=== PATIENT | female | born 1980 | race Caucasian/White ===

== ENCOUNTER → 2017-05-09 13:55 | Outpatient (POV) | payer MEDICARE, SELFPAY ==
[2017-05-09 14:26] VITALS: BP 148/91; PULSE 84; RESP 20; O2SAT 99; BMI 34.4
--- NOTE | 2017-05-09 14:49 | HMH.PAINSOAP ---
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 She also has significant chest pain every day. Her grafts have already occluded so she continues with daily chest pain and shortness of breath with significant anginal symptoms. She has significant peripheral vascular disease and coronary disease with a poor prognosis. She also has low back pain with lumbar radicular symptoms and significant diabetic peripheral neuropathy. We are medically managing with oxycodone 30 mg 5 times a day, Lyrica 150 mg 4 times a day and Valium 5 mg twice a day for palliative care. She says her Valium makes her very sleepy and is requesting Xanax. She did well previously with Xanax. We will discontinue her Valium and switch her to Xanax 0.5 mg twice a day. Her Carrillo and urine drug screen are appropriate. Kaspar #[id number]. We will refill her medications and we can see her back in 4 months. Objective:: Alert and oriented ?3 in no acute distress. Patient does have an antalgic gait. Motor strength of upper and lower remedies is 5/5. There is no gross sensory deficit. Does have tenderness over nonunion sternotomy. 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 Severe peripheral diabetic neuropathy. Severe peripheral vascular disease with coronary disease and poor prognosis. 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 Will give HER-2 months worth of prescriptions. 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
--- NOTE | 2017-05-09 14:52 | P.CONS_ITS ---
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 She also has significant chest pain every day. Her grafts have already occluded so she continues with daily chest pain and shortness of breath with significant anginal symptoms. She has significant peripheral vascular disease and coronary disease with a poor prognosis. She also has low back pain with lumbar radicular symptoms and significant diabetic peripheral neuropathy. We are medically managing with oxycodone 30 mg 5 times a day, Lyrica 150 mg 4 times a day and Valium 5 mg twice a day for palliative care. She says her Valium makes her very sleepy and is requesting Xanax. She did well previously with Xanax. We will discontinue her Valium and switch her to Xanax 0.5 mg twice a day. Her Carrillo and urine drug screen are appropriate. Kaspar # [id number]. We will refill her medications and we can see her back in 4 months. Objective:: Alert and oriented ?3 in no acute distress. Patient does have an antalgic gait. Motor strength of upper and lower remedies is 5/5. There is no gross sensory deficit. Does have tenderness over nonunion sternotomy. 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 Severe peripheral diabetic neuropathy. Severe peripheral vascular disease with coronary disease and poor prognosis. 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 Will give HER-2 months worth of prescriptions. 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
[2017-05-09 15:24] LABS: Amphetamine/Metha Screen,Urine Negative ng/mL (<1000); Barbiturates Screen,Urine Negative ng/mL (<200); Benzodiazepines Screen,Urine Positive ng/mL (200); Cannabinoid Screen,Urine Negative ng/mL (<50); Cocaine Screen,Urine Negative ng/g (<300); Methadone Screen,Urine Negative ng/mL (<300); Opiate Screen,Urine Positive ng/mL (<300); Phencyclidine Screen,Urine Negative ng/mL (<25)
[2017-05-21 14:11] LABS: Oxycodone (GC/MS) 9900 ng/mL (Cutoff=100)
[2017-05-21 19:07] LABS: Opiates Negative (Cutoff=100); Oxymorphone (GC/MS) 3160 ng/mL (Cutoff=100)
== END ==
PROVIDERS: Visit Provider Anesthesiology
DX: M54.16 Radiculopathy, lumbar region (principal); E11.42 Type 2 diabetes mellitus with diabetic polyneuropathy; Z79.899 Other long term (current) drug therapy
CPT/HCPCS: 80305; 80361; 99212; G0480

== ENCOUNTER → 2017-08-01 13:49 | Outpatient (POV) | payer MEDICARE, SELFPAY ==
[2017-08-01 14:05] VITALS: BP 184/100; PULSE 88; RESP 18; BMI 33.8
--- NOTE | 2017-08-01 14:25 | HMH.PAINSOAP ---
[facility] Pain Management SOAP Note Subjective:: Patient is a pleasant 37-year-old white female who presents today for medication refills. 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 She has significant chest pain every day. Her grafts have already occluded so she continues with daily chest pain. She has a poor prognosis for her coronary disease. She also has low back pain with lumbar radiculopathy. We are medically managing her with oxycodone 30 mg 1 tablet p.o. 5 times a day, Lyrica 150 mg 1 p.o. 4 times daily and Xanax 0.5 mg twice a day. She states she is not having any side effects to the medication. She rates her pain an 8 out of 10 today. Patient and I had a long discussion on neuromodulation including doing neurostimulator and intrathecal therapy. Patient is currently on Plavix and is going to be seeing her farm mechanic in several days. She is interested in pursuing something more long-term. And she is going to talk to her farm mechanic about coming off her blood thinners. ROS General: no recent weight change, no fever, no sleep disturbances Respiratory: no cough, no shortness of air, no recurring pulmonary infections Cardiovascular/Peripheral Vascular: No chest pain, No palpitations, no edema, no shortness of breath. Gastrointestinal: no incontinence, normal bowel movements reported Genitourinary: no incontinence Musculoskeletal: Sternal pain, chest pain, back pain, bilateral leg pain Psychiatric: normal mood/ affect Neurological: [denies weakness in extremities], [denies balance issues] Objective:: Physical Exam General: Alert and oriented x3, no acute distress, pleasant and cooperative, [on room air] Lungs: Resps E/U, Symmetrical chest expansion, Eyes: PERRL Musculoskeletal: Flexion and extension of lumbar spine somewhat guarded secondary to pain, deep tendon reflexes normal, strength in upper and lower extremities [5/5], [abnormal gait noted] Neurological: speech clear, shipper equal, no gross sensory deficits Assessment:: Chronic pain syndrome, 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 Severe peripheral diabetic neuropathy. Coronary disease. Degenerative disc disease of lumbar spine with lumbar radiculopathy Plan:: Patient and I discussed the utilization of a neurostimulator for both her sternal and low back and leg pain. Patient is interested in this therapy. Patient has tried and failed everything including surgery, physical therapy, medications, anti-inflammatories. Patient is on Plavix. She is to be seeing her farm mechanic to determine if she can come off of this medication. Patient and I talked about a psychological evaluation and moving forward with the trial process if possible. We will refill her prescriptions oxycodone 30 mg 1 tab p.o. 5 times a day, Lyrica 150 mg 4 times a day and Xanax 0.5 mg twice a day. We will give HER-2 months worth of prescriptions and see her back in 3 months. Patient has been to call us if she is interested in pursuing a trial prior to this. Dr. Shepherd has reviewed her chart and agrees with this plan of care patient's DIPESH #[id number] reviewed and appropriate. Patient will go for urine drug screen today. We will continue to monitor her for compliance. Patient has been prescribed a controlled substance after being counseled on the medication, medication safety, and possible side effects. DIPESH report has been obtained and reviewed prior to prescription and found to be appropriate. Opioid contract was reviewed and signed by the patient, and that they have agreed to all of the terms set forth by our compliance program. This note was dictated using voice recognition software and may contain errors or omissions
--- NOTE | 2017-08-01 14:28 | P.CONS_ITS ---
[facility] Pain Management SOAP Note Subjective:: Patient is a pleasant 37-year-old white female who presents today for medication refills. 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 She has significant chest pain every day. Her grafts have already occluded so she continues with daily chest pain. She has a poor prognosis for her coronary disease. She also has low back pain with lumbar radiculopathy. We are medically managing her with oxycodone 30 mg 1 tablet p.o. 5 times a day, Lyrica 150 mg 1 p.o. 4 times daily and Xanax 0.5 mg twice a day. She states she is not having any side effects to the medication. She rates her pain an 8 out of 10 today. Patient and I had a long discussion on neuromodulation including doing neurostimulator and intrathecal therapy. Patient is currently on Plavix and is going to be seeing her building estimator in several days. She is interested in pursuing something more long-term. And she is going to talk to her building estimator about coming off her blood thinners. ROS General: no recent weight change, no fever, no sleep disturbances Respiratory: no cough, no shortness of air, no recurring pulmonary infections Cardiovascular/Peripheral Vascular: No chest pain, No palpitations, no edema, no shortness of breath. Gastrointestinal: no incontinence, normal bowel movements reported Genitourinary: no incontinence Musculoskeletal: Sternal pain, chest pain, back pain, bilateral leg pain Psychiatric: normal mood/ affect Neurological: [denies weakness in extremities], [denies balance issues] Objective:: Physical Exam General: Alert and oriented x3, no acute distress, pleasant and cooperative, [ on room air] Lungs: Resps E/U, Symmetrical chest expansion, Eyes: PERRL Musculoskeletal: Flexion and extension of lumbar spine somewhat guarded secondary to pain, deep tendon reflexes normal, strength in upper and lower extremities [5/5], [abnormal gait noted] Neurological: 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 Severe peripheral diabetic neuropathy. Coronary disease. Degenerative disc disease of lumbar spine with lumbar radiculopathy Plan:: Patient and I discussed the utilization of a neurostimulator for both her sternal and low back and leg pain. Patient is interested in this therapy. Patient has tried and failed everything including surgery, physical therapy, medications, anti-inflammatories. Patient is on Plavix. She is to be seeing her building estimator to determine if she can come off of this medication. Patient and I talked about a psychological evaluation and moving forward with the trial process if possible. We will refill her prescriptions oxycodone 30 mg 1 tab p.o. 5 times a day, Lyrica 150 mg 4 times a day and Xanax 0.5 mg twice a day. We will give HER-2 months worth of prescriptions and see her back in 3 months. Patient has been to call us if she is interested in pursuing a trial prior to this. Dr. Shepherd has reviewed her chart and agrees with this plan of care patient' s DIPESH #[id number] reviewed and appropriate. Patient will go for urine drug screen today. We will continue to monitor her for compliance. Patient has been prescribed a controlled substance after being counseled on the medication, medication safety, and possible side effects. DIPESH report has been obtained and reviewed prior to prescription and found to be appropriate. Opioid contract was reviewed and signed by the patient, and that the
== END ==
PROVIDERS: Visit Provider Clinical Nurse Specialist Family Health
DX: E11.42 Type 2 diabetes mellitus with diabetic polyneuropathy (principal); G89.4 Chronic pain syndrome; M54.16 Radiculopathy, lumbar region
CPT/HCPCS: 99212

== ENCOUNTER → 2017-10-04 14:46 | Outpatient (CLI) | payer MEDICARE, SELFPAY ==
[2017-10-04 16:38] LABS: Amphetamine/Metha Screen,Urine Negative ng/mL (<1000); Barbiturates Screen,Urine Negative ng/mL (<200); Benzodiazepines Screen,Urine Negative ng/mL (200); Cannabinoid Screen,Urine Negative ng/mL (<50); Cocaine Screen,Urine Negative ng/g (<300); Methadone Screen,Urine Negative ng/mL (<300); Opiate Screen,Urine Positive ng/mL (<300); Phencyclidine Screen,Urine Negative ng/mL (<25)
[2017-10-12 01:09] LABS: Oxycodone (GC/MS) >3000 ng/mL (Cutoff=100)
[2017-10-12 12:25] LABS: Opiates Negative (Cutoff=100); Oxymorphone (GC/MS) >3000 ng/mL (Cutoff=100)
== END ==
PROVIDERS: Visit Provider Clinical Nurse Specialist Family Health
DX: Z79.899 Other long term (current) drug therapy (principal)
CPT/HCPCS: 80305; 80361; 80365; G0480

== ENCOUNTER → 2017-10-31 14:15 | Outpatient (POV) | payer MEDICARE, SELFPAY ==
[2017-10-31 14:24] VITALS: BP 193/94; PULSE 74; RESP 18; O2SAT 98; BMI 33.8
--- NOTE | 2017-10-31 14:37 | HMH.PAINSOAP ---
[facility] Pain Management SOAP Note Subjective:: Patient is a very pleasant 37-year-old white female who presents today for medication refills. Patient is not doing well on her current regimen of oxycodone 30 mg 1 tab p.o. 5 times a day. Patient states that her pain is excruciating she rates it a 9 out of 10. 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 She has significant chest pain every day. Her graft is already occluded so she continues with daily chest pain. She has a poor prognosis for coronary disease. Patient and I had talked about neuromodulation however her tester equipment that she could not come off of her Plavix. We will make some medication changes today. ROS General: no recent weight change, no fever, no sleep disturbances Respiratory: no cough, no shortness of air, no recurring pulmonary infections Cardiovascular/Peripheral Vascular: No chest pain, No palpitations, no edema, no shortness of breath. Gastrointestinal: no incontinence, normal bowel movements reported Genitourinary: no incontinence Musculoskeletal: Sternal pain, chest pain, leg pain Psychiatric: normal mood/ affect Neurological: [denies weakness in extremities], [denies balance issues] Objective:: Physical Exam General: Alert and oriented x3, no acute distress, pleasant and cooperative, [on room air] Lungs: Resps E/U, Symmetrical chest expansion, Eyes: PERRL Musculoskeletal: Flexion and extension of lumbar spine somewhat guarded secondary to pain, deep tendon reflexes normal, strength in upper and lower extremities [5/5], [abnormal gait noted] Neurological: speech clear, manager respiratory care equal, no gross sensory deficits Assessment:: Chronic pain syndrome, 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 4 times daily for breakthrough. We will also continue her on her Lyrica 150 mg 1 p.o. 4 times daily as well as her alprazolam 0.5 mg 1 p.o. twice daily. We will give her 1 month of these medications. We will follow-up with her in 2 weeks. Patient has been instructed to call the office if she experiences any side effects. Dr. Shepherd has reviewed this chart and agrees with this plan of care. Patient's DIPESH #[id number] reviewed and appropriate. Patient's urine drug screen has been appropriate in the past. Patient has been prescribed a controlled substance after being counseled on the medication, medication safety, and possible side effects. DIPESH report has been obtained and reviewed prior to prescription and found to be appropriate. Opioid contract was reviewed and signed by the patient, and that they have agreed to all of the terms set forth by our compliance program.. This note was dictated using voice recognition software and may contain errors or omissions
--- NOTE | 2017-10-31 14:41 | P.CONS_ITS ---
[facility] Pain Management SOAP Note Subjective:: Patient is a very pleasant 37-year-old white female who presents today for medication refills. Patient is not doing well on her current regimen of oxycodone 30 mg 1 tab p.o. 5 times a day. Patient states that her pain is excruciating she rates it a 9 out of 10. 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 She has significant chest pain every day. Her graft is already occluded so she continues with daily chest pain. She has a poor prognosis for coronary disease. 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 We will make some medication changes today. ROS General: no recent weight change, no fever, no sleep disturbances Respiratory: no cough, no shortness of air, no recurring pulmonary infections Cardiovascular/Peripheral Vascular: No chest pain, No palpitations, no edema, no shortness of breath. Gastrointestinal: no incontinence, normal bowel movements reported Genitourinary: no incontinence Musculoskeletal: Sternal pain, chest pain, leg pain Psychiatric: normal mood/ affect Neurological: [denies weakness in extremities], [denies balance issues] Objective:: Physical Exam General: Alert and oriented x3, no acute distress, pleasant and cooperative, [ on room air] Lungs: Resps E/U, Symmetrical chest expansion, Eyes: PERRL Musculoskeletal: Flexion and extension of lumbar spine somewhat guarded secondary to pain, deep tendon reflexes normal, strength in upper and lower extremities [5/5], [abnormal gait noted] Neurological: speech clear, 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 4 times daily for breakthrough. We will also continue her on her Lyrica 150 mg 1 p.o. 4 times daily as well as her alprazolam 0.5 mg 1 p.o. twice daily. We will give her 1 month of these medications. We will follow-up with her in 2 weeks. Patient has been instructed to call the office if she experiences any side effects. Dr. Shepherd has reviewed this chart and agrees with this plan of care. Patient's DIPESH #[id number] reviewed and appropriate. Patient's urine drug screen has been appropriate in the past. Patient has been prescribed a controlled substance after being counseled on the medication, medication safety, and possible side effects. DIPESH report has been obtained and reviewed prior to prescription and found to be appropriate. Opioid contract was reviewed and signed by the patient, and that they have agreed to all of the terms set forth by our compliance program.. This note was dictated using voice recognition software and may contain errors or omissions
== END ==
PROVIDERS: Visit Provider Clinical Nurse Specialist Family Health
DX: E11.42 Type 2 diabetes mellitus with diabetic polyneuropathy (principal); G89.4 Chronic pain syndrome
CPT/HCPCS: 99212

== ENCOUNTER → 2017-11-07 13:02 | Outpatient (POV) | payer MEDICARE, SELFPAY ==
[2017-11-07 13:37] VITALS: BP 213/99; PULSE 88; RESP 18; O2SAT 98; BMI 33.6
--- NOTE | 2017-11-07 15:21 | HMH.PAINSOAP ---
[facility] Pain Management SOAP Note Subjective:: Patient is a very pleasant 37-year-old white female who presents today for follow-up after recent medication changes. Patient is not doing well on her current regimen we change her to fentanyl along with her oxycodone. Patient states that her pain is a 7 out of 10 however she is still having chronic leg pain. Her neuropathy is worsening. 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 She has significant chest pain at times. Her graft has already occluded so continues with daily chest pain. She is a poor prognosis for coronary disease. Patient is currently on Plavix and unable to come off for any kind of interventional methods of management. ROS General: no recent weight change, no fever, no sleep disturbances Respiratory: no cough, no shortness of air, no recurring pulmonary infections Cardiovascular/Peripheral Vascular: Chest pain Gastrointestinal: no incontinence, normal bowel movements reported Genitourinary: no incontinence Musculoskeletal: Chest pain, leg pain Psychiatric: normal mood/ affect Neurological: [denies weakness in extremities], [denies balance issues] Objective:: Physical Exam General: Alert and oriented x3, no acute distress, pleasant and cooperative, [on room air] Lungs: Resps E/U, Symmetrical chest expansion, Eyes: PERRL Musculoskeletal: Flexion and extension of thoracic spine somewhat guarded secondary to pain, deep tendon reflexes normal, strength in upper and lower extremities [5/5], slightly antalgic gait noted Neurological: speech clear, 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 5 times a day. She is to destroy her other prescriptions. We will also take her off her Lyrica and started on gabapentin 300 mg 1 p.o. 3 times daily. I will follow-up with the patient in 1 month. Patient has been instructed to call the office if she has any issues prior to next appointment. Dr. Shepherd is reviewed this chart and agrees with this plan of care. Patient has been prescribed a controlled substance after being counseled on the medication, medication safety, and possible side effects. DIPESH report has been obtained and reviewed prior to prescription and found to be appropriate. Opioid contract was reviewed and signed by the patient, and that they have agreed to all of the terms set forth by our compliance program. This note was dictated using voice recognition software and may contain errors or omissions
--- NOTE | 2017-11-07 15:25 | P.CONS_ITS ---
[facility] Pain Management SOAP Note Subjective:: Patient is a very pleasant 37-year-old white female who presents today for follow-up after recent medication changes. Patient is not doing well on her current regimen we change her to fentanyl along with her oxycodone. Patient states that her pain is a 7 out of 10 however she is still having chronic leg pain. Her neuropathy is worsening. 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 She has significant chest pain at times. Her graft has already occluded so continues with daily chest pain. She is a poor prognosis for coronary disease. Patient is currently on Plavix and unable to come off for any kind of interventional methods of management. ROS General: no recent weight change, no fever, no sleep disturbances Respiratory: no cough, no shortness of air, no recurring pulmonary infections Cardiovascular/Peripheral Vascular: Chest pain Gastrointestinal: no incontinence, normal bowel movements reported Genitourinary: no incontinence Musculoskeletal: Chest pain, leg pain Psychiatric: normal mood/ affect Neurological: [denies weakness in extremities], [denies balance issues] Objective:: Physical Exam General: Alert and oriented x3, no acute distress, pleasant and cooperative, [ on room air] Lungs: Resps E/U, Symmetrical chest expansion, Eyes: PERRL Musculoskeletal: Flexion and extension of thoracic spine somewhat guarded secondary to pain, deep tendon reflexes normal, strength in upper and lower extremities [5/5], slightly antalgic gait noted Neurological: 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 5 times a day. She is to destroy her other prescriptions. We will also take her off her Lyrica and started on gabapentin 300 mg 1 p.o. 3 times daily. I will follow-up with the patient in 1 month. Patient has been instructed to call the office if she has any issues prior to next appointment. Dr. Shepherd is reviewed this chart and agrees with this plan of care. Patient has been prescribed a controlled substance after being counseled on the medication, medication safety, and possible side effects. DIPESH report has been obtained and reviewed prior to prescription and found to be appropriate. Opioid contract was reviewed and signed by the patient, and that they have agreed to all of the terms set forth by our compliance program. This note was dictated using voice recognition software and may contain errors or omissions
== END ==
PROVIDERS: Visit Provider Clinical Nurse Specialist Family Health
DX: S22.20XK Unspecified fracture of sternum, subsequent encounter for fracture with nonunion (principal); Z95.1 Presence of aortocoronary bypass graft; G89.4 Chronic pain syndrome; E11.42 Type 2 diabetes mellitus with diabetic polyneuropathy; I25.10 Atherosclerotic heart disease of native coronary artery without angina pectoris; M51.16 Intervertebral disc disorders with radiculopathy, lumbar region
CPT/HCPCS: 99212; 99213

== ENCOUNTER → 2017-12-05 14:55 | Outpatient (POV) | payer MEDICARE, SELFPAY ==
[2017-12-05 15:14] VITALS: BP 173/100; PULSE 91; RESP 18; O2SAT 98; BMI 33.6
--- NOTE | 2017-12-05 15:36 | HMH.PAINSOAP ---
[facility] Pain Management SOAP Note Subjective:: Patient is a pleasant 37-year-old white female who presents today for follow-up. Patient's doing well on her current regimen of oxycodone 30 mg 1 p.o. 5 times a day and gabapentin 300 mg 1 p.o. 3 times daily. Patient states that switching from Lyrica to gabapentin she is done much better she rates her pain today 6 out of 10 however she is having a pancreatic flare. Patient is nauseous and she is asking for some Zofran we will call her in some Zofran today. Patient also in need of medication refills. Patient's DIPESH #[id number] reviewed and appropriate. 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 Her graft is already occluded and she has daily chest pain. Patient has a poor prognosis for coronary disease. She is currently on Plavix and unable to come off of this for any interventional means. ROS General: no recent weight change, no fever, no sleep disturbances Respiratory: no cough, no shortness of air, no recurring pulmonary infections Cardiovascular/Peripheral Vascular: No chest pain, No palpitations, no edema, no shortness of breath. Gastrointestinal: no incontinence, normal bowel movements reported Genitourinary: no incontinence Musculoskeletal: Abdominal pain, sternal pain Psychiatric: normal mood/ affect, [denies depression], [denies anxiety] Neurological: [denies weakness in extremities], [denies balance issues] Objective:: Physical Exam General: Alert and oriented x3, no acute distress, pleasant and cooperative, [on room air] Lungs: Resps E/U, Symmetrical chest expansion, Eyes: PERRL Musculoskeletal: Flexion and extension of thoracic spine somewhat guarded secondary to pain, deep tendon reflexes normal, strength in upper and lower extremities [5/5], slightly antalgic gait noted Neurological: speech clear, project manager process development equal, no gross sensory deficits Assessment:: Chronic pain syndrome, 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 5 times a day and gabapentin 300 mg 1 p.o. 3 times daily we will also change her to clonazepam 1 mg 1 p.o. twice daily. Follow-up with this patient in 3 months. We will give her 2 months worth of medications and she can pick the third one up in the interim. Patient's been instructed to call the office if she has any issues prior to next appointment. Dr. Shepherd has reviewed this chart and agrees with this plan of care Patient has been prescribed a controlled substance after being counseled on the medication, medication safety, and possible side effects. DIPESH report has been obtained and reviewed prior to prescription and found to be appropriate. Opioid contract was reviewed and signed by the patient, and that they have agreed to all of the terms set forth by our compliance program. This note was dictated using voice recognition software and may contain errors or omissions
--- NOTE | 2017-12-05 15:46 | P.CONS_ITS ---
[facility] Pain Management SOAP Note Subjective:: Patient is a pleasant 37-year-old white female who presents today for follow-up. Patient's doing well on her current regimen of oxycodone 30 mg 1 p.o. 5 times a day and gabapentin 300 mg 1 p.o. 3 times daily. Patient states that switching from Lyrica to gabapentin she is done much better she rates her pain today 6 out of 10 however she is having a pancreatic flare. Patient is nauseous and she is asking for some Zofran we will call her in some Zofran today. Patient also in need of medication refills. Patient's DIPESH #[id number] reviewed and appropriate. 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 Her graft is already oc cluded and she has daily chest pain. Patient has a poor prognosis for coronary disease. She is currently on Plavix and unable to come off of this for any interventional means. ROS General: no recent weight change, no fever, no sleep disturbances Respiratory: no cough, no shortness of air, no recurring pulmonary infections Cardiovascular/Peripheral Vascular: No chest pain, No palpitations, no edema, no shortness of breath. Gastrointestinal: no incontinence, normal bowel movements reported Genitourinary: no incontinence Musculoskeletal: Abdominal pain, sternal pain Psychiatric: normal mood/ affect, [denies depression], [denies anxiety] Neurological: [denies weakness in extremities], [denies balance issues] Objective:: Physical Exam General: Alert and oriented x3, no acute distress, pleasant and cooperative, [on room air] Lungs: Resps E/U, Symmetrical chest expansion, Eyes: PERRL Musculoskeletal: Flexion and extension of thoracic spine somewhat guarded secondary to pain, deep tendon reflexes normal, strength in upper and lower extremities [5/5], slightly antalgic gait noted Neurological: speech clear, electrical plumbing supervisor equal, no gross sensory deficits Assessment:: Chronic pain syndrome, 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 5 times a day and gabapentin 300 mg 1 p.o. 3 times daily we will also change her to clonazepam 1 mg 1 p.o. twice daily. Follow-up with this patient in 3 months. We will give her 2 months worth of medications and she can pick the third one up in the interim. Patient's been instructed to call the office if she has any issues prior to next appointment. Dr. Shepherd has reviewed this chart and agrees with this plan of care Patient has been prescribed a controlled substance after being counseled on the medication, medication safety, and possible side effects. DIPESH report has been obtained and reviewed prior to prescription and found to be appropriate. Opioid contract was reviewed and signed by the patient, and that they have agreed to all of the terms set forth by our compliance program. This note was dictated using voice recognition software and may contain errors or omissions
== END ==
PROVIDERS: Visit Provider Clinical Nurse Specialist Family Health
DX: S22.20XK Unspecified fracture of sternum, subsequent encounter for fracture with nonunion (principal); Z95.1 Presence of aortocoronary bypass graft; E11.42 Type 2 diabetes mellitus with diabetic polyneuropathy; M51.16 Intervertebral disc disorders with radiculopathy, lumbar region; I25.10 Atherosclerotic heart disease of native coronary artery without angina pectoris; Z79.891 Long term (current) use of opiate analgesic; G89.29 Other chronic pain
CPT/HCPCS: 99213

== ENCOUNTER → 2018-03-06 14:01 | Outpatient (POV) | payer MEDICARE, SELFPAY ==
[2018-03-06 14:42] VITALS: BP 180/98; PULSE 87; RESP 18; O2SAT 98; BMI 33.5
--- NOTE | 2018-03-06 14:54 | HMH.PAINSOAP ---
[facility] Pain Management SOAP Note Subjective:: Patient is a pleasant 28-year-old white female who presents today for follow-up. Patient is having a difficult time. Patient is currently on a oxycodone 30 mg 1 p.o. 5 times a day and gabapentin 300 mg 1 p.o. 3 times a day. Patient rates her pain an 8 out of 10 today. Patient has had 2 months worth of abdominal pain. Patient was taken to the ER however was not treated or referred to outside machinist helper. Patient states the pain has been excruciating and she is only been able to eat granola bars and liquids for the last several months. Patient has lost weight since last time I saw her. Patient is being treated for chronic pain secondary to a nonunion sternotomy from previous coronary artery bypass graft. Her graft is already occluded and she has daily chest pain. Patient has a poor prognosis for coronary disease. Patient's last medical records field technician told her there was nothing more he could do for her. Patient is asking for a recommendation to new medical records field technician. Patient is currently on Plavix and has any unable to come off of it for interventional means. ROS General: no recent weight change, no fever, no sleep disturbances Respiratory: no cough, no shortness of air, no recurring pulmonary infections Cardiovascular/Peripheral Vascular: No chest pain, No palpitations, no edema, no shortness of breath. Gastrointestinal: no incontinence, normal bowel movements reported Genitourinary: no incontinence Musculoskeletal: Abdominal pain, sternal pain, back pain Psychiatric: normal mood/ affect Neurological: [denies weakness in extremities], [denies balance issues] Objective:: Physical Exam General: Alert and oriented x3, no acute distress, pleasant and cooperative, [on room air] Lungs: Resps E/U, Symmetrical chest expansion, Eyes: PERRL Musculoskeletal: Flexion and extension of thoracic spine somewhat guarded secondary to pain, deep tendon reflexes normal, strength in upper and lower extremities [5/5], [abnormal gait noted] Neurological: speech clear, student financial aid manager equal, no gross sensory deficits Assessment:: Chronic pain syndrome, 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 5 times a day and gabapentin 300 mg 1 p.o. 3 times daily. We will also refill her clonazepam 1 mg 1 p.o. twice daily. We will follow-up with the patient in 2 months. We will give her 2 months worth of medication. We will refer her to gastroenterology here at [facility]. We will also send her to cardiology with Dr. Tadeo. I believe that that would be beneficial. We will also send her for counseling provided here at [facility]. I believe given her young age and her serious comorbidities that the patient would benefit from this. I will follow-up with her in [address] Shepherd has reviewed the chart and agrees with this plan of care. Patient has been prescribed a controlled substance after being counseled on the medication, medication safety, and possible side effects. DIPESH report has been obtained and reviewed prior to prescription and found to be appropriate. Opioid contract was reviewed and signed by the patient, and that they have agreed to all of the terms set forth by our compliance program. This note was dictated using voice recognition software and may contain errors or omissions
--- NOTE | 2018-03-06 14:58 | P.CONS_ITS ---
[facility] Pain Management SOAP Note Subjective:: Patient is a pleasant 28-year-old white female who presents today for follow-up. Patient is having a difficult time. Patient is currently on a oxycodone 30 mg 1 p.o. 5 times a day and gabapentin 300 mg 1 p.o. 3 times a day. Patient rates her pain an 8 out of 10 today. Patient has had 2 months worth of abdominal pain. Patient was taken to the ER however was not treated or referred to phlebotomy specialist. Patient states the pain has been excruciating and she is only been able to eat granola bars and liquids for the last several months. Patient has lost weight since last time I saw her. Patient is being treated for chronic pain secondary to a nonunion sternotomy from previous coronary artery bypass graft. Her graft is already occluded and she has daily chest pain. Patient has a poor prognosis for coronary disease. Patient's last hims coder told her there was nothing more he could do for her. Patient is asking for a recommendation to new hims coder. Patient is currently on Plavix and has any unable to come off of it for interventional means. ROS General: no recent weight change, no fever, no sleep disturbances Respiratory: no cough, no shortness of air, no recurring pulmonary infections Cardiovascular/Peripheral Vascular: No chest pain, No palpitations, no edema, no shortness of breath. Gastrointestinal: no incontinence, normal bowel movements reported Genitourinary: no incontinence Musculoskeletal: Abdominal pain, sternal pain, back pain Psychiatric: normal mood/ affect Neurological: [denies weakness in extremities], [denies balance issues] Objective:: Physical Exam General: Alert and oriented x3, no acute distress, pleasant and cooperative, [on room air] Lungs: Resps E/U, Symmetrical chest expansion, Eyes: PERRL Musculoskeletal: Flexion and extension of thoracic spine somewhat guarded secondary to pain, deep tendon reflexes normal, strength in upper and lower extremities [5/5], [abnormal gait noted] Neurological: speech clear, drill press set up operator equal, no gross sensory deficits Assessment:: Chronic pain syndrome, 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 5 times a day and gabapentin 300 mg 1 p.o. 3 times daily. We will also refill her clonazepam 1 mg 1 p.o. twice daily. We will follow-up with the patient in 2 months. We will give her 2 months worth of medication. We will refer her to gastroenterology here at [facility]. We will also send her to cardiology with Dr. Tadeo. I believe that that would be beneficial. We will also send her for counseling provided here at [facility]. I believe given her young age and her serious comorbidities that the patient would benefit from this. I will follow-up with her in [address] Shepherd has reviewed the chart and agrees with this plan of care. Patient has been prescribed a controlled substance after being counseled on the medication, medication safety, and possible side effects. DIPESH report has been obtained and reviewed prior to prescription and found to be appropriate. Opioid contract was reviewed and signed by the patient, and that they have agreed to all of the terms set forth by our compliance program. This note was dictated using voice recognition software and may contain errors or omissions
[2018-03-06 16:17] LABS: Amphetamine/Metha Screen,Urine Negative ng/mL (<1000); Barbiturates Screen,Urine Negative ng/mL (<200); Benzodiazepines Screen,Urine Negative ng/mL (<200); Cannabinoid Screen,Urine Negative ng/mL (<50); Cocaine Screen,Urine Negative ng/mL (<300); Methadone Screen,Urine Negative ng/mL (<300); Opiate Screen,Urine Positive ng/mL (<300); Phencyclidine Screen,Urine Negative ng/mL (<25)
[2018-03-12 23:09] LABS: Oxycodone (GC/MS) >3000 ng/mL (Cutoff=100)
[2018-03-13 10:33] LABS: Opiates Negative (Cutoff=100); Oxymorphone (GC/MS) 2988 ng/mL (Cutoff=100)
== END ==
PROVIDERS: PCP Clinical Nurse Specialist Family Health; Visit Provider Clinical Nurse Specialist Family Health
DX: S22.20XK Unspecified fracture of sternum, subsequent encounter for fracture with nonunion (principal); G89.4 Chronic pain syndrome; E11.42 Type 2 diabetes mellitus with diabetic polyneuropathy; I25.10 Atherosclerotic heart disease of native coronary artery without angina pectoris; M51.16 Intervertebral disc disorders with radiculopathy, lumbar region; Z95.1 Presence of aortocoronary bypass graft; Z79.899 Other long term (current) drug therapy
CPT/HCPCS: 80305; 80361; 80365; 99213; G0480

== ENCOUNTER → 2018-03-27 14:36 | Outpatient (POV) | payer MEDICARE, SELFPAY | PROVIDERS: Visit Provider Nurse Practitioner Acute Care | DX: Z00.00 Encounter for general adult medical examination without abnormal findings (principal) ==

== ENCOUNTER → 2018-04-03 08:55 | Outpatient (CLI) | payer MEDICARE, SELFPAY ==
--- NOTE | 2018-04-03 09:01 | US_ITS ---
US abdomen limited History:Right upper quadrant pain, prior cholecystectomy Ordering Physician:Yeimi Weinberg Patient Age: 37 years Comparison:None Findings: Pancreas:Unremarkable. No obvious mass or abnormal fluid collection. No ductal dilatation Liver:No focal liver lesions demonstrated. Homogeneous echogenicity. No intrahepatic biliary ductal dilatation evident Right Kidney:Unremarkable. Normal size and echogenicity. No hydronephrosis Gallbladder:Prior cholecystectomy. Common bile duct is normal at 6 mm. Impression: Prior cholecystectomy otherwise negative right upper quadrant ultrasound
[2018-04-03 10:04] LABS: Hematocrit 41.5 % (37.0-47.0); Hemoglobin 13.6 g/dL (12.2-16.2); Lymphocytes % 30.1 % (10-50); Mean Corpuscular HGB Conc 32.6 g/dL (31.8-35.4); Mean Corpuscular Hemoglobin 28.7 pg (27.0-31.2); Monocytes % 4.4 % (1.7-9.3); Neutrophils % 62.9 % (37.0-80.0); Platelet Count 227 K/mm3 (142-424); Red Blood Count 4.72 M/mm3 (4.20-5.40); White Blood Count 5.8 K/mm3 (4.8-10.8)
[2018-04-03 10:05] LABS: Basophils % 0.5 % (0.1-2.0); Eosinophils # 0.1 K/mm3 (0.0-0.4); Eosinophils % 2.1 % (0.1-12.0); Lymphocytes # 1.7 K/mm3 (0.7-4.5); Monocytes # 0.3 K/mm3 (0.1-1.0); Neutrophils # 3.7 K/mm3 (1.8-7.8)
[2018-04-03 12:25] LABS: Alanine Aminotransferase 17 U/L (12-78); Albumin Level 3.3 gm/dL (3.4-5.0); Albumin/Globulin Ratio 0.7 (1.1-1.8); Alkaline Phosphatase 101 U/L (46-116); Amylase 52 U/L (25-115); Anion Gap 13.5 mEq/L (5-15); Bilirubin,Total 0.2 mg/dL (0.2-1.0); Blood Urea Nitrogen 16 mg/dL (7-18); Calcium 8.8 mg/dL (8.5-10.1); Carbon Dioxide 27 mmol/L (21.0-32.0); Chloride 96 mmol/L (98-107); Creatinine,Serum 0.96 mg/dL (0.55-1.02); Estimated Glomerular Filt Rate 65 ml/min (>60); GFR (African American) 78 ML/MIN (>60); Globulin 4.6 gm/dl (1.3-3.2); Lipase 331 u/L (73-393); Sodium 132 mmol/L (136-145); Total Protein,Serum 7.9 gm/dL (6.4-8.2)
[2018-04-03 13:26] LABS: Glucose 455 mg/dL (74-106)
[2018-04-03 13:49] LABS: Aspartate Amino Transferase 14 U/L (15-37); Potassium 4.5 mmoL/L (3.5-5.1)
--- NOTE | 2018-04-03 17:06 | PC.NURSE ---
critical result called to vijay waller rn. this RN took over shift at [address] lisa in regards to critical lab value on pt. message left for md to return call.
== END ==
PROVIDERS: PCP Nurse Practitioner Family; Visit Provider Nurse Practitioner Acute Care
DX: R10.11 Right upper quadrant pain (principal)
CPT/HCPCS: 36415; 76705; 80053; 82150; 83690; 85025

== ENCOUNTER → 2018-05-01 14:08 | Outpatient (POV) | payer MEDICARE, SELFPAY ==
[2018-05-01 14:22] VITALS: BP 210/114; PULSE 104; RESP 18; O2SAT 98; BMI 16.2
--- NOTE | 2018-05-02 08:56 | HMH.PAINSOAP ---
[facility] Pain Management SOAP Note Subjective:: Patient is a pleasant 37-year-old white female who presents today for follow-up. She is having a difficult time. Patient has a poor prognosis and states that she is ready to consider hospice. Patient is currently on oxycodone 30 mg 1 p.o. 5 times a day and gabapentin 300 mg 1 p.o. 3 times daily. Patient rates her pain a 8 out of 10. She is just status post a cardiac cath. 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 Her graft is already occluded she has daily chest pain along with a poor prognosis for coronary disease. Patient is currently on Plavix and unable to do any interventional treatment at this time. Patient denies side effects to her current regimen however she has tried and failed morphine/Dilaudid/hydrocodon and fentanyl. ROS General: no recent weight change, no fever, no sleep disturbances Respiratory: no cough, no shortness of air, no recurring pulmonary infections Cardiovascular/Peripheral Vascular: No chest pain, No palpitations, no edema, no shortness of breath. Gastrointestinal: no incontinence, normal bowel movements reported Genitourinary: no incontinence Musculoskeletal: Abdominal pain, sternal pain, back pain Psychiatric: Depressed Neurological: [denies weakness in extremities], [denies balance issues] . 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 twice daily with oxycodone 30 mg 1 p.o. up to 4 times a day for breakthrough. I will follow-up with her in 2 weeks and reassess her symptoms at that time to see if this is effective for her. We will also get her set up with telehealth for counseling. Patient is to call us if she has any issues prior to her next appointment. Patient has been prescribed a controlled substance after being counseled on the medication, medication safety, and possible side effects. DIPESH report has been obtained and reviewed prior to prescription and found to be appropriate. Opioid contract was reviewed and signed by the patient, and that they have agreed to all of the terms set forth by our compliance program. Dr. Shepherd has reviewed this note and agrees with this plan of care. This note was dictated using voice recognition software and may contain errors or omissions
--- NOTE | 2018-05-02 08:59 | P.CONS_ITS ---
[facility] Pain Management SOAP Note Subjective:: Patient is a pleasant 37-year-old white female who presents today for follow-up. She is having a difficult time. Patient has a poor prognosis and states that she is ready to consider hospice. Patient is currently on oxycodone 30 mg 1 p.o. 5 times a day and gabapentin 300 mg 1 p.o. 3 times daily. Patient rates her pain a 8 out of 10. She is just status post a cardiac cath. 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 Her graft is already occluded she has daily chest pain along with a poor prognosis for coronary disease. Patient is currently on Plavix and unable to do any interventional treatment at this time. Patient d enies side effects to her current regimen however she has tried and failed morphine/Dilaudid/hydrocodon and fentanyl. ROS General: no recent weight change, no fever, no sleep disturbances Respiratory: no cough, no shortness of air, no recurring pulmonary infections Cardiovascular/Peripheral Vascular: No chest pain, No palpitations, no edema, no shortness of breath. Gastrointestinal: no incontinence, normal bowel movements reported Genitourinary: no incontinence Musculoskeletal: Abdominal pain, sternal pain, back pain Psychiatric: Depressed Neurological: [denies weakness in extremities], [denies balance issues] . 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 twice daily with oxycodone 30 mg 1 p.o. up to 4 times a day for breakthrough. I will follow-up with her in 2 weeks and reassess her symptoms at that time to see if this is effective for her. We will also get her set up with telehealth for counseling. Patient is to call us if she has any issues prior to her next appointment. Patient has been prescribed a controlled substance after being counseled on the medication, medication safety, and possible side effects. DIPESH report has been obtained and reviewed prior to prescription and found to be appropriate. Opioid contract was reviewed and signed by the patient, and that they have agreed to all of the terms set forth by our compliance program. Dr. Shepherd has reviewed this note and agrees with this plan of care. This note was dictated using voice recognition software and may contain errors or omissions
--- NOTE | 2018-05-08 14:49 | PC.NURSE ---
CLONAZEPAM 1MG BID WITH 2 REFILLS FAXED TO [facility] IN [facility]
== END ==
PROVIDERS: Visit Provider Clinical Nurse Specialist Family Health
DX: S22.20XK Unspecified fracture of sternum, subsequent encounter for fracture with nonunion (principal); G89.4 Chronic pain syndrome; E11.42 Type 2 diabetes mellitus with diabetic polyneuropathy; I25.10 Atherosclerotic heart disease of native coronary artery without angina pectoris; M51.16 Intervertebral disc disorders with radiculopathy, lumbar region; Z95.1 Presence of aortocoronary bypass graft; Z95.5 Presence of coronary angioplasty implant and graft
CPT/HCPCS: 99213

== ENCOUNTER → 2018-05-15 13:24 | Outpatient (POV) | payer MEDICARE, SELFPAY ==
[2018-05-15 13:44] VITALS: BP 184/98; PULSE 89; RESP 18; O2SAT 98; BMI 32.2
--- NOTE | 2018-05-16 08:20 | HMH.PAINSOAP ---
[facility] Pain Management SOAP Note Subjective:: Patient is a pleasant 37-year-old white female who presents today for follow-up. She is having a difficult time. Patient has poor prognosis and says that she is almost ready to start considering hospice. She is currently on OxyContin 15 mg 1 p.o. twice daily and oxycodone 30 mg 1 p.o. up to 4 times a day. She rates her pain an 8 out of 10. She is status post a cardiac cath where they discussed implanting a loop recorder however they did not give her many answers in regards to future hope and prognosis. 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 Her graft is already occluded. She has daily chest pain along with a poor prognosis for coronary disease. She is currently on Plavix and unable to do interventional treatment at this time. She denies side effects her current regimen. Patient is also having a lot of joint pain and random swelling in different areas. Patient is looking for a new primary care physician since she is recently moved back into the area. Patient states that she has not been tested for any autoimmune disease. It may be valuable. ROS General: no recent weight change, no fever, no sleep disturbances Respiratory: no cough, no shortness of air, no recurring pulmonary infections Cardiovascular/Peripheral Vascular: Intermittent chest pain, No palpitations, no edema, no shortness of breath. Gastrointestinal: no incontinence, normal bowel movements reported Genitourinary: no incontinence Musculoskeletal: Back pain, abdominal pain, sternal pain Psychiatric: Depressed Neurological: [denies weakness in extremities], [denies balance issues] Objective:: Physical Exam General: Alert and oriented x3, no acute distress, pleasant and cooperative, [on room air] Lungs: Resps E/U, Symmetrical chest expansion, Eyes: PERRL Musculoskeletal: Flexion and extension of lumbar spine somewhat guarded secondary to pain, deep tendon reflexes normal, strength in upper and lower extremities [5/5], [abnormal gait noted] Neurological: speech clear, band attacher equal, no gross sensory deficits Assessment:: Chronic pain syndrome, 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 She is going to continue her current regimen. Patient is going to be seen by a new primary care physician. I will follow-up with her after this. She is been instructed to call the office if she has any issues prior to her next appointment. Dr. Shepherd has reviewed this note and agrees with this plan of care. This note was dictated using voice recognition software and may contain errors or omissions
--- NOTE | 2018-05-16 08:24 | P.CONS_ITS ---
[facility] Pain Management SOAP Note Subjective:: Patient is a pleasant 37-year-old white female who presents today for follow-up. She is having a difficult time. Patient has poor prognosis and says that she is almost ready to start considering hospice. She is currently on OxyContin 15 mg 1 p.o. twice daily and oxycodone 30 mg 1 p.o. up to 4 times a day. She rates her pain an 8 out of 10. She is status post a cardiac cath where they discussed implanting a loop recorder however they did not give her many answers in regards to future hope and prognosis. 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 Her graft is already occluded. She has daily chest pain along with a poor prognosis for coronary disease. She is currently on Plavix and unable to do interventional treatment at this time. She denies side effects her current regimen. Patient is also having a lot of joint pain and random swelling in different areas. Patient is looking for a new primary care physician since she is recently moved back into the area. Patient states that she has not been tested for any autoimmune disease. It may be valuable. ROS General: no recent weight change, no fever, no sleep disturbances Respiratory: no cough, no shortness of air, no recurring pulmonary infections Cardiovascular/Peripheral Vascular: Intermittent chest pain, No palpitations, no edema, no shortness of breath. Gastrointestinal: no incontinence, normal bowel movements reported Genitourinary: no incontinence Musculoskeletal: Back pain, abdominal pain, sternal pain Psychiatric: Depressed Neurological: [denies weakness in extremities], [denies balance issues] Objective:: Physical Exam General: Alert and oriented x3, no acute distress, pleasant and cooperative, [on room air] Lungs: Resps E/U, Symmetrical chest expansion, Eyes: PERRL Musculoskeletal: Flexion and extension of lumbar spine somewhat guarded secondary to pain, deep tendon reflexes normal, strength in upper and lower extremities [5/5], [abnormal gait noted] Neurological: speech clear, city distribution clerk equal, no gross sensory deficits Assessment:: Chronic pain syndrome, 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 She is going to continue her current regimen. Patient is going to be seen by a new primary care physician. I will follow-up with her after this. She is been instructed to call the office if she has any issues prior to her next appointment. Dr. Shepherd has reviewed this note and agrees with this plan of care. This note was dictated using voice recognition software and may contain errors or omissions
== END ==
PROVIDERS: PCP Nurse Practitioner Family; Visit Provider Clinical Nurse Specialist Family Health
DX: E11.42 Type 2 diabetes mellitus with diabetic polyneuropathy (principal); T82.9XXA Unspecified complication of cardiac and vascular prosthetic device, implant and graft, initial encounter; S22.20XK Unspecified fracture of sternum, subsequent encounter for fracture with nonunion; G89.4 Chronic pain syndrome; Z95.5 Presence of coronary angioplasty implant and graft; M51.16 Intervertebral disc disorders with radiculopathy, lumbar region; Z95.1 Presence of aortocoronary bypass graft; I25.10 Atherosclerotic heart disease of native coronary artery without angina pectoris
CPT/HCPCS: 99213

== ENCOUNTER → 2018-05-29 13:38 | Outpatient (POV) | payer MEDICARE, SELFPAY | PROVIDERS: Visit Provider Nurse Practitioner Acute Care | DX: Z00.00 Encounter for general adult medical examination without abnormal findings (principal) ==

== ENCOUNTER → 2018-06-02 09:55 | Outpatient (CLI) | payer MEDICARE, SELFPAY ==
[2018-06-02 10:57] LABS: Basophils % 0.4 % (0.1-2.0); Eosinophils # 0.2 K/mm3 (0.0-0.4); Eosinophils % 3.1 % (0.1-12.0); Hematocrit 41.3 % (37.0-47.0); Hemoglobin 13.8 g/dL (12.2-16.2); Lymphocytes # 1.9 K/mm3 (0.7-4.5); Lymphocytes % 25.1 % (10-50); Mean Corpuscular HGB Conc 33.3 g/dL (31.8-35.4); Mean Corpuscular Hemoglobin 28.9 pg (27.0-31.2); Mean Corpuscular Volume 86.9 fl (81-99); Mean Platelet Volume 8.2 fl (7.4-10.4); Monocytes # 0.3 K/mm3 (0.1-1.0); Monocytes % 4.4 % (1.7-9.3); Platelet Count 249 K/mm3 (142-424); Red Blood Count 4.76 M/mm3 (4.20-5.40); Red Cell Distribution Width 13.2 % (11.5-17.5); White Blood Count 7.5 K/mm3 (4.8-10.8)
[2018-06-02 11:38] LABS: Alanine Aminotransferase 18 U/L (12-78); Albumin Level 3.2 gm/dL (3.4-5.0); Albumin/Globulin Ratio 0.7 (1.1-1.8); Alkaline Phosphatase 85 U/L (46-116); Anion Gap 12.6 mEq/L (5-15); Aspartate Amino Transferase 10 U/L (15-37); Bilirubin,Total 0.2 mg/dL (0.2-1.0); Blood Urea Nitrogen 15 mg/dL (7-18); C-Reactive Protein 1.4 mg/L (0.0-0.9); Calcium 9.2 mg/dL (8.5-10.1); Carbon Dioxide 28 mmol/L (21.0-32.0); Chloride 100 mmol/L (98-107); Chol/HDL Ratio 8.5 (1-3.5); Cholesterol 221 mg/dL (140-200); Creatinine,Serum 1.55 mg/dL (0.55-1.02); Estimated Glomerular Filt Rate 37 ml/min (>60); Free T4 (Free Thyroxine) 1.15 ng/dl (0.76-1.46); GFR (African American) 45 ML/MIN (>60); Globulin 4.4 gm/dl (1.3-3.2); Glucose 245 mg/dL (74-106); HDL Cholesterol 26 mg/dL (29-89); Potassium 4.6 mmoL/L (3.5-5.1); Sodium 136 mmol/L (136-145); Thyroid Stimulating Hormone 3.73 uIU/ml (0.358-3.740); Total Protein,Serum 7.6 gm/dL (6.4-8.2)
[2018-06-02 11:50] LABS: Triglycerides 604 mg/dL (30-200)
[2018-06-02 12:31] LABS: Erythrocyte Sedimentation Rate 85 mm/hr (0-20)
[2018-06-02 13:52] LABS: Hemoglobin A1C 9.4 % (0.0-7.0)
[2018-06-03 11:02] LABS: Hepatitis C Antibody <0.1 s/co ratio (0.0-0.9); RA Latex Turbid. 11.8 IU/mL (0.0-13.9); Vitamin B12 325 pg/mL (232-1245); Vitamin D 25 Hydroxy 9.1 ng/mL (30.0-100.0)
[2018-06-05 14:19] LABS: Anti-Cyclic Citrullinated Pept 7 units (0-19)
[2018-06-06 07:30] LABS: Antinuclear Antibodies, IFA Positive (.)
[2018-06-07 12:51] LABS: HLA-B27 Negative (.)
== END ==
PROVIDERS: Visit Provider Nurse Practitioner Family
DX: E11.40 Type 2 diabetes mellitus with diabetic neuropathy, unspecified (principal); E03.9 Hypothyroidism, unspecified; E55.9 Vitamin D deficiency, unspecified; I25.10 Atherosclerotic heart disease of native coronary artery without angina pectoris; J44.9 Chronic obstructive pulmonary disease, unspecified; R50.81 Fever presenting with conditions classified elsewhere; M45.0 Ankylosing spondylitis of multiple sites in spine
CPT/HCPCS: 36415; 80053; 80061; 82607; 82652; 83036; 84439; 84443; 85025; 85651; 86038; 86140; 86200; 86431; 86812; 87380

== ENCOUNTER → 2018-06-12 12:55 | Outpatient (CLI) | payer MEDICARE, SELFPAY ==
[2018-06-13 09:25] LABS: Complement C3 165 mg/dL (82-167)
[2018-06-13 09:26] LABS: FSH 38.5 mIU/mL (.); LH 22.6 mIU/mL (.)
[2018-06-13 12:39] LABS: Prolactin 15.5 ng/mL (4.8-23.3)
[2018-06-13 14:31] LABS: Sjogren's Anti-SS-A <0.2 AI (0.0-0.9)
[2018-06-13 15:30] LABS: Sjogren's Anti-SS-B <0.2 AI (0.0-0.9)
== END ==
PROVIDERS: Visit Provider Nurse Practitioner Family
DX: R76.8 Other specified abnormal immunological findings in serum (principal); R70.0 Elevated erythrocyte sedimentation rate; R79.82 Elevated C-reactive protein (CRP); R80.9 Proteinuria, unspecified; E22.0 Acromegaly and pituitary gigantism; N18.3 Chronic kidney disease, stage 3 (moderate)
CPT/HCPCS: 36415; 83001; 83002; 84146; 86161; 86235

== ENCOUNTER → 2018-06-15 08:23 | Outpatient (CLI) | payer MEDICARE, MEDICAID, SELFPAY ==
--- NOTE | 2018-06-15 08:39 | MR_ITS ---
MR head/brain wo/w con Ordering Physician: Kenia Joseph Patient Age: 37 years: Female HISTORY: ..REASON: ACROMEGALY Abdomen disease, 15, bone loss. Nausea, vomiting, hair loss illness since 2013. Since previous heart attack. Symptoms are not in worse now with migraine headaches dizziness blurred vision. TECHNIQUE: Pre and postcontrast imaging the brain including pre and postcontrast images through the pituitary/sella Precontrast Multiplanar FLAIR, T1, T2 weighted images along with axial diffusion/ADC imaging performed on 1.5 T. Siemens, MRI. Postcontrast imaging Following 19 mL ProHance T1-weighted images axial & coronal plane performed. COMPARISON :CT head without contrast 07/13/2013. FINDINGS. sella is normal in size, not enlarged. The pituitary is generous in size but remains WNL with flat superior margin.. No superior bulging from the diaphragmatic sella.. There is a area of high signal at the posterior pituitary. Most likely this reflects so-called 'bright spot as seen on today's T1-weighted images-this bright T1 weighted signal thought to reflect storage of vasopressin at posterior neurohypophysis.. This Ovoid homogeneous focus of high T1 weighted signal at posterior pituitary/neurohypophysis measures up to 5.5 mm height x 3.5 mm AP x 5.2 mm wide.. This is slightly larger than typically seen for this entity but still falls within the spectrum. However because of this, would follow-up studies J Neurosurg. 2013;120(2):357-62. doi: 10.3171/2013.11.[id number]. Epub 2012Mar 23. https://thejns.org/view/journals/j-[email or web address]/article-[email or web address] (This articles sites Average size of posterior pituitary bright spot 4.8 x 2.4 mm; but we see today is only slightly larger) This focus becomes obscured on postcontrast studies-this area does not additionally enhance, where as the remainder the pituitary gland enhances which obscures this focus. T2 images at this focus are isointense signal. Again I favor this is merely a generous' posterior pituitary bright spot ' .. The other main differential consideration is a small proteinaceous cyst- such as/debris-filled Ranke pouch cyst remnant...-This relatively benign feature. Since is bright signal at the posterior pituitary slightly more pronounced in generous than typically seen and view of the given history, would suggest Follow-up CTA head with attention to the pituitary & [place] of [place] within 2 -3 months. This would would help support above diagnosis and exclude some other unlikely conditions, such as small lipomatous lesion which conceivably could yield a similar appearance. . Anterior pituitary appears satisfactory an otherwise unremarkable. No separate no discrete pituitary adenoma seen on the postcontrast study. Overall pituitary plump but not enlarged, with flat normal contour diaphragmatic sella. .. Pituitary stalk is midline. And normal. Infundibulum and Hypothalamus normal Optic chiasm unremarkable. Cavernous sinus regions unremarkable. --------- Remainder the brain appears a satisfactory. Cerebral hemispheres reveal no lesions. Question suggestion minor early cerebral atrophy considering young age 37.. Ventricles & basal cisterns appear normal. No significant diffusion images findings.-No recent infarct or ischemia. No Deep white matter lesion on the sensitive FLAIR images. The visualized paranasal sinuses are well-developed with no significant findings.The orbits appear satisfactory. . Mild deviation nasal septum convexity to the right incidentally noted.. The posterior fossa appears normal. Cranial nerve VII and VIII appear normal. IACs unremarkable. . Craniocervical junction satisfactory Only barely evident scant signal reflecting some minor mucosal thickening at mastoid tip air cells bilaterally. Not of significa
[2018-06-15 08:46] LABS: Blood Urea Nitrogen 9 mg/dL (7-18); Creatinine,Serum 0.88 mg/dL (0.55-1.02); Estimated Glomerular Filt Rate 72 ml/min (>60); GFR (African American) 87 ML/MIN (>60)
[2018-06-15 09:45] LABS: Total Protein,Urine Random 45.3 mg/dL (0.0-11.9)
--- NOTE | 2018-06-15 09:59 | HMH.ITSHM ---
Current Home Medications as stated by this patient Sarita Gonzales or u.s. representative. [] MYRBETRIQ SYMBICORT ALBUTEROL DULOXETINE GABAPENTIN ROPINIROLE OXYCODONE LEVOTHYROXINE NOVOLOG CLONAZEPAM NEXIUM NITROGLYCERIN TRESIBA CLOPIDOGREL NEXIUM CRESTOR FUROSEMIDE ISOSORBIDE MONONITRATE RANEXA LISINOPRIL NACOR SEN[place]OT CETIRIZINE HYDROCHLORIDE ZOFRAN HYDRALAZINE HYDROCHLORIDE
[2018-06-15 10:03] LABS: Total Protein 24 Hour,Urine 453 mg/24 hr (40-90); Total Volume,Urine 1000 mL (600-1600)
[2018-06-17 10:14] LABS: Adrenocorticotropic Hormone 62.8 pg/mL (7.2-63.3)
== END ==
PROVIDERS: Visit Provider Nurse Practitioner Family
DX: E22.0 Acromegaly and pituitary gigantism (principal); E11.40 Type 2 diabetes mellitus with diabetic neuropathy, unspecified; M25.50 Pain in unspecified joint; R76.8 Other specified abnormal immunological findings in serum; R70.0 Elevated erythrocyte sedimentation rate; R79.82 Elevated C-reactive protein (CRP); R80.9 Proteinuria, unspecified; N18.3 Chronic kidney disease, stage 3 (moderate); Z79.4 Long term (current) use of insulin
CPT/HCPCS: 36415; 70553; 82024; 82565; 84155; 84520; A9576

== ENCOUNTER → 2018-06-19 11:19 | Outpatient (POV) | payer MEDICARE, MEDICAID, SELFPAY ==
--- NOTE | 2018-06-19 11:57 | HMH.PAINSOAP ---
[facility] Pain Management SOAP Note Subjective:: Patient is a pleasant 37-year-old white female who presents today for follow-up. She is having a lot of tests run by her new primary care physician and she is quite encouraged in this. She rates her pain at 8 out of 10. Patient's currently on OxyContin 15 mg 1 p.o. twice daily and oxycodone 30 mg 1 p.o. 4 times daily. She denies side effects. Patient is still having difficulty sleeping due to pain. Patient has been considering hospice. 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 Patient's current graft is occluded. She has daily chest pain along with poor prognosis for coronary disease she is currently on Plavix ruling out any interventional treatment. ROS General: no recent weight change, no fever, no sleep disturbances Respiratory: no cough, no shortness of air, no recurring pulmonary infections Cardiovascular/Peripheral Vascular: No chest pain, No palpitations, no edema, no shortness of breath. Gastrointestinal: no incontinence, normal bowel movements reported Genitourinary: no incontinence Musculoskeletal: Back pain, pain, sternal pain Psychiatric: normal mood/ affect, [denies depression], [denies anxiety] Neurological: [denies weakness in extremities], [denies balance issues] Objective:: Physical Exam General: Alert and oriented x3, no acute distress, pleasant and cooperative, [on room air] Lungs: Resps E/U, Symmetrical chest expansion, Eyes: PERRL Musculoskeletal: Flexion and extension of lumbar spine somewhat guarded secondary to pain, deep tendon reflexes normal, strength in upper and lower extremities [5/5], [abnormal gait noted] Neurological: speech clear, machine designer equal, no gross sensory deficits Assessment:: Chronic pain syndrome, 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 She will continue her oxycodone 30 mg 1 p.o. 4 times daily. We will see her back in 2 months and reassess her symptoms at that time. She is been instructed to call our office if she has any issues. Patient has been prescribed a controlled substance after being counseled on the medication, medication safety, and possible side effects. DIPESH report has been obtained and reviewed prior to prescription and found to be appropriate. Opioid contract was reviewed and signed by the patient, and that they have agreed to all of the terms set forth by our compliance program. Dr. Shepherd has reviewed this note and agrees with this plan of care. This note was dictated using voice recognition software and may contain errors or omissions
[2018-06-29 09:24] LABS: 6-Acetylmorphine, Unconjugated Negative (Not Estab.); Codeine, Unconjugated Negative ng/mL (10 - 100); Hydrocodone, Unconjugated Negative ng/mL (10 - 100); Hydromorphone, Unconjugated Negative ng/mL (1 - 30); Morphine, Unconjugated Negative ng/mL (21 - 65)
[2018-06-30 08:49] LABS: Dihydrocodeine, Unconjugated Negative (Not Estab.)
--- NOTE | 2018-07-21 09:56 | PC.NURSE ---
clonazepam 1 mg bid with 2 refills faxed to [facility] in [place] per provider order
== END ==
PROVIDERS: PCP Nurse Practitioner Family; Visit Provider Clinical Nurse Specialist Family Health
DX: S22.20XK Unspecified fracture of sternum, subsequent encounter for fracture with nonunion (principal); Y83.2 Surgical operation with anastomosis, bypass or graft as the cause of abnormal reaction of the patient, or of later complication, without mention of misadventure at the time of the procedure; Y71.1 Therapeutic (nonsurgical) and rehabilitative cardiovascular devices associated with adverse incidents; G89.4 Chronic pain syndrome; Z95.1 Presence of aortocoronary bypass graft; M51.16 Intervertebral disc disorders with radiculopathy, lumbar region; E11.42 Type 2 diabetes mellitus with diabetic polyneuropathy; I25.10 Atherosclerotic heart disease of native coronary artery without angina pectoris; Z79.899 Other long term (current) drug therapy
CPT/HCPCS: 36415; 80356; 80361; 80365; 99213; G0480

== ENCOUNTER → 2018-07-04 12:27 | Outpatient (CLI) | payer MEDICARE, MEDICAID, SELFPAY ==
[2018-07-04 12:46] LABS: Blood Urea Nitrogen 11 mg/dL (7-18); Estimated Glomerular Filt Rate 70 ml/min (>60); GFR (African American) 84 ML/MIN (>60)
--- NOTE | 2018-07-04 13:52 | CT_ITS ---
CT angio head INDICATION: ITS.REASON: ACROMEGALY,PATUITARY ABNORMALITY, follow-up abnormal MRI ORDERING PHYSICIAN: Kenia Joseph PATIENT AGE: 37 years COMPARISON: None TECHNIQUE: Axial images are obtained following the bolus administration of 100 mL of Optiray 350 contrast. Sagittal and coronal reformatted images are reviewed as well. All CT scans at the facility use one or more dose reduction, viz: automated exposure control, ma/kV adjustment per patient size (including targeted exams where dose is matched to indication, i.e. head), or iterative reconstruction technique. FINDINGS: There are mild atheromatous changes involving the cavernous portion of the carotid arteries bilaterally. There is minimal area of protrusion involving the cavernous portion of left carotid artery as best seen on series 8 #95 suggesting a small aneurysm or ulceration. Outpouching noted along the posterior aspect of the suprasellar portion of the left carotid artery at 2 mm and may be due to an infundibulum as opposed to a small aneurysm. Would recommend a 3-6 month follow-up CT angiogram to confirm stability of these 2 abnormalities. These abnormalities correspond to the MRI area of question. No enhancing lesions are evident. No obvious pituitary lesions. No enhancing lesions are evident. No evidence of lipomatous lesion within the facility. IMPRESSION: 1. No discrete lesion of the pituitary. 2. 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 Minimal outpouching along the cavernous portion of the left carotid artery laterally which could be due to a small aneurysm of 1 to 2 mm or an ulceration. There are atheromatous changes of the carotids. Recommend 3-[address] angiogram follow-up
== END ==
PROVIDERS: Visit Provider Nurse Practitioner Family
DX: E22.0 Acromegaly and pituitary gigantism (principal); E23.7 Disorder of pituitary gland, unspecified
CPT/HCPCS: 36415; 70496; 82565; 84520; Q9967

== ENCOUNTER → 2018-07-21 12:52 | Outpatient (CLI) | payer MEDICARE, MEDICAID, SELFPAY ==
[2018-07-21 12:54] LABS: Microscopic, Urine URINE MICROSCOPIC (MICROSCOPIC)
[2018-07-21 13:51] LABS: Appearance,Urine CLEAR (Clear); Blood, Urine 2+ (Negative); Color,Urine YELLOW (Yellow); Glucose,Urine (UA) 2+ (Negative); Ketones,Urine Negative (Negative); Leukocyte Esterase,Urine Negative (Negative); Nitrate,Urine Negative (Negative); Protein,Urine 2+ (Negative); Specific Gravity, Urine >= 1.030 (1.005-1.030); Urobilinogen,Urine 0.2 EU/dl (0.2)
[2018-07-21 14:03] LABS: Bilirubin,Urine Negative (Negative)
[2018-07-21 14:11] LABS: Bacteria,Urine 1+ /lpf
== END ==
PROVIDERS: Visit Provider Nurse Practitioner Family
DX: R30.0 Dysuria (principal)
CPT/HCPCS: 81001; 87086

== ENCOUNTER → 2018-09-11 14:37 | Outpatient (CLI) | payer MEDICARE, SELFPAY ==
[2018-09-11 14:42] LABS: Microscopic, Urine URINE MICROSCOPIC (MICROSCOPIC)
[2018-09-11 15:41] LABS: Basophils # 0.1 K/mm3 (0-0.2); Basophils % 0.8 % (0.1-2.0); Eosinophils # 0.2 K/mm3 (0.0-0.4); Eosinophils % 2.8 % (0.1-12.0); Hematocrit 40.5 % (37.0-47.0); Hemoglobin 13.9 g/dL (12.2-16.2); Lymphocytes # 1.8 K/mm3 (0.7-4.5); Lymphocytes % 29.2 % (10-50); Mean Corpuscular HGB Conc 34.3 g/dL (31.8-35.4); Mean Corpuscular Hemoglobin 28.7 pg (27.0-31.2); Mean Corpuscular Volume 83.7 fl (81-99); Monocytes # 0.3 K/mm3 (0.1-1.0); Monocytes % 4.1 % (1.7-9.3); Neutrophils # 3.9 K/mm3 (1.8-7.8); Platelet Count 259 K/mm3 (142-424); Red Blood Count 4.84 M/mm3 (4.20-5.40); White Blood Count 6.2 K/mm3 (4.8-10.8)
[2018-09-11 16:03] LABS: Appearance,Urine SL CLOUDY (Clear); Blood, Urine 2+ (Negative); Color,Urine YELLOW (Yellow); Glucose,Urine (UA) 1+ (Negative); Ketones,Urine TRACE (Negative); Leukocyte Esterase,Urine Negative (Negative); Nitrate,Urine Negative (Negative); PH,Urine 5.5 (5.0-8.5); Protein,Urine 2+ (Negative); Specific Gravity, Urine >= 1.030 (1.005-1.030); Urobilinogen,Urine 0.2 EU/dl (0.2)
[2018-09-11 16:05] LABS: Creatinine,Urine Random 386 mg/dL (20-320); Total Protein,Urine Random 240.8 mg/dL (0.0-11.9)
[2018-09-11 16:11] LABS: Bilirubin,Urine Negative (Negative)
[2018-09-11 16:21] LABS: Bacteria,Urine 4+ /lpf; Mucus,Urine 4+ /lpf
[2018-09-11 18:19] LABS: Albumin Level 3.4 gm/dL (3.4-5.0); Anion Gap 17.6 mEq/L (5-15); Blood Urea Nitrogen 9 mg/dL (7-18); Calcium 9.2 mg/dL (8.5-10.1); Carbon Dioxide 26 mmol/L (21.0-32.0); Chloride 96 mmol/L (98-107); Creatinine,Serum 0.91 mg/dL (0.55-1.02); Estimated Glomerular Filt Rate 68 ml/min (>60); GFR (African American) 83 ML/MIN (>60); Glucose 276 mg/dL (74-106); Phosphorous 4.6 mg/dL (2.4-4.9); Potassium 4.6 mmoL/L (3.5-5.1); Sodium 135 mmol/L (136-145)
[2018-09-15 06:23] LABS: Parathyroid Hormone Intact 37 pg/mL (15-65); Vitamin D 25 Hydroxy 12.1 ng/mL (30.0-100.0)
== END ==
PROVIDERS: Visit Provider Internal Medicine Nephrology
DX: N28.9 Disorder of kidney and ureter, unspecified (principal)
CPT/HCPCS: 36415; 80069; 81001; 82570; 82652; 83970; 84155; 85025; 87086

== ENCOUNTER → 2018-09-18 15:18 | Outpatient (POV) | payer MEDICARE, SELFPAY | PROVIDERS: Visit Provider Internal Medicine Nephrology | DX: Z00.00 Encounter for general adult medical examination without abnormal findings (principal) ==

== ENCOUNTER → 2018-09-21 14:26 | Outpatient (CLI) | payer MEDICARE, SELFPAY ==
--- NOTE | 2018-09-21 14:27 | US_ITS ---
US Arterial Ankle Brachial Ind History: Claudication, current smoker, rest pain ORDERING PHYSICIAN: Jamia Javier APRN PATIENT AGE: 38 years TECHNIQUE: Segmental pressures obtained of both right and left leg. These are compared to brachial blood pressure to yield index at each level sampled including summary BRYAN. The data sheets from the procedure are available in PACS FINDINGS Rest study only performed today No prior studies available for comparison. Blood pressures reported are in millimeters mercury. RIGHT LEG BRYAN = 0.9. RIGHT LEG TBI=0.66 Brachial BP: 140 Thigh BP: 160 Calf BP: 143 Ankle PT: 131 Ankle DP : 147 Digit =94 LEFT LEG BRYAN = 0.8 LEFT LEG TBI= 0.34 Brachial BPD: 142 Thigh BP: 155 Calf BP: 114 Ankle PT:109 Ankle DP: 104 Digit = 48 Pulses and waveforms: Diminished pulses at the dorsalis pedis bilaterally with diminished waveforms distally IMPRESSION: 1. Right BRYAN lower limits of normal. 2. Diminished left BRYAN suggesting mild arterial disease 3. Low left TBI suggesting small vessel disease
== END ==
PROVIDERS: PCP Nurse Practitioner Family; Visit Provider Nurse Practitioner Family
DX: I73.9 Peripheral vascular disease, unspecified (principal)
CPT/HCPCS: 93922

== ENCOUNTER → 2018-09-25 14:02 | Outpatient (POV) | payer MEDICARE, SELFPAY ==
[2018-09-25 14:18] VITALS: BP 200/98; PULSE 98; RESP 18; O2SAT 98; BMI 31.3
--- NOTE | 2018-09-26 08:28 | HMH.PAINSOAP ---
[facility] Pain Management SOAP Note Subjective:: Patient is a pleasant 38-year-old white female who presents today for follow-up and medication refills. Patient has been going through a myriad of tests and specialist. Patient is overall doing all right. She rates her pain a 7 out of 10. She is currently on OxyContin 15 mg 1 p.o. in the morning and 30 mg at nighttime. She is also on oxycodone 30 mg 1 p.o. 4 times a day. She denies side effects from medication. Dipesh #[id number] reviewed and appropriate. Patient and I discussed not making any changes at this time due to her new medication regimen for her gastroparesis. ROS General: no recent weight change, no fever, no sleep disturbances Respiratory: no cough, no shortness of air, no recurring pulmonary infections Cardiovascular/Peripheral Vascular: No chest pain, No palpitations, no edema, no shortness of breath. Gastrointestinal: no incontinence, normal bowel movements reported Genitourinary: no incontinence Musculoskeletal: Sternal pain, abdominal pain Psychiatric: normal mood/ affect Neurological: [denies weakness in extremities], [denies balance issues] Objective:: Physical Exam General: Alert and oriented x3, no acute distress, pleasant and cooperative, [on room air] Lungs: Resps E/U, Symmetrical chest expansion, Eyes: PERRL Musculoskeletal: Flexion and extension of thoracic and lumbar spine somewhat guarded secondary to pain, deep tendon reflexes normal, strength in upper and lower extremities [5/5], [abnormal gait noted] Neurological: speech clear, interlocking and signal 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 in the morning and OxyContin 30 mg 1 p.o. in the evening. She will also continue on her oxycodone 30 mg 1 p.o. 4 times daily. We will see her back in 2 months reassess her symptoms at that time she is been instructed to call the office if she has any issues prior to her next appointment. Patient has been prescribed a controlled substance after being counseled on the medication, medication safety, and possible side effects. DIPESH report has been obtained and reviewed prior to prescription and found to be appropriate. Opioid contract was reviewed and signed by the patient, and that they have agreed to all of the terms set forth by our compliance program. Dr. Shepherd has reviewed this note and agrees with this plan of care. This note was dictated using voice recognition software and may contain errors or omissions
--- NOTE | 2018-09-26 08:31 | P.CONS_ITS ---
[facility] Pain Management SOAP Note Subjective:: Patient is a pleasant 38-year-old white female who presents today for follow-up and medication refills. Patient has been going through a myriad of tests and specialist. Patient is overall doing all right. She rates her pain a 7 out of 10. She is currently on OxyContin 15 mg 1 p.o. in the morning and 30 mg at nighttime. She is also on oxycodone 30 mg 1 p.o. 4 times a day. She denies side effects from medication. Dipesh #[id number] reviewed and appropriate. Patient and I discussed not making any changes at this time due to her new medication regimen for her gastroparesis. ROS General: no recent weight change, no fever, no sleep disturbances Respiratory: no cough, no shortness of air, no recurring pulmonary infections Cardiovascular/Peripheral Vascular: No chest pain, No palpitations, no edema, no shortness of breath. Gastrointestinal: no incontinence, normal bowel movements reported Genitourinary: no incontinence Musculoskeletal: Sternal pain, abdominal pain Psychiatric: normal mood/ affect Neurological: [denies weakness in extremities], [denies balance issues] Objective:: Physical Exam General: Alert and oriented x3, no acute distress, pleasant and cooperative, [on room air] Lungs: Resps E/U, Symmetrical chest expansion, Eyes: PERRL Musculoskeletal: Flexion and extension of thoracic and lumbar spine somewhat guarded secondary to pain, deep tendon reflexes normal, strength in upper and lower extremities [5/5], [abnormal gait noted] Neurological: speech clear, production control specialist equal, no gross sensory deficits Assessment:: Chronic pain syndrome, 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 in the morning and OxyContin 30 mg 1 p.o. in the evening. She will also continue on her oxycodone 30 mg 1 p.o. 4 times daily. We will see her back in 2 months reassess her symptoms at that time she is been instructed to call the office if she has any issues prior to her next appointment. Patient has been prescribed a controlled substance after being counseled on the medication, medication safety, and possible side effects. DIPESH report has been obtained and reviewed prior to prescription and found to be appropriate. Opioid contract was reviewed and signed by the patient, and that they have agreed to all of the terms set forth by our compliance program. Dr. Shepherd has reviewed this note and agrees with this plan of care. This note was dictated using voice recognition software and may contain errors or omissions
== END ==
PROVIDERS: PCP Nurse Practitioner Family; Visit Provider Clinical Nurse Specialist Family Health
DX: S22.20XK Unspecified fracture of sternum, subsequent encounter for fracture with nonunion (principal); G89.29 Other chronic pain; Z95.1 Presence of aortocoronary bypass graft; E11.42 Type 2 diabetes mellitus with diabetic polyneuropathy; I25.10 Atherosclerotic heart disease of native coronary artery without angina pectoris; M51.16 Intervertebral disc disorders with radiculopathy, lumbar region
CPT/HCPCS: 99212

== ENCOUNTER → 2018-09-27 15:09 | Outpatient (POV) | payer MEDICARE, SELFPAY | DX: Z00.00 Encounter for general adult medical examination without abnormal findings (principal) ==

== ENCOUNTER 2018-10-03 00:13 | Emergency (ER) | payer MEDICARE, MEDICAID, SELFPAY ==
[2018-10-03 00:15] VITALS: BP 165/105; PULSE 86; RESP 20; TEMP 36.9; O2SAT 100; BMI 32.5
--- NOTE | 2018-10-03 00:26 | XR_ITS ---
XR tibia fibula LT 2V ORDERING PHYSICIAN : aWgner Cortes MD PATIENT AGE: 38 years GENDER: Female HISTORY:ITS.REASON: fall COMPARISON: TECHNIQUE: 2 views. FINDINGS: Bone density is normal without acute fracture. There are some soft tissue linear calcifications which are likely vascular. Soft tissues are otherwise unremarkable. IMPRESSION: No acute process.
--- NOTE | 2018-10-03 00:26 | XR_ITS ---
XR foot LT min 3V HISTORY: ITS.REASON: fall ORDERING PHYSICIAN: Wagner Cortes MD PATIENT AGE: 38 years COMPARISON: None FINDINGS: No fracture or dislocation. No lytic or blastic change. There is normal mineralization.. The joint spaces are well-preserved. No significant degenerative/arthritic changes. No erosive changes evident. IMPRESSION: Negative, no acute finding
--- NOTE | 2018-10-03 00:50 | CT_ITS ---
CT foot LT wo con INDICATION: ITS.REASON: injury ORDERING PHYSICIAN: Wagner Cortes MD PATIENT AGE: 38 years COMPARISON: None . TECHNIQUE: Axial images are obtained without contrast. Sagittal and coronal reformatted images are reviewed as well. All CT scans at the facility use one or more dose reduction, viz: automated exposure control, ma/kV adjustment per patient size (including targeted exams where dose is matched to indication, i.e. head), or iterative reconstruction technique. FINDINGS: Bone density, joint space and alignment are normal. There is a corticated ossific density adjacent to the proximal lateral cortex of the cuboid bone. This is likely a apophyseal center. There is a another small 2 mm linear ossific or calcific density just posterior to the cuboid bone. This could be from an old injury or related to tendon or ligament. The cortex of the cuboid bone appears intact. There is some hazy prominence of the peroneal longus tendon at the level of the distal fibula. The remainder of the soft tissues appear unremarkable. The anterior talofibular ligament is visualized and appears intact. IMPRESSION: Short linear calcific density posterior to the cuboid is likely related to ligament or tendon attachment and probably not a recent cortical fracture fragment. Possible nonspecific prominence of the peroneal longus tendon which could be from a strain or tenosynovitis. No definite acute fracture. If necessary MRI may be beneficial.
--- NOTE | 2018-10-03 01:17 | HMH.EDLOEX ---
ED Disposition Clinical Impression: Foot sprain Qualifiers: Encounter type: initial encounter Laterality: left Qualified Code(s): S93.602A - Unspecified sprain of left foot, initial encounter Injury, lower leg Qualifiers: Encounter type: initial encounter Laterality: left Qualified Code(s): S89.92XA - Unspecified injury of left lower leg, initial encounter Disposition: Home, Self-Care Condition on Discharge: Good Instructions: DI for Foot Sprain Additional Instructions: ice and see dr salvador and use medsd as directed Referrals: Kenia Joseph APRN [Primary Care Provider] - - Critical Care Critical Care Time: No Attestation: On 10/03/18, the high probability of a clinically significant, sudden or life threatening deterioration of the following system(s) required my full and direct attention, intervention and personal management. The time I documented below is in addition to time spent performing reported procedures but includes the following listed in this critical care notation. Medical Decision Making - Medical Records Medical records reviewed: Yes: I reviewed the patient's medical records. - [place] Inquiry Pt receiving controlled substance: No Vital Signs: 10/03/18 00:15 Temperature 98.4 F Temperature Source Oral Pulse Rate [Right Radial] 86 Respiratory Rate 20 Blood Pressure [Right Arm] 165/105 H Blood Pressure Mean [Right Arm] 125 02 Sat by Pulse Oximetry 100 Orders (Tests/Meds): ED MEDICATIONS Discontinued Medications Generic Name Dose Route Start Last Admin Trade Name Freq PRN Reason Stop Dose Admin Ibuprofen 800 mg 10/03/18 01:43 Motrin 400mg Tablet PO 10/03/18 01:44 ONCE ONE ORDERS Category Date Time Status CT foot LT wo con Stat Cat Scan 10/03/18 00:50 Ordered Fibula/tibia XR left 2 views [XR tibia fibula LT 2V] Exams 10/03/18 00:26 Taken Stat XR foot LT min 3V Stat Exams 10/03/18 00:26 Taken - Radiology Data #1 Image(s): Tib/Fib, Foot/Toes Image Reviewed: Yes I reviewed the patient's radiology image Preliminary Findings: Abnormal (possible fx seen ) - CT Data CT Scan: Other (lt foot) Time Received: 02:[address] Reviewed: Yes: I have viewed the radiologist's interpretation Preliminary Findings: No Fracture Seen Lower Extremity Injury HPI - General Chief Complaint: Extremity Injury, Lower Stated Complaint: Pain in lft leg knee down and ft from fall Time Seen by Provider: 10/03/18 00:30 Mode of Arrival: Wheelchair Source of Information: Patient, Medical Record Limitations: Physical Limitations Description of Symptoms (Recalled from ER Triage Doc. by RN): fall on tuesday after her leg gave out. pt states she is having left foot and lower leg pain. - History of Present Illness HPI Narrative: pt fell with lt lower leg and lt foot injury a few days ago with pain and swelling MD complaint: leg injury, foot injury Onset (ago): day(s) Injury: Left: ankle, foot Type of Injury: unknown Place: home Severity: moderate Context: fall Associated symptoms: able to partially bear weight Other symptoms: none - Related Data Home Medications Medication Instructions Recorded Confirmed budesonide-formoterol HFA 80 2 puff INHALATION DAILY g 03/22/18 09/27/18 mcg-4.5 mcg/actuation aerosol inhaler clonazepam 1 mg tablet 1 mg PO BID 03/22/18 09/27/18 diclofenac 1 % topical gel 2 g TOPICAL QID 03/22/18 09/27/18 ergocalciferol (vitamin D2) 50,000 50,000 unit PO QWEEK 03/22/18 09/27/18 unit capsule esomeprazole magnesium 40 mg 40 mg PO BID cap 03/22/18 09/27/18 capsule,delayed release furosemide 40 mg tablet 40 mg PO DAILY 03/22/18 09/27/18 gabapentin 300 mg capsule 300 mg PO TID 03/22/18 09/27/18 insulin aspart (U-100) 100 unit/mL 30 unit SQ QPM ml 03/22/18 09/27/18 (3 mL) subcutaneous pen insulin degludec (U-100) 100 60 unit SQ DAILY ml 03/22/18 09/27/18 unit/mL (3 mL) subcutaneous pen levothyroxine 200 mcg tablet
[2018-10-03 03:01] VITALS: BP 184/89; PULSE 85; RESP 15; TEMP 37; O2SAT 98
== END 2018-10-03 03:02 | disposition home or self-care (01) ==
PROVIDERS: Emergency Provider Emergency Medicine; PCP Nurse Practitioner Family
DX: S93.602A Unspecified sprain of left foot, initial encounter (principal); S89.92XA Unspecified injury of left lower leg, initial encounter; W01.0XXA Fall on same level from slipping, tripping and stumbling without subsequent striking against object, initial encounter; Y92.019 Unspecified place in single-family (private) house as the place of occurrence of the external cause; E11.9 Type 2 diabetes mellitus without complications; Z79.4 Long term (current) use of insulin; J44.9 Chronic obstructive pulmonary disease, unspecified; K21.9 Gastro-esophageal reflux disease without esophagitis; E03.9 Hypothyroidism, unspecified; M79.7 Fibromyalgia; I25.10 Atherosclerotic heart disease of native coronary artery without angina pectoris; F41.8 Other specified anxiety disorders; Z99.81 Dependence on supplemental oxygen; E78.5 Hyperlipidemia, unspecified; F17.210 Nicotine dependence, cigarettes, uncomplicated
CPT/HCPCS: 73590; 73630; 73700; 99283

== ENCOUNTER → 2018-10-04 08:34 | Outpatient (CLI) | payer MEDICARE, MEDICAID, SELFPAY ==
[2018-10-04 08:38] VITALS: BMI 34.2
[2018-10-04 08:59] VITALS: BP 116/61; PULSE 93; PULSE 96; RESP 16; TEMP 36.6; O2SAT 99
[2018-10-04 09:24] LABS: Basophils % 0.6 % (0.1-2.0); Eosinophils # 0.2 K/mm3 (0.0-0.4); Eosinophils % 3.3 % (0.1-12.0); Hematocrit 40.6 % (37.0-47.0); Lymphocytes # 2.1 K/mm3 (0.7-4.5); Lymphocytes % 29.1 % (10-50); Mean Corpuscular HGB Conc 32.1 g/dL (31.8-35.4); Mean Corpuscular Hemoglobin 28.7 pg (27.0-31.2); Mean Corpuscular Volume 89.4 fl (81-99); Mean Platelet Volume 8.7 fl (7.4-10.4); Monocytes # 0.4 K/mm3 (0.1-1.0); Neutrophils # 4.5 K/mm3 (1.8-7.8); Platelet Count 287 K/mm3 (142-424); Red Blood Count 4.54 M/mm3 (4.20-5.40); White Blood Count 7.3 K/mm3 (4.8-10.8)
[2018-10-04 09:41] LABS: Anion Gap 15.2 mEq/L (5-15); Blood Urea Nitrogen 22 mg/dL (7-18); Calcium 8.6 mg/dL (8.5-10.1); Carbon Dioxide 26 mmol/L (21.0-32.0); Chloride 93 mmol/L (98-107); Creatinine Clearance Estimated 48 mL/min (50-200); Creatinine,Serum 2.44 mg/dL (0.55-1.02); Estimated Glomerular Filt Rate 22 ml/min (>60); GFR (African American) 27 ML/MIN (>60); Sodium 130 mmol/L (136-145)
[2018-10-04 09:44] LABS: Glucose 290 mg/dL (74-106); Potassium 4.2 mmoL/L (3.5-5.1)
--- NOTE | 2018-10-04 10:19 | SUR.PREOP ---
Dr Tadeo notified of creatnine of 2.4. Last creat 0.9 on 09/10/18. Given order to reschedule procedure to Tuesday, give bag of NS and discontinue patients home doses of lasix.
== END ==
LOC: CATHLAB 10-09 09:13 → LAB 10-09 09:24
PROVIDERS: PCP Nurse Practitioner Family; Visit Provider Internal Medicine
DX: Z01.818 Encounter for other preprocedural examination (principal)
CPT/HCPCS: 80048; 85025

== ENCOUNTER → 2018-10-24 11:33 | Outpatient (POV) | payer MEDICARE, SELFPAY ==
[2018-10-24 12:08] VITALS: BP 198/87; PULSE 98; RESP 18; O2SAT 98; BMI 33.5
[2018-10-24 13:40] LABS: Amphetamine/Metha Screen,Urine Negative ng/mL (<1000); Barbiturates Screen,Urine Negative ng/mL (<200); Benzodiazepines Screen,Urine Negative ng/mL (<200); Cannabinoid Screen,Urine Negative ng/mL (<50); Cocaine Screen,Urine Negative ng/mL (<300); Methadone Screen,Urine Negative ng/mL (<300); Opiate Screen,Urine Positive ng/mL (<300); Phencyclidine Screen,Urine Negative ng/mL (<25)
--- NOTE | 2018-10-24 14:51 | HMH.PAINSOAP ---
[facility] Pain Management SOAP Note Subjective:: Patient is a pleasant 38-year-old white female who presents today to discuss her recent pain regimen she is currently on OxyContin 15 mg in the morning and OxyContin 30 mg at nighttime with oxycodone 30 mg 1 p.o. 4 times daily. Patient is having still quite a bit of pain she rates the pain a 7 out of 10. She is recently been told by cardiology that she has complete blockages in bilateral legs and there has been a discussion about amputation. 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 Patient states that she has been approached about hospice however she is not ready to make that commitment at this time. She is working with her primary care physician as well as cardiology and podiatry. Patient states that the medical record administrator was ordering her compounding cream. I do believe that would be beneficial. Dipesh reviewed and appropriate. Patient does have a duplicate order on her Dipesh the pharmacy was contacted and this was a mistake entry. Patient's urine drug screens have been appropriate. Patient and I discussed potentially switching to fentanyl again. She would like to try this again. Patient is going to be seeing a counselor for therapy and discuss her depression. ROS General: no recent weight change, no fever, no sleep disturbances Respiratory: no cough, no shortness of air, no recurring pulmonary infections Cardiovascular/Peripheral Vascular: Intermittent chest pain, No palpitations, no edema, no shortness of breath. Gastrointestinal: no incontinence, normal bowel movements reported Genitourinary: no incontinence Musculoskeletal: Chest pain, back pain, leg pain, generalized pain Psychiatric: Depressed at times Neurological: Weakness in bilateral lower extremities, [denies balance issues] Objective:: Physical Exam General: Alert and oriented x3, no acute distress, pleasant and cooperative, [on room air] Lungs: Resps E/U, Symmetrical chest expansion, Eyes: PERRL Musculoskeletal: Flexion and extension of lumbar spine somewhat guarded secondary to pain, deep tendon reflexes normal, strength in upper 5/5 and lower extremities [4/5], [abnormal gait noted] Neurological: speech clear, proof operator equal, no gross sensory deficits Assessment:: chronic pain syndrome, nonunion of sternotomy, vascular disease, degenerative disc disease lumbar spine with lumbar radiculopathy Plan:: After speaking with Dr. Shepherd We will switch her off of the OxyContin and start her on a fentanyl 25 mcg/h patch 1 every 72 hours and continue her oxycodone 30 mg 1 p.o. 4 times daily. We will see her back in 2 weeks reassess her symptoms at that time she is been instructed to call the office if she has any issues with this. Patient has been prescribed a controlled substance after being counseled on the medication, medication safety, and possible side effects. DIPESH report has been obtained and reviewed prior to prescription and found to be appropriate. Opioid contract was reviewed and signed by the patient, and that they have agreed to all of the terms set forth by our compliance program. Dr. Shepherd has reviewed this note and agrees with this plan of care. This note was dictated using voice recognition software and may contain errors or omissions
--- NOTE | 2018-10-24 14:54 | P.CONS_ITS ---
[facility] Pain Management SOAP Note Subjective:: Patient is a pleasant 38-year-old white female who presents today to discuss her recent pain regimen she is currently on OxyContin 15 mg in the morning and OxyContin 30 mg at nighttime with oxycodone 30 mg 1 p.o. 4 times daily. Patient is having still quite a bit of pain she rates the pain a 7 out of 10. She is recently been told by cardiology that she has complete blockages in bilateral legs and there has been a discussion about amputation. 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 Patient states that she has been approached about hospice however she is not ready to make that commitment at this time. She is working with her primary care physician as well as cardiology and podiatry. Patient states that the pound keeper was ordering her compounding cream. I do believe that would be beneficial. Dipesh reviewed and appropriate. Patient does have a duplicate order on her Dipesh the pharmacy was contacted and this was a mistake entry. Patient's urine drug screens have been appropriate. Patient and I discussed potentially switching to fentanyl again. She would like to try this again. Patient is going to be seeing a counselor for therapy and discuss her depression. ROS General: no recent weight change, no fever, no sleep disturbances Respiratory: no cough, no shortness of air, no recurring pulmonary infections Cardiovascular/Peripheral Vascular: Intermittent chest pain, No palpitations, no edema, no shortness of breath. Gastrointestinal: no incontinence, normal bowel movements reported Genitourinary: no incontinence Musculoskeletal: Chest pain, back pain, leg pain, generalized pain Psychiatric: Depressed at times Neurological: Weakness in bilateral lower extremities, [denies balance issues] Objective:: Physical Exam General: Alert and oriented x3, no acute distress, pleasant and cooperative, [on room air] Lungs: Resps E/U, Symmetrical chest expansion, Eyes: PERRL Musculoskeletal: Flexion and extension of lumbar spine somewhat guarded secondary to pain, deep tendon reflexes normal, strength in upper 5/5 and lower extremities [4/5], [abnormal gait noted] Neurological: speech clear, defect repairer glassware equal, no gross sensory deficits Assessment:: chronic pain syndrome, nonunion of sternotomy, vascular disease, degenerative disc disease lumbar spine with lumbar radiculopathy Plan:: After speaking with Dr. Shepherd We will switch her off of the OxyContin and start her on a fentanyl 25 mcg/h patch 1 every 72 hours and continue her oxycodone 30 mg 1 p.o. 4 times daily. We will see her back in 2 weeks reassess her symptoms at that time she is been instructed to call the office if she has any issues with this. Patient has been prescribed a controlled substance after being counseled on the medication, medication safety, and possible side effects. DIPESH report has been obtained and reviewed prior to prescription and found to be appropriate. Opioid contract was reviewed and signed by the patient, and that they have agreed to all of the terms set forth by our compliance program. Dr. Shepherd has reviewed this note and agrees with this plan of care. This note was dictated using voice recognition software and may contain errors or omissions
[2018-10-27 01:08] LABS: Oxycodone (GC/MS) >3000 ng/mL (Cutoff=100)
[2018-10-27 10:31] LABS: Opiates Negative (Cutoff=100); Oxymorphone (GC/MS) >3000 ng/mL (Cutoff=100)
== END ==
PROVIDERS: PCP Nurse Practitioner Family; Visit Provider Clinical Nurse Specialist Family Health
DX: I99.9 Unspecified disorder of circulatory system (principal); M51.36 Other intervertebral disc degeneration, lumbar region; S22.20XK Unspecified fracture of sternum, subsequent encounter for fracture with nonunion; Z79.899 Other long term (current) drug therapy
CPT/HCPCS: 80305; 80361; 80365; 99212; G0480

== ENCOUNTER → 2018-11-06 13:19 | Outpatient (POV) | payer MEDICARE, SELFPAY ==
[2018-11-06 13:28] VITALS: BP 169/99; PULSE 82; RESP 18; O2SAT 98; BMI 33.7
--- NOTE | 2018-11-14 10:06 | P.CONS_ITS ---
[facility] Pain Management SOAP Note Subjective:: She is a pleasant 38-year-old white female who presents today for follow-up after switching her medications. She is currently on fentanyl 25 mcg every 72 hours and oxycodone for breakthrough. Patient is doing well with the fentanyl she states that helping with her pain more than her long-acting medications did previously. We discussed increasing the fentanyl dose. She rates her pain today 6 out of 10. She denies side effects to this medication. ROS General: no recent weight change, no fever, no sleep disturbances Respiratory: no cough, no shortness of air, no recurring pulmonary infections Cardiovascular/Peripheral Vascular: No chest pain, No palpitations, no edema, no shortness of breath. Gastrointestinal: no incontinence, normal bowel movements reported Genitourinary: no incontinence Musculoskeletal: Sternal pain and abdominal pain and leg pain Psychiatric: normal mood/ affect Neurological: [denies weakness in extremities], [denies balance issues] Objective:: Physical Exam General: Alert and oriented x3, no acute distress, pleasant and cooperative, [on room air] Lungs: Resps E/U, Symmetrical chest expansion, Eyes: PERRL Musculoskeletal: Flexion and extension of thoracic and lumbar spine somewhat guarded secondary to pain, deep tendon reflexes normal, strength in upper and lower extremities [5/5], [abnormal gait noted] Neurological: speech clear, clinical account liaison equal, no gross sensory deficits Assessment:: Degenerative disc disease cervical and lumbar spine with lumbar radiculopathy pain secondary to peripheral vascular disease along with chronic pain syndrome and 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 Is been instructed to call the office if she has any issues prior to her next appointment. Dr. Shepherd has reviewed this note and agrees with this plan of care. This note was dictated using voice recognition software and may contain errors or omissions Pain Management Hx Components *Have you ever received a pneumonia vaccine?: No *Have you received a flu vaccine this season?: No - *Social History *Occupational Status:: disabled *Travel in the last 8 weeks: None
== END ==
PROVIDERS: PCP Nurse Practitioner Family; Visit Provider Clinical Nurse Specialist Family Health
DX: M50.30 Other cervical disc degeneration, unspecified cervical region (principal); M51.16 Intervertebral disc disorders with radiculopathy, lumbar region; I73.9 Peripheral vascular disease, unspecified; S22.20XK Unspecified fracture of sternum, subsequent encounter for fracture with nonunion; G89.4 Chronic pain syndrome
CPT/HCPCS: 99212

== ENCOUNTER → 2018-11-20 08:51 | Outpatient (POV) | payer MEDICARE, SELFPAY | PROVIDERS: PCP Nurse Practitioner Family; Visit Provider Nurse Practitioner Family | DX: Z00.00 Encounter for general adult medical examination without abnormal findings (principal) ==

== ENCOUNTER → 2018-12-04 13:45 | Outpatient (POV) | payer MEDICARE, SELFPAY ==
[2018-12-04 14:14] VITALS: BP 187/97; PULSE 88; RESP 18; O2SAT 98; BMI 34.2
--- NOTE | 2018-12-04 15:24 | HMH.PAINSOAP ---
[facility] Pain Management SOAP Note Subjective:: Patient is a 38-year-old white female who presents today for follow-up. Patient is currently being treated for pain issues. She has cervical and lumbar degeneration with radiculopathy along with severe peripheral arterial disease bilateral lower extremities. She has been told just recently that there was no ability to fix her left leg and she is facing amputation. Patient is currently on fentanyl along with oxycodone at this point we discussed her high morphine equivalent. Working to try to decrease it today. Patient still rates her pain a 6 out of 10. [facility] #[id number] reviewed. Patient is also seeing a mental health professional. I did briefly discuss potentially palliative or hospice care with the patient. She would like to try to decrease her morphine equivalents to see if she can continue with us at this time. ROS General: no recent weight change, no fever, no sleep disturbances Respiratory: no cough, no shortness of air, no recurring pulmonary infections Cardiovascular/Peripheral Vascular: No chest pain, No palpitations, no edema, no shortness of breath. Gastrointestinal: no incontinence, normal bowel movements reported Genitourinary: no incontinence Musculoskeletal: Sternal pain, bilateral leg pain, back pain Psychiatric: Depressed Neurological: [denies weakness in extremities], [denies balance issues] Objective:: Physical Exam General: Alert and oriented x3, no acute distress, pleasant and cooperative, [on room air] Lungs: Resps E/U, Symmetrical chest expansion, Eyes: PERRL Musculoskeletal: Flexion and extension of lumbar spine somewhat guarded secondary to pain, deep tendon reflexes normal, strength in upper and lower extremities [5/5], [abnormal gait noted] Neurological: speech clear, cylinder machine operator equal, no gross sensory deficits Assessment:: Degenerative disc disease cervical and lumbar spine with lumbar radiculopathy pain secondary to peripheral vascular disease along with chronic pain syndrome and 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 Shepherd has reviewed this note and agrees with this plan of care. This note was dictated using voice recognition software and may contain errors or omissions Plan:: After speaking with Dr. Shepherd we will discontinue the fentanyl and oxycodone change her to Dilaudid 8 mg 1 p.o. 6 times a day. We will see her back in 1 week to see if this was beneficial for her. Patient's been instructed to call the office if she has any issues prior to her next appointment. Patient has been prescribed a controlled substance after being counseled on the medication, medication safety, and possible side effects. DIPESH report has been obtained and reviewed prior to prescription and found to be appropriate. Opioid contract was reviewed and signed by the patient, and that they have agreed to all of the terms set forth by our compliance program. Dr. Shepherd has reviewed this note and agrees with this plan of care. This note was dictated using voice recognition software and may contain errors or omissions Pain Management Hx Components *Have you ever received a pneumonia vaccine?: No *Have you received a flu vaccine this season?: No - *Social History *Occupational Status:: other *Travel in the last 8 weeks: None
--- NOTE | 2018-12-04 15:27 | P.CONS_ITS ---
[facility] Pain Management SOAP Note Subjective:: Patient is a 38-year-old white female who presents today for follow-up. Patient is currently being treated for pain issues. She has cervical and lumbar degeneration with radiculopathy along with severe peripheral arterial disease bilateral lower extremities. She has been told just recently that there was no ability to fix her left leg and she is facing amputation. Patient is currently on fentanyl along with oxycodone at this point we discussed her high morphine equivalent. Working to try to decrease it today. Patient still rates her pain a 6 out of 10. [facility] #[id number] reviewed. Patient is also seeing a mental health professional. I did briefly discuss potentially palliative or hospice care with the patient. She would like to try to decrease her morphine equivalents to see if she can continue with us at this time. ROS General: no recent weight change, no fever, no sleep disturbances Respiratory: no cough, no shortness of air, no recurring pulmonary infections Cardiovascular/Peripheral Vascular: No chest pain, No palpitations, no edema, no shortness of breath. Gastrointestinal: no incontinence, normal bowel movements reported Genitourinary: no incontinence Musculoskeletal: Sternal pain, bilateral leg pain, back pain Psychiatric: Depressed Neurological: [denies weakness in extremities], [denies balance issues] Objective:: Physical Exam General: Alert and oriented x3, no acute distress, pleasant and cooperative, [on room air] Lungs: Resps E/U, Symmetrical chest expansion, Eyes: PERRL Musculoskeletal: Flexion and extension of lumbar spine somewhat guarded secondary to pain, deep tendon reflexes normal, strength in upper and lower extremities [5/5], [abnormal gait noted] Neurological: speech clear, fabrication inspector equal, no gross sensory deficits Assessment:: Degenerative disc disease cervical and lumbar spine with lumbar radiculopathy pain secondary to peripheral vascular disease along with chronic pain syndrome and 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 Shepherd has reviewed this note and agrees with this plan of care. This note was dictated using voice recognition software and may contain errors or omissions Plan:: After speaking with Dr. Shepherd we will discontinue the fentanyl and oxycodone change her to Dilaudid 8 mg 1 p.o. 6 times a day. We will see her back in 1 week to see if this was beneficial for her. Patient's been instructed to call the office if she has any issues prior to her next appointment. Patient has been prescribed a controlled substance after being counseled on the medication, medication safety, and possible side effects. DIPESH report has been obtained and reviewed prior to prescription and found to be appropriate. Opioid contract was reviewed and signed by the patient, and that they have agreed to all of the terms set forth by our compliance program. Dr. Shepherd has reviewed this note and agrees with this plan of care. This note was dictated using voice recognition software and may contain errors or omissions Pain Management Hx Components *Have you ever received a pneumonia vaccine?: No *Have you received a flu vaccine this season?: No - *Social History *Occupational Status:: other *Travel in the last 8 weeks: None
== END ==
PROVIDERS: PCP Nurse Practitioner Family; Visit Provider Clinical Nurse Specialist Family Health
DX: I73.9 Peripheral vascular disease, unspecified; M50.30 Other cervical disc degeneration, unspecified cervical region; M51.16 Intervertebral disc disorders with radiculopathy, lumbar region; S22.20XK Unspecified fracture of sternum, subsequent encounter for fracture with nonunion
CPT/HCPCS: 99212

== ENCOUNTER → 2018-12-12 08:32 | Outpatient (POV) | payer MEDICARE, SELFPAY ==
--- NOTE | 2018-12-12 08:54 | HMH.PAINSOAP ---
[facility] Pain Management SOAP Note Subjective:: Patient is a pleasant 38-year-old white female who presents today to discuss her recent changes in medication. Patient did not tolerate them well. She states that she felt oversedated. She discontinued the use of the Dilaudid. We we will change her back to fentanyl oxycodone regimen however we discussed that we need to keep her morphine equivalent around 200 she understands this. Patient brought the Dilaudid to be destroyed. Patient and I have discussed hospice and palliative care in the past. Patient has quite a few chronic issues that potentially would support this. Patient is uninterested at this time. Patient is being treated for pain secondary to cervical and lumbar degeneration with radiculopathy along with severe peripheral arterial disease bilateral lower extremities. 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 Patient is facing amputation of her left leg. Patient is currently rating her pain a 6 out of 10. [facility] #[id number] reviewed and appropriate. Her urine drug screens have been appropriate. Patient has been seeing psych ROS General: no recent weight change, no fever, no sleep disturbances Respiratory: no cough, no shortness of air, no recurring pulmonary infections Cardiovascular/Peripheral Vascular: No chest pain, No palpitations, no edema, no shortness of breath. Gastrointestinal: no incontinence, normal bowel movements reported Genitourinary: no incontinence Musculoskeletal: Leg pain Psychiatric: Depressed Neurological: [denies weakness in extremities], [denies balance issues] Objective:: Physical Exam General: Alert and oriented x3, no acute distress, pleasant and cooperative, [on room air] Lungs: Resps E/U, Symmetrical chest expansion, Eyes: PERRL Musculoskeletal: Flexion and extension of lumbar spine somewhat guarded secondary to pain, deep tendon reflexes normal, strength in upper and lower extremities [5/5], [abnormal gait noted] Neurological: speech clear, machine cloth examiner equal, no gross sensory deficits Assessment:: 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 We will decrease her fentanyl to 25 mcg/h every 72 hours and decrease her oxycodone to 15 mg up to 6 times a day. This will decrease her morphine equivalent. I will see her back in 1 month reassess her symptoms at that time she is been instructed to call the office if she has any issues prior to her next appointment. Dr. Shepherd is reviewed this chart and agrees with this plan of care. Patient has been prescribed a controlled substance after being counseled on the medication, medication safety, and possible side effects. DIPESH report has been obtained and reviewed prior to prescription and found to be appropriate. Opioid contract was reviewed and signed by the patient, and that they have agreed to all of the terms set forth by our compliance program. Pain Management Hx Components *Have you ever received a pneumonia vaccine?: No *Have you received a flu vaccine this season?: No - *Social History *Occupational Status:: other *Travel in the last 8 weeks: None
--- NOTE | 2018-12-12 08:58 | P.CONS_ITS ---
[facility] Pain Management SOAP Note Subjective:: Patient is a pleasant 38-year-old white female who presents today to discuss her recent changes in medication. Patient did not tolerate them well. She states that she felt oversedated. She discontinued the use of the Dilaudid. We we will change her back to fentanyl oxycodone regimen however we discussed that we need to keep her morphine equivalent around 200 she understands this. Patient brought the Dilaudid to be destroyed. Patient and I have discussed hospice and palliative care in the past. Patient has quite a few chronic issues that potentially would support this. Patient is uninterested at this time. Patient is being treated for pain secondary to cervical and lumbar degeneration with radiculopathy along with severe peripheral arterial disease bilateral lower extremities. 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 Patient is facing amputation of her left leg. Patient is currently rating her pain a 6 out of 10. [facility] [place] #[id number] reviewed and appropriate. Her urine drug screens have been appropriate. Patient has been seeing psych ROS General: no recent weight change, no fever, no sleep disturbances Respiratory: no cough, no shortness of air, no recurring pulmonary infections Cardiovascular/Peripheral Vascular: No chest pain, No palpitations, no edema, no shortness of breath. Gastrointestinal: no incontinence, normal bowel movements reported Genitourinary: no incontinence Musculoskeletal: Leg pain Psychiatric: Depressed Neurological: [denies weakness in extremities], [denies balance issues] Objective:: Physical Exam General: Alert and oriented x3, no acute distress, pleasant and cooperative, [on room air] Lungs: Resps E/U, Symmetrical chest expansion, Eyes: PERRL Musculoskeletal: Flexion and extension of lumbar spine somewhat guarded secondary to pain, deep tendon reflexes normal, strength in upper and lower ext remities [5/5], [abnormal gait noted] Neurological: speech clear, forensic psychiatrist equal, no gross sensory deficits Assessment:: 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 We will decrease her fentanyl to 25 mcg/h every 72 hours and decrease her oxycodone to 15 mg up to 6 times a day. This will decrease her morphine equivalent. I will see her back in 1 month reassess her symptoms at that time she is been instructed to call the office if she has any issues prior to her next appointment. Dr. Shepherd is reviewed this chart and agrees with this plan of care. Patient has been prescribed a controlled substance after being counseled on the medication, medication safety, and possible side effects. DIPESH report has been obtained and reviewed prior to prescription and found to be appropriate. Opioid contract was reviewed and signed by the patient, and that they have agreed to all of the terms set forth by our compliance program. Pain Management [employer] *Have you ever received a pneumonia vaccine?: No *Have you received a flu vaccine this season?: No - *Social History *Occupational Status:: other *Travel in the last 8 weeks: None
[2018-12-12 09:05] VITALS: BP 185/100; PULSE 77; RESP 18; O2SAT 98; BMI 32.8
--- NOTE | 2018-12-19 11:12 | PC.NURSE ---
2 REFILLS FOR GABAPENTIN 300MG TID FAXED TO [facility] IN [place] PER PROVIDER ORDER
== END ==
PROVIDERS: PCP Nurse Practitioner Family; Visit Provider Clinical Nurse Specialist Family Health
DX: M50.10 Cervical disc disorder with radiculopathy, unspecified cervical region (principal); I73.9 Peripheral vascular disease, unspecified; G89.4 Chronic pain syndrome; S22.20XK Unspecified fracture of sternum, subsequent encounter for fracture with nonunion
CPT/HCPCS: 99212

== ENCOUNTER → 2019-01-09 08:47 | Outpatient (POV) | payer MEDICARE, SELFPAY ==
[2019-01-09 08:59] VITALS: BP 146/98; PULSE 103; RESP 18; O2SAT 98; BMI 33.5
--- NOTE | 2019-01-09 09:41 | HMH.PAINSOAP ---
[facility] Pain Management SOAP Note Subjective:: Patient is a pleasant 38-year-old white female who presents today for medication refills. She is being treated for pain secondary to peripheral arterial disease along with a nonhealing sternotomy and chronic pain syndrome. She is currently on fentanyl 25 mcg every 72 hours and oxycodone 15 mg up to 6 times a day. Her current morphine equivalent is 195. She is also on gabapentin 300 mg 1 p.o. 3 times daily. Patient denies side effects or medication. [facility] [place] #[id number] reviewed and appropriate. She would like to be switched back to Xanax today. Patient and I discussed that since this is for her anxiety I would feel more comfortable if she sees a psychologist for recommendations. We will send her to Dr. Santana. She rates her pain today a 7 out of 10. ROS General: no recent weight change, no fever, no sleep disturbances Respiratory: no cough, no shortness of air, no recurring pulmonary infections Cardiovascular/Peripheral Vascular: No chest pain, No palpitations, no edema, no shortness of breath. Gastrointestinal: no incontinence, normal bowel movements reported Genitourinary: no incontinence Musculoskeletal: Sternal pain, chest pain, leg pain Psychiatric: normal mood/ affect Neurological: [denies weakness in extremities], [denies balance issues] Objective:: Physical Exam General: Alert and oriented x3, no acute distress, pleasant and cooperative, [on room air] Lungs: Resps E/U, Symmetrical chest expansion, Eyes: PERRL Musculoskeletal: Flexion and extension of thoracic and lumbar spine somewhat guarded secondary to pain, deep tendon reflexes normal, strength in upper and lower extremities [5/5], [abnormal gait noted] Neurological: speech clear, hydraulic bull riveter operator equal, no gross sensory deficits Assessment:: Degenerative disc disease cervical lumbar spine with lumbar radiculopathy pain secondary to peripheral vascular disease/peripheral arterial disease along with chronic pain syndrome 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 6 times a day and fentanyl 25 mcg every 72 hours we will give her 2 months with medication she can cloth picker her third month in the interim. Also set her up with Dr. Hernandez for a psychological evaluation and determination about her Xanax. Dr. Shepherd has reviewed this note and agrees with this plan of care. This note was dictated using voice recognition software and may contain errors or omissions [facility] History I have reviewed the patient's past medical history: Yes Medical History: Reports:: Anxiety, Asthma, Congestive Heart Failure, Chronic Obstructive Pulmonary Disease (COPD), Coronary Artery Disease, Depression, Diabetes Mellitus Type 2, Gastroesophageal Reflux Disease(GERD), Heart Murmur, Home Oxygen, Hyperlipidemia, Hypertension, Lung Disease, Myocardial Infarction, Renal Disease, Renal Insufficiency Denies:: Cancer, Diabetes Mellitus Type 1, Internal Pacemaker, MRSA, Seizures *Have you ever received a pneumonia vaccine?: Yes *Have you received a flu vaccine this season?: Yes Other Medical History: Reports: Arthritis, Fibromyalgia, Hypothyroidism. Denies: Blood Transfusion Reaction Other Surgeries: Yes: CABG, Cardiac Catheterization, Cholecystectomy, Colonoscopy, Coronary Stent, Hysterectomy-Total, Other (PINEALECTOMY). No: Pacemaker Amputation: No Fractures: No - *Social History Smoking Status: Current every day smoker Tobacco Type: cigarettes # Packs/Day (cigarettes): 1 #Yrs smoked (if former smoker): 20 Alcohol Intake: never Substance Use Type: denies use *Occupational Status:: other Housing: house Household Members: none *Travel in the last 8 weeks: None - Psychiatric History Pschychiatric History:: Reports:: Anxiety, Depression Family Hx:: Coronary Artery Disease, Heart Attack, Diabetes, Hypertension, Cancer, Thyroid Disorder, Asthma
[2019-01-09 21:10] LABS: Amphetamine/Metha Screen,Urine Negative ng/mL (<1000); Barbiturates Screen,Urine Negative ng/mL (<200); Benzodiazepines Screen,Urine Negative ng/mL (<200); Cannabinoid Screen,Urine Negative ng/mL (<50); Cocaine Screen,Urine Negative ng/mL (<300); Methadone Screen,Urine Negative ng/mL (<300); Opiate Screen,Urine Positive ng/mL (<300); Phencyclidine Screen,Urine Negative ng/mL (<25)
[2019-01-15 16:20] LABS: Oxycodone (GC/MS) >3000 ng/mL (Cutoff=100)
[2019-01-16 07:12] LABS: Opiates Negative (Cutoff=100); Oxymorphone (GC/MS) >3000 ng/mL (Cutoff=100)
== END ==
PROVIDERS: PCP Nurse Practitioner Family; Visit Provider Clinical Nurse Specialist Family Health
DX: M50.30 Other cervical disc degeneration, unspecified cervical region (principal); M54.16 Radiculopathy, lumbar region; I73.9 Peripheral vascular disease, unspecified; G89.4 Chronic pain syndrome; S22.20XK Unspecified fracture of sternum, subsequent encounter for fracture with nonunion
CPT/HCPCS: 80305; 80361; 80365; 99212; G0480

== ENCOUNTER → 2019-02-19 09:27 | Outpatient (POV) | payer MEDICARE, SELFPAY ==
[2019-02-19 11:06] LABS: Basophils % 0.4 % (0.1-2.0); Eosinophils # 0.2 K/mm3 (0.0-0.4); Eosinophils % 2.9 % (0.1-12.0); Hematocrit 38.9 % (37.0-47.0); Hemoglobin 12.4 g/dL (12.2-16.2); Lymphocytes # 2.1 K/mm3 (0.7-4.5); Lymphocytes % 25.1 % (10-50); Mean Corpuscular HGB Conc 31.8 g/dL (31.8-35.4); Mean Corpuscular Hemoglobin 29.9 pg (27.0-31.2); Mean Corpuscular Volume 93.9 fl (81-99); Mean Platelet Volume 9.1 fl (7.4-10.4); Monocytes # 0.3 K/mm3 (0.1-1.0); Monocytes % 4.1 % (1.7-9.3); Neutrophils # 5.5 K/mm3 (1.8-7.8); Neutrophils % 67.5 % (37.0-80.0); Platelet Count 281 K/mm3 (142-424); Red Blood Count 4.14 M/mm3 (4.20-5.40); Red Cell Distribution Width 14.2 % (11.5-17.5); White Blood Count 8.2 K/mm3 (4.8-10.8)
[2019-02-19 13:07] LABS: Alanine Aminotransferase 18 U/L (12-78); Albumin Level 3.7 gm/dL (3.4-5.0); Albumin/Globulin Ratio 0.8 (1.1-1.8); Alkaline Phosphatase 84 U/L (46-116); Anion Gap 13.7 mEq/L (5-15); Aspartate Amino Transferase 17 U/L (15-37); Bilirubin,Total 0.3 mg/dL (0.2-1.0); Blood Urea Nitrogen 19 mg/dL (7-18); Calcium 9.2 mg/dL (8.5-10.1); Carbon Dioxide 26 mmol/L (21.0-32.0); Chloride 99 mmol/L (98-107); Chol/HDL Ratio 5.3 (1-3.5); Cholesterol 175 mg/dL (140-200); Creatinine,Serum 1.18 mg/dL (0.55-1.02); Estimated Glomerular Filt Rate 51 ml/min (>60); GFR (African American) 61 ML/MIN (>60); Globulin 4.6 gm/dl (1.3-3.2); Glucose 111 mg/dL (74-106); HDL Cholesterol 33 mg/dL (29-89); LDL Cholesterol 93 mg/dL (0-130); Potassium 4.7 mmoL/L (3.5-5.1); Sodium 134 mmol/L (136-145); Thyroid Stimulating Hormone 9.78 uIU/ml (0.358-3.740); Total Protein,Serum 8.3 gm/dL (6.4-8.2); Triglycerides 245 mg/dL (30-200); VLDL Cholesterol 49 mg/dL (0-40)
[2019-02-19 17:54] LABS: Hemoglobin A1C 9.4 % (0.0-7.0)
[2019-02-20 09:19] LABS: Vitamin D 25 Hydroxy 16.7 ng/mL (30.0-100.0)
== END ==
PROVIDERS: Nurse Practitioner Family; PCP Nurse Practitioner Family; Visit Provider Nurse Practitioner Family
DX: E11.40 Type 2 diabetes mellitus with diabetic neuropathy, unspecified (principal); E78.2 Mixed hyperlipidemia; E03.9 Hypothyroidism, unspecified; E55.9 Vitamin D deficiency, unspecified; N18.3 Chronic kidney disease, stage 3 (moderate); Z79.4 Long term (current) use of insulin; Z72.0 Tobacco use; I12.9 Hypertensive chronic kidney disease with stage 1 through stage 4 chronic kidney disease, or unspecified chronic kidney disease
CPT/HCPCS: 36415; 80053; 80061; 82652; 83036; 84443; 85025

== ENCOUNTER → 2019-02-22 09:43 | Outpatient (CLI) | payer MEDICARE, SELFPAY ==
--- NOTE | 2019-02-22 09:50 | NM_ITS ---
PROCEDURE: NM GASTRIC EMPTYING STUDY CLINICAL INDICATION: DYSPEPSIA,ALTERED BOWEL FUNCTION COMPARISON: No exams were available for comparison FINDINGS: Dose: 0.59 mCi technetium sulfur colloid in radio labeled meal. The 1/2 emptying time is delayed at 240 minutes. Only 12 percent of the contents had emptied during 60 minutes observation. Images submitted show no obvious GE reflux. IMPRESSION: Delayed gastric emptying time Dictated by: Giovany Delatorre MD 02/22/2019 17:45 Electronically signed by Giovany Delatorre MD in [place] 02/22/2019 17:45
[2019-02-22 11:26] LABS: Creatinine,Urine Random 161 mg/dL (20-320)
[2019-03-20 15:52] LABS: Microalbumin, Urine 342.1
== END ==
PROVIDERS: PCP Nurse Practitioner Family; Visit Provider Nurse Practitioner Family
DX: K30 Functional dyspepsia (principal); K31.89 Other diseases of stomach and duodenum; K59.00 Constipation, unspecified; E11.40 Type 2 diabetes mellitus with diabetic neuropathy, unspecified; E78.2 Mixed hyperlipidemia; E55.9 Vitamin D deficiency, unspecified; E03.9 Hypothyroidism, unspecified; N18.3 Chronic kidney disease, stage 3 (moderate); Z72.0 Tobacco use
CPT/HCPCS: 78264; 82043; 82570; A9541

== ENCOUNTER → 2019-02-22 10:56 | Outpatient (CLI) | payer MEDICARE, SELFPAY | PROVIDERS: Visit Provider Nurse Practitioner Family | DX: E11.40 Type 2 diabetes mellitus with diabetic neuropathy, unspecified (principal) | CPT/HCPCS: 82043; 82570 ==

== ENCOUNTER → 2019-03-12 08:41 | Outpatient (POV) | payer MEDICARE, SELFPAY ==
[2019-03-12 08:55] VITALS: BP 140/97; PULSE 89; RESP 18; O2SAT 98; BMI 32.7
--- NOTE | 2019-03-12 09:06 | HMH.PAINSOAP ---
[facility] Pain Management SOAP Note Subjective:: Patient is a 38-year-old white female who presents today for medication refills. She is being treated for pain secondary to peripheral arterial disease along with a nonhealing sternotomy and chronic pain syndrome. She rates her pain today 6 out of 10 and overall is doing well she is currently on fentanyl 25 mcg every 72 hours and oxycodone 15 mg up to 6 times a day. Her current morphine equivalent is 195. She is also on gabapentin 300 mg 1 p.o. 3 times daily. She denies any side effects. [facility] #[id number] reviewed and appropriate. At last visit she had discussed wanting to switch to Xanax. We sent her for consultation for change in medication which was then deferred back to us. I then asked for her to be seen by specialist in [place] however that is too far for her to drive. Patient states the nurse practitioner told me she is not here to prescribe medication in regards to her anxiety. I discussed with the nurse practitioner that because we are requesting a change in medication that we cannot do this due to the fact that we are not certified in this area. I also discussed this with the patient. Patient states however that she is doing better and the clonazepam seems to be beneficial. We will continue her on clonazepam 1 mg 1 p.o. twice daily. ROS General: no recent weight change, no fever, no sleep disturbances Respiratory: no cough, no shortness of air, no recurring pulmonary infections Cardiovascular/Peripheral Vascular: No chest pain, No palpitations, no edema, no shortness of breath. Gastrointestinal: no new onset incontinence, normal bowel movements reported Genitourinary: no new onset incontinence Musculoskeletal: Sternal pain, chest pain, leg pain Psychiatric: normal mood/ affect Neurological: [denies new onset weakness in extremities], [denies new onset balance issues] Objective:: Physical Exam General: Alert and oriented x3, no acute distress, pleasant and cooperative, [on room air] Lungs: Resps E/U, Symmetrical chest expansion, Eyes: PERRL Musculoskeletal: Flexion and extension of thoracic and lumbar spine somewhat guarded secondary to pain, deep tendon reflexes normal, strength in upper and lower extremities [5/5], [abnormal gait noted] Neurological: speech clear, head housekeeper equal, no gross sensory deficits Assessment:: 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 6 times a day and fentanyl 25 mcg every 72 hours we will give her 2 months worth of medication she can olive picker her third month in the interim. We will continue her clonazepam at 1 mg 1 p.o. twice daily. We will also refill her gabapentin 300 mg 1 p.o. 3 times daily. She is instructed to call the office if she has any issues prior to her next appointment. Patient has been prescribed a controlled substance after being counseled on the medication, medication safety, and possible side effects. DIPESH report has been obtained and reviewed prior to prescription and found to be appropriate. Opioid contract was reviewed and signed by the patient, and that they have agreed to all of the terms set forth by our compliance program. Dr. Shepherd has reviewed this note and agrees with this plan of care. This note was dictated using voice recognition software and may contain errors or omissions [facility] History I have reviewed the patient's past medical history: Yes Medical History: Reports:: Anxiety, Asthma, Congestive Heart Failure, Chronic Obstructive Pulmonary Disease (COPD), Coronary Artery Disease, Depression, Diabetes Mellitus Type 2, Gastroesophageal Reflux Disease(GERD), Heart Murmur, Home Oxygen, Hyperlipidemia, Hypertension, Lung Disease, Myocardial Infarction, Peripheral Artery Disea
--- NOTE | 2019-03-12 09:09 | P.CONS_ITS ---
[facility] Pain Management SOAP Note Subjective:: Patient is a 38-year-old white female who presents today for medication refills. She is being treated for pain secondary to peripheral arterial disease along with a nonhealing sternotomy and chronic pain syndrome. She rates her pain today 6 out of 10 and overall is doing well she is currently on fentanyl 25 mcg every 72 hours and oxycodone 15 mg up to 6 times a day. Her current morphine equivalent is 195. She is also on gabapentin 300 mg 1 p.o. 3 times daily. She denies any side effects. [facility] #[id number] reviewed and appropriate. At last visit she had discussed wanting to switch to Xanax. We sent her for consultation for change in medication which was then deferred back to us. I then asked for her to be seen by specialist in [place] however that is too far for her to drive. Patient states the nurse practitioner told me she is not here to prescribe medication in regards to her anxiety. I discussed with the nurse practitioner that because we are requesting a change in medication that we cannot do this due to the fact that we are not certified in this area. I also discussed this with the patient. Patient states however that she is doing better and the clonazepam seems to be beneficial. We will continue her on clonazepam 1 mg 1 p.o. twice daily. ROS General: no recent weight change, no fever, no sleep disturbances Respiratory: no cough, no shortness of air, no recurring pulmonary infections Cardiovascular/Peripheral Vascular: No chest pain, No palpitations, no edema, no shortness of breath. Gastrointestinal: no new onset incontinence, normal bowel movements reported Genitourinary: no new onset incontinence Musculoskeletal: Sternal pain, chest pain, leg pain Psychiatric: normal mood/ affect Neurological: [denies new onset weakness in extremities], [denies new onset balance issues] Objective:: Physical Exam General: Alert and oriented x3, no acute distress, pleasant and cooperative, [on room air] Lungs: Resps E/U, Symmetrical chest expansion, Eyes: PERRL Musculoskeletal: Flexion and extension of thoracic and lumbar spine somewhat guarded secondary to pain, deep tendon reflexes normal, strength in upper and lower extremities [5/5], [abnormal gait noted] Neurological: speech clear, product support consultant equal, no gross sensory deficits Assessment:: 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 6 times a day and fentanyl 25 mcg every 72 hours we will give her 2 months worth of medication she can scrap picker her third month in the interim. We will continue her clonazepam at 1 mg 1 p.o. twice daily. We will also refill her gabapentin 300 mg 1 p.o. 3 times daily. She is instructed to call the office if she has any issues prior to her next appointment. Patient has been prescribed a controlled substance after being counseled on the medication, medication safety, and possible side effects. DIPESH report has been obtained and reviewed prior to prescription and found to be appropriate. Opioid contract was reviewed and signed by the patient, and that they have agreed to all of the terms set forth by our compliance program. Dr. Shepherd has reviewed this note and agrees with this plan of care. This note was dictated using voice recognition software and may contain errors or omissions [facility] History I have reviewed the patient's past medical history: Yes Medical History: Reports::
== END ==
PROVIDERS: PCP Nurse Practitioner Family; Visit Provider Clinical Nurse Specialist Family Health
DX: M50.30 Other cervical disc degeneration, unspecified cervical region (principal); M51.16 Intervertebral disc disorders with radiculopathy, lumbar region; I73.9 Peripheral vascular disease, unspecified; G89.4 Chronic pain syndrome
CPT/HCPCS: 99212

== ENCOUNTER → 2019-04-12 10:07 | Outpatient (CLI) | payer MEDICARE, MEDICAID, SELFPAY ==
--- NOTE | 2019-04-12 10:12 | XR_ITS ---
PROCEDURE: XR ANKLE LT MIN 3V CLINICAL INDICATION: LT FOOT PAIN COMPARISON: No exams were available for comparison FINDINGS: No fracture, dislocation, lytic change, or blastic change evident. No significant degenerative change IMPRESSION: No acute findings. Dictated by: Giovany Delatorre MD 04/12/2019 13:12 Electronically signed by Giovany Delatorre MD in [place] 04/12/2019 13:12
--- NOTE | 2019-04-12 10:12 | XR_ITS ---
PROCEDURE: XR FOOT LT MIN 3V CLINICAL INDICATION: LT FOOT PAIN COMPARISON: FOOTLTWO CT foot LT wo con from 10/03/2018 Foot L from 10/03/2018 FINDINGS: No acute fracture or dislocation. On the AP view there is some increased density at the base of the 4th metatarsal which could represent a healing fracture. Please correlate as the patient's area pain and tenderness. May also be a fracture at the proximal aspect of the proximal phalanx of the 4th digit. The joint spaces are well-preserved. No significant degenerative/arthritic changes. No erosive changes evident. Other findings:None. IMPRESSION: 1. Possible nondisplaced fracture at the proximal aspect of the proximal phalanx of the 4th digit and questionable healing fracture at the proximal aspect of the 4th metatarsal Dictated by: Giovany Delatorre MD 04/12/2019 13:11 Electronically signed by Giovany Delatorre MD in [place] 04/12/2019 13:11
== END ==
PROVIDERS: PCP Nurse Practitioner Family; Visit Provider Nurse Practitioner Family
DX: M79.672 Pain in left foot (principal)
CPT/HCPCS: 73610; 73630

== ENCOUNTER 2019-04-16 14:07 | Outpatient (RCR) | payer MEDICARE, SELFPAY | END 2019-04-16 14:30 | disposition home or self-care (01) | LOC: PT 14:07 | PROVIDERS: Visit Provider Nurse Practitioner Family | DX: S92.345D Nondisplaced fracture of fourth metatarsal bone, left foot, subsequent encounter for fracture with routine healing (principal) | CPT/HCPCS: 97760 ==

== ENCOUNTER → 2019-04-26 13:55 | Outpatient (CLI) | payer MEDICARE, MEDICAID, SELFPAY ==
--- NOTE | 2019-04-26 14:00 | XR_ITS ---
PROCEDURE: XR TIBIA FIBULA LT 2V CLINICAL INDICATION: Pain COMPARISON: No exams were available for comparison FINDINGS: No obvious fracture or dislocation. No lytic changes apparent. There is a small area of exostosis of the posterior distal tibia probably at the medial malleolar region nonspecific. IMPRESSION: No acute finding Dictated by: Giovany Delatorre MD 04/26/2019 14:48 Electronically signed by Giovany Delatorre MD in [place] 04/26/2019 14:48
--- NOTE | 2019-04-26 14:00 | XR_ITS ---
PROCEDURE: XR FOOT WT BEARING LT 3V CLINICAL INDICATION: 4th met fx COMPARISON: Foot L from 10/03/[address] foot LT wo con from 10/03/2018 XR FOOT LT MIN 3V from 04/12/2019 FINDINGS: No definite fracture or dislocation evident. There is some increased density at the base of the 4th metatarsal. This however is nonspecific. There was a question of a proximal phalanx fracture of the 4th digit not readily identified on today's exam. IMPRESSION: No acute findings. Dictated by: Giovany Delatorre MD 04/26/2019 14:51 Electronically signed by Giovany Delatorre MD in [place] 04/26/2019 14:51
--- NOTE | 2019-04-26 14:00 | XR_ITS ---
PROCEDURE: XR ANKLE WT BEARING LT MIN 3V CLINICAL INDICATION: 4th met fx Left ankle pain COMPARISON: XR FOOT LT MIN 3V from 04/12/2019 XR ANKLE LT MIN 3V from 04/12/2019 FINDINGS: There is an area of cortical irregularity involving the posterior aspect of tibia distally. This may only be due to an area of exostosis. Otherwise negative. IMPRESSION: Small area of exostosis of the posterior distal tibia otherwise negative Dictated by: Giovany Delatorre MD 04/26/2019 14:47 Electronically signed by Giovany Delatorre MD in [place] 04/26/2019 14:47
== END ==
PROVIDERS: PCP Nurse Practitioner Family; Visit Provider Nurse Practitioner
DX: M79.672 Pain in left foot (principal); M79.662 Pain in left lower leg; M25.572 Pain in left ankle and joints of left foot
CPT/HCPCS: 73590; 73610; 73630

== ENCOUNTER → 2019-05-10 09:48 | Outpatient (POV) | payer MEDICARE, MEDICAID, SELFPAY ==
[2019-05-10 09:58] VITALS: BP 162/98; PULSE 100; RESP 18; O2SAT 99; BMI 33.4
--- NOTE | 2019-05-10 10:00 | HMH.PAINSOAP ---
[facility] Pain Management SOAP Note Subjective:: Patient is a pleasant 38-year-old white female who presents today for medication refills. She is being treated for pain secondary to PAD along with nonhealing sternotomy and chronic pain syndrome. Patient rates her pain an 8 out of 10 today. She is currently on fentanyl 25 mcg every 72 hours, oxycodone 50 mg 1 p.o. 6 times daily, and gabapentin 300 mg 1 tablet p.o. 3 times daily. She denies any side effects to her medications. Patient says she is getting ready to undergo possible bariatric surgery in June. She says that she was asked to sign a pain contract with her bariatric surgeon's office. The patient has asked what she needs to do concerning getting medications here. She says that her medications are working well for her. She was also started on clonazepam 1 mg 1 tablet p.o. twice daily most recently. She denies any side effects to this medication. Her [facility] #[id number] has been reviewed and is appropriate. Her morphine equivalent is 195. Review of Systems General: No recent weight changes, no fever, no sleep disturbances Respiratory: No cough, no shortness of air, no recurring pulmonary infections Cardiovascular/peripheral vascular: No chest pain, no palpitations, no edema, no shortness of breath Gastrointestinal: No new onset incontinence, normal bowel movements reported Genitourinary: No new onset incontinence Musculoskeletal: Anterior chest pain, bilateral leg pain Psychiatric: Normal mood/affect Neurological: [Denies weakness in extremities], [denies balance issues] Objective:: Physical exam General: Alert and oriented x3, no acute distress, pleasant and cooperative, [on room air] Lungs: Respirations even and unlabored, symmetrical chest expansion Eyes: PERRL Musculoskeletal: Flexion and extension of lumbar spine somewhat guarded secondary to pain, deep tendon reflexes normal, strength in upper and lower extremities [5/5], [abnormal gait noted] Neurological: Speech clear, water attendant equal, no gross sensory deficit Assessment:: Degenerative disc disease cervical spine, lumbar spine with lumbar and cervical radiculopathy, pain secondary to peripheral artery disease, pain secondary to peripheral vascular disease, chronic pain syndrome, 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 6 times daily, fentanyl 25 mcg every 72 hours, clonazepam 1 mg 1 tablet p.o. twice daily, and gabapentin 300 mg 1 tablet p.o. 3 times daily. We will give her 3 months worth of medication and see her back in the clinic in 3 months to reassess her symptoms. I did explain to the patient that she would need to contact us before she begins taking any other prescribed or nonprescribed medications. Patient is in agreement that she will do this. She says that she will not's sign any type of medication contract with the bariatric clinic until she has discussed it with us. Patient's been instructed to contact clinic if she has any concerns before next appointment. Dr. Shepherd has reviewed this note and agrees with this plan of care. This note was dictated using voice recognition software and make contain errors or omissions. [facility] History I have reviewed the patient's past medical history: Yes Medical History: Reports:: Anxiety, Asthma, Congestive Heart Failure, Chronic Obstructive Pulmonary Disease (COPD), Coronary Artery Disease, Depression, Diabetes Mellitus Type 2, Gastroesophageal Reflux Disease(GERD), Heart Murmur, Home Oxygen, Hyperlipidemia, Hypertension, Lung Disease, Myocardial Infarction, Peripheral Artery Disease, Peripheral Vascular Disease, Renal Disease, Renal Insufficiency Denies:: Cancer, Diabetes Mellitus Type 1, Internal Pacemaker, MRSA, Seizures *Have you ever received a pneumonia vaccine?: Yes *Have you received a flu vaccine this season?: Yes Other Medical History: Reports: Arthritis, Fibromyalgia, Hypothyroidism. Denies: Blood Trans
[2019-05-10 17:45] LABS: Amphetamine/Metha Screen,Urine Negative ng/mL (<1000); Barbiturates Screen,Urine Negative ng/mL (<200); Benzodiazepines Screen,Urine Negative ng/mL (<200); Cannabinoid Screen,Urine Negative ng/mL (<50); Cocaine Screen,Urine Negative ng/mL (<300); Methadone Screen,Urine Negative ng/mL (<300); Opiate Screen,Urine Positive ng/mL (<300); Phencyclidine Screen,Urine Negative ng/mL (<25)
[2019-05-15 12:11] LABS: Oxycodone (GC/MS) >3000 ng/mL (Cutoff=100)
[2019-05-15 14:00] LABS: Opiates Negative (Cutoff=100); Oxymorphone (GC/MS) 2789 ng/mL (Cutoff=100)
== END ==
PROVIDERS: Clinical Nurse Specialist Family Health; PCP Nurse Practitioner Family; Visit Provider Clinical Nurse Specialist Family Health
DX: G89.4 Chronic pain syndrome (principal); I73.9 Peripheral vascular disease, unspecified; M50.10 Cervical disc disorder with radiculopathy, unspecified cervical region; M84.48XK Pathological fracture, other site, subsequent encounter for fracture with nonunion; Z79.899 Other long term (current) drug therapy; Z72.0 Tobacco use
CPT/HCPCS: 80305; 80361; 80365; 99212; G0480

== ENCOUNTER → 2019-07-16 13:33 | Outpatient (POV) | payer MEDICARE, MEDICAID, SELFPAY ==
--- NOTE | 2019-07-16 14:16 | HMH.VVPMSO ---
[facility] PM Virtual Visit SOAP Consent for virtual visit:: With the recent concerns about the COVID-19, we are trying to minimize exposure to you by shifting to telehealth appointments whenever possible. It restricts me from seeing you in person, but the trade off is protecting you during this pandemic. Can you see and hear me okay, and do you consent to this option? If not, I would be happy to see if we can reschedule your appointment in the future, when feasible. Has patient consented to this virtual visit?: Yes Subjective:: Patient is a pleasant 38-year-old white female who presents today for medication refills. She is being treated for pain secondary to PAD along with a nonhealing sternotomy and chronic pain syndrome. She recently had her left toes and part of her foot amputated. She is healing from this at this time. Patient rates her pain today a 9 out of 10. She is currently on a regimen of fentanyl 25 mcg every 72 hours, oxycodone 15 mg 1 p.o. 6 times a day and gabapentin 3 mg 1 tab p.o. 3 times daily. We discussed increasing the gabapentin due to the increased pain in her foot after the amputation. Patient's Carrillo #[id number] reviewed and appropriate. Urine drug screens have been appropriate. ROS General: no recent weight change, no fever, no sleep disturbances Respiratory: no cough, no shortness of air, no recurring pulmonary infections Cardiovascular/Peripheral Vascular: No chest pain, No palpitations, no edema, no shortness of breath. Gastrointestinal: no new onset incontinence, normal bowel movements reported Genitourinary: no new onset incontinence Musculoskeletal: Chest pain secondary to sternotomy, foot pain, leg pain, back pain, generalized pain Psychiatric: normal mood/ affect Neurological: [denies new onset weakness in extremities], [denies new onset balance issues] Objective:: Physical exam: Constitutional: Healthy appearing, well-developed, alert, in no acute distress Psychiatric: Judgment and insight intact, Alert and oriented x4 Mood and affect: Mood normal, affect appropriate Head and face: Inspection: Normocephalic atraumatic, extraocular movement intact Respiratory: Breathing nonlabored, nondyspneic Cardiovascular: No cyanosis, clubbing, or edema observed Skin: Head and neck: Skin with no lesions or rash observed Gait: Able to walk without assistive device: Able to heel and toe walk Neurologic: Sensation grossly intact per patient Musculoskeletal: Patient has limited range of motion due to leg pain and amputation Assessment:: Degenerative disc disease cervical spine, lumbar spine with lumbar and cervical radiculopathy, pain secondary to peripheral artery disease, pain secondary to peripheral vascular disease, pain secondary to amputation of left toes and parts of her foot. 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 6 times a day, fentanyl 25 mcg every 72 hours clonazepam 1 mg 1 tab p.o. twice daily and gabapentin we will increase to 600 mg 1 p.o. 3 times daily. I will follow-up with the patient in 3 months reassess her symptoms at that time she has been instructed to call the office if she has any issues prior to her next appointment. This encounter was performed as a telemedicine visit via secure 2 way video and audio to minimize risk and transmission of Covid-19. The patient and we understand the limitations of a telemedicine visit including inability to check reflexes, possibly missing subtle findings on physical exam. Alternative options were presented to the patient and the patient elected to proceed with the visit. We specifically discussed risk factors for Covid-19 including age, heart or lung disease, diabetes, immunosuppression and travel. We also discussed that NSAIDs may worsen Covid-19 infection symptoms and that they should not be used to treat Covid-19 symptoms. Patient was also informed that corticosteroids in an
--- NOTE | 2019-07-19 12:42 | PC.NURSE ---
Pt called and will be having a scheduled vascular procedure tomorrow. Dr Rosas prescribed her norco 7.5/325 (2 tabs), and valium 10mg (2).
== END ==
PROVIDERS: Visit Provider Clinical Nurse Specialist Family Health
DX: M50.10 Cervical disc disorder with radiculopathy, unspecified cervical region (principal); M51.16 Intervertebral disc disorders with radiculopathy, lumbar region; I73.9 Peripheral vascular disease, unspecified; G89.29 Other chronic pain; Z89.432 Acquired absence of left foot; M84.48XK Pathological fracture, other site, subsequent encounter for fracture with nonunion
CPT/HCPCS: 99212

== ENCOUNTER → 2019-10-15 13:28 | Outpatient (POV) | payer MEDICARE, MEDICAID, SELFPAY ==
[2019-10-15 13:38] VITALS: BP 142/85; PULSE 85; RESP 18; O2SAT 99; BMI 28.3
--- NOTE | 2019-10-15 13:47 | HMH.PAINSOAP ---
[facility] Pain Management SOAP Note Subjective:: Patient is a pleasant 39-year-old white female who presents today for medication refill she is being treated for pain secondary to peripheral artery disease along with a nonhealing sternotomy and chronic pain syndrome. She is recently had a below the knee amputation of her left lower extremity. Patient's rates her pain today a 5 out of 10 stating her chronic pain has significantly improved. She is currently on fentanyl 25 mcg every 72 hours and oxycodone 15 mg 1 p.o. 6 times a day. She is also on gabapentin 600 mg 1 tab p.o. 3 times daily. Patient overall doing well. Patient is still being followed by her surgeon for her amputation. Dipesh reviewed and appropriate. Patient has a drug screen today. Her previous drug screens have been appropriate. ROS General: no recent weight change, no fever, no sleep disturbances Respiratory: no cough, no shortness of air, no recurring pulmonary infections Cardiovascular/Peripheral Vascular: No chest pain, No palpitations, no edema, no shortness of breath. Gastrointestinal: no new onset incontinence, normal bowel movements reported Genitourinary: no new onset incontinence Musculoskeletal: Generalized pain, sternal pain, left lower extremity pain, neuropathy Psychiatric: normal mood/ affect, [denies depression], [denies anxiety] Neurological: [denies new onset weakness in extremities], [denies new onset balance issues] Objective:: Physical Exam General: Alert and oriented x3, no acute distress, pleasant and cooperative, [on room air] Lungs: Resps E/U, Symmetrical chest expansion, Eyes: PERRL Musculoskeletal: Flexion and extension of lumbar spine somewhat guarded secondary to pain, deep tendon reflexes normal, strength in upper and lower extremities [4/5], currently wheelchair dependent low the knee amputation noted left lower extremity Neurological: speech clear, 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 6 times a day and fentanyl 25 mcg every 72 hours. Clonazepam 1 mg 1 tab p.o. twice daily and gabapentin 600 mg 1 p.o. 3 times daily. We will follow-up with her in 3 months reassess her symptoms at that time she has been instructed to call the office if she has any issues prior to her next appointment. Dr. Shepherd has reviewed this note and agrees with this plan of care. This note was dictated using voice recognition software and may contain errors or omissions Patient has been prescribed a controlled substance after being counseled on the medication, medication safety, and possible side effects. DIPESH report has been obtained and reviewed prior to prescription and found to be appropriate. Opioid contract was reviewed and signed by the patient, and that they have agreed to all of the terms set forth by our compliance program. [facility] History I have reviewed the patient's past medical history: Yes Medical History: Reports:: Anxiety, Asthma, Congestive Heart Failure, Chronic Obstructive Pulmonary Disease (COPD), Coronary Artery Disease, Depression, Diabetes Mellitus Type 2, Gastroesophageal Reflux Disease(GERD), Heart Murmur, Home Oxygen, Hyperlipidemia, Hypertension, Lung Disease, Myocardial Infarction, Peripheral Artery Disease, Peripheral Vascular Disease, Renal Disease, Renal Insufficiency Denies:: Cancer, Diabetes Mellitus Type 1, Internal Pacemaker, MRSA, Seizures *Have you ever received a pneumonia vaccine?: Yes *Have you received a flu vaccine this season?: Yes Other Medical History: Reports: Arthritis, Fibromyalgia, Hypot
== END ==
PROVIDERS: PCP Nurse Practitioner Family; Visit Provider Clinical Nurse Specialist Family Health
DX: M50.10 Cervical disc disorder with radiculopathy, unspecified cervical region (principal); M51.16 Intervertebral disc disorders with radiculopathy, lumbar region; I73.9 Peripheral vascular disease, unspecified; G89.29 Other chronic pain; Z89.512 Acquired absence of left leg below knee
CPT/HCPCS: 99212

== ENCOUNTER → 2019-10-24 14:48 | Outpatient (CLI) | payer MEDICARE, MEDICAID, SELFPAY ==
[2019-10-24 14:51] LABS: Microscopic, Urine URINE MICROSCOPIC (MICROSCOPIC)
[2019-10-24 16:42] LABS: Appearance,Urine CLEAR (Clear); Bilirubin,Urine Negative (Negative); Blood, Urine TRACE-I (Negative); Color,Urine YELLOW (Yellow); Glucose,Urine (UA) TRACE (Negative); Ketones,Urine Negative (Negative); Leukocyte Esterase,Urine Negative (Negative); Nitrate,Urine Negative (Negative); Protein,Urine 2+ (Negative); Specific Gravity, Urine >= 1.030 (1.005-1.030); Urobilinogen,Urine 0.2 EU/dl (0.2)
[2019-10-24 17:13] LABS: Bacteria,Urine 3+ /lpf
== END ==
PROVIDERS: Visit Provider Nurse Practitioner Family
DX: N32.81 Overactive bladder (principal); R82.90 Unspecified abnormal findings in urine
CPT/HCPCS: 81001; 87086; 87088; 87186

== ENCOUNTER → 2020-01-14 11:49 | Outpatient (POV) | payer MEDICARE, MEDICAID, SELFPAY ==
[2020-01-14 11:58] VITALS: BP 148/74; PULSE 82; RESP 18; TEMP 36.8; O2SAT 98; BMI 27.3
--- NOTE | 2020-01-14 12:31 | HMH.PAINSOAP ---
[facility] Pain Management SOAP Note Subjective:: Patient is a 39-year-old white female who presents today for medication refills. She has been treated for chronic pain secondary to peripheral artery disease along with a nonhealing sternotomy and chronic pain syndrome. Patient recently underwent a left lower extremity amputation. She had a below-knee amputation in the past, however, it is now above-knee. She is continuing to have incisional pain. Patient is currently managed with fentanyl 25 mcg an hour topical Duragesic patch along with gabapentin 600 mg 1 tablet p.o. 3 times daily, oxycodone 15 mg 1 tablet p.o. 6 times daily, and clonazepam 1 mg 1 tablet p.o. twice daily. Patient was increased with her gabapentin to 800 mg 1 tablet p.o. 3 times daily. She has been advised by Dr. Lemos that she should remain on 800 mg. She would like to continue this dose. Patient says she does need a refill on all medications. She rates her pain a 7 out of 10 today. Review of Systems General: No recent weight changes, no fever, no sleep disturbances Respiratory: No cough, no shortness of air, no recurring pulmonary infections Cardiovascular/peripheral vascular: No chest pain, no palpitations, no edema, no shortness of breath Gastrointestinal: No new onset incontinence, normal bowel movements reported Genitourinary: No new onset incontinence Musculoskeletal: Left lower extremity incisional pain Psychiatric: Normal mood/affect Neurological: [Denies weakness in extremities], [denies balance issues] Objective:: Physical exam General: Alert and oriented x3, no acute distress, pleasant and cooperative, [on room air] Lungs: Respirations even and unlabored, symmetrical chest expansion Eyes: PERRL Musculoskeletal: Flexion and extension of lumbar spine somewhat guarded secondary to pain, deep tendon reflexes normal, strength in upper and lower extremities [5/5], [abnormal gait noted] Neurological: Speech clear, 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 She was increased on this per Dr. Anthony as well, however, we will continue her on 25 mcg an hour. We will continue her oxycodone 15 mg 1 tablet p.o. 6 times daily, clonazepam 1 mg 1 tablet p.o. twice daily and we will increase her gabapentin to 800 mg 1 tablet p.o. 3 times daily. We will plan to see her back in the clinic in 3 months. Patient will call the clinic prior to the time for her medication refills so that we can order the medication. Her Carrillo #[id number] has been reviewed and is appropriate. Her morphine equivalent is 315. Her drug screens have been appropriate. Patient did get medications refilled per Dr. mills as of her fentanyl Duragesic patches and her gabapentin on December 31. She got 90 count on her gabapentin and she got #5 count on her Duragesic patches. The patient and I specifically discussed risk factors for COVID19. These risks include, but are not limited to age greater than 60, heart or lung disease, diabetes, immunosuppression, and travel. We also discussed NSAIDs may worsen COVID19 infection or symptoms. Patient should not use NSAIDs to treat COVID19 signs or symptoms. Patient was also informed that any type of corticosteroid of any form (oral or injection) will decrease the patient's immune system response and may increase the likelihood of COVID19 infection [address] symptoms[address]. Shepherd has reviewed this note and agrees with this plan of care. This note was dictated using voice recognition software and make contain errors or omissions. [facility] History I have reviewed the patient's past medical histo
== END ==
PROVIDERS: Visit Provider Clinical Nurse Specialist Family Health
DX: I73.9 Peripheral vascular disease, unspecified (principal); M50.10 Cervical disc disorder with radiculopathy, unspecified cervical region; M54.16 Radiculopathy, lumbar region; G89.4 Chronic pain syndrome; Z89.612 Acquired absence of left leg above knee; M79.605 Pain in left leg; S22.20XK Unspecified fracture of sternum, subsequent encounter for fracture with nonunion
CPT/HCPCS: 99212

== ENCOUNTER → 2020-04-17 13:09 | Outpatient (POV) | payer MEDICARE, MEDICAID, SELFPAY ==
[2020-04-17 13:22] VITALS: BP 132/77; PULSE 74; RESP 18; O2SAT 97; BMI 28.6
--- NOTE | 2020-04-17 13:28 | HMH.PAINSOAP ---
[facility] Pain Management SOAP Note Subjective:: Patient is a pleasant 39-year-old white female who presents today for medication refills. She is being treated for chronic pain secondary to peripheral artery disease along with nonhealing sternotomy and chronic pain syndrome. She has recently gone through a [id number] amputation on the left side. Patient rates her pain a 6 out of 10. She is currently managed with fentanyl 25 mcg every 72 hours, gabapentin 600 mg 1 p.o. 3 times daily, oxycodone 15 mg 1 p.o. 6 times a day and clonazepam 1 mg 1 tab p.o. twice daily. Patient is at her baseline pain. She is having some nausea. We will continue her Zofran 4 mg 1 p.o. 3 times daily as needed. [facility] #[id number] reviewed and appropriate drug screens have been appropriate. Patient and I have discussed in the past that we are unable to do any increases in her medication if it does come to that we may need to discuss palliative or hospice care. At this time though the patient is stable with her current medication dose. ROS General: no recent weight change, no fever, no sleep disturbances Respiratory: no cough, no shortness of air, no recurring pulmonary infections Cardiovascular/Peripheral Vascular: No chest pain, No palpitations, no edema, no shortness of breath. Gastrointestinal: no new onset incontinence, normal bowel movements reported Genitourinary: no new onset incontinence Musculoskeletal: Generalized pain Psychiatric: Depressed Neurological: [denies new onset weakness in extremities], [denies new onset balance issues] Objective:: Physical Exam General: Alert and oriented x3, no acute distress, pleasant and cooperative, [on room air] Lungs: Resps E/U, Symmetrical chest expansion, Eyes: PERRL Musculoskeletal: Flexion and extension of lumbar spine somewhat guarded secondary to pain, deep tendon reflexes normal, strength in upper and lower extremities [5/5], patient in wheelchair secondary to left [id number] amputation Neurological: 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 6 times a day, clonazepam 1 mg 1 tab p.o. twice daily. Gabapentin 800 mg 1 tab p.o. 3 times daily. We will give her Zofran 4 mg 3 times daily as needed. Patient is instructed to call the office if she has any issues prior to her next appointment. Her back in 3 months reassess her symptoms at that time. Patient has been prescribed a controlled substance after being counseled on the medication, medication safety, and possible side effects. DIPESH report has been obtained and reviewed prior to prescription and found to be appropriate. Opioid contract was reviewed and signed by the patient, and that they have agreed to all of the terms set forth by our compliance program. Dr. Shepherd has reviewed this note and agrees with this plan of care. This note was dictated using voice recognition software and may contain errors or omissions [facility] History I have reviewed the patient's past medical history: Yes Medical History: Reports:: Anxiety, Asthma, Congestive Heart Failure, Chronic Obstructive Pulmonary Disease (COPD), Coronary Artery Disease, Depression, Diabetes Mellitus Type 2, Gastroesophageal Reflux Disease(GERD), Heart Murmur, Home Oxygen, Hyperlipidemia, Hypertension, Lung Disease, Myocardial Infarction, Peripheral Artery Disease, Peripheral Vascular Disease, Renal Disease, Renal Insufficiency Denies:: Cancer, Diabetes Mellitus Type 1, Internal Pacemaker, MRSA, Seizures *Have you ever received a pneumonia vaccine?: No *Have you received a f
== END ==
PROVIDERS: PCP Nurse Practitioner Family; Visit Provider Clinical Nurse Specialist Family Health
DX: M50.10 Cervical disc disorder with radiculopathy, unspecified cervical region (principal); M51.16 Intervertebral disc disorders with radiculopathy, lumbar region; I73.9 Peripheral vascular disease, unspecified; G89.4 Chronic pain syndrome; Z89.612 Acquired absence of left leg above knee; S22.20XK Unspecified fracture of sternum, subsequent encounter for fracture with nonunion
CPT/HCPCS: 99212; G0463

== ENCOUNTER → 2020-08-07 13:54 | Outpatient (POV) | payer MEDICARE, MEDICAID, SELFPAY ==
[2020-08-07 15:04] VITALS: BP 130/74; PULSE 74; RESP 18; O2SAT 98; BMI 27.3
--- NOTE | 2020-08-11 08:35 | HMH.PAINSOAP ---
[facility] Pain Management SOAP Note Subjective:: Patient is a pleasant 40-year-old white female who presents today for medication refills. She is being treated for chronic pain secondary to peripheral artery disease along with nonhealing sternotomy and chronic pain syndrome. She is gone through [id number] amputation on the left side. Patient rates her pain today a 6 out of 10 she is currently managed with fentanyl 25 mcg every 72 hours, gabapentin 600 mg 1 p.o. 3 times daily and oxycodone 15 mg 1 p.o. 6 times a day and clonazepam 1 mg 1 tab p.o. twice daily. Patient is at her baseline pain. Patient [facility] #[id number] reviewed and appropriate. We did discuss her morphine equivalent. Patient and I have discussed in the past that we are unable to do any increases in her medication if it does come to that we may need to discuss palliative or hospice care. ROS General: no recent weight change, no fever, no sleep disturbances Respiratory: no cough, no shortness of air, no recurring pulmonary infections Cardiovascular/Peripheral Vascular: No chest pain, No palpitations, no edema, no shortness of breath. Gastrointestinal: no new onset incontinence, normal bowel movements reported Genitourinary: no new onset incontinence Musculoskeletal: Generalized pain Psychiatric: normal mood/ affect Neurological: [denies new onset weakness in extremities], [denies new onset balance issues] Objective:: Physical Exam General: Alert and oriented x3, no acute distress, pleasant and cooperative, [on room air] Lungs: Resps E/U, Symmetrical chest expansion, Eyes: PERRL Musculoskeletal: Flexion and extension of lumbar spine somewhat guarded secondary to pain, deep tendon reflexes normal, utilizes wheelchair Neurological: 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 6 times a day clonazepam 1 mg 1 tab p.o. twice daily. Gabapentin 800 mg 1 tab p.o. 3 times daily. Patient is also seeing a therapist. We will see her back in 3 months reassess her symptoms at that time she has been instructed to call the office if she has any issues prior to her next appointment. Dr. Shepherd has reviewed this note and agrees with this plan of care. This note was dictated using voice recognition software and may contain errors or omissions Patient has been prescribed a controlled substance after being counseled on the medication, medication safety, and possible side effects. DIPESH report has been obtained and reviewed prior to prescription and found to be appropriate. Opioid contract was reviewed and signed by the patient, and that they have agreed to all of the terms set forth by our compliance program. [facility] History I have reviewed the patient's past medical history: Yes Medical History: Reports:: Anxiety, Asthma, Congestive Heart Failure, Chronic Obstructive Pulmonary Disease (COPD), Coronary Artery Disease, Depression, Diabetes Mellitus Type 2, Gastroesophageal Reflux Disease(GERD), Heart Murmur, Home Oxygen, Hyperlipidemia, Hypertension, Lung Disease, Myocardial Infarction, Peripheral Artery Disease, Peripheral Vascular Disease, Renal Disease, Renal Insufficiency Denies:: Cancer, Diabetes Mellitus Type 1, Internal Pacemaker, MRSA, Seizures *Have you ever received a pneumonia vaccine?: Yes *Have you received a flu vaccine this season?: Yes Other Medical History: Reports: Arthritis, Fibromyalgia, Hypothyroidism. Denies: Blood Transfusion Reaction Other Surgeries: Yes: No Previous Surgery, CABG, Cardiac Catheterization, Cholecystectomy, Colonos
== END ==
PROVIDERS: PCP Nurse Practitioner Family; Visit Provider Clinical Nurse Specialist Family Health
DX: M50.10 Cervical disc disorder with radiculopathy, unspecified cervical region (principal); M51.16 Intervertebral disc disorders with radiculopathy, lumbar region; I73.9 Peripheral vascular disease, unspecified; G89.4 Chronic pain syndrome; Z89.612 Acquired absence of left leg above knee; S22.20XK Unspecified fracture of sternum, subsequent encounter for fracture with nonunion
CPT/HCPCS: 99212; G0463

== ENCOUNTER → 2020-11-06 13:12 | Outpatient (POV) | payer MEDICARE, MEDICAID, SELFPAY ==
[2020-11-06 13:21] VITALS: BP 165/80; PULSE 71; RESP 20; O2SAT 98; BMI 27.4
--- NOTE | 2020-11-06 13:30 | HMH.PAINSOAP ---
[facility] Pain Management SOAP Note Subjective:: Patient is a 40-year-old white female who presents today for medication refills. She is being treated for peripheral artery disease, nonhealing sternotomy, and chronic pain syndrome. She does have an qkriy-dir-afvz amputation on the left side. She rates her pain an 8 out of 10 today. Patient says that Dr. Franklin recently changed her gabapentin to Lyrica 150 mg 1 tablet p.o. twice daily. She is also managed with fentanyl 25 mcg every 72 hours, gabapentin 600 mg 1 tablet p.o. 3 times daily, oxycodone 15 mg 1 tablet p.o. 6 times daily, and clonazepam 1 mg p.o. twice daily. This pain level is slightly above her baseline level. She generally rates her pain a 6 out of 10. Patient's Dipesh #[id number] has been reviewed and is appropriate. Patient I did discuss today that Dr. Lei may contact her in regards to her medication regimen. She is on high doses of medications and may need to discuss her medicines with Dr. Lei in the future, as Dr. Lei has not had a consultation with this patient before. Review of Systems General: No recent weight changes, no fever, no sleep disturbances Respiratory: No cough, no shortness of air, no recurring pulmonary infections Cardiovascular/peripheral vascular: No chest pain, no palpitations, [no edema], no shortness of breath Gastrointestinal: No new onset incontinence, normal bowel movements reported Genitourinary: No new onset incontinence Musculoskeletal: [] Chronic low back pain, chronic anterior chest pain Psychiatric: [Normal mood/affect] Neurological: [Denies weakness in extremities], [denies balance issues] Objective:: Physical exam General: Alert and oriented x3, no acute distress, pleasant and cooperative, [on room air] Lungs: Respirations even and unlabored, symmetrical chest expansion Eyes: PERRL Musculoskeletal: Flexion and extension of [] lumbar [spine] somewhat guarded secondary to pain, strength in upper and lower extremities [5/5], [antalgic gait noted] Neurological: Speech clear, [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 twice daily, fentanyl 25 mcg an hour every 72 hours, oxycodone 15 mg 1 tablet p.o. 6 times daily. Have advised the patient that Dr. Lei may contact the patient with regards to her medication, due to dosing. She says that she will be happy to speak with Dr. Lei if she would like to discuss her medications or any changes. Her Dipesh #[id number] has been reviewed. Her morphine equivalent is 135. Patient has been prescribed a controlled substance after being counseled on the medication, medication safety, and possible side effects. DIPESH report has been obtained and reviewed prior to prescription and found to be appropriate. Opioid contract was reviewed and signed by the patient, and that they have agreed to all of the terms set forth by our compliance program. Risks and benefits of the medication have been explained in detail to the patient. The patient has been advised to consult with his/her primary care provider and pharmacist regarding drug-drug interaction of medications currently prescribed. Patient has been instructed to contact the clinic with any concerns before the next appointment. Dr. Shepherd has reviewed this note and agrees with this plan of care. This note was dictated using voice recognition software and make contain errors or omissions. [facility] History I have reviewed the patient's past medical history: Yes Medical History: Reports:: Anxiety, Asthma, Congestive Heart Failure, Chronic Obstructive Pulmonary Disease (COPD), Coronary Artery Disease, Depression, Diabetes Me
== END ==
PROVIDERS: PCP Nurse Practitioner Family; Visit Provider Clinical Nurse Specialist Family Health
DX: M50.10 Cervical disc disorder with radiculopathy, unspecified cervical region (principal); M51.16 Intervertebral disc disorders with radiculopathy, lumbar region; I73.9 Peripheral vascular disease, unspecified; G89.29 Other chronic pain; Z89.612 Acquired absence of left leg above knee; S22.20XK Unspecified fracture of sternum, subsequent encounter for fracture with nonunion
CPT/HCPCS: 99212; G0463

== ENCOUNTER → 2020-12-04 13:24 | Outpatient (POV) | payer MEDICARE, MEDICAID, SELFPAY ==
[2020-12-04 13:40] VITALS: BP 136/82; PULSE 94; RESP 18; O2SAT 100; BMI 31.3
--- NOTE | 2020-12-04 16:37 | HMH.PAINSOAP ---
[facility] Pain Management SOAP Note Subjective:: Patient is a 40-year-old white female who presents today for medication refills. She has been treated for peripheral artery disease, nonhealing sternotomy and chronic pain syndrome. She does have an lzeek-krm-fnst amputation on the left side. Patient's pain is a 5 out of 10 today. She is here for refills. Unfortunately, the patient has had 2+ drug screens for hydrocodone. The patient did admit to hydrocodone use in July 2020 during her drug screen. The patient last drug screen in October 2020 also noted the patient to have hydrocodone positive. Patient is prescribed oxycodone. Today, I did discuss this with the patient. She is adamant that she has not taking any of her oxycodone. Patient has been a compliant patient in our clinic for approximately 6 years and has had appropriate drug screens. Patient does not feel that the buccal swabs are appropriate. She has admitted to previous use of hydrocodone and has discarded those medications in her home. The patient is treated in our clinic with fentanyl 25 mcg/hr, oxycodone 50 mg 1 tablet p.o. 6 times daily, and clonazepam 1 mg 1 tablet p.o. twice daily. Patient's Dipesh #[id number] has been reviewed and is appropriate. Review of Systems General: No recent weight changes, no fever, no sleep disturbances Respiratory: No cough, no shortness of air, no recurring pulmonary infections Cardiovascular/peripheral vascular: No chest pain, no palpitations, no edema, no shortness of breath Gastrointestinal: No new onset incontinence, normal bowel movements reported Genitourinary: No new onset incontinence Musculoskeletal: Chronic right lower extremity pain Psychiatric: [Normal mood/affect] Neurological: [Denies weakness in extremities], [denies balance issues] Objective:: Physical exam General: Alert and oriented x3, no acute distress, pleasant and cooperative, [on room air] Lungs: Respirations even and unlabored, symmetrical chest expansion Eyes: PERRL Musculoskeletal: Flexion and extension of right lower extremity somewhat guarded secondary to pain, strength in upper and right lower extremities 5, [antalgic gait noted] Neurological: Speech clear, [primary 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 Due to the patient's inconsistent levels, we will begin performing blood draws on the patient for her drug screen analysis. Patient does take oxycodone and fentanyl. I do have a concern with her level that this may be in impurity in the drug screen. Blood drug screens may be more appropriate for this patient. Patient has been compliant in our clinic consistently for approximately 6 years with admission of hydrocodone use and 08/07/2020 drug screen. She adamantly denies any use at this time. At the patient's next visit, we will perform a blood drug screen on the patient. Patient has been appropriate with previous drug screens. We will give her medication at this time. If she does have a positive drug screen in the future, she does understand we will have to discharge her. For now, however, we will continue her medication and do blood draws rather than using [facility] for drug screen due to concerns for inconsistency. Patient does understand this and is in agreement with this. Patient's Dipesh #[id number] has been reviewed and is appropriate. Risks and benefits of the medication have been explained in detail to the patient. The patient has been advised to consult with his/her primary care provider and pharmacist regarding drug-drug interaction of medications currently prescribed. Patient has been prescribed a controlled substance after being counseled on the medication, medication safety, and possible side effects. DIPESH report has been obtained and reviewed prior to prescripti
== END ==
PROVIDERS: Visit Provider Clinical Nurse Specialist Family Health
DX: I73.9 Peripheral vascular disease, unspecified (principal); G89.4 Chronic pain syndrome; T81.89XA Other complications of procedures, not elsewhere classified, initial encounter
CPT/HCPCS: 99212; G0463

== ENCOUNTER → 2021-01-01 13:01 | Outpatient (POV) | payer MEDICARE, MEDICAID, SELFPAY ==
[2021-01-01 13:11] VITALS: BP 134/80; PULSE 76; RESP 18; O2SAT 98; BMI 31.3
--- NOTE | 2021-01-01 14:43 | HMH.PAINSOAP ---
[facility] Pain Management SOAP Note Subjective:: Patient is a pleasant 40-year-old white female who presents today for medication refills. She has been treated for peripheral artery disease, nonhealing sternotomy and chronic pain syndrome. She does have an zufix-usb-lqkx amputation as well. Patient's pain is a 6 out of 10 today. She is here for medication refills. The patient is managed with clonazepam 1 mg 1 tablet p.o. twice daily, oxycodone 15 mg 2 tablets p.o. 3 times daily. Patient is also managed with fentanyl Duragesic patch 25 mcg an hour. She was previously taking gabapentin, however, has since been started on Lyrica. She denies any side effects to the medication. She previously got meloxicam from our clinic. Review of Systems General: No recent weight changes, no fever, no sleep disturbances Respiratory: No cough, no shortness of air, no recurring pulmonary infections Cardiovascular/peripheral vascular: No chest pain, no palpitations, no edema, no shortness of breath Gastrointestinal: No new onset incontinence, normal bowel movements reported Genitourinary: No new onset incontinence Musculoskeletal: Chronic low back pain Psychiatric: [Normal mood/affect] Neurological: [Denies weakness in extremities], [denies balance issues] Objective:: Physical exam General: Alert and oriented x3, no acute distress, pleasant and cooperative, [on room air] Lungs: Respirations even and unlabored, symmetrical chest expansion Eyes: PERRL Musculoskeletal: Flexion and extension of lumbar [spine] somewhat guarded secondary to pain, strength in upper and lower extremities [5/5], [antalgic gait noted] Neurological: Speech clear, [field supervisor 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 twice daily, oxycodone 15 mg 2 tablets p.o. 3 times daily, fentanyl Duragesic patch 25 mcg an hour. She was started on pregabalin 150 mg 1 tablet p.o. twice daily by Dr. Franklin. They also manage her meloxicam. We will give the patient a month medication. We will see her back in the clinic after her injections for reevaluation of symptoms. [facility] History I have reviewed the patient's past medical history: Yes Medical History: Reports:: Anxiety, Asthma, Congestive Heart Failure, Chronic Obstructive Pulmonary Disease (COPD), Coronary Artery Disease, Depression, Diabetes Mellitus Type 2, Gastroesophageal Reflux Disease(GERD), Heart Murmur, Home Oxygen, Hyperlipidemia, Hypertension, Lung Disease, Myocardial Infarction, Peripheral Artery Disease, Peripheral Vascular Disease, Renal Disease, Renal Insufficiency Denies:: Cancer, Diabetes Mellitus Type 1, Internal Pacemaker, MRSA, Seizures *Have you ever received a pneumonia vaccine?: No *Have you received a flu vaccine this season?: No Other Medical History: Reports: Arthritis, Fibromyalgia, Hypothyroidism. Denies: Blood Transfusion Reaction Other Surgeries: Yes: No Previous Surgery, CABG, Cardiac Catheterization, Cholecystectomy, Colonoscopy, Coronary Stent, Hysterectomy-Total, Other (PINEALECTOMY). No: Pacemaker Amputation: No Fractures: No - *Social History Smoking Status: Current every day smoker Tobacco Type: cigarettes # Packs/Day (cigarettes): 1 #Yrs smoked (if former smoker): 20 Alcohol Intake: never Substance Use Type: denies use *Occupational Status:: unemployed Housing: house Household Members: none *Travel in the last 8 weeks: None - Psychiatric History Pschychiatric History:: Reports:: Anxiety, Depression Family Hx:: Coronary Artery Disease, Heart Attack, Diabetes, Hypertension, Cancer, Thyroid Disorder, Asthma
== END ==
PROVIDERS: PCP Nurse Practitioner Family; Visit Provider Clinical Nurse Specialist Family Health
DX: I73.9 Peripheral vascular disease, unspecified (principal); G89.4 Chronic pain syndrome; S22.23XK Sternal manubrial dissociation, subsequent encounter for fracture with nonunion
CPT/HCPCS: 99212; G0463

== ENCOUNTER → 2021-01-29 13:24 | Outpatient (POV) | payer MEDICARE, MEDICAID, SELFPAY ==
--- NOTE | 2021-01-29 13:29 | HMH.PAINSOAP ---
[facility] Pain Management SOAP Note Subjective:: Patient is a 40-year-old white female who is following up via telehealth phone call today. The patient is treated in the clinic for chronic pain syndrome and peripheral artery disease. She continues to have significant pain to her lower extremities. She does have an above-knee amputation. She also has a sternotomy wound that causes her to have continued pain. She is managed in the clinic with clonazepam 1 mg 1 tablet p.o. twice daily, fentanyl Duragesic patch 25 mcg an hour, oxycodone 15 mg 2 tablets p.o. 3 times daily, and does take Lyrica prescribed by her primary care provider. She is doing well overall with the medicine. She denies any side effects to the medicines. Patient's Dipesh #[id number] has been reviewed and is appropriate. Drug screens are appropriate. Review of Systems General: No recent weight changes, no fever, no sleep disturbances Respiratory: No cough, no shortness of air, no recurring pulmonary infections Cardiovascular/peripheral vascular: No chest pain, no palpitations, no edema, no shortness of breath Gastrointestinal: No new onset incontinence, normal bowel movements reported Genitourinary: No new onset incontinence Musculoskeletal: Chronic low back and lower extremity pain, history of above-knee amputation Psychiatric: [Normal mood/affect] Neurological: [Denies weakness in extremities], [denies balance issues] Objective:: Physical exam General: Alert and oriented x3, no acute distress, pleasant and cooperative Assessment:: Chronic pain syndrome, nonhealing sternotomy wound, peripheral artery disease Plan:: We will continue the patient's clonazepam 1 mg 1 tablet p.o. twice daily, fentanyl Duragesic patch 25 mcg an hour, oxycodone 15 mg 2 tablets p.o. 3 times daily, and meloxicam 7.5 mg 1 tablet p.o. daily. She will get a month medication. We will follow up with her via telehealth at the next visit. Following her next visit she will need to come to the clinic for a drug screen. Risks and benefits of the medication have been explained in detail to the patient. The patient does understand the risk of dependence on the medication when given over a prolonged period. Patient has been advised of risks of oversedation with the prescribed medication. Narcan has been offered to the paitent in the event of oversedation. Patient has been advised that a family member should also be educated regarding administration of Narcan. The patient has been advised to consult with his/her primary care provider and pharmacist regarding drug-drug interaction of medications currently prescribed. Patient has been prescribed a controlled substance after being counseled on the medication, medication safety, and possible side effects. DIPESH report has been obtained and reviewed prior to prescription and found to be appropriate. Opioid contract was reviewed and signed by the patient, and that they have agreed to all of the terms set forth by our compliance program. Patient has been instructed to contact the clinic with any concerns before the next appointment. Dr. Shepherd has reviewed this note and agrees with this plan of care. This note was dictated using voice recognition software and make contain errors or omissions. [facility] History I have reviewed the patient's past medical history: Yes Medical History: Reports:: Anxiety, Asthma, Congestive Heart Failure, Chronic Obstructive Pulmonary Disease (COPD), Coronary Artery Disease, Depression, Diabetes Mellitus Type 2, Gastroesophageal Reflux Disease(GERD), Heart Murmur, Home Oxygen, Hyperlipidemia, Hypertension, Lung Disease, Myocardial Infarction, Peripheral Artery Disease, Peripheral Vascular Disease, Renal Disease, Renal Insufficiency Denies:: Cancer, Diabetes Mellitus Type 1, Internal Pacemaker, MRSA, Seizures *Have you ever received a pneumonia vaccine?: No *Have you received a flu vaccine this season?: No Other Medical Histor
== END ==
PROVIDERS: Visit Provider Clinical Nurse Specialist Family Health
DX: G89.4 Chronic pain syndrome (principal); T81.89XA Other complications of procedures, not elsewhere classified, initial encounter; I73.9 Peripheral vascular disease, unspecified
CPT/HCPCS: 99212; G0463

== ENCOUNTER 2021-02-17 09:08 | Day surgery (SDC) | payer MEDICARE, MEDICAID, SELFPAY ==
[2021-02-17] VITALS (12 sets, daily range): BP systolic 97–138; BP diastolic 51–73; PULSE 55–72; RESP 13–19; TEMP 36.7; O2SAT 96–99; BMI 32.5
--- NOTE | 2021-02-17 | IR_ITS ---
APPROVED REPORT Patient Location: Outpatient Tower Climber: SILVERIO Brock RT (R) PROCEDURES Left heart catheterization Left ventriculogram Selective coronary angiogram Selective engage left internal mammary artery Selective engagement of the saphenous vein graft to the right coronary artery Selective engagement of saphenous vein graft to circumflex artery Bilateral selective renal angiography INDICATION Coronary artery disease, History of coronary bypass surgery, Accelerated angina pectoris, Chronic renal failure creatinine 1.6 suspect renovascular hypertension with bilateral renal artery stenosis Informed consent was obtained prior to the procedure. COMPLICATIONS NONE Estimated Blood Loss: LESS THAN 10 ML TECHNIQUE One percent lidocaine used to anesthetize the right groin. The right femoral artery was accessed via the Seldinger technique and a 5 Belgian sheath was placed in the right femoral artery. A JL 4, JR4 catheter were used to perform left heart catheterization, left ventriculogram selective coronary angiography as well as selective engagement of the 2 vein grafts and the left internal mammary artery. The JR4 catheter was used to perform bilateral selective renal angiography at the end of the procedure the patient was transferred to the postop holding area in stable condition for sheath removal. ANGIOGRAPHIC RESULTS The left main artery Is patent The left anterior descending artery Proximally occluded The circumflex artery Ostially occluded The right coronary artery Known to be proximally occluded from cardiac catheterization in 2019 The RESENDEZ ventriculogram reveals Preserved at 55% The left ventricular end-diastolic pressure 20 mmHg Left internal mammary artery is patent to an LAD which has a 90% focal mid LAD stenosis 4 cm distal to the OCHOA anastomosis followed by additional severe diffuse disease as the LAD approaches the apex. OCHOA graft also supplies a small first diagonal artery Saphenous vein graft to the circumflex artery is widely patent. It makes anastomosis onto a terminal obtuse marginal artery and then skips to what appears to be a ramus intermedius. There is an 80 to 90% stenosis in the body of the ramus intermedius which fills retrograde from the skip graft anastomosis Saphenous vein graft to the right coronary is patent Right renal artery singular normal Left renal artery singular normal IMPRESSION Severe port gamble three-vessel coronary disease as described above Patent OCHOA graft to a severely diffusely diseased LAD as described above Patent saphenous vein graft to a severely diseased port gamble ramus intermedius Patent saphenous vein graft to a small circumflex artery system Preserved ejection fraction Elevated LVEDP Normal renal arteries bilaterally 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 Aggressive risk factor modification 2. Aggressive medical management with specific attention being paid on treatment of diabetes hypertension weight loss exercise program 3. Absolute avoidance of tobacco products 4. Treatment of diastolic dysfunction Electronically signed by : Joo Tadeo MD 02/17/2021 12:38:50
[2021-02-17 10:02] LABS: Coronavirus 19, PCR Not Detected (NotDetected); Influenza A, PCR Not Detected (NotDetected); Influenza B, PCR Not Detected (NotDetected)
[2021-02-17 10:04] LABS: Basophils # 0.1 K/mm3 (0-0.2); Eosinophils # 0.2 K/mm3 (0.0-0.4); Eosinophils % 2.8 % (0.1-12.0); Hematocrit 39.3 % (37.0-47.0); Hemoglobin 12.8 g/dL (12.2-16.2); Lymphocytes # 3.1 K/mm3 (0.7-4.5); Lymphocytes % 35.9 % (10-50); Mean Corpuscular HGB Conc 32.7 g/dL (31.8-35.4); Mean Corpuscular Hemoglobin 29.6 pg (27.0-31.2); Mean Corpuscular Volume 90.6 fl (81-99); Mean Platelet Volume 8.8 fl (7.4-10.4); Monocytes # 0.5 K/mm3 (0.1-1.0); Neutrophils # 4.6 K/mm3 (1.8-7.8); Neutrophils % 54.3 % (37.0-80.0); Platelet Count 280 K/mm3 (142-424); Red Blood Count 4.34 M/mm3 (4.20-5.40); Red Cell Distribution Width 14.9 % (11.5-17.5); White Blood Count 8.6 K/mm3 (4.8-10.8)
[2021-02-17 10:20] LABS: Anion Gap 17.6 mEq/L (5-15); Blood Urea Nitrogen 27 mg/dl (7-17); Calcium 9.4 mg/dl (8.4-10.2); Carbon Dioxide 21 mmol/L (22.0-30.0); Chloride 101 mmol/L (98-107); Creatinine Clearance Estimated 68 mL/min (50-200); Estimated Glomerular Filt Rate 35 ml/min (>60); GFR (African American) 43 ML/MIN (>60); Glucose 243 mg/dl (74-100); Potassium 4.6 mmoL/L (3.5-5.1); Sodium 135 mmol/L (136-145)
== END 2021-02-17 15:20 | disposition home or self-care (01) ==
LOC: CATHLAB 09:12
PROVIDERS: PCP Nurse Practitioner Family; Visit Provider Internal Medicine
DX: I25.10 Atherosclerotic heart disease of native coronary artery without angina pectoris (principal); I70.1 Atherosclerosis of renal artery; I15.0 Renovascular hypertension; Z20.822 Contact with and (suspected) exposure to COVID-19; Z95.1 Presence of aortocoronary bypass graft; Z79.899 Other long term (current) drug therapy; I25.82 Chronic total occlusion of coronary artery; N18.9 Chronic kidney disease, unspecified; E11.51 Type 2 diabetes mellitus with diabetic peripheral angiopathy without gangrene; Z79.4 Long term (current) use of insulin; F17.210 Nicotine dependence, cigarettes, uncomplicated; I70.213 Atherosclerosis of native arteries of extremities with intermittent claudication, bilateral legs; E03.9 Hypothyroidism, unspecified; I50.9 Heart failure, unspecified; E11.22 Type 2 diabetes mellitus with diabetic chronic kidney disease; I13.0 Hypertensive heart and chronic kidney disease with heart failure and stage 1 through stage 4 chronic kidney disease, or unspecified chronic kidney disease; Z79.01 Long term (current) use of anticoagulants
CPT/HCPCS: 36252; 80048; 85025; 93459; 99152; C1725; C1769; C1894; C9803; J1644; Q9967; U0003; U0005

== ENCOUNTER → 2021-03-09 13:50 | Outpatient (POV) | payer MEDICARE, MEDICAID, SELFPAY ==
--- NOTE | 2021-03-09 14:11 | HMH.VVPMSO ---
[facility] PM Virtual Visit SOAP Consent for virtual visit:: With the recent concerns about the COVID-19, we are trying to minimize exposure to you by shifting to telehealth appointments whenever possible. It restricts me from seeing you in person, but the trade off is protecting you during this pandemic. Can you see and hear me okay, and do you consent to this option? If not, I would be happy to see if we can reschedule your appointment in the future, when feasible. Has patient consented to this virtual visit?: Yes Subjective:: Patient is a 40-year-old white female who is following up via telehealth phone visit today. She does have chronic pain syndrome as well as peripheral artery disease and does have significant pain to bilateral lower extremities. She is an amputee, above knee. She also has a history of a sternotomy wound. This does continue to cause significant pain. The patient is managed with clonazepam 1 mg 1 tablet p.o. twice daily, fentanyl Duragesic patch, and oxycodone 50 mg 2 tablets p.o. 3 times daily. She also gets meloxicam from our clinic. The patient's Dipesh #[id number] has been reviewed and is appropriate. Drug screen is appropriate. She denies any side effects of medication. She rates her pain a 7 out of 10 today. Review of Systems General: No recent weight changes, no fever, no sleep disturbances Respiratory: No cough, no shortness of air, no recurring pulmonary infections Cardiovascular/peripheral vascular: No chest pain, no palpitations, no edema, no shortness of breath Gastrointestinal: No new onset incontinence, normal bowel movements reported Genitourinary: No new onset incontinence Musculoskeletal: Chronic low back pain, chronic sternal pain, chronic lower extremity pain (above-knee amputation) Psychiatric: [Normal mood/affect] Neurological: Wheelchair-bound Objective:: Physical exam General: Alert and oriented x3, no acute distress, pleasant and cooperative Assessment:: Chronic pain syndrome, peripheral artery disease, sternotomy wound nonhealing chest pain Plan:: We will continue the patient's clonazepam 1 mg 1 tablet p.o. twice daily, fentanyl 25 mcg an hour Duragesic patch every 3 days, oxycodone 50 mg 2 tablets p.o. 3 times daily and meloxicam 7.5 mg 1 tablet p.o. daily. She will get a month medication. We will see her back in the clinic in 1 month. We will also order the patient Narcan in the event of oversedation. Risks and benefits of the medication have been explained in detail to the patient. The patient does understand the risk of dependence on the medication when given over a prolonged period. Patient has been advised of risks of oversedation with the prescribed medication. Narcan has been offered to the paitent in the event of oversedation. Patient has been advised that a family member should also be educated regarding administration of Narcan. The patient has been advised to consult with his/her primary care provider and pharmacist regarding drug-drug interaction of medications currently prescribed. Patient has been prescribed a controlled substance after being counseled on the medication, medication safety, and possible side effects. DIPESH report has been obtained and reviewed prior to prescription and found to be appropriate. Opioid contract was reviewed and signed by the patient, and that they have agreed to all of the terms set forth by our compliance program. Patient has been instructed to contact the clinic with any concerns before the next appointment. Dr. Shepherd has reviewed this note and agrees with this plan of care. This note was dictated using voice recognition software and make contain errors or omissions. Time In:: 14:00 Time Out:: 14:15 [facility] History I have reviewed the patient's past medical history: Yes Medical History: Reports:: Anxiety, Asthma, Congestive Heart Failure, Chronic Obstructive Pulmonary Disease (COPD), Coronary Artery Disease, Depressio
== END ==
PROVIDERS: Visit Provider Clinical Nurse Specialist Family Health
DX: G89.4 Chronic pain syndrome; I73.9 Peripheral vascular disease, unspecified; S22.23XK Sternal manubrial dissociation, subsequent encounter for fracture with nonunion
CPT/HCPCS: 99212; G0463

== ENCOUNTER → 2021-04-09 13:59 | Outpatient (POV) | payer MEDICARE, MEDICAID, SELFPAY ==
[2021-04-09 14:26] VITALS: BP 210/90; PULSE 88; RESP 18; O2SAT 97; BMI 33.6
[2021-04-09 15:40] LABS: Barbiturates Screen,Urine Negative ng/ml (<200); Benzodiazepines Screen,Urine Negative ng/ml (<200)
[2021-04-09 15:42] LABS: Cannabinoid Screen,Urine Negative ng/ml (<50); Methadone Screen,Urine Negative ng/ml (<300)
[2021-04-09 15:43] LABS: Cocaine Screen,Urine Negative ng/ml (<300)
[2021-04-09 15:44] LABS: Opiate Screen,Urine Positive ng/ml (<300)
[2021-04-09 15:53] LABS: Phencyclidine Screen,Urine Negative ng/ml (<25)
[2021-04-09 16:32] LABS: Amphetamine/Metha Screen,Urine Negative ng/ml (<1000)
--- NOTE | 2021-04-10 08:40 | HMH.PAINSOAP ---
[facility] Pain Management SOAP Note Subjective:: Patient is a 40-year-old white female who presents today for medication refills. She did undergo a telehealth visit last visit due to high risk exposure to Covid. She does have chronic pain syndrome and does have a history of above-knee amputation left lower extremity. She has extensive peripheral artery disease. In the past the patient did have sternotomy wounds that did not heal well. The sternotomy wound has healed. She does say her medication regimen gives her significant relief of her pain, except for right lower extremity. She does say her provider has informed her her peripheral artery disease has worsened. There is concerned that she may require an amputation right lower extremity as well. In the past patient reports that she initially started with a left below-knee amputation which progressively worsened due to nonhealing wound. As result, she did have to undergo above-knee amputation. The patient is managed with medications of clonazepam 1 mg 1 tablet p.o. twice daily, fentanyl Duragesic patch 25 mcg an hour, Lyrica 150 mg 1 tablet p.o. twice daily, and oxycodone 15 mg 2 tablets p.o. 3 times daily. We also prescribed the patient's meloxicam. Today, she does rate her pain a 7 out of 10. Patient's Carrillo #[id number] has been reviewed and is appropriate. The patient's drug screen is appropriate. She denies any side effects to the medication. The patient's morphine equivalent is 195. Review of Systems General: No recent weight changes, no fever, no sleep disturbances Respiratory: No cough, no shortness of air, no recurring pulmonary infections Cardiovascular/peripheral vascular: No chest pain, no palpitations, no edema, no shortness of breath Gastrointestinal: No new onset incontinence, normal bowel movements reported Genitourinary: No new onset incontinence Musculoskeletal: Right lower extremity pain Psychiatric: [Normal mood/affect] Neurological: [Denies weakness in extremities], [denies balance issues] Objective:: Physical exam General: Alert and oriented x3, no acute distress, pleasant and cooperative Lungs: Respirations even and unlabored, symmetrical chest expansion Eyes: PERRL Musculoskeletal: Flexion and extension of lumbar [spine] and right lower extremity somewhat guarded secondary to pain, left above-knee amputation Neurological: Speech clear, no gross sensory deficit Assessment:: Chronic pain syndrome, peripheral artery disease, right lower extremity pain Plan:: Today, we will continue the patient's medications, but due to continued pain of right lower extremity and increased morphine equivalent, we will schedule the patient to meet with Dr. Shepherd at next visit. I do believe the patient's medication regimen needs to be discussed with Dr. Shepherd given the medication she is currently taking and continued pain. Patient does have a history of inability to heal following surgeries. This is why she has not been an appropriate candidate for intrathecal/SCS therapy in the past. The patient's morphine equivalent is 195. We will order Narcan for the patient to have available in her home due to very high risk of oversedation. She has been advised in the past that she is at high risk for oversedation given the medication she is currently taking and morphine equivalent level. Dr. Shepherd will continue the patient at this time on clonazepam 1 mg 1 tablet p.o. twice daily, fentanyl Duragesic patch 25 mcg an hour, oxycodone 15 mg 2 tablets p.o. 3 times daily, and meloxicam 7.5 mg 1 tablet p.o. daily. Risks and benefits of the medication have been explained in detail to the patient. The patient does understand the risk of dependence on the medication when given over a prolonged period. Patient has been advised of risks of oversedation with the prescribed medication. Narcan has been offered to the paitent in the event of oversedation. Patient has been advised that a family m
[2021-04-27 19:11] LABS: Opiates Negative (Cutoff=100); Oxycodone (GC/MS) >3000 ng/mL (Cutoff=100); Oxymorphone (GC/MS) 1231 ng/mL (Cutoff=100)
== END ==
PROVIDERS: PCP Nurse Practitioner Family; Visit Provider Clinical Nurse Specialist Family Health
DX: G89.4 Chronic pain syndrome (principal); I73.9 Peripheral vascular disease, unspecified; M79.604 Pain in right leg; R42 Dizziness and giddiness; Z79.899 Other long term (current) drug therapy
CPT/HCPCS: 80305; 80361; 80365; 99212; G0463; G0480

== ENCOUNTER → 2021-05-28 13:56 | Outpatient (POV) | payer MEDICARE, MEDICAID, SELFPAY ==
--- NOTE | 2021-05-28 14:20 | HMH.PAINSOAP ---
[facility] Pain Management SOAP Note Subjective:: Patient is a very pleasant 40-year-old white female who presents today for Chronic pain syndrome, history of left lower extremity above-knee amputation, and extensive peripheral artery disease. She has a history of previous sternotomy with very poor wound healing. She is currently managed with transdermal fentanyl patch 25 mcg/h, oxycodone 15 mg 2 tablets 3 times a day, and clonazepam 1 mg twice daily that is prescribed by our clinic. She is also prescribed Lyrica 150 mg twice daily by her primary care physician. She states that overall her chronic pain symptoms are adequately managed by her current pain regimen. She states that her current pain regimen allows her to maintain functionality. However, she states that she has continued to having worsening right foot pain and she states that it feels like as if her foot is broken. She denies any trauma or injury to precipitate this pain. He rates her pain today as a 6 out of 10. She is requesting refills to her medications today. ROS General: No recent weight changes, no fever, no sleep disturbances Respiratory: No cough, no shortness of air, no recurring pulmonary infections Cardiovascular/peripheral vascular: No chest pain, no palpitations, no edema, no shortness of breath Gastrointestinal: No new onset incontinence, normal bowel movements reported Genitourinary: No new onset incontinence Musculoskeletal: Left foot pain Psychiatric: No mood issues Neurological: Denies weakness in the right lower extremity Objective:: General: Alert and oriented x3, no acute distress, pleasant and cooperative Lungs: Resps E/U, symmetric chest expansion Eyes: PERRL Musculoskeletal: Left foot is embolus. 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 I will also refer her to psychiatry for further evaluation and treatment of her anxiety. I discussed with the patient that we will not be able to continue prescribing her diazepam's concomitantly with opioids due to the high risk and black box warning for respiratory depression. Patient verbalized understanding. We will also prescribe the patient Narcan today. We will follow-up with this patient in 1 month for reassessment and patient refills. [facility] #[id number] and prior drug screens were reviewed and appropriate. [facility] History Medical History: Reports:: Anxiety, Asthma, Congestive Heart Failure, Chronic Obstructive Pulmonary Disease (COPD), Coronary Artery Disease, Depression, Diabetes Mellitus Type 2, Gastroesophageal Reflux Disease(GERD), Heart Murmur, Home Oxygen, Hyperlipidemia, Hypertension, Lung Disease, Myocardial Infarction, Peripheral Artery Disease, Peripheral Vascular Disease, Renal Disease, Renal Insufficiency Denies:: Cancer, Diabetes Mellitus Type 1, Internal Pacemaker, MRSA, Seizures *Have you ever received a pneumonia vaccine?: No *Have you received a flu vaccine this season?: No Other Medical History: Reports: Arthritis, Fibromyalgia, Hypothyroidism. Denies: Blood Transfusion Reaction Other Surgeries: Yes: No Previous Surgery, CABG, Cardiac Catheterization, Cholecystectomy, Colonoscopy, Coronary Stent, Hysterectomy-Total, Other (PINEALECTOMY). No: Pacemaker Amputation: Yes (Lt leg above knee) Fractures: No - *Social History Smoking Status: Current every day smoker Tobacco Type: cigarettes # Packs/Day (cigarettes): 1 #Yrs smoked (if former smoker): 20 [place]
[2021-05-28 14:21] VITALS: BP 203/96; PULSE 79; RESP 18; O2SAT 98; BMI 34.4
== END ==
PROVIDERS: Visit Provider Anesthesiology Pain Medicine
DX: G89.4 Chronic pain syndrome (principal); I73.9 Peripheral vascular disease, unspecified; Z89.612 Acquired absence of left leg above knee
CPT/HCPCS: 99212; G0463

== ENCOUNTER → 2021-05-28 14:40 | Outpatient (CLI) | payer MEDICARE, MEDICAID, SELFPAY ==
[2021-05-28 15:12] LABS: Basophils % 0.4 % (0.1-2.0); Eosinophils # 0.2 K/mm3 (0.0-0.4); Eosinophils % 2.7 % (0.1-12.0); Hematocrit 39.9 % (37.0-47.0); Hemoglobin 13.4 g/dL (12.2-16.2); Lymphocytes # 2.2 K/mm3 (0.7-4.5); Lymphocytes % 25.1 % (10-50); Mean Corpuscular HGB Conc 33.6 g/dL (31.8-35.4); Mean Corpuscular Hemoglobin 29.4 pg (27.0-31.2); Mean Corpuscular Volume 87.5 fl (81-99); Mean Platelet Volume 8.4 fl (7.4-10.4); Monocytes # 0.4 K/mm3 (0.1-1.0); Monocytes % 4.6 % (1.7-9.3); Neutrophils # 5.8 K/mm3 (1.8-7.8); Neutrophils % 67.3 % (37.0-80.0); Platelet Count 235 K/mm3 (142-424); Red Blood Count 4.56 M/mm3 (4.20-5.40); Red Cell Distribution Width 13.5 % (11.5-17.5); White Blood Count 8.6 K/mm3 (4.8-10.8)
--- NOTE | 2021-05-28 15:18 | XR_ITS ---
FINAL REPORT CLINICAL HISTORY: RT FOOT PAIN FINDINGS: RIGHT FOOT: Three views of the right foot were obtained. The bones are osteopenic. There is no acute fracture or dislocation. There are mild degenerative changes. There is no soft tissue abnormality. IMPRESSION: Mild degenerative change. Reviewed, Interpreted and Dictated by Inder Jalloh III, MD Transcribed by Gerardo Del Toro Authenticated by Inder Jalloh III, MD on 05/28/2021 04:37:40 PM [facility]
[2021-05-28 16:18] LABS: Hemoglobin A1C 10.5 % (4.0-6.0)
[2021-05-28 16:59] LABS: Chloride 103 mmol/L (98-107); Potassium 4.3 mmoL/L (3.5-5.1); Sodium 131 mmol/L (136-145)
[2021-05-28 17:01] LABS: Alanine Aminotransferase 13 U/L (12-78); Albumin Level 3.9 g/dl (3.5-5.0); Albumin/Globulin Ratio 1.1 (1.1-1.8); Alkaline Phosphatase 126 U/L (38-126); Anion Gap 9.3 mEq/L (5-15); Aspartate Amino Transferase 19 U/L (14-36); Bilirubin,Total 0.3 mg/dl (0.2-1.3); Carbon Dioxide 23 mmol/L (22.0-30.0); Globulin 3.7 g/dL (1.3-3.2); Total Protein,Serum 7.6 g/dl (6.3-8.2)
[2021-05-28 17:02] LABS: Calcium 8.6 mg/dl (8.4-10.2); Chol/HDL Ratio 6.3 (1-3.5); Cholesterol 215 mg/dl (140-200); Glucose 209 mg/dl (74-100); HDL Cholesterol 34 mg/dl (40-60)
[2021-05-28 17:13] LABS: Direct LDL Cholesterol 62.34 mg/dL (100-129)
[2021-05-28 17:16] LABS: Triglycerides 639 mg/dl (30-150)
[2021-05-28 17:29] LABS: Blood Urea Nitrogen 32 mg/dl (7-17); Estimated Glomerular Filt Rate 45 ml/min (>60); GFR (African American) 54 ML/MIN (>60)
[2021-05-28 18:18] LABS: Vitamin B12 401 pg/mL (239-931)
[2021-05-28 19:26] LABS: Amphetamine/Metha Screen,Urine Negative ng/ml (<1000)
[2021-05-28 19:27] LABS: Barbiturates Screen,Urine Negative ng/ml (<200); Benzodiazepines Screen,Urine Negative ng/ml (<200)
[2021-05-28 19:28] LABS: Cannabinoid Screen,Urine Negative ng/ml (<50)
[2021-05-28 19:29] LABS: Cocaine Screen,Urine Negative ng/ml (<300); Methadone Screen,Urine Negative ng/ml (<300)
[2021-05-28 19:30] LABS: Opiate Screen,Urine Positive ng/ml (<300)
[2021-05-28 19:31] LABS: Phencyclidine Screen,Urine Negative ng/ml (<25)
[2021-06-08 05:28] LABS: Opiates Negative (Cutoff=100); Oxycodone (GC/MS) 2804 ng/mL (Cutoff=100); Oxymorphone (GC/MS) 1128 ng/mL (Cutoff=100)
== END ==
PROVIDERS: Anesthesiology Pain Medicine; PCP Nurse Practitioner Family; Visit Provider Anesthesiology
DX: M79.671 Pain in right foot (principal); E11.40 Type 2 diabetes mellitus with diabetic neuropathy, unspecified; E03.9 Hypothyroidism, unspecified; R20.2 Paresthesia of skin; E55.9 Vitamin D deficiency, unspecified; Z79.891 Long term (current) use of opiate analgesic; Z79.4 Long term (current) use of insulin
CPT/HCPCS: 36415; 73630; 80053; 80061; 80305; 80361; 80365; 82306; 82607; 83036; 84443; 85025; G0480

== ENCOUNTER → 2021-06-25 13:45 | Outpatient (POV) | payer MEDICARE, MEDICAID, SELFPAY ==
--- NOTE | 2021-06-25 15:26 | HMH.PAINSOAP ---
[facility] Pain Management SOAP Note Subjective:: Patient is a pleasant 40-year-old female who is here as telehealth for medication refill and follow-up. Patient is currently being treated for chronic pain syndrome, left lower extremity [id number] amputation, peripheral artery disease. Patient is being managed with fentanyl 25 mcg/h every 72 hours, oxycodone 15 mg 6 times a day, and clonazepam 1 mg daily. Patient denies any side effects from the medications. Patient denies any changes to the location and type of pain. Patient states that this is adequately helping manage his pain. Rates pain as 6 out of 10[address] [facility] number [id number]. Today, patient is complaining that she did her right knee when she was trying to get on the toilet when she was last here. Ever since then, patient says that she has been unable to extend her knee fully. She is also having trouble putting a whole lot of weight because she feels like she is not stable. Her quality of life has decreased because of this since she is already has an above the knee amputation on her left leg. General: No recent weight changes, no fever, no sleep disturbances Respiratory: No cough, no shortness of air, no recurring pulmonary infections Cardiovascular/peripheral vascular: No chest pain, no palpitations, no edema, no shortness of breath Gastrointestinal: No new onset incontinence, normal bowel movements reported Genitourinary: No new onset incontinence Musculoskeletal: Left leg pain, right knee pain Psychiatric: [Normal mood/affect] Neurological: [Denies weakness in extremities], [denies balance issues] Objective:: General: Alert and oriented x3, pleasant and cooperative Lungs: Patient is able to say complete sentences without dyspnea Neurological: Speech clear Assessment:: Chronic pain syndrome, left lower extremity jatri-[id number] amputation, peripheral artery disease, right knee pain Plan:: We will continue the patient's fentanyl patch 25 mcg/h every 72 hours, oxycodone 15 mg 6 times a day, and clonazepam 1 mg daily. We will provide the patient with 1 month of refills. We would like to see the patient back in 1 month for follow-up and reevaluation of chronic pain syndrome. I will also order an MRI of her right knee, since she has been unable to extend it. She also feels unstable when she puts weight on it. She is still able to transfer without issues. I will most likely refer her to ortho. Patient has been advised of risks of oversedation with the prescribed medication. Narcan has been offered to the paitent in the event of oversedation. Patient has been advised that a family member should also be educated regarding administration of Narcan. Patient has been instructed to contact the clinic with any concerns before the next appointment. Dr. Shepherd has reviewed this note and agrees with this plan of care. This note was dictated using voice recognition software and make contain errors or omissions. [facility] History Medical History: Reports:: Anxiety, Asthma, Congestive Heart Failure, Chronic Obstructive Pulmonary Disease (COPD), Coronary Artery Disease, Depression, Diabetes Mellitus Type 2, Gastroesophageal Reflux Disease(GERD), Heart Murmur, Home Oxygen, Hyperlipidemia, Hypertension, Lung Disease, Myocardial Infarction, Peripheral Artery Disease, Peripheral Vascular Disease, Renal Disease, Renal Insufficiency Denies:: Cancer, Diabetes Mellitus Type 1, Internal Pacemaker, MRSA, Seizures *Have you ever received a pneumonia vaccine?: No *Have you received a flu vaccine this season?: No Other Medical History: Reports: Arthritis, Fibromyalgia, Hypothyroidism. Denies: Blood Transfusion Reaction Other Surgeries: Yes: No Previous Surgery, CABG, Cardiac Catheterization, Cholecystectomy, Colonoscopy, Coronary Stent, Hysterectomy-Total, Other (PINEALECTOMY). No: Pacemaker Amputation: Yes (Lt leg above knee) Fractures: No - *Social History Smoking Status: Current every day smoker T
== END ==
PROVIDERS: Visit Provider Student in an Organized Health Care Education/Training Program
DX: G89.4 Chronic pain syndrome; I73.9 Peripheral vascular disease, unspecified; M25.561 Pain in right knee; Z89.612 Acquired absence of left leg above knee
CPT/HCPCS: 99212; G0463

== ENCOUNTER → 2021-07-10 11:09 | Outpatient (POV) | payer MEDICARE, MEDICAID, SELFPAY ==
[2021-07-10 11:59] VITALS: BP 172/86; PULSE 81; RESP 18; TEMP 36.8; O2SAT 97; BMI 34.4
--- NOTE | 2021-07-10 13:10 | HMH.PAINSOAP ---
[facility] Pain Management SOAP Note Subjective:: Patient is a pleasant 40-year-old white female who we have been treating for chronic pain with severe peripheral artery disease with left above-knee amputation. She also has some increasing right knee pain and lumbar radiculopathy symptoms. We are currently medically managing her. She is on oxycodone 15 mg 6 times a day along with a fentanyl patch 25 mcg every 3 days and she is decreased her Klonopin to 1 mg daily. Her Carrillo and drug screen have been appropriate. She has been on a stable dose. Carrillo [phone]. Pain score is a 6 out of 10. This medication regimen does allow her to be functional. We continue to monitor her every month. She does say that she is having some increasing pain today. She does not notice much of a difference with her fentanyl patch. We will discontinue her fentanyl patch and increase her oxycodone slightly to 20 mg 6 times a day. Also they did deny the MRI for her right knee. She may have injury to her meniscus. We will refer to Dr. Oliver for evaluation and imaging of her right knee to see if there needs to be any surgical intervention. Objective:: Alert and oriented x3 no acute distress. Patient in the wheelchair. Motor strength of the right lower extremity is 5/5. She does have increasing pain over her right knee. She does have a left above-knee amputation. There is no gross sensory deficit. Assessment:: Chronic pain syndrome with peripheral artery disease and right knee pain with left lower extremity above-knee amputation and lumbar radiculopathy symptoms Plan:: We will make adjustments to her medication regimen. We will increase her oxycodone to 20 mg 6 times a day. We will discontinue her fentanyl patch. We will refer her to Dr. Oliver for evaluation of her right knee with possible meniscal injury. [facility] History Medical History: Reports:: Anxiety, Asthma, Congestive Heart Failure, Chronic Obstructive Pulmonary Disease (COPD), Coronary Artery Disease, Depression, Diabetes Mellitus Type 2, Gastroesophageal Reflux Disease(GERD), Heart Murmur, Home Oxygen, Hyperlipidemia, Hypertension, Lung Disease, Myocardial Infarction, Peripheral Artery Disease, Peripheral Vascular Disease, Renal Disease, Renal Insufficiency Denies:: Cancer, Diabetes Mellitus Type 1, Internal Pacemaker, MRSA, Seizures *Have you ever received a pneumonia vaccine?: No *Have you received a flu vaccine this season?: No Other Medical History: Reports: Arthritis, Fibromyalgia, Hypothyroidism. Denies: Blood Transfusion Reaction Other Surgeries: Yes: No Previous Surgery, CABG, Cardiac Catheterization, Cholecystectomy, Colonoscopy, Coronary Stent, Hysterectomy-Total, Other (PINEALECTOMY). No: Pacemaker Amputation: Yes (Lt leg above knee) Fractures: No - *Social History Smoking Status: Current every day smoker Tobacco Type: cigarettes # Packs/Day (cigarettes): 1 #Yrs smoked (if former smoker): 20 Alcohol Intake: never Substance Use Type: denies use *Occupational Status:: other Housing: house Household Members: none *Travel in the last 8 weeks: None - Psychiatric History Pschychiatric History:: Reports:: Anxiety, Depression Family Hx:: Coronary Artery Disease, Heart Attack, Diabetes, Hypertension, Cancer, Thyroid Disorder, Asthma
== END ==
PROVIDERS: PCP Nurse Practitioner Family; Visit Provider Anesthesiology
DX: G89.4 Chronic pain syndrome (principal); I73.9 Peripheral vascular disease, unspecified; M25.561 Pain in right knee; M54.16 Radiculopathy, lumbar region; Z89.222 Acquired absence of left upper limb above elbow
CPT/HCPCS: 99212; G0463

== ENCOUNTER → 2021-08-14 09:37 | Outpatient (CLI) | payer MEDICARE, MEDICAID, SELFPAY ==
[2021-08-14 09:46] LABS: Coronavirus 19, PCR Not Detected (NotDetected); Influenza A, PCR Not Detected (NotDetected); Influenza B, PCR Not Detected (NotDetected)
[2021-08-14 10:04] LABS: Basophils # 0.1 K/mm3 (0-0.2); Basophils % 1.4 % (0.1-2.0); Eosinophils # 0.1 K/mm3 (0.0-0.4); Eosinophils % 1.6 % (0.1-12.0); Hematocrit 36.6 % (37.0-47.0); Hemoglobin 12.5 g/dL (12.2-16.2); Lymphocytes # 2.2 K/mm3 (0.7-4.5); Lymphocytes % 29.1 % (10-50); Mean Corpuscular Hemoglobin 30.2 pg (27.0-31.2); Mean Corpuscular Volume 88.8 fl (81-99); Monocytes # 0.6 K/mm3 (0.1-1.0); Monocytes % 7.5 % (1.7-9.3); Neutrophils # 4.6 K/mm3 (1.8-7.8); Neutrophils % 60.4 % (37.0-80.0); Platelet Count 268 K/mm3 (142-424); Red Blood Count 4.12 M/mm3 (4.20-5.40); Red Cell Distribution Width 14.9 % (11.5-17.5); White Blood Count 7.5 K/mm3 (4.8-10.8)
[2021-08-14 10:12] LABS: Chloride 99 mmol/L (98-107)
[2021-08-14 10:13] LABS: Potassium 3.7 mmoL/L (3.5-5.1); Sodium 132 mmol/L (136-145)
[2021-08-14 10:15] LABS: Blood Urea Nitrogen 18 mg/dl (7-17); Estimated Glomerular Filt Rate 33 ml/min (>60); GFR (African American) 40 ML/MIN (>60)
[2021-08-14 10:16] LABS: Anion Gap 10.7 mEq/L (5-15); Carbon Dioxide 26 mmol/L (22.0-30.0); Glucose 283 mg/dl (74-100)
== END ==
PROVIDERS: PCP Nurse Practitioner Family; Visit Provider Internal Medicine Cardiovascular Disease
DX: I73.9 Peripheral vascular disease, unspecified (principal); L97.519 Non-pressure chronic ulcer of other part of right foot with unspecified severity
CPT/HCPCS: 36415; 80048; 85025; C9803; U0003; U0005

== ENCOUNTER 2021-08-14 14:04 | Observation (INO) | payer MEDICARE, MEDICAID, SELFPAY ==
[2021-08-14] VITALS (30 sets, daily range): BP systolic 94–138; BP diastolic 38–79; PULSE 53–69; RESP 18; TEMP 36.7–37.1; O2SAT 91–100; BMI 31.6; BMI 33.8
--- NOTE | 2021-08-14 | IR_ITS ---
APPROVED REPORT Patient Location: Outpatient PROCEDURES Left femoral arterial access Catheter placement in the right superficial femoral artery Right superficial femoral artery antegrade angiogram with unilateral runoff to the right foot Angioplasty followed by bare-metal stent deployment to the distal superficial femoral artery extending into the right popliteal artery Drug-coated balloon angioplasty to the right PT trunk Drug-coated balloon angioplasty to the right peroneal artery INDICATION Emredith claudication class , Peripheral artery disease with near occlusion of the right SFA/popliteal artery, Subtotal occlusion of the entire PT trunk and peroneal artery, Critical limb ischemia, Limb salvage procedure Informed consent was obtained prior to the procedure. COMPLICATIONS None Estimated Blood Loss: Less than 10 ML TECHNIQUE 1% lidocaine used to anesthetize the left femoral groin. The left femoral artery was accessed via the Seldinger technique. A 5 Tristanian sheath was placed in left femoral artery. Using fluoroscopic guidance a rim catheter was placed in the distal abdominal aorta and an advantage wire was used to traverse the iliofemoral vessels under fluoroscopic guidance. The rim catheter was advanced to the right superficial femoral artery where antegrade angiography was performed with runoff to the right foot. Following this the 5 Tristanian sheath was exchanged for a 45 cm destination sheath which terminated in the proximal right superficial femoral artery. Therapeutic heparin was administered giving a therapeutic ACT. The advantage wire was used to traverse the subtotal occlusion of the right superficial femoral artery popliteal artery. A 5 mm x 20 mm balloon was used to predilate the stenosis followed by a 7 mm x 60 mm self-expanding stent in the distal right superficial femoral artery extending into the right popliteal artery. A 6 mm x 60 mm balloon was deployed at 12 lavell to post dilate. Following this repeat angiography demonstrated persistent subtotal occlusion of the PT trunk as well as the peroneal artery. The advantage wire was placed distally in the peroneal artery under fluoroscopic guidance and used to push through the chronic occlusion. A 3 mm x 150 mm balloon was used to predilate the peroneal artery and PT trunk. After the balloon angioplasty poor results were obtained therefore a 4 mm x 150 mm drug-coated balloon was then deployed in the mid peroneal artery extending back into the PT trunk and deployed at 3 minutes. Following this there was interval improvement with inline flow down the SFA popliteal artery PT trunk into the peroneal artery. After achieving satisfactory angiographic results the apparatus was removed the sheath was pulled back patient was transferred to the postop already in stable condition for sheath removal ANGIOGRAPHIC RESULTS Right femoral artery had a +2 pulses therefore iliofemoral angiography was not performed Right superficial femoral artery is proximally patent and then has a mid vessel 40 to 50% eccentric stenosis followed by a focal greater than 90% stenosis at Frandy's canal. The proximal popliteal artery has a concentric 70% stenosis followed by mid vessel eccentric 50% stenosis. The PT trunk is then subtotally occluded and has scant subtotal occluded flow into the peroneal artery. Both the anterior and posterior popliteal arteries are occluded. There is scant flow into the right foot via the peroneal artery. Distally the anterior tibialis artery reconstitutes at the level of the dorsalis pedis IMPRESSION Palmer claudication class /gangrenous right foot Successful limb salvage procedure with episcopalian of flow through the super
[2021-08-14 14:05] LABS: CATHL Activated Clotting Time 202 SEC (74-125)
--- NOTE | 2021-08-14 14:26 | P.CONPHA_ITS ---
[facility] Pharm[facility] VTE Monitoring - Patient Demographics Admission date: 08/14/21 Report Date: 08/14/21 Time: 14:26 Allergies/Adverse Reactions: Patient Allergies acetaminophen [ACETAMINOPHEN] Allergy (Unknown, Verified 08/14/21 09:03) RASH,SWELLING,HIVES morphine Allergy (Unknown, Verified 08/14/21 09:03) Penicillins [PENICILLINS] Allergy (Unknown, Verified 08/14/21 09:03) I-RASH Height: 1.7 m Weight: 91.626 kg - VTE Risk Was VTE Risk Assessment Performed: No Clinical Trial Participant: No - Prophylaxis VTE Prophylaxis Ordered?: Yes Types of VTE Prophylaxis: TEDS Knee High Location of Applied Device: Bilateral Lower Extremeties
[2021-08-14 18:32] LABS: Anion Gap 14.9 mEq/L (5-15); Blood Urea Nitrogen 20 mg/dl (7-17); Calcium 8.7 mg/dl (8.4-10.2); Carbon Dioxide 27 mmol/L (22.0-30.0); Chloride 97 mmol/L (98-107); Creatinine Clearance Estimated 48 mL/min (50-200); Estimated Glomerular Filt Rate 24 ml/min (>60); GFR (African American) 29 ML/MIN (>60); Glucose 197 mg/dl (74-100); Potassium 3.9 mmoL/L (3.5-5.1); Sodium 135 mmol/L (136-145)
[2021-08-14 18:38] LABS: C-Reactive Protein 31.9 mg/L (0-4)
--- NOTE | 2021-08-14 18:51 | HMH.HP ---
*Admission Date: 08/14/21 *Chief complaint: foot pain, kidney injury, ischemic right foot *History of present illness: 41-year-old female with significant cardiovascular history, vasculopathy, peripheral artery disease, status post CABG x5, uncontrolled diabetes, peripheral neuropathy, status post left BKA, and hypothyroidism. She presented to primary care office yesterday due to onset of wounds to her right foot that occurred approximately 2 weeks ago after going on a cruise and sustaining injury to her foot. 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 Has had worsening of injury with blackening of several of the small toes on her foot and development of a large eschar approximately 2 cm in diameter over right MTP joint of great toe. Denies fever, purulent drainage, redness or swelling of foot. Has been having tingling/burning pain. Seen in primary care office yesterday and sent to cardiology due to concern for ischemic limb. Cardiology saw her today and took her emergently to the [facility] for runoff study and stenting of right lower extremity arteries. Chest pain, shortness of breath, swelling of foot, dizziness. Cardiac history: CAD is present and likely stable. JAMIA in 2014. Hx of CABGx5 in 2014. HTN-controlled at goal less than 130/80 BECCA inhibitor and beta-rosario. PAD is present. On Xarelto and Plavix, denies bleeding. LDL goal is < 55. Pt is on Crestor. DM is present, Tobacco abuse present Tobacco cessation advised and counseled. Will set patient up for Right lower extremity runoff, due to right foot ulcerations/possible gangrene. Risks, benefits and alternatives have been discussed and patient is agreeable. BMP/CBC/rapid covid RTC 1week [facility] History I have reviewed the patient's past medical history: Yes Medical History: Reports:: Anxiety, Asthma, Congestive Heart Failure, Chronic Obstructive Pulmonary Disease (COPD), Coronary Artery Disease, Depression, Diabetes Mellitus Type 2, Gastroesophageal Reflux Disease(GERD), Heart Murmur, Home Oxygen, Hyperlipidemia, Hypertension, Lung Disease, Myocardial Infarction, Peripheral Artery Disease, Peripheral Vascular Disease, Renal Disease, Renal Insufficiency Denies:: Cancer, Diabetes Mellitus Type 1, Internal Pacemaker, MRSA, Seizures *Have you ever received a pneumonia vaccine?: No *Have you received a flu vaccine this season?: No Other Medical History: Reports: Arthritis, Fibromyalgia, Hypothyroidism. Denies: Blood Transfusion Reaction Other Surgeries: Yes: No Previous Surgery, CABG, Cardiac Catheterization, Cholecystectomy, Colonoscopy, Coronary Stent, Hysterectomy-Total, Other (PINEALECTOMY). No: Pacemaker Amputation: Yes (Lt leg above knee) Fractures: No - *Social History Last grade of school completed: High school graduate Smoking Status: Current every day smoker Tobacco Type: cigarettes # Packs/Day (cigarettes): 1 #Yrs smoked (if former smoker): 20 Alcohol Intake: never Substance Use Type: denies use *Occupational Status:: disabled Housing: house Household Members: family *Travel in the last 8 weeks: None - Psychiatric History Pschychiatric History:: Reports:: Anxiety, Depression Family Hx:: Coronary Artery Disease, Heart Attack, Diabetes, Hypertension, Cancer, Thyroid Disorder, Asthma Review of Systems - Review of Systems Review of systems:: pertinent systems reviewed and negative unless documented below (14 point review of systems performed, pertinent positives and negatives as per HPI) Meds Home Medications Medication Instructions Recorded Confirmed Type budesonide-formoterol HFA 80 2 puff INHALATION BID g 03/22/18 08/14/21 History mcg-4.5 mcg/actuation aerosol inhaler ergocalciferol (vitamin D2) 1,250 50,000 unit PO QWEEK 03/22/18 08/14/21 History mcg (50,000 unit) capsule insulin aspart U-100 100 unit/mL 30 unit SQ QPM ml 03/22/18 08/14/21 History (
[2021-08-14 19:03] LABS: Erythrocyte Sedimentation Rate > 140 mm/hr (0-20)
[2021-08-14 21:19] LABS: POC Glucose,Bedside 190 (70-110)
[2021-08-15] VITALS: BP 106/54; PULSE 62; RESP 16; TEMP 36.8; O2SAT 100
--- NOTE | 2021-08-15 03:17 | PC.NURSE ---
Patient has remained on 2LNC with oxygen saturation 95% and above. Patient's cath site remains clean, dry and intact. No acute events have occurred thus far.
[2021-08-15 04:00] VITALS: BP 112/53; PULSE 70; RESP 16; TEMP 37.4; O2SAT 98
[2021-08-15 05:00] VITALS: BMI 34.7
[2021-08-15 06:38] LABS: POC Glucose,Bedside 279 (70-110)
--- NOTE | 2021-08-15 07:18 | HMH.ACPN2 ---
Internal Medicine - PN: Subj *Date: 08/15/21 *Time: 10:07 Interval history: Patient did well overnight. Remains afebrile. Wears oxygen at night, weaned off this morning on rounds. Noted her foot to be more warm with improved perfusion. No streaking or redness from her dry gangrene. Pain stable on current regimen. Tolerating fair p.o. intake. Drinking well. Labs reviewed this morning, slight worsening of her creatinine. Family at bedside. CT of her foot obtained today. Exam Vital signs and Labs for Last 24 Hours: Temp Pulse Resp BP Pulse Ox 99.3 F 70 16 112/53 L 98 08/15/21 04:00 08/15/21 04:00 08/15/21 04:00 08/15/21 04:00 08/15/21 04:00 Laboratory Results - last 24 hr 08/14/21 13:13: Activated Clotting Time 202 H* 08/14/21 17:58: ESR > 140 H 08/14/21 17:58: Sodium 135 L, Potassium 3.9, Chloride 97 L, Carbon Dioxide 27, Anion Gap 14.9, BUN 20 H, Creatinine 2.20 H D, Estimated Creat Clear 48, Estimated GFR 24 L, Est GFR ( Amer) 29 L D, Glucose 197 H D, Calcium 8.7, C-Reactive Protein 31.9 H 08/14/21 21:05: POC Glucose 190 H 08/15/21 06:23: POC Glucose 279 H I & O for Last 24 hours: Intake & Output 08/12/21 08/13/21 08/14/21 08/15/21 23:59 23:59 23:59 23:59 Intake Total 0 / 0 Balance 0 / 0 Weight 92.193 kg 94.574 kg Narrative: - Constitutional no acute distress, obese - *Routine HEENT Exam Head: Present: normocephalic, Hirsutism Eye: Present: EOMI, PERRL ENT: Present: mucous membranes moist - *Routine Neck Exam Present: supple. Absent: lymphadenopathy - *Routine Respiratory Exam Present: CTA bilaterally - *Routine Cardiovascular Exam Present: RRR - *Routine Abdominal Exam Present: soft, normoactive bowel sounds. Absent: tenderness; insertion site from cath clean dry intact. - *Routine Extremities Exam No clubbing, edema; right foot with distal cyanosis of toes; right foot warm today compared to yesterday. 1+ edema in foot., Left leg AKA. Right leg with following saphenous scar previous graft harvest. Nonpalpable pulse right posterior tibial. Arterial ulcers of right foot and ischemic toes with dry gangrene. - *Routine Skin Exam Present: warm, No rash - *Routine Neurological Exam Present: alert, oriented X3 Assessment and Plan (1) Dry gangrene Status: Acute Category: Medical Code(s): I96 - Gangrene, not elsewhere classified (2) Ischemic foot ulcer due to atherosclerosis of [place] artery of limb Status: Acute Category: Medical Code(s): I70.25 - Atherosclerosis of [place] arteries of other extremities with ulceration; L97.509 - Non-pressure chronic ulcer of other part of unspecified foot with unspecified severity (3) Abnormal ankle brachial index (BRYAN) Status: Acute Category: Medical Code(s): R68.89 - Other general symptoms and signs (4) CAD (coronary artery disease) Status: Chronic Qualifiers: Coronary Disease-Associated Artery/Lesion type: [place] artery [place] vs. transplanted heart: [place] heart Associated angina: with other forms of angina Qualified Code(s): I25.118 - Atherosclerotic heart disease of [place] coronary artery with other forms of angina pectoris Category: Medical Code(s): I25.10 - Atherosclerotic heart disease of [place] coronary artery without angina pectoris (5) Claudication Status: Chronic Category: Medical Code(s): I73.9 - Peripheral vascular disease, unspecified (6) Diabetes mellitus Status: Chronic Qualifiers: Diabetes mellitus type: type 2 Diabetes mellitus shelter insulin use: with shelter use Diabetes mellitus complication status: without complication Qualified Code(s): E11.9 - Type 2 diabetes mellitus without complications; Z79.4 - long-term (current) use of insulin Category: Medical Code(s): E11.9 - Type 2 diabetes mellitus without complications (7) HLD (hyperlipidemia) Status: Chronic Qualifiers: Hyperlipidemia type: mixed hyperlipidemia
[2021-08-15 07:25] VITALS: BP 142/69; PULSE 66; RESP 17; TEMP 36.5; O2SAT 99
[2021-08-15 07:44] LABS: Basophils % 0.7 % (0.1-2.0); Eosinophils # 0.1 K/mm3 (0.0-0.4); Eosinophils % 1.2 % (0.1-12.0); Hematocrit 33.4 % (37.0-47.0); Lymphocytes # 1.3 K/mm3 (0.7-4.5); Lymphocytes % 24.3 % (10-50); Mean Corpuscular HGB Conc 33.4 g/dL (31.8-35.4); Mean Corpuscular Hemoglobin 30.1 pg (27.0-31.2); Mean Platelet Volume 9.7 fl (7.4-10.4); Monocytes # 0.4 K/mm3 (0.1-1.0); Monocytes % 7.5 % (1.7-9.3); Neutrophils # 3.6 K/mm3 (1.8-7.8); Neutrophils % 66.3 % (37.0-80.0); Platelet Count 190 K/mm3 (142-424); Red Blood Count 3.71 M/mm3 (4.20-5.40); White Blood Count 5.4 K/mm3 (4.8-10.8)
[2021-08-15 07:50] LABS: Alanine Aminotransferase 11 U/L (12-78); Albumin Level 3.5 g/dl (3.5-5.0); Alkaline Phosphatase 94 U/L (38-126); Anion Gap 12.9 mEq/L (5-15); Aspartate Amino Transferase 19 U/L (14-36); Bilirubin,Total 0.4 mg/dl (0.2-1.3); Blood Urea Nitrogen 24 mg/dl (7-17); Calcium 8.3 mg/dl (8.4-10.2); Carbon Dioxide 25 mmol/L (22.0-30.0); Chloride 100 mmol/L (98-107); Creatinine Clearance Estimated 42 mL/min (50-200); Estimated Glomerular Filt Rate 20 ml/min (>60); GFR (African American) 24 ML/MIN (>60); Globulin 3.6 g/dL (1.3-3.2); Glucose 247 mg/dl (74-100); Magnesium 1.7 mg/dl (1.6-2.3); Potassium 3.9 mmoL/L (3.5-5.1); Sodium 134 mmol/L (136-145); Total Protein,Serum 7.1 g/dl (6.3-8.2)
--- NOTE | 2021-08-15 08:00 | CT_ITS ---
PROCEDURE INFORMATION: Exam: CT Right Lower Extremity Without Contrast, Foot Exam date and time: 08/15/2021 8:22 AM Age: 41 years old Clinical indication: Swelling, leg or foot; Additional info: Concern for osteomyelitis TECHNIQUE: Imaging protocol: CT of the Right lower extremity without contrast was performed. Exam focused on the foot. Radiation optimization: All CT scans at this facility use at least one of these dose optimization techniques: automated exposure control; mA and/or kV adjustment per patient size (includes targeted exams where dose is matched to clinical indication); or iterative reconstruction. COMPARISON: CT FOOT RT WO CON 08/15/2021 8:08 AM FINDINGS: Bones/joints: No acute fracture or malalignment. Osteopenia. No specific evidence of acute osteomyelitis. Soft tissues: There is subcutaneous fat stranding and edema within the soft tissues the foot. No drainable fluid collection or abscess. IMPRESSION: 1. No specific evidence of osteomyelitis. 2. Subcutaneous fat stranding and edema within the soft tissues of the foot which may reflect cellulitis. No drainable fluid collection or abscess.
[2021-08-15 08:26] LABS: Hemoglobin 11.1 g/dL (12.2-16.2)
[2021-08-15 08:37] LABS: Hemoglobin A1C 10.7 % (4.0-6.0)
[2021-08-15 10:35] VITALS: BP 122/70; PULSE 62; RESP 17; TEMP 36.8; O2SAT 95
[2021-08-15 13:07] LABS: Strep Scrn Group A (Rapid) Negative (Negative)
[2021-08-15 13:43] LABS: POC Glucose,Bedside 283 (70-110)
[2021-08-15 14:42] VITALS: BP 142/71; PULSE 65; RESP 17; TEMP 36.6; O2SAT 98
[2021-08-15 17:43] LABS: POC Glucose,Bedside 351 (70-110)
[2021-08-15 20:00] VITALS: BP 146/81; PULSE 73; RESP 16; TEMP 37.1; O2SAT 99
[2021-08-15 20:27] LABS: Chloride 104 mmol/L (98-107); Potassium 4.4 mmoL/L (3.5-5.1); Sodium 133 mmol/L (136-145)
[2021-08-15 20:30] LABS: Blood Urea Nitrogen 27 mg/dl (7-17); Creatinine Clearance Estimated 47 mL/min (50-200); Estimated Glomerular Filt Rate 23 ml/min (>60); GFR (African American) 28 ML/MIN (>60)
[2021-08-15 20:31] LABS: Anion Gap 12.4 mEq/L (5-15); Calcium 8.4 mg/dl (8.4-10.2); Carbon Dioxide 21 mmol/L (22.0-30.0); Glucose 305 mg/dl (74-100)
[2021-08-15 21:44] LABS: POC Glucose,Bedside 310 (70-110)
[2021-08-16] VITALS: BP 133/77; PULSE 68; RESP 18; TEMP 37.1; O2SAT 97
--- NOTE | 2021-08-16 03:12 | PC.NURSE ---
Went to check on pt, pt states her fentanyl patch came off. Found patch in in pt bed with edges stuck together, was able to peel back to original state. Jessi Fernandez RN witnessed this RN place patch back on pts arm with tegaderm.
[2021-08-16 04:00] VITALS: BP 119/64; PULSE 63; RESP 18; TEMP 37.2; O2SAT 94
[2021-08-16 05:00] VITALS: BMI 34.7
--- NOTE | 2021-08-16 05:11 | PC.NURSE ---
No acute episodes thus far during my shift. Pt c/o of a sore throat - strep swab per day shift was negative. Pt has also c/o of back and R leg pain. Medicated per JUN. Leg is warm to touch, pink, and pulses present (+2). Cath site drsg is C/D/I. Dressing to R foot noted - C/D/I. Pt has been voiding clear, yellow urine per BSC with adequate urine output. IV infusing per order. Call light in reach.
[2021-08-16 06:26] LABS: POC Glucose,Bedside 179 (70-110)
[2021-08-16 07:28] VITALS: BP 146/78; PULSE 63; RESP 18; TEMP 37.3; O2SAT 97
[2021-08-16 07:43] LABS: Basophils # 0.1 K/mm3 (0-0.2); Basophils % 0.8 % (0.1-2.0); Eosinophils # 0.1 K/mm3 (0.0-0.4); Eosinophils % 2.3 % (0.1-12.0); Hemoglobin 10.7 g/dL (12.2-16.2); Lymphocytes % 32.7 % (10-50); Mean Corpuscular HGB Conc 32.6 g/dL (31.8-35.4); Mean Platelet Volume 9.8 fl (7.4-10.4); Monocytes # 0.5 K/mm3 (0.1-1.0); Monocytes % 7.8 % (1.7-9.3); Neutrophils # 3.5 K/mm3 (1.8-7.8); Neutrophils % 56.4 % (37.0-80.0); Platelet Count 188 K/mm3 (142-424); Red Blood Count 3.59 M/mm3 (4.20-5.40); Red Cell Distribution Width 15.1 % (11.5-17.5); White Blood Count 6.1 K/mm3 (4.8-10.8)
--- NOTE | 2021-08-16 07:48 | HMH.DCSUM ---
General - General Admission date:: 08/14/21 Discharge date: 08/16/21 HPI HPI: 41-year-old female with significant cardiovascular history, vasculopathy, peripheral artery disease, status post CABG x5, uncontrolled diabetes, peripheral neuropathy, status post left BKA, and hypothyroidism. She presented to primary care office yesterday due to onset of wounds to her right foot that occurred approximately 2 weeks ago after going on a cruise and sustaining injury to her foot. 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 Has had worsening of injury with blackening of several of the small toes on her foot and development of a large eschar approximately 2 cm in diameter over right MTP joint of great toe. Denies fever, purulent drainage, redness or swelling of foot. Has been having tingling/burning pain. Seen in primary care office yesterday and sent to cardiology due to concern for ischemic limb. Cardiology saw her today and took her emergently to the [facility] for runoff study and stenting of right lower extremity arteries. Chest pain, shortness of breath, swelling of foot, dizziness. Cardiac history: CAD is present and likely stable. JAMIA in 2014. Hx of CABGx5 in 2014. HTN-controlled at goal less than 130/80 BECAC inhibitor and beta-rosario. PAD is present. On Xarelto and Plavix, denies bleeding. LDL goal is < 55. Pt is on Crestor. DM is present, Tobacco abuse present Tobacco cessation advised and counseled. Will set patient up for Right lower extremity runoff, due to right foot ulcerations/possible gangrene. Risks, benefits and alternatives have been discussed and patient is agreeable. BMP/CBC/rapid covid RTC 1week Hospital Course Hospital Course: 41-year-old female with complex past medical history including vasculopathy and uncontrolled diabetes. Status post stenting of right lower extremity for ischemic limb salvage therapy. Patient admitted for monitoring of kidney function with the setting of AMAN on CKD. Ischemic wounds to right foot, concern for infection. Problems addressed as follows : Peripheral artery disease Vasculopathy Status post stenting of popliteal and superior femoral arteries. -Taken Tuesday to the [facility] for runoff study of right lower extremity. Had subtotal occlusion of multiple arteries in right leg. Stents placed in SFA and popliteal. Plan to continue Plavix, Xarelto, aspirin at this time. Has had improved perfusion of her leg with increased warmth of the foot. Developed some contrast nephropathy requiring continued monitoring. Creatinine peaked at 2.6 but has trended down over the past 24 hours consistently on serial labs. Tolerating good p.o. intake at this time. Follow-up with cardiology per their recommendations in 1 to 2 weeks. Right lower extremity gangrene ischemic ulcers of foot - Inflammatory markers obtained, significantly elevated. In the setting of normal white count, increasing neuropathic pain, elevated inflammatory markers started her on Levaquin. Initially received Levaquin every 48 hours due to kidney function. Will transition to Levaquin daily for cellulitis noted on CT of her foot. Will complete 10 days of antibiotics for empiric coverage at this time. -CT of foot showing fat stranding concerning for cellulitis but no obvious osteomyelitis. - Patient would benefit from referral to podiatry for further management and monitoring, podiatry is out of the office at this time, plan for follow-up later this week. Clinically stable to discharge home with Betadine dressings on foot. We will have close follow-up with primary care for continued monitoring. If foot worsens before able to see podiatry, will refer to tertiary care center. AMAN on CKD -Consistent with intrinsic injury given BUN/creatinine ratio. Concern for contrast nephropathy. -Continue IV fluids. Creatinine peaked at 2.6, serial
[2021-08-16 08:05] LABS: Alanine Aminotransferase 13 U/L (12-78); Albumin Level 3.5 g/dl (3.5-5.0); Albumin/Globulin Ratio 0.9 (1.1-1.8); Alkaline Phosphatase 91 U/L (38-126); Anion Gap 13.2 mEq/L (5-15); Aspartate Amino Transferase 22 U/L (14-36); Bilirubin,Total 0.4 mg/dl (0.2-1.3); Blood Urea Nitrogen 25 mg/dl (7-17); Calcium 8.6 mg/dl (8.4-10.2); Carbon Dioxide 24 mmol/L (22.0-30.0); Chloride 105 mmol/L (98-107); Creatinine Clearance Estimated 52 mL/min (50-200); Estimated Glomerular Filt Rate 26 ml/min (>60); GFR (African American) 31 ML/MIN (>60); Globulin 3.8 g/dL (1.3-3.2); Glucose 159 mg/dl (74-100); Magnesium 1.6 mg/dl (1.6-2.3); Potassium 4.2 mmoL/L (3.5-5.1); Sodium 138 mmol/L (136-145); Total Protein,Serum 7.3 g/dl (6.3-8.2)
--- NOTE | 2021-08-16 10:38 | HMH.PHACLD ---
Sarita Gonzales has received discharge medication counseling on the following medications: -ASPIRIN (CHANGED FROM EC TO CHEWABLE) -PLAVIX (WATCH FOR BLEED/BRUISE RISK, TAKE DAILY, IF YOU BUMP HEAD BE SEEN). -BISOPROLOL (PREVIOUSLY ON) -ROSUVASTATIN (PREVIOUSLY ON) -LISINOPRIL (HELD UNTIL FOLLOW-UP WITH MD OFFICE) -XARELTO (PREVIOSULY ON) -LEVAQUIN (SHORT-COURSE FOR GANGRENE)
--- NOTE | 2021-08-16 10:58 | PC.NURSE ---
DR WIHTESIDE WANTS PT TO HAVE DSG CHANGE AND IV INFUSION BEFORE THEY LEAVE
--- NOTE | 2021-08-17 16:20 | CARE MANAGER ---
Contacted patient related to follow up from hospital. She states she is doing well. Patient lost service and call was ended. JANAK Tao
== END 2021-08-16 13:33 | disposition home or self-care (01) ==
LOC: 2ND 15:20
PROVIDERS: Internal Medicine; Admitting Provider Internal Medicine Adolescent Medicine; PCP Nurse Practitioner Family; Visit Provider Internal Medicine Adolescent Medicine
DX: I70.261 Atherosclerosis of native arteries of extremities with gangrene, right leg (principal); Z99.81 Dependence on supplemental oxygen; Z95.1 Presence of aortocoronary bypass graft; Z79.01 Long term (current) use of anticoagulants; Z95.5 Presence of coronary angioplasty implant and graft; Z79.02 Long term (current) use of antithrombotics/antiplatelets; I70.25 Atherosclerosis of native arteries of other extremities with ulceration; E11.22 Type 2 diabetes mellitus with diabetic chronic kidney disease; F17.210 Nicotine dependence, cigarettes, uncomplicated; J44.9 Chronic obstructive pulmonary disease, unspecified; I11.0 Hypertensive heart disease with heart failure; I50.9 Heart failure, unspecified; I25.118 Atherosclerotic heart disease of native coronary artery with other forms of angina pectoris; Z79.4 Long term (current) use of insulin; Z79.899 Other long term (current) drug therapy; L97.511 Non-pressure chronic ulcer of other part of right foot limited to breakdown of skin; N18.9 Chronic kidney disease, unspecified; Z20.822 Contact with and (suspected) exposure to COVID-19; I77.1 Stricture of artery
CPT/HCPCS: G0378; 36415; 37226; 37228; 37232; 73700; 80048; 80053; 82962; 83036; 83735; 85025; 85347; 85651; 86140; 87430; 94760; 94761; 99152; 99153; C1725; C1766; C1769; C1876; C1894; C2623; C9803; J1644; J1956; Q9967; U0003; U0005

== ENCOUNTER → 2021-08-17 11:20 | Outpatient (POV) | payer MEDICARE, MEDICAID, SELFPAY ==
--- NOTE | 2021-08-17 12:40 | HMH.PAINSOAP ---
[facility] Pain Management SOAP Note Subjective:: Patient is a pleasant 41-year-old female who presents today as a telehealth visit for follow-up. Patient is currently being treated for chronic pain syndrome with peripheral artery disease, right knee pain with left lower extremity [id number] amputation and lumbar radiculopathy symptoms. We recently changed this patient's we will continue the patient's to oxycodone 20 mg 6 times a day and discontinued her fentanyl patch. Patient called us a week later saying that she was having nausea and vomiting with the change. She wanted to change back to her original prescription which was oxycodone 15 mg 6 times a day with fentanyl patch 25 mcg every 3 days. When we change her back to her original prescription, her symptoms have improved. She rates her pain today as 4 out of 10. [facility] #[id number] with an active morphine equivalent of 195. Review of Systems: General: No recent weight changes, no fever, no sleep disturbances Respiratory: No cough, no shortness of air, no recurring pulmonary infections Cardiovascular/peripheral vascular: No chest pain, no palpitations, no edema, no shortness of breath Gastrointestinal: No new onset incontinence, normal bowel movements reported Genitourinary: No new onset incontinence Musculoskeletal: Low back pain, bilateral leg pain Psychiatric: [Normal mood/affect] Neurological: [Denies weakness in extremities], [denies balance issues] Objective:: General: Alert and oriented x3, pleasant and cooperative Lungs: Patient is able to say complete sentences without dyspnea Neurological: Speech clear Assessment:: Chronic pain syndrome with peripheral artery disease and right knee pain with left lower extremity above the knee amputation and lumbar radiculopathy symptoms Plan:: Patient is doing better with her original prescription of oxycodone 15 mg 6 times a day and fentanyl patch 25 mcg every 72 hours. Patient is also taking Klonopin 1 mg daily. She is also on Lyrica 150 mg 3 times a day that is prescribed by Dr. Crook. We will follow-up with this patient in 1 month. Patient has been instructed to contact the clinic with any concerns before the next appointment. Dr. Shepherd has reviewed this note and agrees with this plan of care. This note was dictated using voice recognition software and make contain errors or omissions. [facility] History Medical History: Reports:: Anxiety, Asthma, Congestive Heart Failure, Chronic Obstructive Pulmonary Disease (COPD), Coronary Artery Disease, Depression, Diabetes Mellitus Type 2, Gastroesophageal Reflux Disease(GERD), Heart Murmur, Home Oxygen, Hyperlipidemia, Hypertension, Lung Disease, Myocardial Infarction, Peripheral Artery Disease, Peripheral Vascular Disease, Renal Disease, Renal Insufficiency Denies:: Cancer, Diabetes Mellitus Type 1, Internal Pacemaker, MRSA, Seizures *Have you ever received a pneumonia vaccine?: No *Have you received a flu vaccine this season?: No Other Medical History: Reports: Arthritis, Fibromyalgia, Hypothyroidism. Denies: Blood Transfusion Reaction Other Surgeries: Yes: No Previous Surgery, CABG, Cardiac Catheterization, Cholecystectomy, Colonoscopy, Coronary Stent, Hysterectomy-Total, Other (PINEALECTOMY). No: Pacemaker Amputation: Yes (Lt leg above knee) Fractures: No - *Social History Smoking Status: Current every day smoker Tobacco Type: cigarettes # Packs/Day (cigarettes): 1 #Yrs smoked (if former smoker): 20 Alcohol Intake: never Substance Use Type: denies use *Occupational Status:: disabled Housing: house Household Members: family *Travel in the last 8 weeks: Inside the [place] - Psychiatric History Pschychiatric History:: Reports:: Anxiety, Depression Family Hx:: Coronary Artery Disease, Heart Attack, Diabetes, Hypertension, Cancer, Thyroid Disorder, Asthma
== END ==
PROVIDERS: Visit Provider Student in an Organized Health Care Education/Training Program
DX: G89.4 Chronic pain syndrome (principal); I73.9 Peripheral vascular disease, unspecified; M25.561 Pain in right knee; M54.16 Radiculopathy, lumbar region; Z89.612 Acquired absence of left leg above knee
CPT/HCPCS: 99212; G0463

== ENCOUNTER 2021-09-22 17:47 | Emergency (ER) | payer MEDICARE, MEDICAID, SELFPAY ==
[2021-09-22] VITALS (13 sets, daily range): BP systolic 102–195; BP diastolic 59–101; PULSE 57–82; RESP 18; TEMP 37.3; O2SAT 96–99; BMI 32.5
--- NOTE | 2021-09-22 18:00 | PC.NURSE ---
1800 MD AT BEDSIDE
--- NOTE | 2021-09-22 18:06 | HMH.EDGENADL ---
ED Disposition Clinical Impression: Post-operative complication Qualifiers: Surgical complication system/body Area: musculoskeletal system Surgical complication type: unspecified Procedure type: musculoskeletal Qualified Code(s): M96.89 - Other intraoperative and postprocedural complications and disorders of the musculoskeletal system Disposition: Xfer Short-Term Hosp Condition on Discharge: Good Referrals: Kenia Joseph APRN [Primary Care Provider] - - Critical Care Critical Care Time: No Attestation: On , the high probability of a clinically significant, sudden or life threatening deterioration of the following system(s) required my full and direct attention, intervention and personal management. The time I documented below is in addition to time spent performing reported procedures but includes the following listed in this critical care notation. Medical Decision Making - Medical Records Medical records reviewed: Yes: I reviewed the patient's medical records. - [place] Inquiry Pt receiving controlled substance: No Vital Signs: 09/22/21 17:50 09/22/21 18:00 09/22/21 18:31 Temperature 99.2 F Temperature Source Oral Pulse Rate 74 75 Pulse Rate [Brachial] 82 Respiratory Rate 18 Blood Pressure 195/101 H 150/83 H Blood Pressure [Right Arm] 173/99 H Blood Pressure Mean 132 116 Blood Pressure Mean [Right Arm] 123 Blood Pressure Source [Right Arm] Automatic Cuff Blood Pressure Position [Right Arm] Sitting 02 Sat by Pulse Oximetry 99 98 98 Oxygen Delivery Method Room Air - Lab Data Lab Results 09/22/21 18:30: WBC 13.1 H, RBC 4.02 L, Hgb 11.8 L, Hct 35.3 L, MCV 87.7, MCH 29.2, MCHC 33.3, RDW 15.8, Plt Count 303, MPV 10.1, Neut % (Auto) 72.3, Lymph % (Auto) 20.8, [place] % (Auto) 5.5, Eos % (Auto) 0.7, Baso % (Auto) 0.7, Neut # (Auto) 9.5 H, Lymph # (Auto) 2.7, [place] # (Auto) 0.7, Eos # (Auto) 0.1, Baso # (Auto) 0.1 09/22/21 18:30: Sodium 139, Potassium 5.0, Chloride 106, Carbon Dioxide 27, Anion Gap 11.0, BUN 39 H, Creatinine 0.90, Estimated Creat Clear 120, Estimated GFR 68, Est GFR ( Amer) 83, Glucose 119 H, Calcium 9.4, Total Bilirubin 0.5, AST 96 H, ALT 92 H, Alkaline Phosphatase 102, Total Protein 7.5, Albumin 3.7, Globulin 3.8 H, Albumin/Globulin Ratio 1.0 L Result diagrams: 09/22/21 18:30 09/22/21 18:30 Orders (Tests/Meds): ED MEDICATIONS Generic Name Dose Route Start Last Admin Trade Name Freq PRN Reason Stop Dose Admin Sodium Chloride 10 ml 09/22/21 18:40 Sodium Chloride 0.9% 10ml Flush Syringe IV 10/22/21 18:39 NEEDED PRN Maintain IV Site - Physician Consults Time: 18:44 (discussed with Dr Daniel Ahumada accepts transfer) General Adult HPI - General Stated complaint: weakness Time Seen by Provider: 09/22/21 18:06 - History of Present Illness HPI narrative: c/o unable to care for self at home, urinary incontinence, no home meds today d/c from [facility] yesterday s/p rt mult toe amputation Onset (ago): hour(s) Consistency: constant Exacerbating factors: none Associated symptoms: denies other symptoms - Related Data Home Medications Medication Instructions Recorded Confirmed ergocalciferol (vitamin D2) 1,250 50,000 unit PO QWEEK 03/22/18 08/25/21 mcg (50,000 unit) capsule insulin degludec 100 unit/mL (3 60 unit SQ DAILY ml 03/22/18 08/25/21 mL) subcutaneous pen levothyroxine 200 mcg tablet 200 mcg PO DAILYDM 03/22/18 08/25/21 ropinirole 1 mg tablet 1 mg PO HS 03/22/18 08/25/21 cetirizine 10 mg capsule 10 mg PO DAILY 08/29/18 08/25/21 Metoclopramide HCl [Metoclopramide 10 mg PO ACHS 09/25/18 08/25/21 10mg Tablet] dexlansoprazole 60 mg 60 mg PO DAILY cap 02/09/21 08/25/21 capsule,biphase delayed release clonazePAM [Clonazepam] 1 mg PO DAILY 02/17/21 08/25/21 Isosorbide Mononitrate [Isosorbide 120 mg PO DAILY 07/10/21 08/25/21 Mononitrate ER] Nitroglycerin 0.4 mg PO [id number] PRN 07/10/21 08/25/21 Pregabalin 150 m
--- NOTE | 2021-09-22 18:13 | PC.NURSE ---
[facility] CALLED AT THIS TIME, DR. FARRELL WANTS TO SPEAK WITH DISCHARGING MD. ATTEMPTING TO REACH MD OR MD [facility].
--- NOTE | 2021-09-22 18:19 | PC.NURSE ---
[facility] SAYA JOHNSTON SHIPPING/RECEIVING CLERK
--- NOTE | 2021-09-22 18:22 | PC.NURSE ---
DR. MORE SIGN MAINTENANCE, AWAITING RETURN CALL
--- NOTE | 2021-09-22 18:38 | PC.NURSE ---
PT HAS BEEN ACCEPTED AT [facility] PER CARE OF DR. MORE. AWAITING BED ASSIGNMENT
[2021-09-22 18:47] LABS: Basophils # 0.1 K/mm3 (0-0.2); Basophils % 0.7 % (0.1-2.0); Eosinophils # 0.1 K/mm3 (0.0-0.4); Eosinophils % 0.7 % (0.1-12.0); Hematocrit 35.3 % (37.0-47.0); Hemoglobin 11.8 g/dL (12.2-16.2); Lymphocytes # 2.7 K/mm3 (0.7-4.5); Lymphocytes % 20.8 % (10-50); Mean Corpuscular HGB Conc 33.3 g/dL (31.8-35.4); Mean Corpuscular Hemoglobin 29.2 pg (27.0-31.2); Mean Corpuscular Volume 87.7 fl (81-99); Mean Platelet Volume 10.1 fl (7.4-10.4); Monocytes # 0.7 K/mm3 (0.1-1.0); Monocytes % 5.5 % (1.7-9.3); Neutrophils # 9.5 K/mm3 (1.8-7.8); Neutrophils % 72.3 % (37.0-80.0); Platelet Count 303 K/mm3 (142-424); Red Blood Count 4.02 M/mm3 (4.20-5.40); Red Cell Distribution Width 15.8 % (11.5-17.5); White Blood Count 13.1 K/mm3 (4.8-10.8)
[2021-09-22 18:58] LABS: Alanine Aminotransferase 92 U/L (12-78); Albumin Level 3.7 g/dl (3.5-5.0); Alkaline Phosphatase 102 U/L (38-126); Aspartate Amino Transferase 96 U/L (14-36); Bilirubin,Total 0.5 mg/dl (0.2-1.3); Blood Urea Nitrogen 39 mg/dl (7-17); Calcium 9.4 mg/dl (8.4-10.2); Carbon Dioxide 27 mmol/L (22.0-30.0); Chloride 106 mmol/L (98-107); Creatinine Clearance Estimated 120 mL/min (50-200); Estimated Glomerular Filt Rate 68 ml/min (>60); GFR (African American) 83 ML/MIN (>60); Globulin 3.8 g/dL (1.3-3.2); Glucose 119 mg/dl (74-100); Sodium 139 mmol/L (136-145); Total Protein,Serum 7.5 g/dl (6.3-8.2)
--- NOTE | 2021-09-22 19:18 | PC.NURSE ---
REPORT GIVEN TO Jessi ARMANDO RN
--- NOTE | 2021-09-22 19:59 | PC.NURSE ---
Antibiotic ointment applied to patients left foot along with non adhesive dressing and kerlex per md order. patient tolerated dressing well.
[2021-09-22 21:23] LABS: Microscopic, Urine URINE MICROSCOPIC (MICROSCOPIC)
[2021-09-22 21:29] LABS: Appearance,Urine CLEAR (Clear); Bilirubin,Urine Negative (Negative); Blood, Urine TRACE-I (Negative); Color,Urine YELLOW (Yellow); Glucose,Urine (UA) Negative (Negative); Ketones,Urine Negative (Negative); Leukocyte Esterase,Urine Negative (Negative); Nitrate,Urine Negative (Negative); Protein,Urine 2+ (Negative); Specific Gravity, Urine 1.015 (1.005-1.030); Urobilinogen,Urine 0.2 EU/dl (0.2)
[2021-09-22 21:57] LABS: Bacteria,Urine Trace /lpf; Squamous Epithelial Cell,Urine Occasional #/hpf (0-5)
--- NOTE | 2021-09-22 22:45 | PC.NURSE ---
Patient is currently resting comfortably in bed. [facility] Family at bedside.
[2021-09-23] VITALS: BP 105/51; PULSE 60; O2SAT 97
[2021-09-23 00:30] VITALS: BP 110/59; PULSE 57; O2SAT 98
--- NOTE | 2021-09-23 01:00 | PC.NURSE ---
pt moved to hospital bed @ this time. call light within reach, family member @ bedside
--- NOTE | 2021-09-23 03:37 | PC.NURSE ---
[facility] called for pt updated @ this time. stated no bed @ this time
[2021-09-23 06:28] LABS: Coronavirus 19, PCR Not Detected (NotDetected); Influenza A, PCR Not Detected (NotDetected); Influenza B, PCR Not Detected (NotDetected)
[2021-09-23 06:39] VITALS: BP 169/68; PULSE 54; RESP 18; TEMP 36.8; O2SAT 95
[2021-09-23 07:01] VITALS: BP 173/82; PULSE 56; O2SAT 98
--- NOTE | 2021-09-23 07:05 | PC.NURSE ---
[facility] here to transport patient to [place].
== END 2021-09-23 07:42 | disposition short-term general hospital (02) ==
PROVIDERS: Emergency Provider Emergency Medicine; PCP Nurse Practitioner Family
DX: R53.1 Weakness (principal); M79.605 Pain in left leg; M79.604 Pain in right leg; R94.30 Abnormal result of cardiovascular function study, unspecified; M96.89 Other intraoperative and postprocedural complications and disorders of the musculoskeletal system; Z20.822 Contact with and (suspected) exposure to COVID-19; N28.9 Disorder of kidney and ureter, unspecified; I50.9 Heart failure, unspecified; I25.10 Atherosclerotic heart disease of native coronary artery without angina pectoris; I25.2 Old myocardial infarction; I73.9 Peripheral vascular disease, unspecified; R01.1 Cardiac murmur, unspecified; K21.9 Gastro-esophageal reflux disease without esophagitis; E78.5 Hyperlipidemia, unspecified; E03.9 Hypothyroidism, unspecified; E11.9 Type 2 diabetes mellitus without complications; M79.7 Fibromyalgia; M19.90 Unspecified osteoarthritis, unspecified site; J98.4 Other disorders of lung; J44.9 Chronic obstructive pulmonary disease, unspecified; E66.9 Obesity, unspecified; F41.9 Anxiety disorder, unspecified; F17.210 Nicotine dependence, cigarettes, uncomplicated; Z79.02 Long term (current) use of antithrombotics/antiplatelets; Z79.1 Long term (current) use of non-steroidal anti-inflammatories (NSAID); Z79.4 Long term (current) use of insulin; Z79.51 Long term (current) use of inhaled steroids; Z79.899 Other long term (current) drug therapy; Z88.0 Allergy status to penicillin; Z88.5 Allergy status to narcotic agent; Z88.6 Allergy status to analgesic agent; Z95.5 Presence of coronary angioplasty implant and graft; Z68.32 Body mass index [BMI] 32.0-32.9, adult; Z82.49 Family history of ischemic heart disease and other diseases of the circulatory system; Z83.3 Family history of diabetes mellitus; Z83.49 Family history of other endocrine, nutritional and metabolic diseases; Z82.5 Family history of asthma and other chronic lower respiratory diseases; Z80.9 Family history of malignant neoplasm, unspecified
CPT/HCPCS: 51702; 80053; 81001; 85025; 99283; C9803; U0003; U0005

== ENCOUNTER → 2021-10-19 09:02 | Outpatient (POV) | payer MEDICARE, MEDICAID, SELFPAY ==
--- NOTE | 2021-10-19 09:26 | HMH.PAINSOAP ---
[facility] Pain Management SOAP Note Subjective:: Patient is a pleasant 41-year-old female who is here as a telehealth visit for medication refill and follow-up. Patient is currently being treated for chronic pain syndrome with peripheral artery 3 disease, right knee pain with left lower extremity [id number] amputation and lumbar radiculopathy symptoms. Patient is being managed with oxycodone 15 mg 6 times a day and fentanyl patch 25 mcg every 3 days. Patient denies any side effects from the medications. Patient denies any changes to the location and type of pain. Patient states that this is adequately helping manage their pain. Rates pain as 8 out of 10. [facility] number [id number] with an active morphine equivalent 0. Drug screens have been reviewed and appropriate. Patient has recently been hospitalized for a foot gangrene and eventually was amputated. She developed infection and was hospitalized for over a month. At one point during her stay, patient was in the ICU on ventilation. We also have tried this patient on oxycodone 20 mg 6 times a day and discontinued her fentanyl patch. However, patient developed extreme nausea and vomiting with this change. She was told by pharmacy that there might be a tube trailer filler 20 mg oxycodones that is causing her nausea and vomiting. Review of Systems: General: No recent weight changes, no fever, no sleep disturbances Respiratory: No cough, no shortness of air, no recurring pulmonary infections Cardiovascular/peripheral vascular: No chest pain, no palpitations, no edema, no shortness of breath Gastrointestinal: No new onset incontinence, normal bowel movements reported Genitourinary: No new onset incontinence Musculoskeletal: Low back pain, bilateral leg pain Psychiatric: [Normal mood/affect] Neurological: [Denies weakness in extremities], [denies balance issues] Objective:: General: Alert and oriented x3, pleasant and cooperative Lungs: Patient is able to say complete sentences without dyspnea Neurological: Speech clear Assessment:: Chronic pain syndrome, peripheral artery disease, right knee pain with left lower extremity fkstn-kbb-rfvf amputation and lumbar radiculopathy symptoms Plan:: We will continue the patient's oxycodone 15 mg 6 times a day and fentanyl patch 25 mcg every 3 days. We will provide the patient with 1 month of refills. We would like to see the patient back in 1 month for follow-up and reevaluation of chronic pain syndrome. Patient has been advised of risks of oversedation with the prescribed medication. Narcan has been offered to the patient in the event of oversedation. Patient has been advised that a family member should also be educated regarding administration of Narcan. Patient has been instructed to contact the clinic with any concerns before the next appointment. Dr. Shepherd has reviewed this note and agrees with this plan of care. This note was dictated using voice recognition software and make contain errors or omissions. [facility] History Medical History: Reports:: Anxiety, Asthma, Congestive Heart Failure, Chronic Obstructive Pulmonary Disease (COPD), Coronary Artery Disease, Depression, Diabetes Mellitus Type 2, Gastroesophageal Reflux Disease(GERD), Heart Murmur, Home Oxygen, Hyperlipidemia, Hypertension, Lung Disease, Myocardial Infarction, Peripheral Artery Disease, Peripheral Vascular Disease, Renal Disease, Renal Insufficiency Denies:: Cancer, Diabetes Mellitus Type 1, Internal Pacemaker, MRSA, Seizures *Have you ever received a pneumonia vaccine?: No *Have you received a flu vaccine this season?: No Other Medical History: Reports: Arthritis, Fibromyalgia, Hypothyroidism. Denies: Blood Transfusion Reaction Other Surgeries: Yes: No Previous Surgery, CABG, Cardiac Catheterization, Cholecystectomy, Colonoscopy, Coronary Stent, Hysterectomy-Total, Other (PINEALECTOMY). No: Pacemaker Amputation: Yes (Lt leg above knee) Fractures: No - *Social History Smoking Status: Seamus
== END ==
PROVIDERS: Visit Provider Student in an Organized Health Care Education/Training Program
DX: G89.4 Chronic pain syndrome (principal); I73.9 Peripheral vascular disease, unspecified; M25.561 Pain in right knee; M54.16 Radiculopathy, lumbar region; Z89.612 Acquired absence of left leg above knee
CPT/HCPCS: 99212; G0463

== ENCOUNTER → 2021-11-19 15:05 | Outpatient (POV) | payer MEDICARE, MEDICAID, SELFPAY ==
[2021-11-19 15:12] VITALS: BP 141/77; PULSE 82; RESP 20; BMI 32.1
--- NOTE | 2021-11-19 15:32 | HMH.PAINSOAP ---
[facility] Pain Management SOAP Note Subjective:: Patient is a pleasant 41-year-old female that presents today for medication refill and follow-up. Patient is currently being treated for chronic pain syndrome with peripheral artery disease, right knee pain with left lower extremity [id number]-xsd-ihjw amputation and lumbar radiculopathy symptoms. Today she rates her pain a 7 out of 10. She states this pain is just a generalized pain that is chronic and constant. She did state today her right foot and right collarbone were bothering her. Patient denies any new trauma or injury to the site. She denies any change to the location or type of pain she experiences. Patient is currently being managed with oxycodone 15 mg 6 times a day and a fentanyl patch 25 mcg every 3 days. She is also getting Lyrica 150 mg 3 times a day and clonazepam 1 mg daily. Patient denies any side effects with this medication. She states these medications do adequately help manage her pain however she feels like she has built up a tolerance. We previously tried to increase her oxycodone's to 20 mg however she was unable to tolerate due to nausea and vomiting. Today she is requesting an increase of her clonazepam to twice daily. She states she previously had this dose last year however she had requested a decrease because she was not using it that often. Her Carrillo is [phone]. It has been reviewed and appropriate. Review of Systems: General: No recent weight changes, no fever, no sleep disturbances Respiratory: No cough, no shortness of air, no recurring pulmonary infections Cardiovascular/peripheral vascular: No chest pain, no palpitations, no edema, no shortness of breath Gastrointestinal: No new onset incontinence, normal bowel movements reported Genitourinary: No new onset incontinence Musculoskeletal: Low back pain, bilateral leg pain, right foot pain, right collarbone pain Psychiatric: [Normal mood/affect] Neurological: [Denies weakness in extremities], [denies balance issues] Objective:: Physical Exam: General: Alert and oriented x3, no acute distress, pleasant and cooperative Lungs: Respirations even and unlabored, symmetrical chest expansion Eyes: PERRL Musculoskeletal: Flexion and extension of lumbar [spine] somewhat guarded secondary to pain, [antalgic gait noted] Neurological: Speech clear, no gross sensory deficit Assessment:: Chronic pain syndrome, peripheral artery disease, right knee pain with left lower extremity heetb-evy-bmyd amputation, lumbar radiculopathy symptoms, right foot pain, right collarbone pain Plan:: Patient continues to have thickened pain throughout her body. I will refill the patient's clonazepam 1 mg daily, fentanyl 25 mcg every 3 days, oxycodone 15 mg 6 times a day and Lyrica 3 times a day. I will give a 1 month supply of these medications. Patient will follow-up in office in [address] Shepherd. I will prescribe the patient a compounding cream at today's visit. I have discussed with the patient regarding in future doing alternating telehealth visits due to the patient's increased difficulty in coming into clinic. Patient will return to clinic in 1 month for follow-up and reevaluation of symptoms. Patient has been advised of risks of oversedation with the prescribed medication. Narcan has been offered to the patient in the event of oversedation. Patient has been advised that a family member should also be educated regarding administration of Narcan. Patient has been instructed to contact the clinic with any concerns before the next appointment. Dr. Shepherd has reviewed this note and agrees with this plan of care. This note was dictated using voice recognition software and make contain errors or omissions. [facility] History I have reviewed the patient's past medical history: Yes Medical History: Reports:: Anxiety, Asthma, Congestive Heart Failure, Chronic Obstructive Pulmonary Disease (COPD), Coronary Artery Disease, Depression, Diabetes Mellitu
[2021-11-25 16:12] LABS: Acetone <.010 g/dL (0.000-0.010); Butalbital <1 ug/mL (1-10); Chlordiazepoxide <0.1 ug/mL (0.1-0.9); Diazepam <0.1 ug/mL (0.1-0.9); Ethanol <.010 g/dL (0.000-0.010); Isopropanol <.010 g/dL (0.000-0.010); Pentobarbital <1 ug/mL (1-5)
[2021-12-16 13:06] LABS: Miscellaneous Test SEE COMMENTS
== END ==
PROVIDERS: PCP Nurse Practitioner Family; Visit Provider Nurse Practitioner Family
DX: Z79.891 Long term (current) use of opiate analgesic (principal); M54.16 Radiculopathy, lumbar region; Z89.612 Acquired absence of left leg above knee; G89.4 Chronic pain syndrome
CPT/HCPCS: 36415; 80306; 80307; 99212; G0463

== ENCOUNTER → 2021-12-21 15:24 | Outpatient (POV) | payer MEDICARE, MEDICAID, SELFPAY ==
[2021-12-21 15:54] VITALS: BP 181/109; PULSE 101; RESP 19; TEMP 36.8; O2SAT 99; BMI 27.9
--- NOTE | 2021-12-21 15:54 | EXP.PAIN.SOA ---
[facility] Pain Management SOAP Note Subjective:: Patient is a pleasant 41-year-old female that presents today for medication refill and follow-up. We are currently treating the patient for chronic pain syndrome with peripheral artery disease, right knee pain with left lower extremity above the knee amputation and lumbar radiculopathy symptoms. Today she rates her pain a 7 out of 10. She states her pain is primarily in her right foot. She stated that last week she did actually slip getting out of her chair and hit her foot causing her incision to open up. Patient has followed up with her physician regarding her right foot and incision care. Patient is currently managed with oxycodone 15 mg 6 times a day and fentanyl patch 25 mcg every 3 days. She is also getting Lyrica 150 mg 3 times a day and clonazepam 1 mg daily. Patient denies any side effects with these medications. She states these medications do adequately help manage her pain. Patient has been using her compounding cream and states this does provide additional improvement of her symptoms. Patient's Carrillo is [phone] with a morphine equivalent of 195. It has been reviewed and appropriate. Review of Systems: General: No recent weight changes, no fever, no sleep disturbances Respiratory: No cough, no shortness of air, no recurring pulmonary infections Cardiovascular/peripheral vascular: No chest pain, no palpitations, no edema, no shortness of breath Gastrointestinal: No new onset incontinence, normal bowel movements reported Genitourinary: No new onset incontinence Musculoskeletal: Right leg pain, right foot pain Psychiatric: [Normal mood/affect] Neurological: [Denies weakness in extremities], [denies balance issues] Objective:: Physical Exam: General: Alert and oriented x3, no acute distress, pleasant and cooperative Lungs: Respirations even and unlabored, symmetrical chest expansion Eyes: PERRL Musculoskeletal: Flexion and extension of lumbar [spine] somewhat guarded secondary to pain, [antalgic gait noted] Neurological: Speech clear, no gross sensory deficit Assessment:: Chronic pain syndrome with peripheral artery disease, right knee pain with left lower extremity above the knee amputation and lumbar radiculopathy symptoms Plan:: Patient continues to have significant pain in her lower extremities at today's visit. Patient had limited range of motion of her lumbar spine. I have discussed with the patient that she may benefit from decreasing her current medication regimen in order to reset her pain tolerance. I have also discussed with the patient regarding being a possible spinal cord stimulator trial candidate. Educational handouts were given to the patient at today's visit. I will send refills of the patient's pregabalin 150 mg 3 times a day, clonazepam 1 mg daily, fentanyl 25 mcg every 72 hours, and oxycodone 15 mg 6 times a day and provide a 1 month supply of these medications. Patient will follow-up in 1 month via telehealth visit. At that visit we will discuss whether or not the patient would like to proceed forward with a spinal cord stimulator trial. Patient has been instructed to contact the clinic with any concerns before the next appointment. Dr. Shepherd has reviewed this note and agrees with this plan of care. This note was dictated using voice recognition software and make contain errors or omissions. [facility] Medical History (Updated 09/22/21 @ 18:45 by Pillo Saleh MD) Abnormal ankle brachial index ([facility]) Leg pain, bilateral Pre-op evaluation Social History Smoking Status: Current every day smoker tobacco type: cigarettes packs per day: 1 second hand exposure: No alcohol intake: never substance use type: denies use current occupational status: other Travel in the last 8 weeks: None household members: family housing: house number of children: 0 current occupational exposures/hazards: No caffeine: Yes
== END | disposition home or self-care (01) ==
PROVIDERS: Visit Provider Nurse Practitioner Family
DX: M54.16 Radiculopathy, lumbar region (principal); G89.4 Chronic pain syndrome; I73.9 Peripheral vascular disease, unspecified
CPT/HCPCS: 99212; G0463

== ENCOUNTER → 2022-01-18 14:11 | Outpatient (POV) | payer MEDICARE, MEDICAID, SELFPAY ==
--- NOTE | 2022-01-18 16:14 | EXP.PAIN.SOA ---
[facility] Pain Management SOAP Note Subjective:: Patient is a pleasant 41-year-old female who is here as a telehealth visit for medication refill and follow-up. Patient is currently being treated for chronic pain syndrome with peripheral artery disease, right knee pain with left lower extremity jdygv-ivu-ojhm amputation and lumbar radiculopathy symptoms. Patient is being managed with oxycodone 15 mg 6 times a day, pregabalin 150 mg 3 times a day, clonazepam 1 mg daily, fentanyl 25 mcg q72h. Patient denies any side effects from the medications. Patient denies any changes to the location and type of pain. Patient states that this is adequately helping manage their pain. Rates pain as 4 out of 10. [facility] number [phone] with an active morphine equivalent 195. Drug screens have been reviewed and appropriate. Review of Systems: General: No recent weight changes, no fever, no sleep disturbances Respiratory: No cough, no shortness of air, no recurring pulmonary infections Cardiovascular/peripheral vascular: No chest pain, no palpitations, no edema, no shortness of breath Gastrointestinal: No new onset incontinence, normal bowel movements reported Genitourinary: No new onset incontinence Musculoskeletal: Low back pain, bilateral leg pain Psychiatric: [Normal mood/affect] Neurological: [Denies weakness in extremities], [denies balance issues] Objective:: Physical Exam: General: Alert and oriented x3, no acute distress, pleasant and cooperative Lungs: Respirations even and unlabored, symmetrical chest expansion Eyes: PERRL Musculoskeletal: Flexion and extension of lumbar [spine] somewhat guarded secondary to pain, [antalgic gait noted] Neurological: Speech clear, no gross sensory deficit Assessment:: Chronic pain syndrome with peripheral artery disease, right knee pain with left lower extremity [id number]-hgo-[id number] amputation and lumbar radiculopathy symptoms Plan:: We will continue the patient's oxycodone 15 mg 6 times a day, pregabalin 150 mg 3 times a day, clonazepam 1 mg daily, fentanyl 25 mcg every 72 hours. We will provide the patient with 1 month of refills. We would like to see the patient back in 1 month for follow-up and reevaluation of chronic pain syndrome. Patient is complaining of worsening leg pain today and is wanting to know if there is something else that we can do for her. I discussed with her that we can try spinal cord stimulation therapy. We have discussed this option in the past however, she is prescribed Plavix because she had a CABG procedure. This was a few years ago. We will ask her service aide again to see if she can come off of her plavix for SCS trial. Patient has been advised of risks of oversedation with the prescribed medication. Narcan has been offered to the patient in the event of oversedation. Patient has been advised that a family member should also be educated regarding administration of Narcan. Patient has been instructed to contact the clinic with any concerns before the next appointment. Dr. Shepherd has reviewed this note and agrees with this plan of care. This note was dictated using voice recognition software and make contain errors or omissions. --- Patient is an established patient with their informed consent to treat signed and on file. Patient was visually authenticated based on the photograph in the patient?s file. Patient was given a choice of telemedicine visit or office visit; patient chose telemedicine/telehealth visit due to COVID-19 state of emergency. This visit is being conducted via telemedicine telehealth ([place]) in accordance with all applicable laws and regulations. Patient is located in [place], [place] and the treating medical provider is located in [place], [place]. [facility] Medical History (Updated 09/22/21 @ 18:45 by Pillo Saleh MD) Abnormal ankle brachial index ([facility]) Leg pain, bilateral Pre-op evaluation Social History Smoking Status: Current every day smoker tobacco type: cigarettes packs per day
== END | disposition home or self-care (01) ==
PROVIDERS: Visit Provider Student in an Organized Health Care Education/Training Program
DX: G89.4 Chronic pain syndrome (principal); I73.9 Peripheral vascular disease, unspecified; M54.16 Radiculopathy, lumbar region; Z89.612 Acquired absence of left leg above knee; Z72.0 Tobacco use
CPT/HCPCS: 99212; G0463

== ENCOUNTER → 2022-02-15 12:51 | Outpatient (POV) | payer MEDICARE, MEDICAID, SELFPAY ==
[2022-02-15 13:34] VITALS: BP 136/82; PULSE 79; RESP 18; O2SAT 98; BMI 28.1
--- NOTE | 2022-02-15 13:51 | EXP.PAIN.SOA ---
[facility] Pain Management SOAP Note Subjective:: Patient is a pleasant 41-year-old female who presents today for medication refill and follow-up. We are currently treating the patient for chronic pain syndrome with peripheral artery disease, right knee pain with lower left kmiov-fea-zbap amputation and lumbar radiculopathy symptoms. Today the patient rates her pain a 4 out of 10. Patient states all of her pain today is in her right foot. Patient states previously when she was trying to get out of her vehicle for her doctor's appointment that she felt a tearing sensation in her right foot. Patient states the foot doctor did do x-ray imaging however no abnormalities were seen. Patient has continued to have increased pain at this location. She is currently managed with oxycodone 15 mg 6 times a day, pregabalin 150 mg 3 times a day, clonazepam 1 mg daily, fentanyl 25 mcg every 72 hours. Patient denies any side effects from these medications. She states these medications do help take the edge off of her pain symptoms. She is also prescribed compounding cream that she states provides additional improvement. She is requesting refills at today's visit. Patient also stated that she has had increased nausea and is requesting a couple days of phenergan. Patient states she is scheduled to go on vacation here in the next week. Her Carrillo is [phone]. It has been reviewed and appropriate. Review of Systems: General: No recent weight changes, no fever, no sleep disturbances Respiratory: No cough, no shortness of air, no recurring pulmonary infections Cardiovascular/peripheral vascular: No chest pain, no palpitations, no edema, no shortness of breath Gastrointestinal: No new onset incontinence, normal bowel movements reported Genitourinary: No new onset incontinence Musculoskeletal: Right foot pain Psychiatric: [Normal mood/affect] Neurological: [Denies weakness in extremities], [denies balance issues] Objective:: Physical Exam: General: Alert and oriented x3, no acute distress, pleasant and cooperative Lungs: Respirations even and unlabored, symmetrical chest expansion Eyes: PERRL Musculoskeletal: Flexion and extension of right foot, lumbar [spine] somewhat guarded secondary to pain, [antalgic gait noted] Neurological: Speech clear, no gross sensory deficit Assessment:: Chronic pain syndrome with peripheral artery disease, right knee pain with lower left kzprk-zum-zrsi amputation and lumbar radiculopathy symptoms, right foot pain Plan:: Patient is experiencing significant pain in her right foot. I have discussed with the patient regarding ordering a right foot MRI without contrast. I will also refill the patient's clonazepam 1 mg daily, fentanyl 25 mcg every 72 hours, oxycodone 15 mg 6 times a day and pregabalin 150 mg 3 times a day and provide a 1 month supply of these medications. I will send in a prescription as promethazine 12.5 mg 3 times daily as needed and provide 6 tablets of this medication. I did corporate counsel the patient that she still would be a beneficial candidate for either the spinal cord stimulator trial or the pain pump trial. Risk and benefits were discussed with the patient and educational handouts given. We will follow-up in future visits. Patient will follow-up in 1 month via telehealth visit and at that time we will reevaluate the patient symptoms, medication refill and follow-up. Patient has been advised of risks of oversedation with the prescribed medication. Narcan has been offered to the patient in the event of oversedation. Patient has been advised that a family member should also be educated regarding administration of Narcan. Patient has been instructed to contact the clinic with any concerns before the next appointment. Dr. Shepherd has reviewed this note and agrees with this plan of care. This note was dictated using voice recognition software and make contain errors or omissions. [facility] Medical History (Updated 09/22/21 @ 18:45 by Hugo
== END | disposition home or self-care (01) ==
PROVIDERS: PCP Nurse Practitioner Family; Visit Provider Nurse Practitioner Family
DX: M54.16 Radiculopathy, lumbar region (principal); M79.671 Pain in right foot; I73.9 Peripheral vascular disease, unspecified; G89.4 Chronic pain syndrome; M25.561 Pain in right knee; Z89.612 Acquired absence of left leg above knee; Z72.0 Tobacco use; Z79.899 Other long term (current) drug therapy
CPT/HCPCS: 99212; G0463

== ENCOUNTER → 2022-02-15 13:29 | Outpatient (CLI) | payer MEDICARE, MEDICAID, SELFPAY ==
[2022-02-19 18:09] LABS: Acetone <0.010 g/dL (0.000-0.010); Butalbital <1 ug/mL (1-10); Chlordiazepoxide <0.1 ug/mL (0.1-0.9); Diazepam <0.1 ug/mL (0.1-0.9); Ethanol <0.010 g/dL (0.000-0.010); Isopropanol <0.010 g/dL (0.000-0.010); Pentobarbital <1 ug/mL (1-5)
[2022-02-26 21:10] LABS: Oxymorphone GS/MS Negative (.)
== END ==
PROVIDERS: PCP Nurse Practitioner Family; Visit Provider Nurse Practitioner Family
DX: Z79.891 Long term (current) use of opiate analgesic (principal)
CPT/HCPCS: 80306; 80307; 99212; G0463

== ENCOUNTER → 2022-03-15 14:47 | Outpatient (POV) | payer MEDICARE, MEDICAID, SELFPAY ==
--- NOTE | 2022-03-15 15:03 | EXP.PAIN.SOA ---
[facility] Pain Management SOAP Note Subjective:: Patient is a pleasant 41-year-old female who presents today for follow-up and medication refill via audio telehealth. This visit is occurring at the patient's home and Patient has consented for the audio telehealth visit. We are currently treating the patient for chronic pain syndrome with peripheral artery disease, right knee pain with lower left yyhov-gpa-utsw amputation and lumbar radiculopathy symptoms. Today the patient rates her pain a 4 out of 10. Patient states that they did go on vacation and following the return they did come down with COVID and the flu. Patient denies any new trauma or injury. Patient states that she has had 2 cancel her Thanksgiving plans due to this issue and that her mother and roommate are both down with the same issue. Patient states that she has contacted her primary care doctor and they have called in medication for her symptoms. Patient is currently managed with oxycodone 15 mg 6 times a day pregabalin 150 mg 3 times a day, clonazepam 1 mg daily, fentanyl 25 mcg every 72 hours. Patient denies any side effects from these medications. She states these medications do help decrease her pain symptoms. She is requesting a refill at today's visit. Patient is also taking compounding cream that provides additional improvement of her symptoms. Her Carrillo is [phone]. It has been reviewed and appropriate. Review of Systems: General: No recent weight changes, no fever, no sleep disturbances Respiratory: No cough, no shortness of air, no recurring pulmonary infections Cardiovascular/peripheral vascular: No chest pain, no palpitations, no edema, no shortness of breath Gastrointestinal: No new onset incontinence, normal bowel movements reported Genitourinary: No new onset incontinence Musculoskeletal: Low back pain, knee pain Psychiatric: [Normal mood/affect] Neurological: [Denies weakness in extremities], [denies balance issues] Objective:: Physical Exam: General: Alert and oriented x3, no acute distress, pleasant and cooperative Lungs: Respirations even and unlabored, symmetrical chest expansion Eyes: PERRL Musculoskeletal: Flexion and extension of lumbar [spine] somewhat guarded secondary to pain, [antalgic gait noted] Neurological: Speech clear, no gross sensory deficit Assessment:: Degenerative disc disease of lumbar spine with lumbar radiculopathy symptoms, chronic pain syndrome, peripheral artery disease, right knee pain with lower left mhfvi-vof-gmig amputation Plan:: Patient continues to have chronic pain related to her low back, knee and foot however she is managed well with her current medication regimen. This telehealth visit lasted approximately [id number]. I will refill the patient's fentanyl 25 mcg every 72 hours, oxycodone 15 mg 6 times a day, pregabalin 150 mg 3 times a day and clonazepam 1 mg daily and provide a 1 month supply of these medications. Patient will return to clinic in 1 month for reevaluation of symptoms, medication refill and follow-up. Patient has been advised of risks of oversedation with the prescribed medication. Narcan has been offered to the patient in the event of oversedation. Patient has been advised that a family member should also be educated regarding administration of Narcan. Patient has been instructed to contact the clinic with any concerns before the next appointment. Dr. Shepherd has reviewed this note and agrees with this plan of care. This note was dictated using voice recognition software and make contain errors or omissions. [facility] Disclaimer: The information contained in this section may have been updated after the patient was seen, as this information can be updated by other users. Medical History (Updated 02/15/22 @ 14:59 by Jamia Javier APRN) Abnormal ankle brachial index (BRYAN) Angina pectoris Leg pain, bilateral Pre-op evaluation Social History Smoking Status: Current every day smoker tobacco type: cigare
== END | disposition home or self-care (01) ==
PROVIDERS: Visit Provider Nurse Practitioner Family
DX: M51.16 Intervertebral disc disorders with radiculopathy, lumbar region (principal); G89.4 Chronic pain syndrome; M25.561 Pain in right knee; I73.9 Peripheral vascular disease, unspecified; Z89.612 Acquired absence of left leg above knee; Z72.0 Tobacco use
CPT/HCPCS: 99212; G0463

== ENCOUNTER → 2022-04-15 13:38 | Outpatient (POV) | payer MEDICARE, SELFPAY ==
[2022-04-15 14:04] VITALS: BP 167/100; PULSE 106; RESP 18; O2SAT 97; BMI 29.0
--- NOTE | 2022-04-15 15:12 | EXP.PAIN.SOA ---
[facility] Pain Management SOAP Note Subjective:: Patient is a pleasant 41-year-old female who presents today for medication refill and follow-up. We are currently treating the patient for chronic pain syndrome with peripheral artery disease, right knee pain, lower left volzm-tdr-tthz amputation, low back pain with lumbar radiculopathy symptoms. Today the patient rates her pain a 4 out of 10. Patient denies any additional new trauma or injury. At our last visit the patient was having significant issues with COVID and the flu. Today patient states that she continues to have residual issues and is going for a chest x-ray today following her visit. Patient states that her mother and her have continued to have respiratory related problems. Patient is currently managed with oxycodone 15 mg 6 times a day, pregabalin 150 mg 3 times a day, clonazepam 1 mg daily, fentanyl 25 mcg every 72 hours. Patient denies any side effects from these medications. She states these medications do adequately manage her pain symptoms. She is requesting refills at today's visit. At our last visit we did discuss that she may be a beneficial candidate for a spinal cord stimulator trial or pain pump trial. Patient was scheduled for a psychiatric evaluation however this was not completed due to her illness. At this time the patient is still very interested in these options however she would like to get over her respiratory related sickness. Patient would also have to have cardiac clearance for either of these options. Her Carrillo is [phone]. Patient's morphine equivalent is 195. Its been reviewed and appropriate. Review of Systems: General: No recent weight changes, no fever, no sleep disturbances Respiratory: No cough, no shortness of air, no recurring pulmonary infections Cardiovascular/peripheral vascular: No chest pain, no palpitations, no edema, no shortness of breath Gastrointestinal: No new onset incontinence, normal bowel movements reported Genitourinary: No new onset incontinence Musculoskeletal: Low back pain, right foot pain Psychiatric: [Normal mood/affect] Neurological: [Denies weakness in extremities], [denies balance issues] Objective:: Physical Exam: General: Alert and oriented x3, no acute distress, pleasant and cooperative Lungs: Respirations even and unlabored, symmetrical chest expansion Eyes: PERRL Musculoskeletal: Flexion and extension of lumbar [spine] somewhat guarded secondary to pain, [antalgic gait noted] Neurological: Speech clear, no gross sensory deficit ORT score updated with low risk Age 41 Depression Assessment:: Chronic pain syndrome with peripheral artery disease, right knee pain, lower left idpyh-zew-yjph amputation, low back pain with lumbar radiculopathy symptoms Plan:: Patient continues to experience significant pain in her low back and right foot however she is doing well with her current medication regimen. I will refill the patient's clonazepam 1 mg daily, fentanyl 25 mcg every 72 hours, oxycodone 15 mg 6 times a day and pregabalin 150 mg 3 times a day and provide a 1 month supply of these medications. At this time we will wait on the psychiatric evaluation until the patient resolves from her current respiratory illness. Patient will return to clinic via telehealth visit in 1 month for reevaluation of symptoms and medication refill. Patient has been advised of risks of oversedation with the prescribed medication. Narcan has been offered to the patient in the event of oversedation. Patient has been advised that a family member should also be educated regarding administration of Narcan. Patient has been instructed to contact the clinic with any concerns before the next appointment. Dr. Shepherd has reviewed this note and agrees with this plan of care. This note was dictated using voice recognition software and make contain errors or omissions. [facility] Disclaimer: The information contained in this section may have been updated af
== END | disposition home or self-care (01) ==
PROVIDERS: PCP Nurse Practitioner Family; Visit Provider Nurse Practitioner Family
DX: M54.16 Radiculopathy, lumbar region (principal); M54.50 Low back pain, unspecified; M25.561 Pain in right knee; I73.9 Peripheral vascular disease, unspecified; G89.29 Other chronic pain; Z89.612 Acquired absence of left leg above knee
CPT/HCPCS: 99212; G0463

== ENCOUNTER → 2022-04-15 14:29 | Outpatient (CLI) | payer MEDICARE, SELFPAY ==
--- NOTE | 2022-04-15 15:03 | XR_ITS ---
FINAL REPORT CLINICAL HISTORY: Chronic cough COMPARISON: None FINDINGS: Two views of the chest show lungs to be clear. Pulmonary vascularity is normal. The heart is normal in size. The patient is status post CABG. No pleural effusion is present. IMPRESSION: No acute process. Reviewed, Interpreted and Dictated by Jeanne Sigala MD Transcribed by Batsheva Sanchez Authenticated and [facility]
[2022-04-20 16:12] LABS: Acetone <.010 g/dL (0.000-0.010); Butalbital <1 ug/mL (1-10); Chlordiazepoxide <0.1 ug/mL (0.1-0.9); Diazepam <0.1 ug/mL (0.1-0.9); Ethanol <.010 g/dL (0.000-0.010); Isopropanol <.010 g/dL (0.000-0.010); Pentobarbital <1 ug/mL (1-5)
== END ==
PROVIDERS: PCP Nurse Practitioner Family; Visit Provider Nurse Practitioner Family
DX: Z79.891 Long term (current) use of opiate analgesic (principal); R05.9 Cough, unspecified
CPT/HCPCS: 36415; 71046; 80306; 80307; 99212; G0463

== ENCOUNTER → 2022-05-04 14:15 | Outpatient (CLI) | payer MEDICARE, MEDICAID, SELFPAY ==
--- NOTE | 2022-05-04 14:16 | CA_ITS ---
APPROVED REPORT EXAM: Comprehensive 2D, Doppler, and color-flow Echocardiogram Recreation Therapist: Monie Torres CRT Ht: 5 ft 7 in Wt: 210lbs BSA: 2.07 BP: 137/81 mmHg Indications: Chest Pain, Diabetes, Hyperlipidemia, Hypertension/HDD, cabg, cad, stents, smoker, Rheumatic Fever, 2D Dimensions LVOT 2.01 cm (M/F) 1.5-2.5 LA Volume 36.30 mL LA Volume Index 17.20 mL/m2 (M/F) 16-34 M-Mode Dimensions RVDd 2.14 cm (0.9-2.6) LA Diam 3.62 cm (1.9-4.0) LVDd 5.23 cm (3.5-5.7) Ao Diam 4.34 cm (2.0-3.7) LVDs 3.74 cm (3.5-5.7) IVSd 1.57 cm (0.6-1.1) PWd 0.85 cm (0.6-1.1) EF (Teich) 54.60% FS 28.50% EDV (Teich) 131.20 mL ESV (Teich) 59.60 mL LV Diastology E Decel Time 150.00 (160-240 msec) E/A Ratio 0.86 MED E' 6.10 (< 7 cm/sec) MED A' 6.70 cm/s E'/MED E' Ratio 13.08 (>14) LAT E' 6.50 (<10 cm/sec) LAT A' 8.10 cm/s E/LAT E' Ratio 12.28 (>14) Aortic Valve AO Peak GR. 9.80 mmHg Mitral Valve MV A Velocity 92.00 (40-130 cm/s) E/A Ratio 0.86 MV Decel. Time 150.00 (160-240 ms) Pulmonary Valve PV Peak Velocity 141.00 (50-150 cm/s) Tricuspid Valve TR P. Velocity 216.00 cm/s RAP Estimate 10.00 mmHg RVSP 28.60 mmHg Left Ventricle Left atrium is mildly enlarged, left ventricle is normal size, mild concentric left ventricular hypertrophy, estimated ejection fraction 50%, there is moderate inferior basal wall hypokinesis. Grade 1 diastolic dysfunction seen without tissue Doppler evidence of raise left atrial pressure. Endocardial surfaces are poorly visualized. Right Ventricle Right atrium and right ventricle are normal size and contractility. Aortic Valve Aortic valve is minimally thickened and fibrosed there is no aortic stenosis or aortic insufficiency. Mitral Valve Mitral valve has mitral annular calcification, leaflets are minimally thickened, there is no mitral stenosis, there is mild mitral regurgitation. Tricuspid Valve Tricuspid valve is grossly normal, there is mild tricuspid regurgitation, tricuspid regurgitation jet velocity is inadequate for calculation of the right ventricular systolic pressure. Pulmonic Valve Pulmonic valve is poorly visualized. Great Vessels Aortic root is normal size. Inferior vena cava is normal size with normal inspiratory collapse. Pericardium No significant pericardial effusion noted. Conclusion 1. Technically difficult study because of the patient factors and poor acoustic windows. Normal left ventricular size, mild concentric left ventricular hypertrophy, estimated ejection fraction approximately 50% with segmental wall motion abnormality described above, grade 1 diastolic dysfunction seen without tissue Doppler evidence of raise left atrial pressure. 2. Mild mitral and tricuspid regurgitation. 3. No significant pericardial effusion noted. 4. Inferior vena cava is normal size with normal inspiratory collapse. Electronically signed by : Jordan Del Rio MD 05/05/2022 05:33:21
[2022-05-04 16:15] LABS: Basophils # 0.1 K/mm3 (0-0.2); Basophils % 0.7 % (0.1-2.0); Eosinophils # 0.3 K/mm3 (0.0-0.4); Eosinophils % 2.5 % (0.1-12.0); Hematocrit 35.3 % (37.0-47.0); Hemoglobin 11.8 g/dL (12.2-16.2); Mean Corpuscular HGB Conc 33.5 g/dL (31.8-35.4); Mean Corpuscular Hemoglobin 28.5 pg (27.0-31.2); Mean Corpuscular Volume 85.1 fl (81-99); Mean Platelet Volume 9.5 fl (7.4-10.4); Monocytes # 0.4 K/mm3 (0.1-1.0); Monocytes % 3.8 % (1.7-9.3); Neutrophils # 7.4 K/mm3 (1.8-7.8); Platelet Count 285 K/mm3 (142-424); Red Blood Count 4.15 M/mm3 (4.20-5.40); Red Cell Distribution Width 16.4 % (11.5-17.5); White Blood Count 11.2 K/mm3 (4.8-10.8)
[2022-05-04 17:00] LABS: Alanine Aminotransferase 14 U/L (12-78); Albumin Level 3.6 g/dl (3.5-5.0); Albumin/Globulin Ratio 0.9 (1.1-1.8); Alkaline Phosphatase 103 U/L (38-126); Anion Gap 13.4 mEq/L (5-15); Aspartate Amino Transferase 17 U/L (14-36); Bilirubin,Total 0.2 mg/dl (0.2-1.3); Blood Urea Nitrogen 38 mg/dl (7-17); Calcium 8.7 mg/dl (8.4-10.2); Carbon Dioxide 23 mmol/L (22.0-30.0); Chloride 104 mmol/L (98-107); Estimated Glomerular Filt Rate 23 ml/min (>60); GFR (African American) 28 ML/MIN (>60); Globulin 3.9 g/dL (1.3-3.2); Glucose 118 mg/dl (74-100); Potassium 4.4 mmoL/L (3.5-5.1); Sodium 136 mmol/L (136-145); Total Protein,Serum 7.5 g/dl (6.3-8.2)
[2022-05-04 17:30] LABS: Thyroid Stimulating Hormone 5.57 uIU/mL (0.465-4.68)
[2022-05-04 18:16] LABS: Hemoglobin A1C 8.2 % (4.0-6.0)
== END ==
PROVIDERS: PCP Nurse Practitioner Family; Visit Provider Nurse Practitioner Family
DX: E11.9 Type 2 diabetes mellitus without complications (principal); F17.200 Nicotine dependence, unspecified, uncomplicated; I25.118 Atherosclerotic heart disease of native coronary artery with other forms of angina pectoris; I73.9 Peripheral vascular disease, unspecified; R06.09 Other forms of dyspnea; R94.31 Abnormal electrocardiogram [ECG] [EKG]; Z79.4 Long term (current) use of insulin; Z95.5 Presence of coronary angioplasty implant and graft
CPT/HCPCS: 36415; 80053; 83036; 84443; 85025; 93306

== ENCOUNTER → 2022-05-17 14:00 | Outpatient (POV) | payer MEDICARE, MEDICAID, SELFPAY ==
--- NOTE | 2022-05-17 14:03 | EXP.PAIN.SOA ---
[facility] Pain Management SOAP Note Subjective:: Patient is a pleasant 41-year-old female who presents today via telehealth visit for medication refill and follow-up. This telehealth visit is occurring at the patient's home and she has given verbal consent for this audio visit. We are currently treating the patient for chronic pain syndrome with peripheral artery disease, right knee pain, lower left apacw-fdq-zomk amputation, low back pain with lumbar radiculopathy symptoms. Today the patient rates her pain a 4 out of 10. Patient denies any new trauma or injury. Patient denies any change in location or type of pain she experiences. Patient states she continues to have some lung issues following her previous episodes of COVID and the flu back in February and March. Patient states that her chest x-ray was negative with no abnormal findings. Patient states that they continue to have no additional explanation for why she continues to have residual shortness of breath. Patient was put on a nebulizer treatment. At her previous visit we did discuss the spinal cord stimulator trial or a pain pump trial that may be beneficial for her. Patient states she is still very interested in these options however she is waiting till she gets to feeling better before she makes her decision. Patient does have cardiac issues and would have to get a cardiac clearance for either of these options. Patient is currently managed with oxycodone 15 mg 6 times a day, pregabalin 150 mg 3 times a day, clonazepam 1 mg daily, fentanyl 25 mcg every 72 hours. Patient denies any side effects from these medications. She states these medications do help manage her pain symptoms. She is requesting a refill at today's visit. Her Carrillo is [phone]. Its been reviewed and appropriate. Review of Systems: General: No recent weight changes, no fever, no sleep disturbances Respiratory: No cough, no shortness of air, no recurring pulmonary infections Cardiovascular/peripheral vascular: No chest pain, no palpitations, no edema, no shortness of breath Gastrointestinal: No new onset incontinence, normal bowel movements reported Genitourinary: No new onset incontinence Musculoskeletal: Low back pain, right leg pain Psychiatric: [Normal mood/affect] Neurological: [Denies weakness in extremities], [denies balance issues] Objective:: General: Alert and oriented x3, pleasant and cooperative Lungs: Patient is able to say complete sentences without dyspnea Neurological: Speech clear Assessment:: chronic pain syndrome with peripheral artery disease, right knee pain, lower left yhvkl-fna-lvew amputation, low back pain with lumbar radiculopathy symptoms Plan:: Patient continues to experience significant pain in her low back and her right foot however she is doing well with her current medication regimen. I will refill the patient's pregabalin 150 mg 3 times a day, oxycodone 15 mg 6 times a day, fentanyl patches 25 mcg every 72 hours, clonazepam 1 mg daily and provide a 1 month supply of these medications. We will continue to monitor the patient's progress with her shortness of breath and residual symptoms following her prior illness of COVID and the flu. We will discuss the spinal cord stimulator trial or intrathecal pain pump trial in the future. Patient will return to clinic in 1 month for reevaluation of symptoms, medication refill and follow-up. This telehealth visit did occur from [id number]. Patient has been advised of risks of oversedation with the prescribed medication. Narcan has been offered to the patient in the event of oversedation. Patient has been advised that a family member should also be educated regarding administration of Narcan. Patient has been instructed to contact the clinic with any concerns before the next appointment. Dr. Shepherd has reviewed this note and agrees with this plan of care. This note was dictated using voice recognition software and make contain errors or omiss
== END | disposition home or self-care (01) ==
PROVIDERS: Visit Provider Nurse Practitioner Family
DX: G89.4 Chronic pain syndrome (principal); M25.561 Pain in right knee; M54.16 Radiculopathy, lumbar region; M54.50 Low back pain, unspecified; I73.9 Peripheral vascular disease, unspecified; Z89.612 Acquired absence of left leg above knee
CPT/HCPCS: 99212; G0463

== ENCOUNTER → 2022-06-25 11:25 | Outpatient (POV) | payer MEDICARE, MEDICAID, SELFPAY ==
[2022-06-25 12:10] VITALS: BP 191/96; PULSE 98; RESP 20; BMI 131391.6
--- NOTE | 2022-06-25 12:16 | EXP.PAIN.SOA ---
[facility] Pain Management SOAP Note Subjective:: Patient is a pleasant 41-year-old female who presents today for medication refill and follow-up. We are currently treating the patient for chronic pain syndrome, peripheral artery disease, right knee pain, lower left iqpej-zux-emau amputation, low back pain with lumbar radiculopathy symptoms. Today she rates her pain a 7 out of 10. Patient denies any new trauma or injury. Patient denies any change location or type of pain she experiences. Patient does have significant back and leg pain as well as some neck pain. She does describe this as an aching, throbbing sensation that is worse with increased activity. She has had respiratory illnesses including COVID and the flu since back in February and has continued to deal with residual issues. She states during today's visit that her shortness of breath has gotten somewhat better however she continues to have significant chest pain. She does state the last time that she has been to Dr. Tadeo's office has been a few months ago where they were ordering an echo. Patient also states that she has had some increasing depression due to her worsening pain and illnesses. She states she has not been to her primary care doctor in a few months as well. She does state that she has been having some telehealth visits with them for medication refills and follow-up. Patient is currently managed with oxycodone 15 mg 6 times a day, pregabalin 150 mg 3 times a day, clonazepam 1 mg daily, fentanyl 25 mcg every 72 hours. Patient denies any side effects from this medication. She did state that last months she felt like the concentration of the medications were off or not what they normally are. She states that she took her medications like normal however she did not feel like she is even taking them. Patient states she did verify it was the same medication and same dosage. Her Carrillo is [phone]. Its been reviewed and appropriate. Review of Systems: General: No recent weight changes, no fever, no sleep disturbances Respiratory: No cough, no shortness of air, no recurring pulmonary infections Cardiovascular/peripheral vascular: No chest pain, no palpitations, no edema, no shortness of breath Gastrointestinal: No new onset incontinence, normal bowel movements reported Genitourinary: No new onset incontinence Musculoskeletal: Low back pain, leg pain, neck pain, chest pain Psychiatric: [Normal mood/affect] Neurological: [Denies weakness in extremities], [denies balance issues] Objective:: Physical Exam: General: Alert and oriented x3, no acute distress, pleasant and cooperative Lungs: Respirations even and unlabored, symmetrical chest expansion Eyes: PERRL Musculoskeletal: Flexion and extension of lumbar [spine] somewhat guarded secondary to pain, [antalgic gait noted] Neurological: Speech clear, no gross sensory deficit Assessment:: chronic pain syndrome, peripheral artery disease, right knee pain, lower left zymsj-pmw-nvov amputation, low back pain with lumbar radiculopathy symptoms, neck pain Plan:: Patient continues to have significant pain with limited range of motion. I have counseled the patient to make a follow-up appointment with Dr. Tadeo's office due to her continued chest pain following her recent COVID and flu illnesses. I have also discussed with her that it would be beneficial for her to follow-up with her primary care doctor to discuss her anxiety and depression medications for any possible adjustments. Patient was negative for any thoughts for harming herself or others and stated she did feel safe at home. I have counseled the patient that we can do injections in the future however we will not do anything until she has gotten clearance from Dr. Tadeo's office. We have also discussed that she may benefit from a pain pump trial in the future however at this time it is still on hold. I will refill her oxycodone 15 mg 6 times a day, pregabalin 150 mg 3 times a day, cl
== END | disposition home or self-care (01) ==
PROVIDERS: PCP Nurse Practitioner Family; Visit Provider Nurse Practitioner Family
DX: M54.16 Radiculopathy, lumbar region (principal); M54.50 Low back pain, unspecified; M54.2 Cervicalgia; M25.561 Pain in right knee; I73.9 Peripheral vascular disease, unspecified; G89.4 Chronic pain syndrome
CPT/HCPCS: 99212; G0463

== ENCOUNTER → 2022-07-15 14:34 | Outpatient (POV) | payer MEDICARE, MEDICAID, SELFPAY ==
--- NOTE | 2022-07-15 14:57 | EXP.PAIN.SOA ---
[facility] Pain Management SOAP Note Subjective:: This patient is a very pleasant 41-year-old female that comes our clinic today for medication refill and follow-up. She presents in a wheelchair today. We currently treat the patient for chronic pain syndrome, peripheral artery disease, right knee pain, left AKA. Patient had right 5 toes amputated August 2021, lumbar back pain. Lumbar radiculopathy. Today she rates her pain 6/10. Patient denies any change and/or location of pain. Patient does have significant back pain and right leg pain as well as cervical neck pain. She describes this as constant, dull, aching. We currently manage the patient with oxycodone 15 mg 1 p.o. 6 times daily. Lyrica 150 mg 1 p.o. 3 times daily. Clonazepam 1 mg daily. Fentanyl 25 mcg patch every 72 hours. Patient's Carrillo #[id number] has been reviewed and appropriate. Her UDS is been appropriate in the past. Patient does not complain of any side effects from these medications. Patient states the medications do help with her pain. Patient presents in a wheelchair today due to left AKA. Patient has longstanding heart history. She is a patient of Dr. Stevenson. Objective:: Patient is awake alert [place] x3. In no acute distress. No gross sensory deficit. Speech is clear. Denies any weakness in her extremities. Respirations are even unlabored. Flexion-extension lumbar spine guarded secondary to pain. Assessment:: Degenerative disease lumbar spine multilevels. Lumbar radiculopathy. Phantom pain left leg. Chronic pain syndrome. Plan:: We will send in medication refills for the patient. As noted above. She will return in 1 month. [facility] Disclaimer: The information contained in this section may have been updated after the patient was seen, as this information can be updated by other users. Medical History Abnormal ankle brachial index (BRYAN) Angina pectoris Leg pain, bilateral Pre-op evaluation Social History Smoking Status: Current every day smoker tobacco type: cigarettes packs per day: 1 second hand exposure: No alcohol intake: never substance use type: denies use current occupational status: other Travel in the last 8 weeks: None household members: family housing: house number of children: 0 current occupational exposures/hazards: No caffeine: Yes
[2022-07-15 15:11] VITALS: BP 127/76; PULSE 68; RESP 18; O2SAT 98; BMI 29.7
== END ==
PROVIDERS: PCP Nurse Practitioner Family; Visit Provider Nurse Anesthetist, Certified Registered
DX: M51.16 Intervertebral disc disorders with radiculopathy, lumbar region (principal); G89.4 Chronic pain syndrome
CPT/HCPCS: 99212; G0463

== ENCOUNTER 2022-08-02 15:12 | Emergency (ER) | payer MEDICARE, MEDICAID, SELFPAY ==
[2022-08-02 15:13] VITALS: BP 198/90; PULSE 63; RESP 17; TEMP 36.7; O2SAT 100; BMI 28.1
[2022-08-02 15:30] VITALS: BP 151/79; PULSE 60; RESP 18; O2SAT 100
[2022-08-02 16:00] VITALS: BP 181/106; PULSE 66; RESP 20; O2SAT 100
[2022-08-02 16:17] LABS: Basophils % 0.5 % (0.1-2.0); Eosinophils # 0.2 K/mm3 (0.0-0.4); Eosinophils % 2.5 % (0.1-12.0); Hematocrit 41.1 % (37.0-47.0); Lymphocytes # 2.1 K/mm3 (0.7-4.5); Lymphocytes % 26.2 % (10-50); Mean Corpuscular HGB Conc 31.7 g/dL (31.8-35.4); Mean Corpuscular Volume 85.4 fl (81-99); Mean Platelet Volume 9.8 fl (7.4-10.4); Monocytes # 0.3 K/mm3 (0.1-1.0); Monocytes % 3.8 % (1.7-9.3); Neutrophils # 5.2 K/mm3 (1.8-7.8); Platelet Count 225 K/mm3 (142-424); Red Blood Count 4.82 M/mm3 (4.20-5.40); White Blood Count 7.8 K/mm3 (4.8-10.8)
[2022-08-02 16:29] LABS: Chloride 106 mmol/L (98-107); Potassium 4.9 mmoL/L (3.5-5.1); Sodium 139 mmol/L (136-145)
--- NOTE | 2022-08-02 16:29 | HMH.EDGENADL ---
Discharge Plan Disposition Patient Disposition: Home, Self-Care Condition: Good Prescriptions Prescriptions: New cefdinir 300 mg capsule 300 mg PO BID 10 Days Qty: 20 0RF No Action ropinirole 1 mg tablet 1 mg PO HS Label Comments: TAKE 1 TABLET BY MOUTH ONCE DAILY AT BEDTIME bumetanide 2 mg tablet 2 mg PO DAILY Label Comments: TAKE 1 TABLET BY MOUTH ONCE DAILY. albuterol sulfate 2.5 mg /3 mL (0.083 %) solution for nebulization 2.5 mg inhalation Q6HP PRN (Reason: Breathing Problems) Label Comments: INHALE 3 ML BY MOUTH NEBULIZATION EVERY 6 HOURS NEEDED FOR SHORTNESS OF BREATH tizanidine 4 mg tablet 4 mg PO BID Label Comments: TAKE 1 TABLET BY MOUTH TWICE DAILY. clonazepam 1 mg tablet 1 mg PO DAILY Label Comments: TAKE 1 TABLET BY MOUTH DAILY clopidogrel 75 mg tablet 75 mg PO DAILY Label Comments: TAKE 1 TABLET BY MOUTH ONCE DAILY. amlodipine 5 mg tablet 5 mg PO DAILY Label Comments: TAKE 1 TABLET BY MOUTH ONCE DAILY spironolactone 25 mg tablet 25 mg PO BID Label Comments: TAKE 1 TABLET BY MOUTH 2 TIMES DAILY bisoprolol fumarate 10 mg tablet 10 mg PO BID Label Comments: TAKE 1 TABLET BY MOUTH TWICE DAILY FOR HIGH BLOOD PRESSURE. oxycodone 15 mg tablet 15 mg PO Q4HP PRN (Reason: Pain) Label Comments: TAKE 1 TABLET BY MOUTH EVERY 4 HOURS NEEDED FOR PAIN levothyroxine 50 mcg tablet 50 mcg PO AM Label Comments: TAKE 1 TABLET BY MOUTH ONCE DAILY. TAKE ALONG WITH THE LEVOTHYROXINE 200 MCG DOSE BUT STOP THE 25 MCG DOSE. isosorbide dinitrate 20 mg tablet 20 mg PO TID Label Comments: TAKE 1 TABLET BY MOUTH 3 TIMES DAILY. ALLOW NITRATE-FREE INTERVAL OF 12-14 HRS PER 24-HR PERIOD lisinopril 10 mg tablet 10 mg PO BID Label Comments: TAKE 1 TABLET BY MOUTH TWICE DAILY nitroglycerin 0.4 mg tablet, sublingual 0.4 mg sublingual DIRECTED Label Comments: DISSOLVE 1 TABLET UNDER THE TONGUE NEEDED FOR CHEST PAIN. REPEAT EVERY 5 MINUTES 3 TIMES. IF NO RELIEF GO TO ER. levothyroxine 200 mcg tablet 200 mcg PO AM Label Comments: TAKE 1 TABLET BY MOUTH ONCE DAILY. fentanyl 25 mcg/hr patch 72 hour 1 patch transdermal DIRECTED Label Comments: PLACE 1 PATCH ONTO THE SKIN EVERY 72 HOURS insulin aspart U-100 [Novolog FlexPen U-100 Insulin] 100 unit/mL (3 mL) insulin pen 30 unit SQ TID Label Comments: INJECT 30 UNITS UNDER THE SKIN 3 TIMES DAILY. rosuvastatin 40 mg tablet 40 mg PO DAILY Label Comments: TAKE 1 TABLET BY MOUTH ONCE DAILY FOR CHOLESTEROL. bupropion HCl 150 mg tablet extended release 24 hr 150 mg PO DAILY pregabalin 150 mg capsule 150 mg PO TID Label Comments: TAKE 1 CAPSULE BY MOUTH 3 TIMES DAILY budesonide-formoterol [Symbicort] 160-4.5 mcg/actuation HFA aerosol inhaler 2 puff INHALATION BID Label Comments: USE 2 PUFFS INTO THE LUNGS TWICE DAILY. ranolazine 1,000 mg tablet extended release 12 hr 1,000 mg PO BID Label Comments: TAKE ONE TABLET BY MOUTH TWICE DAILY dexlansoprazole [Dexilant] 60 mg capsule,biphase delayed releas 60 mg PO DAILY Label Comments: TAKE 1 CAPSULE BY MOUTH ONCE DAILY. Trintellix 20 mg tablet 20 mg PO DAILY Label Comments: TAKE 1 TABLET BY MOUTH ONCE DAILY. Xarelto 2.5 mg tablet 2.5 mg PO BID Label Comments: TAKE 1 TABLET BY MOUTH TWICE DAILY WITH MEALS FOR BLOOD THINNER. Referrals Follow up/Referrals: Kenia Joseph APRN [Primary Care Provider] - See instructions Clinical Impressions Clinical Impression: Diabetes mellitus, Wound of foot Instructions Patient Instructions: DI for Skin Abscess Discharge ED Provider: Sarath Louise General Adult HPI General Chief complaint: Skin/Abscess/Foreign Body Stated complaint: Right foot burn Time Seen by Pr
[2022-08-02 16:30] VITALS: BP 130/69; PULSE 57; O2SAT 97
[2022-08-02 16:32] LABS: Anion Gap 13.9 mEq/L (5-15); Blood Urea Nitrogen 29 mg/dl (7-17); Calcium 9.3 mg/dl (8.4-10.2); Carbon Dioxide 24 mmol/L (22.0-30.0); Creatinine Clearance Estimated 51 mL/min (50-200); Estimated Glomerular Filt Rate 31 ml/min (>60); GFR (African American) 37 ML/MIN (>60); Glucose 204 mg/dl (74-100)
[2022-08-02 16:37] LABS: C-Reactive Protein 15.5 mg/L (0-4)
[2022-08-02 16:46] LABS: Erythrocyte Sedimentation Rate 18 mm/hr (0-20)
[2022-08-02 17:00] VITALS: BP 112/79; PULSE 62; RESP 18; O2SAT 100
[2022-08-02 17:11] VITALS: BP 112/79; PULSE 64; RESP 17; TEMP 36.7; O2SAT 97
== END 2022-08-02 17:12 | disposition home or self-care (01) ==
PROVIDERS: Emergency Provider Family Medicine; PCP Nurse Practitioner Family
DX: S91.301A Unspecified open wound, right foot, initial encounter (principal); E11.9 Type 2 diabetes mellitus without complications; L55.9 Sunburn, unspecified; X58.XXXA Exposure to other specified factors, initial encounter; F17.210 Nicotine dependence, cigarettes, uncomplicated
CPT/HCPCS: 80048; 85025; 85651; 86140; 87040; 99284; 99285

== ENCOUNTER → 2022-08-12 10:42 | Outpatient (POV) | payer MEDICARE, MEDICAID, SELFPAY ==
--- NOTE | 2022-08-12 11:17 | EXP.PAIN.SOA ---
[facility] Pain Management SOAP Note Subjective:: Patient is a pleasant 42-year-old female who presents today for 1 month medication refill and follow-up.? We are currently treating the patient for chronic pain syndrome with peripheral artery disease, right knee pain, lower left vwycu-nax-skiq amputation, low back pain with lumbar radiculopathy symptoms.? Today the patient rates her pain a 8 out of 10.? Patient recently went on vacation on a cruise and she states that she had an overall good time however she had an episode with her right foot. Patient states that she wore is soft the entire time however at 1 point she noticed that her foot became red as if it had been burned. She states in the foot did blister and open up to an extent. Patient has been to see her foot doctor who added Betadine on gauze and recommended to continue these dressing changes. She states that he is concerned that it will not heal well and may have to do additional procedures in the future. She also states she is going through a ear infection. 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 Patient is currently managed with oxycodone 15 mg 6 times a day, pregabalin 150 mg 3 times a day, clonazepam 1 mg daily, fentanyl 25 mcg every 72 hours.? Patient denies any side effects from these medications.? We did previously talk about a pain pump trial for her however she is remained sick for the last several months. Her Carrillo is [phone].? Its been reviewed and appropriate. Review of Systems: General: No recent weight changes, no fever, no sleep disturbances Respiratory: No cough, no shortness of air, no recurring pulmonary infections Cardiovascular/peripheral vascular: No chest pain, no palpitations,? no edema, no shortness of breath Gastrointestinal: No new onset incontinence, normal bowel movements reported Genitourinary: No new onset incontinence Musculoskeletal: Low back pain, right leg pain, right foot pain, ear pain Psychiatric: [Normal mood/affect] Neurological: [Denies weakness in extremities], [denies balance issues] Objective:: Physical Exam: General: Alert and oriented x3, no acute distress, pleasant and cooperative Lungs: Respirations even and unlabored, symmetrical chest expansion Eyes: PERRL Musculoskeletal: Flexion and extension of lumbar [spine] somewhat guarded secondary to pain, [antalgic gait noted] Neurological: Speech clear, no gross sensory deficit Assessment:: Degenerative disc disease of lumbar spine with lumbar radiculopathy symptoms, chronic pain syndrome with peripheral artery disease, right knee pain, left lower below the knee amputation Plan:: Patient is currently having worsening pain due to a right foot wound and ear infection. I will refill her current medications of the clonazepam 1 mg daily, fentanyl 25 mcg every 72 hours, oxycodone 15 mg 6 times a day and pregabalin 150 mg 3 times a day and provide a 1 month supply of these medications. Patient will return to clinic in 1 month for reevaluation of symptoms and plan of care. Patient has been advised of risks of oversedation with the prescribed medication. Narcan has been offered to the patient in the event of oversedation. Patient has been advised that a family member should also be educated regarding administration of Narcan. Patient has been instructed to contact the clinic with any concerns before the next appointment. Dr. Shepherd has reviewed this note and agrees with this plan of care. This note was dictated using voice recognition software and make contain errors or omissions. [facility] Disclaimer: The information contained in this section may have been updated after the patient was seen, as this information can be updated by other users. Medical History Abnormal ankle brachial index (BRYAN) Angina pectoris Leg pain, bilateral Pre-op evaluation Social History (Reviewed 08/02/22 @ 16:30 by Sarath Ferrell
[2022-08-12 11:26] VITALS: BP 144/76; PULSE 73; RESP 20; BMI 29.7
[2022-08-17 12:12] LABS: Acetone <.010 g/dL (0.000-0.010); Butalbital <1 ug/mL (1-10); Chlordiazepoxide <0.1 ug/mL (0.1-0.9); Diazepam <0.1 ug/mL (0.1-0.9); Ethanol <.010 g/dL (0.000-0.010); Isopropanol <.010 g/dL (0.000-0.010); Pentobarbital <1 ug/mL (1-5)
== END | disposition home or self-care (01) ==
PROVIDERS: Visit Provider Nurse Practitioner Family
DX: Z79.891 Long term (current) use of opiate analgesic (principal); M51.16 Intervertebral disc disorders with radiculopathy, lumbar region; G89.4 Chronic pain syndrome; I73.9 Peripheral vascular disease, unspecified; M25.562 Pain in left knee; Z89.512 Acquired absence of left leg below knee
CPT/HCPCS: 36415; 80306; 99212; G0463

== ENCOUNTER → 2022-08-22 12:27 | Outpatient (CLI) | payer MEDICARE, MEDICAID, SELFPAY | PROVIDERS: PCP Nurse Practitioner Family; Visit Provider Anesthesiology | DX: Z79.891 Long term (current) use of opiate analgesic (principal) ==

== ENCOUNTER → 2022-09-13 14:28 | Outpatient (POV) | payer MEDICARE, SELFPAY ==
[2022-09-13 14:49] VITALS: BP 122/69; PULSE 69; RESP 18; O2SAT 97; BMI 31.3
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
== END | disposition home or self-care (01) ==
PROVIDERS: PCP Nurse Practitioner Family; Visit Provider Nurse Practitioner Family
DX: M54.16 Radiculopathy, lumbar region (principal); M54.50 Low back pain, unspecified; M25.561 Pain in right knee; G89.4 Chronic pain syndrome; I73.9 Peripheral vascular disease, unspecified; Z89.612 Acquired absence of left leg above knee
CPT/HCPCS: 99212; G0463

== ENCOUNTER → 2022-10-13 12:54 | Outpatient (POV) | payer MEDICARE, SELFPAY ==
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
[2022-10-13 13:24] VITALS: BP 150/87; PULSE 81; RESP 18; O2SAT 97; BMI 31.1
== END | disposition home or self-care (01) ==
PROVIDERS: PCP Nurse Practitioner Family; Visit Provider Nurse Practitioner Family
DX: G89.4 Chronic pain syndrome (principal); I73.9 Peripheral vascular disease, unspecified; M25.561 Pain in right knee; Z89.612 Acquired absence of left leg above knee; M54.16 Radiculopathy, lumbar region
CPT/HCPCS: 99212; G0463

== ENCOUNTER → 2022-11-11 13:37 | Outpatient (POV) | payer MEDICARE, SELFPAY ==
--- NOTE | 2022-11-11 13:43 | EXP.PAIN.SOA ---
[facility] Pain Management SOAP Note Subjective:: Patient is a pleasant 42-year-old female who presents today for medication refill and follow-up.? We are currently treating the patient for chronic pain syndrome with peripheral artery disease, right knee pain, lower left unmiu-ztr-oqaz amputation, low back pain with lumbar radiculopathy symptoms.? Today the patient rates her pain a 5 out of 10.? Patient denies any new trauma or injury. Patient denies any change to location or type of pain she experiences. Patient states she is still dealing with her foot healing but is doing well. She is currently managed with oxycodone 15 mg 6 times a day, pregabalin 150 mg 3 times a day, clonazepam 1 mg daily, fentanyl 25 mcg every 72 hours.? Patient denies any side effects from these medications.? Patient does state that she is out of her compounding cream and is requesting additional refills. Her Carrillo and is 2 [phone]. Its been reviewed and appropriate. Review of Systems: General: No recent weight changes, no fever, no sleep disturbances Respiratory: No cough, no shortness of air, no recurring pulmonary infections Cardiovascular/peripheral vascular: No chest pain, no palpitations,? no edema, no shortness of breath Gastrointestinal: No new onset incontinence, normal bowel movements reported Genitourinary: No new onset incontinence Musculoskeletal: Low back pain, right leg pain, right foot pain Psychiatric: [Normal mood/affect] Neurological: [Denies weakness in extremities], [denies balance issues] Objective:: Physical Exam: General: Alert and oriented x3, no acute distress, pleasant and cooperative Lungs: Respirations even and unlabored, symmetrical chest expansion Eyes: PERRL Musculoskeletal: Flexion and extension of lumbar [spine] somewhat guarded secondary to pain, [antalgic gait noted] Neurological: Speech clear, no gross sensory deficit Assessment:: chronic pain syndrome with peripheral artery disease, right knee pain, lower left whzkf-ptk-rwgg amputation, low back pain with lumbar radiculopathy symptoms Plan:: Patient is doing well with her current medication regimen. I will refill her oxycodone 15 mg 6 times a day, pregabalin 150 mg 3 times a day, clonazepam 1 mg daily and fentanyl 25 mcg patches every 72 hours and provide a month supply of this medication. I will also send in a new prescription of compounding cream. Patient will return to clinic in 1 month for reevaluation of symptoms, medication refill and follow-up. Patient has been advised of risks of oversedation with the prescribed medication. Narcan has been offered to the patient in the event of oversedation. Patient has been advised that a family member should also be educated regarding administration of Narcan. Patient has been instructed to contact the clinic with any concerns before the next appointment. Dr. Shepherd has reviewed this note and agrees with this plan of care. This note was dictated using voice recognition software and make contain errors or omissions. [facility] Disclaimer: The information contained in this section may have been updated after the patient was seen, as this information can be updated by other users. Medical History Abnormal ankle brachial index (BRYAN) Angina pectoris Leg pain, bilateral Pre-op evaluation Social History Smoking Status: Current every day smoker tobacco type: cigarettes packs per day: 1 second hand exposure: No alcohol intake: never substance use type: denies use current occupational status: other Travel in the last 8 weeks: None household members: family housing: house number of children: 0 current occupational exposures/hazards: No caffeine: Yes
[2022-11-11 13:52] VITALS: BP 173/85; PULSE 60; RESP 20; O2SAT 97; BMI 31.3
== END | disposition home or self-care (01) ==
PROVIDERS: Visit Provider Nurse Practitioner Family
DX: G89.4 Chronic pain syndrome (principal); I73.9 Peripheral vascular disease, unspecified; M25.561 Pain in right knee; Z89.612 Acquired absence of left leg above knee; M54.16 Radiculopathy, lumbar region
CPT/HCPCS: 99212; G0463

== ENCOUNTER 2022-11-24 06:04 | Inpatient (IN) | payer MEDICARE, SELFPAY ==
[2022-11-24] VITALS (55 sets, daily range): BP systolic 95–148; BP diastolic 61–104; PULSE 70–95; RESP 16–24; TEMP 36.1–37.1; O2SAT 89–100; BMI 29.7; BMI 41.5
--- NOTE | 2022-11-24 05:57 | ECG_ITS ---
APPROVED REPORT Exam: Resting ECG HR:85 bpm ECG Measurements Heart Rate 85 AXES MI 203 P 30 QRSd 144 QRS 3 QT 392 T 90 QTc 434 Conclusion SINUS RHYTHM INTRAVENTRICULAR CONDUCTION DELAY [130+ ms QRS DURATION] ST DEPRESSION, CONSIDER SUBENDOCARDIAL INJURY [0.1+ mV ST DEPRESSION] ABNORMAL ECG INTERPRETATION BASED ON A DEFAULT AGE OF 40 YEARS UNCONFIRMED REPORT Electronically signed by : Devin Crook MD 11/26/2022 08:44:56
--- NOTE | 2022-11-24 06:10 | PC.NURSE ---
[facility] alert called per er Doc
--- NOTE | 2022-11-24 06:11 | XR_ITS ---
PROCEDURE INFORMATION: Exam: XR Chest Exam date and time: 11/24/2022 6:14 AM Age: 42 years old Clinical indication: Sternal or substernal pain; Additional info: Stemi TECHNIQUE: Imaging protocol: Radiologic exam of the chest. Views: 1 view. COMPARISON: CR XR CHEST 2V 04/15/2022 3:05 PM FINDINGS: Lungs: Interstitial prominence and bilateral airspace disease. Pleural spaces: No significant pleural effusion. Heart/Mediastinum: Epicardial fat accentuates the cardiac silhouette. Bones/joints: Median sternotomy and broken sutures. Mild degenerative change. IMPRESSION: 1. Interstitial prominence and bilateral airspace disease. 2. Additional findings as described above.
--- NOTE | 2022-11-24 06:13 | HMH.EDGENADL ---
Discharge Plan Disposition Patient Disposition: Admitted As Inpatient Condition: Critical Prescriptions Prescriptions: No Action bisoprolol fumarate 10 mg tablet 10 mg PO BID Qty: 180 3RF amlodipine 5 mg tablet 5 mg PO DAILY Qty: 90 3RF bumetanide 2 mg tablet 2 mg PO DAILY Qty: 90 3RF clopidogrel 75 mg tablet 75 mg PO DAILY Qty: 90 3RF isosorbide dinitrate 20 mg tablet 20 mg PO TID Qty: 90 3RF lisinopril 10 mg tablet 10 mg PO BID Qty: 180 3RF ranolazine 1,000 mg tablet extended release 12 hr 1,000 mg PO BID Qty: 180 3RF Xarelto 2.5 mg tablet 2.5 mg PO BID Qty: 180 3RF rosuvastatin 40 mg tablet 40 mg PO DAILY Qty: 90 3RF spironolactone 25 mg tablet 25 mg PO BID Qty: 180 3RF nitroglycerin 0.4 mg tablet, sublingual See Rx Instructions .ROUTE .COMPLEX Qty: 25 3RF Dose Instruction: DISSOLVE 1 TABLET UNDER THE TONGUE NEEDED FOR CHEST PAIN. REPEAT EVERY 5 MINUTES 3 TIMES. IF NO RELIEF GO TO ER. Rx Instructions: DISSOLVE 1 TABLET UNDER THE TONGUE NEEDED FOR CHEST PAIN. REPEAT EVERY 5 MINUTES 3 TIMES. IF NO RELIEF GO TO ER. clonazepam 1 mg tablet 1 mg PO DAILY Qty: 30 0RF oxycodone 15 mg tablet 15 mg PO Q4HP PRN (Reason: Pain) Qty: 180 0RF fentanyl 25 mcg/hr patch 72 hour 1 patch transdermal DIRECTED Qty: 10 0RF pregabalin 150 mg capsule 150 mg PO TID Qty: 90 0RF ropinirole 1 mg tablet 1 mg PO HS Patient Comments: TAKE 1 TABLET BY MOUTH ONCE DAILY AT BEDTIME albuterol sulfate 2.5 mg /3 mL (0.083 %) solution for nebulization 2.5 mg inhalation Q6HP PRN (Reason: Breathing Problems) Patient Comments: INHALE 3 ML BY MOUTH NEBULIZATION EVERY 6 HOURS NEEDED FOR SHORTNESS OF BREATH tizanidine 4 mg tablet 4 mg PO BID Patient Comments: TAKE 1 TABLET BY MOUTH TWICE DAILY. levothyroxine 50 mcg tablet 50 mcg PO AM Patient Comments: TAKE 1 TABLET BY MOUTH ONCE DAILY. TAKE ALONG WITH THE LEVOTHYROXINE 200 MCG DOSE BUT STOP THE 25 MCG DOSE. levothyroxine 200 mcg tablet 200 mcg PO AM Patient Comments: TAKE 1 TABLET BY MOUTH ONCE DAILY. insulin aspart U-100 [Novolog FlexPen U-100 Insulin] 100 unit/mL (3 mL) insulin pen 30 unit SQ TID Patient Comments: INJECT 30 UNITS UNDER THE SKIN 3 TIMES DAILY. bupropion HCl 150 mg tablet extended release 24 hr 150 mg PO DAILY budesonide-formoterol [Symbicort] 160-4.5 mcg/actuation HFA aerosol inhaler 2 puff INHALATION BID Patient Comments: USE 2 PUFFS INTO THE LUNGS TWICE DAILY. dexlansoprazole [Dexilant] 60 mg capsule,biphase delayed releas 60 mg PO DAILY Patient Comments: TAKE 1 CAPSULE BY MOUTH ONCE DAILY. Trintellix 20 mg tablet 20 mg PO DAILY Patient Comments: TAKE 1 TABLET BY MOUTH ONCE DAILY. Referrals Follow up/Referrals: Kneia Joseph APRN [Primary Care Provider] - See instructions Clinical Impressions Clinical Impression: STEMI (ST elevation myocardial infarction), AMAN (acute kidney injury), Acute hyperkalemia Discharge ED Provider: Jose F Romano General Adult HPI General Chief complaint: Chest Pain Stated complaint: chest pain Time Seen by Provider: 11/24/22 06:07 History of Present Illness HPI narrative: This is a 42-year-old female with history of PAD, hypertension, hyperlipidemia, diabetes, CAD status post stenting, CABG currently on Plavix and Xarelto presenting with chest pain. Patient states she has had chest pain for couple of days, but it got acutely worse today, 16 in the AM. Associated with shortness of breath, vomiting, diaphoresis, generalized weakness. Chest pain is severe, 8 out of 10, radiates to bilateral sides of her jaw, associated with jaw numbness and difficulty speaking/chewing. Denies any other neurologic deficits. EMS called, gave patient 325 mg aspirin, brought her to the ER for further evaluation. Related Data Home Medi
--- NOTE | 2022-11-24 06:15 | PC.NURSE ---
Dr Kohler on phone with financial aid officer
--- NOTE | 2022-11-24 06:16 | PC.NURSE ---
Paged Dr Tadeo. Speaking with Dr. Romano now. CR
--- NOTE | 2022-11-24 06:18 | PC.NURSE ---
Dr Tadeo calls STEMI alert off
[2022-11-24 06:30] LABS: Basophils % 0.2 % (0.1-2.0); Eosinophils # 0.2 K/mm3 (0.0-0.4); Eosinophils % 1.1 % (0.1-12.0); Hematocrit 41.3 % (37.0-47.0); Hemoglobin 12.8 g/dL (12.2-16.2); Lymphocytes # 1.5 K/mm3 (0.7-4.5); Lymphocytes % 11.2 % (10-50); Mean Corpuscular HGB Conc 30.9 g/dL (31.8-35.4); Mean Corpuscular Hemoglobin 27.8 pg (27.0-31.2); Mean Corpuscular Volume 89.7 fl (81-99); Mean Platelet Volume 9.9 fl (7.4-10.4); Monocytes # 0.5 K/mm3 (0.1-1.0); Monocytes % 3.7 % (1.7-9.3); Neutrophils # 11.2 K/mm3 (1.8-7.8); Neutrophils % 83.7 % (37.0-80.0); Platelet Count 228 K/mm3 (142-424); Red Cell Distribution Width 15.3 % (11.5-17.5); White Blood Count 13.3 K/mm3 (4.8-10.8)
--- NOTE | 2022-11-24 06:30 | PC.NURSE ---
Called [facility] and spoke to Ledy about Heparin drip needing verified, stated she was waiting on PTT to result informed her pt was a STEMI and I need the order verified
--- NOTE | 2022-11-24 06:38 | ECG_ITS ---
APPROVED REPORT Exam: Resting ECG HR:81 bpm ECG Measurements Heart Rate 81 AXES NJ 210 P 41 QRSd 140 QRS -30 QT 382 T 93 QTc 420 Conclusion SINUS RHYTHM WITH FIRST DEGREE AV BLOCK WITH OCCASIONAL SUPRAVENTRICULAR PREMATURE COMPLEXES INTRAVENTRICULAR CONDUCTION DELAY [130+ ms QRS DURATION] SEPTAL MYOCARDIAL INFARCTION , PROBABLY OLD [40+ ms Q WAVE IN V1/V2] ST DEPRESSION, CONSIDER SUBENDOCARDIAL INJURY [0.1+ mV ST DEPRESSION] ABNORMAL ECG UNCONFIRMED REPORT Electronically signed by : Devin Crook MD 11/26/2022 08:44:43
--- NOTE | 2022-11-24 06:40 | PC.NURSE ---
Pt continues to complain of CP 10/18, states continues to feel as if she is smothering, pt diaphoretic and pale, provider aware
[2022-11-24 06:43] LABS: NT Pro Brain Natriuretic Pep. 21400 pg/mL (0-125)
[2022-11-24 06:47] LABS: Troponin I 2.17 ng/ml (0.00-0.034)
--- NOTE | 2022-11-24 06:49 | PC.NURSE ---
Dr Kohler on phone with Federal Java Developer again, STEMI alert reactivated
--- NOTE | 2022-11-24 06:52 | IR_ITS ---
APPROVED REPORT Patient Location: Emergent Program Clerk: SILVERIO Iyer RT (R) PROCEDURES Selective coronary angiogram Selective engagement of the saphenous vein graft to the right coronary Selective engage in the saphenous vein graft to the circumflex artery Selective engagement of the left internal mammary artery to the LAD Drug-eluting stent deployment to the saphenous vein graft supplying the circumflex artery INDICATION Acute ST elevation myocardial infarction, Coronary artery disease, History of coronary bypass surgery Informed consent was obtained prior to the procedure. COMPLICATIONS NONE Estimated Blood Loss: LESS THAN 10 ML TECHNIQUE One percent lidocaine used to anesthetize the right groin. The right femoral artery was accessed via the Seldinger technique and a 5 [place] sheath was placed in the right femoral artery. A JL 4, JR4 catheter were used to perform selective coronary angiography as well as selective engagement of the 2 vein grafts and the left internal mammary artery. At the end of the procedure the 4 [place] sheath was exchanged for a 6 [place] sheath and therapeutic heparin was administered giving a therapeutic ACT. The JR4 catheter was used to intubate the saphenous vein graft to the circumflex artery followed by Choice PT extra-support wire. A 3.5 x 22 mm Ryan frontier stent was deployed at 16 lavell reducing the severe to critical stenosis to 0%. DELMAR II flow was present at the beginning of the procedure with DELMAR-3 flow at the end of the procedure. During the cardiac procedure patient was hypoxemic and in respiratory distress. Anesthesia arrived to the Operations Support [employer]essionals and successfully endotracheally intubated patient. Blood gases were submitted and patient was transferred to the floor for further management ANGIOGRAPHIC RESULTS The left main artery Known to be occluded therefore not engaged The right coronary artery Known to be occluded therefore not engaged The RESENDEZ ventriculogram reveals Not performed The left ventricular end-diastolic pressure Not measured OCHOA to LAD patent Saphenous to right coronary artery patent Saphenous to circumflex artery has a 90% distal stenosis within the vein graft IMPRESSION Coronary disease as described above Successful stenting of the saphenous vein graft to circumflex artery critical disease reduced to 0% with 1 drug-eluting stent PLAN 1. Dual antiplatelet therapy 2. Supportive care 3. Consult internal audit director 4. Keep arterial sheath in place for the next several hours until acid-base status is resolved and then manually pull sheath 5. Tobacco cessation 6. Check ketone level to make sure patient's acidemia is not DKA 7. Continue heparin drip as long as femoral arterial sheath is in place 8. Echocardiogram Electronically signed by : Joo Tadeo MD 11/24/2022 14:04:34
[2022-11-24 06:55] LABS: PTT Heparin (inpatient only) 27.7 Seconds (23.6-34.0)
--- NOTE | 2022-11-24 07:04 | PC.NURSE ---
Pt transported to general labor, VSS, continues to complain of cp 10/18, smothering and nausea, report given to general labor staff
[2022-11-24 07:12] LABS: INR 1.05 (0.9-1.1); Prothrombin Time 11.3 seconds (10.1-12.5)
[2022-11-24 07:20] LABS: Chloride 106 mmol/L (98-107); Sodium 137 mmol/L (136-145)
[2022-11-24 07:23] LABS: Blood Urea Nitrogen 40 mg/dl (7-17); Creatinine Clearance Estimated 38 mL/min (50-200); Estimated Glomerular Filt Rate 20 ml/min (>60); GFR (African American) 24 ML/MIN (>60)
[2022-11-24 07:24] LABS: Anion Gap 18.5 mEq/L (5-15); Calcium 9.4 mg/dl (8.4-10.2); Carbon Dioxide 19 mmol/L (22.0-30.0); Glucose 218 mg/dl (74-100)
[2022-11-24 07:25] LABS: Potassium 6.5 mmoL/L (3.5-5.1)
--- NOTE | 2022-11-24 07:25 | PC.NURSE ---
cutting table operator paged dr. grossman
--- NOTE | 2022-11-24 07:32 | PC.NURSE ---
spoke with Dr. Crook notified him of pt. States to call hospitalist for admission r/t he is out of town. notified ER MD Romano, report he has spoken with Dr. Wilsno
--- NOTE | 2022-11-24 07:40 | PC.NURSE ---
have spoken with Dr. Khan, reports he did speak with but is not accepting the pt lab results. Explained to dr. khan that pt is in the seed laboratory technician r/t stemi alert. Reports he wants to speak with Dr. Domingo after pt heart cath to discuss if pt is appropriate for admission at this facility. Notified tank house supervisor spoke with orionrn in seed laboratory technician, asked her to ask dr. domingo if he will contact the hospitalist after pt heart cath to discuss pt with dr. khan. updated dr. nguyen
--- NOTE | 2022-11-24 08:32 | EXP.HP ---
History of Present Illness *Admission Date: 11/24/22 *Reason for visit:: chest pain *History of present illness: 42 year old female with a past medical history of pad, cad s/p cabg and stents, htn, hld, diabetes mellitus, hypothyroidism, morbid obesity. She presented to the ED via EMS with chest pain; the patient was thought to have had a STEMI so was emergently taken to the phlebotomist medical lab assistant for LHC and had successful stenting of the saphenous vein graft to circumflex artery with 1 drug eluting stent. Currently she is intubated and sedated. [facility] Disclaimer: The information contained in this section may have been updated after the patient was seen, as this information can be updated by other users. Medical History (Updated 11/24/22 @ 13:53 by Jamia Javier APRN) Abnormal ankle brachial index (BRYAN) Abnormal EKG Acidemia Acute hyperkalemia Acute respiratory failure with hypoxia AMAN (acute kidney injury) Angina pectoris Angina, class IV CAD (coronary artery disease) Claudication Diabetes mellitus Dyspnea Fracture of 4th metatarsal HLD (hyperlipidemia) HTN (hypertension) Ischemic foot ulcer due to atherosclerosis of [place] artery of limb Leg pain, bilateral On mechanically assisted ventilation PAD (peripheral artery disease) Pre-op evaluation Right axis deviation Shock STEMI (ST elevation myocardial infarction) Tobacco dependence syndrome Wound of foot Surgical History (Updated 11/24/22 @ 13:53 by Jamia Javier APRN) History of 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 S/P CABG x 5 Stented coronary artery Social History (Updated 11/24/22 @ 10:07 by Tayler Garcia RN) Smoking Status: Light tobacco smoker tobacco type: cigarettes packs per day: 1 second hand exposure: No alcohol intake: never substance use type: denies use current occupational status: other Travel in the last 8 weeks: None household members: family housing: house number of children: 0 current occupational exposures/hazards: No caffeine: Yes Review of Systems Review of Systems Review of systems:: unable to obtain Meds Home Medications and Allergies Home Medications Medication Instructions Recorded Confirmed Type albuterol sulfate 2.5 mg/3 mL 2.5 mg inhalation Q6HP PRN 08/02/22 11/24/22 History (0.083 %) solution for nebulization Breathing Problems budesonide-formoterol HFA 160 2 puff inhalation BID Breathing 08/02/22 11/24/22 History mcg-4.5 mcg/actuation aerosol problems inhaler (Symbicort) bupropion HCl 150 mg 24 hr tablet, 150 mg PO DAILY Mood 08/02/22 11/24/22 History extended release dexlansoprazole 60 mg 60 mg PO DAILY Acid reflux 08/02/22 11/24/22 History capsule,biphase delayed release (Dexilant) insulin aspart U-100 100 unit/mL 30 unit SQ TID Diabetes 08/02/22 11/24/22 History (3 mL) subcutaneous pen (Novolog FlexPen U-100 Insulin aspart) levothyroxine 200 mcg tablet 200 mcg PO AM Thyroid 08/02/22 11/24/22 History levothyroxine 50 mcg tablet 50 mcg PO AM Thyroid 08/02/22 11/24/22 History ropinirole 1 mg tablet 1 mg PO HS Restless legs 08/02/22 11/24/22 History tizanidine 4 mg tablet 4 mg PO BID Pain 08/02/22 11/24/22 History vortioxetine 20 mg tablet 20 mg PO DAILY Mood 08/02/22 11/24/22 History (Trintellix) amlodipine 5 mg tablet 5 mg PO DAILY High blood pressure 09/23/22 11/24/22 Rx #90 tabs bisoprolol fumarate 10 mg tablet 10 mg PO BID High blood pressure 09/23/22 11/24/22 Rx #180 tabs clopidogrel 75 mg tablet 75 mg PO DAILY Blood thinner #90 09/23/22 11/24/22 Rx tabs isosorbide dinitrate 20 mg tablet 20 mg PO TID High blood pressure 09/23/22 11/24/22 Rx #90 tabs lisinopril 10 mg tablet 10 mg PO BID High blood pressure 09/23/22 11/24/22 Rx #180 tabs rivaroxaban 2.5 mg tablet (Xarelto) 2.5 mg PO BID Blood thinner #180 09/23/22 11/24/22 Rx tabs rosuvastatin 40 mg tablet 40 mg PO DAILY Cholesterol #90 tabs 09/23/22 11/24/22 Rx oxycod
[2022-11-24 08:45] LABS: ABG Base Excess -12.8 mmol/L (-2.4-2.3); ABG Oxygen Saturation 89 % (90-100); ABG PCO2 38.3 mmhg (35.0-45.0); ABG PH 7.21 mmol/L (7.35-7.45); ABG TCO2 16.2 mmhg (23-27); Allen's Test Patient Unable; Oxygen 100 %; PEEP 8; Source A LINE; Tidal Volume 420; Vent Rate 24
--- NOTE | 2022-11-24 08:48 | SUR.PHASEII ---
Tiny with RT notified of O2 sat of 88% at this time. RT bedside and reported the pt was on 100% FiO2 at this time and a rate of 24
[2022-11-24 09:00] LABS: CATHL Activated Clotting Time 248 SEC (74-125)
--- NOTE | 2022-11-24 09:00 | PC.NURSE ---
pt arrived to the floor.
--- NOTE | 2022-11-24 09:08 | XR_ITS ---
FINAL REPORT CLINICAL HISTORY: INTUBATION and ng tube placement COMPARISON: Earlier same day FINDINGS: A single portable view of the chest was obtained. There are multiple overlying wires. ET tube is present with tip approximately at T2-3. NG tube is present with the tip of the fundus of the stomach. Cardiomegaly is noted. Prior median sternotomy. There is pulmonary vascular congestion. There are worsening pulmonary opacities favored to represent edema over pneumonia. The bony thorax is intact. IMPRESSION: ET tube and NG tube as above. Worsening pulmonary opacities favor edema over pneumonia. Cardiomegaly and pulmonary vascular congestion. Reviewed, Interpreted and Dictated by Inder Jalloh III, MD Transcribed by Batsheva Sanchez Authenticated and [facility]
--- NOTE | 2022-11-24 09:20 | PC.NURSE ---
20g IV placed right hand per Cora Guerrero RN.
[2022-11-24 09:23] LABS: Oxygen 100% %
[2022-11-24 09:24] LABS: Source aline
[2022-11-24 09:26] LABS: ABG PH 7.23 mmol/L (7.35-7.45)
[2022-11-24 09:27] LABS: ABG HCO3 15.7 mmhg (22.0-26.0); ABG PCO2 38.2 mmhg (35.0-45.0); ABG PO2 53.4 mmhg (80-100); ABG TCO2 16.9 mmhg (23-27)
[2022-11-24 09:28] LABS: ABG Base Excess -11.8 mmol/L (-2.4-2.3); ABG Oxygen Saturation 84 % (90-100)
--- NOTE | 2022-11-24 09:28 | HMH.PHAHEP ---
[facility] Pharmacy Heparin Dosing Demographic Data Admission date:: 11/24/22 Date: 11/24/22 Time: 09:28 Allergies Allergy/AdvReac Type Severity Reaction Status Date / Time acetaminophen [ACETAMINOPHEN] Allergy Unknown RASH,SWELLI Verified 07/13/22 13:26 NG,HIVES morphine Allergy Unknown Verified 07/13/22 13:26 Penicillins [PENICILLINS] Allergy Unknown I-RASH Verified 07/13/22 13:26 Height: 1.55 m Weight: 99.592 kg Indication Medication therapy:: Heparin Current Indications:: ACS - LOW DOSE PROTOCOL Current Active Problems (Updated 11/25/22 @ 10:27 by Jamia Javier APRN) Shock (Acute) Acute respiratory failure with hypoxia (Acute) On mechanically assisted ventilation (Acute) Acidemia (Acute) Wound of foot (Acute) STEMI (ST elevation myocardial infarction) (Acute) AMAN (acute kidney injury) (Acute) Acute hyperkalemia (Acute) PAD (peripheral artery disease) (Chronic) Diabetes mellitus (Chronic) Tobacco dependence syndrome (Chronic) Stented coronary artery (Chronic) HLD (hyperlipidemia) (Chronic) HTN (hypertension) (Chronic) S/P CABG x 5 (Chronic) CAD (coronary artery disease) (Chronic) Angina pectoris (Acute) CVA?: No Bleeding problem?: No Kidney disease?: No [place]?: Yes Additional History:: CORONARY ARTERY DISEASE, CORONARY ARTERY BYPASS GRAFT X5, HYPERLIPIDEMIA, PERIPHERAL ARTERY DISEASE Desired PTT range:: 50-75 seconds Comments:: Baseline PTT: 27.7 seconds Labs Anticoagulation Lab Results:: 11/24/22 06:16 Hgb 12.8 Hct 41.3 Plt Count 228 Monitoring Dose Monitor 1: Date: 11/24/22 Time: 06:16 PTT Result:: 27.7 SECONDS (BASELINE) Infusion Rate:: ROSA ECARE RECOMMENDED 4000 UNIT HEPARIN BOLUS FOLLOWED BY A 1000 UNITS/HOUR = 20 ML/HOUR HEPARIN DRIP, HOWEVER PATIENT RECEIVED A 5000 UNIT HEPARIN BOLUS AND THE DRIP WAS STARTED AFTER THE DOCK GUARD AT 1200 UNITS/HOUR = 24 ML/HOUR. Dose Monitor 2: Date: 11/24/22 Time: 14:00 PTT Result:: 110.6 SECONDS Infusion Rate:: DECREASED HEPARIN DRIP RATE TO 900 UNITS/HOUR = 18 ML/HOUR Dose Monitor 3: Date: 11/24/22 Time: 23:10 PTT Result:: 36.5 SECONDS Infusion Rate:: INCREASED HEPARIN DRIP RATE TO 1100 UNITS/HOUR = 22 ML/HOUR Dose Monitor 4: Date: 11/25/22 Time: 04:50 PTT Result:: 33.6 SECONDS Infusion Rate:: INCREASED HEPARIN DRIP RATE TO 1400 UNITS/HOUR = 28 ML/HOUR AND BOLUSED 4000 UNITS HEPARIN IV ONCE. Dose Monitor 5: Date: 11/25/22 Time: 10:02 PTT Result:: 58.0 SECONDS Infusion Rate:: DRIP STOPPED DURING MORNING ROUNDS. ON PLAVIX AND ASPIRIN. Core Measures Is INR > or = 2 at discharge?: No Most Recent Labs:: Laboratory Results - last 24 hr 11/24/22 06:16: WBC 13.3 H, RBC 4.60, Hgb 12.8, Hct 41.3, MCV 89.7, MCH 27.8, MCHC 30.9 L, RDW 15.3, Plt Count 228, MPV 9.9, Neut % (Auto) 83.7 H, Lymph % (Auto) 11.2, [place] % (Auto) 3.7, Eos % (Auto) 1.1, Baso % (Auto) 0.2, Neut # (Auto) 11.2 H, Lymph # (Auto) 1.5, [place] # (Auto) 0.5, Eos # (Auto) 0.2, Baso # (Auto) 0.0, PT 11.3, INR 1.05, APTT 27.7, Sodium 137, Potassium 6.5 H*, Chloride 106, Carbon Dioxide 19 L, Anion Gap 18.5 H, BUN 40 H, Creatinine 2.60 H, Estimated Creat Clear 38, Estimated GFR 20 L, Est GFR ( Amer) 24 L, Glucose 218 H, Calcium 9.4, Troponin I 2.17 H, NT-Pro-B Natriuret Pep [id number] H 11/24/22 07:38: Activated Clotting Time 248 H* 11/24/22 07:50: Specimen Source birdie, O2 % 100%, ABG pH 7.21 L*, ABG pCO2 38.3, ABG pO2 64.0 L, ABG HCO3 15.0 L, ABG Total CO2 16.2 L, ABG O2 Saturation 89 L, ABG Base Excess -12.8 L, Giovany Test n/a 11/24/22 08:28: Specimen Source A line, O2 % 100, ABG pH 7.21 L*, ABG pCO2 38.3, ABG pO2 64.0 L, ABG HCO3 15.0 L, ABG Total CO2 16.2 L, ABG O2 Saturation 89 L, ABG Base Excess -12.8 L, Giovany Test Patient unable, Vent Rate 24, Tidal Volume 420, PEEP 8 Were Heparin and Warfarin started on the same day?: No If not, why?: PATIENT ON ASPIRIN AND P
--- NOTE | 2022-11-24 09:46 | PC.NURSE ---
lab at bedside.
--- NOTE | 2022-11-24 09:48 | CA_ITS ---
APPROVED REPORT EXAM: Comprehensive 2D, Doppler, and color-flow Echocardiogram Leak Gang Supervisor: TYLER Pelaez, RVS Ht: 5 ft 1 in Wt: 219lbs BSA: 1.96 BP: 140/70 mmHg Indications: STEMI, CABG, Smoker, Elevated troponin Echo Enhancing Agent Comments: TDS due to patient factors, scanned supine/intubated 2D Dimensions Aortic Root 2.78 cm LA Volume 65.40 mL Left Atrium 4.36 cm LA Volume Index 32.50 mL/m2 (M/F) 16-34 LVOT 1.94 cm (M/F) 1.5-2.5 M-Mode Dimensions RVDd 1.93 cm (0.9-2.6) LA Diam 3.90 cm (1.9-4.0) LVDd 5.39 cm (3.5-5.7) Ao Diam 3.53 cm (2.0-3.7) LVDs 4.87 cm (3.5-5.7) IVSd 1.09 cm (0.6-1.1) PWd 1.25 cm (0.6-1.1) EF (Teich) 21.00% EPSs 1.21 cm FS 9.60% EDV (Teich) 140.70 mL TAPSE 1.18 (<1.7) ESV (Teich) 111.20 mL LV Diastology E Decel Time 113.00 (160-240 msec) E/A Ratio 1.18 MED E' 3.60 (< 7 cm/sec) MED A' 6.40 cm/s E'/MED E' Ratio 28.28 (>14) LAT E' 3.60 (<10 cm/sec) LAT A' 6.40 cm/s E/LAT E' Ratio 28.28 (>14) Aortic Valve LVOT Max 101.00 (70-110 cm/s) LVOT VTI 16.60 cm AoV Peak Liam. 82.00 (50-130 cm/s) AO Peak GR. 2.70 mmHg AO Mean GR. 1.30 (<5 mmHg) AO VTI 14.90 (18-25 cm) TJ (VTI) 3.29 (2.5-4.5 cm2) Mitral Valve MV A Velocity 86.00 (40-130 cm/s) E/A Ratio 1.18 MV Decel. Time 113.00 (160-240 ms) Pulmonary Valve PV Peak Velocity 48.00 (50-150 cm/s) Left Ventricle Left ventricle is moderately dilated. Left ventricular systolic function is severely decreased. There is increased LV wall thickness. There is severe global hypokinesis. There is mid to distal anterior, anterolateral, and lateral akinesis, as well as apical akinesis. Grade II diastolic dysfunction is present. LVEF is 15%. Right Ventricle Right ventricle is moderately dilated. The RV function is moderately reduced. Atria The left atrium size is normal. The right atrium size is normal. There is no Doppler evidence of interatrial shunt. Aortic Valve The aortic valve is mildly thickened. There is no aortic valvular stenosis. No aortic regurgitation is present. Mitral Valve The mitral valve is normal in structure. No evidence of mitral valve stenosis. Mild to moderate mitral regurgitation. The MR jet is eccentric and is posteriorly directed. Tricuspid Valve The tricuspid valve leaflets are thin and pliable. Trace tricuspid regurgitation. There is insufficient TR jet to estimate RVSP. Pulmonic Valve The pulmonary valve is normal in structure. Trace pulmonic regurgitation. Great Vessels The aortic root is normal in size. The ascending aorta is not well visualized. IVC is normal in size. The IVC is not collapsible in the setting of mechanical ventilation. Pericardium There is no pericardial effusion. Other Information Study Quality: Fair Conclusion The patient is mechanically ventrilated and on inotropic support with milrinone 0.125 mcg/kg/min Moderately dilated LV with biventricular failure. Severe reduction in LVEF=15% and moderate RV dysfunction. Anterior, lateral, anterolateral akinesis. Apical akinesis. Grade II diastolic dysfunction Mild to moderate MR Electronically signed by : Sandra Thakkar, 11/24/2022 12:38:08
--- NOTE | 2022-11-24 09:48 | PC.NURSE ---
Dr. Shah at bedside. pt's sats 84% on 100% FIO2.
[2022-11-24 09:49] LABS: POC Glucose,Bedside 211 (70-110)
--- NOTE | 2022-11-24 09:49 | EXP.CARD.CON ---
History of Present Illness History of Present Illness Consult date: 11/24/22 Requesting physician: Jose F Romano Consult reason: chest pain Chief complaint: chest pain History of present illness: This is a 42-year-old white female who presented to the emergency department complaints of chest pain. She has a known history of coronary artery disease status post coronary artery bypass grafting, PAD, hypertension, hyperlipidemia, diabetes mellitus. The patient reported having chest pain that started a couple of days ago but worsened this morning. She states that she was having a pressure sensation in the central aspect of her chest it radiated to her bilateral jaws and caused numbness. It is associated with shortness of breath, nausea, vomiting, diaphoresis and generalized weakness. This was a severe 8 out of 10 pain in intensity. The patient was treated with aspirin via EMS. Once she arrived to the hospital the patient was felt to have a STEMI. She was taken to the cardiac [facility] Plug Packer. She did undergo stenting to the saphenous vein graft to the circumflex artery. However, Dr. Tadeo believes that the patient was most likely not having a STEMI and was acidemic which ultimately ended up requiring intubation and mechanical ventilation. Her troponin was elevated at 2.17. Her BNP was 21,400. Creatinine was 2.6 and a potassium of 6.5. Her initial pH was 7.23 as well. She currently remains intubated on mechanical ventilation. [facility] Disclaimer: The information contained in this section may have been updated after the patient was seen, as this information can be updated by other users. Medical History (Updated 11/25/22 @ 10:27 by Jamia Javier APRN) Abnormal ankle brachial index (BRYAN) Abnormal EKG Acidemia Acute hyperkalemia Acute respiratory failure with hypoxia AMAN (acute kidney injury) Angina pectoris Angina, class IV CAD (coronary artery disease) Cardiogenic shock Claudication Diabetes mellitus Dyspnea Elevated liver enzymes Fracture of 4th metatarsal HLD (hyperlipidemia) HTN (hypertension) Ischemic cardiomyopathy Ischemic foot ulcer due to atherosclerosis of [place] artery of limb Leg pain, bilateral LV dysfunction On mechanically assisted ventilation PAD (peripheral artery disease) Pre-op evaluation Right axis deviation Shock STEMI (ST elevation myocardial infarction) Systolic congestive heart failure Tobacco dependence syndrome Wound of foot Surgical History (Updated 11/24/22 @ 13:53 by Jamia Javier APRN) History of 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 S/P CABG x 5 Stented coronary artery Social History (Updated 11/24/22 @ 10:07 by Tayler Garcia RN) Smoking Status: Light tobacco smoker tobacco type: cigarettes packs per day: 1 second hand exposure: No alcohol intake: never substance use type: denies use current occupational status: other Travel in the last 8 weeks: None household members: family housing: house number of children: 0 current occupational exposures/hazards: No caffeine: Yes Review of Systems Review of Systems Review of systems:: pertinent systems reviewed and negative unless documented below Constitutional Constitutional: Reports system reviewed and no additional complaints, except as documented, Reports fatigue and Reports weakness Eyes Eyes: Reports system reviewed and no additional complaints, except as documented ENT Ears, Nose, Mouth, and Throat: Reports system reviewed and no additional complaints, except as documented *Cardiovascular Cardiovascular: Reports system reviewed and no additional complaints, except as documented, Reports chest pain, Reports chest pain at rest, Reports chest pain with activity, Reports diaphoresis, Reports dyspnea, Reports dyspnea on exertion and Reports radiating jaw, neck or arm pain *Respiratory Respiratory: Reports system reviewed and no additional complaints, except as documented, Reports dyspnea and Report
--- NOTE | 2022-11-24 10:02 | PC.NURSE ---
RESP CARE NOTE: Dr Shah increase PEEP to 12 cmH2O, ABG scheduled for 1200.
--- NOTE | 2022-11-24 10:13 | HMH.PHAINT1 ---
Pharmacy Intervention Comments: Medication history complete, medications verified with list from PCP as patient is currently intubated. - Mary Rivera, PharmD Candidate 2023
[2022-11-24 10:14] LABS: Acetone, Serum (Rapid) None Detected (None Detect)
[2022-11-24 10:26] LABS: Lactic Acid 5.2 mmol/L (0.7-2.1)
--- NOTE | 2022-11-24 10:44 | EXP.PULM.CON ---
History of Present Illness History of present illness: Ms. Gonzales is a 42-year-old female significant smoking history, diabetes, PAD, hypertension, dyslipidemia CAD status post CABG on Plavix and Xarelto presented to the hospital with chest discomfort that has been going on for the last couple of days as per the ER note. Patient clinical status deteriorated with worsening hypoxic respiratory needing intubation mechanical ventilatory support and pulmonary was called for further evaluation [facility] Disclaimer: The information contained in this section may have been updated after the patient was seen, as this information can be updated by other users. Medical History (Updated 11/24/22 @ 12:48 by Dontae Shah MD) Abnormal ankle brachial index (BRYAN) Abnormal EKG Acidemia Acute hyperkalemia Acute respiratory failure with hypoxia AMAN (acute kidney injury) Angina pectoris Angina, class IV CAD (coronary artery disease) Claudication Diabetes mellitus Dyspnea Fracture of 4th metatarsal HLD (hyperlipidemia) HTN (hypertension) Ischemic foot ulcer due to atherosclerosis of [place] artery of limb Leg pain, bilateral On mechanically assisted ventilation PAD (peripheral artery disease) Pre-op evaluation Right axis deviation Shock STEMI (ST elevation myocardial infarction) Tobacco dependence syndrome Wound of foot Surgical History S/P CABG x 5 Stented coronary artery Social History (Updated 11/24/22 @ 10:07 by Tayler Garcia RN) Smoking Status: Light tobacco smoker tobacco type: cigarettes packs per day: 1 second hand exposure: No alcohol intake: never substance use type: denies use current occupational status: other Travel in the last 8 weeks: None household members: family housing: house number of children: 0 current occupational exposures/hazards: No caffeine: Yes Review of Systems Review of Systems Review of systems:: unable to obtain Review of systems (narrative): Intubated and sedated Pulmonology Exam Inpatient Vital signs and Labs for Last 24 Hours: Temp Pulse Resp BP Pulse Ox O2 Del Method FiO2 98.3 F 87 24 121/71 89 L Mechanical Ventilation 100 11/24/22 07:21 11/24/22 08:30 11/24/22 08:45 11/24/22 08:45 11/24/22 08:45 11/24/22 09:00 11/24/22 08:45 Laboratory Results - last 24 hr 11/24/22 06:16: WBC 13.3 H, RBC 4.60, Hgb 12.8, Hct 41.3, MCV 89.7, MCH 27.8, MCHC 30.9 L, RDW 15.3, Plt Count 228, MPV 9.9, Neut % (Auto) 83.7 H, Lymph % (Auto) 11.2, [place] % (Auto) 3.7, Eos % (Auto) 1.1, Baso % (Auto) 0.2, Neut # (Auto) 11.2 H, Lymph # (Auto) 1.5, [place] # (Auto) 0.5, Eos # (Auto) 0.2, Baso # (Auto) 0.0, PT 11.3, INR 1.05, APTT 27.7, Sodium 137, Potassium 6.5 H*, Chloride 106, Carbon Dioxide 19 L, Anion Gap 18.5 H, BUN 40 H, Creatinine 2.60 H, Estimated Creat Clear 38, Estimated GFR 20 L, Est GFR ( Amer) 24 L, Glucose 218 H, Calcium 9.4, Troponin I 2.17 H, NT-Pro-B Natriuret Pep 17412 H 11/24/22 07:38: Activated Clotting Time 248 H* 11/24/22 07:50: Specimen Source birdie, O2 % 100%, ABG pH 7.23 L*, ABG pCO2 38.2, ABG pO2 53.4 L, ABG HCO3 15.7 L, ABG Total CO2 16.9 L, ABG O2 Saturation 84 L*, ABG Base Excess -11.8 L, Giovany Test n/a 11/24/22 08:28: Specimen Source A line, O2 % 100, ABG pH 7.21 L*, ABG pCO2 38.3, ABG pO2 64.0 L, ABG HCO3 15.0 L, ABG Total CO2 16.2 L, ABG O2 Saturation 89 L, ABG Base Excess -12.8 L, Giovany Test Patient unable, Vent Rate 24, Tidal Volume 420, PEEP 8 11/24/22 09:37: POC Glucose 211 H 11/24/22 09:50: Lactate 5.2 H, Procalcitonin 0.400, Acetone Level None detected I & O for Labs for Last 24 Hours: Intake & Output 11/21/22 11/22/22 11/23/22 08/16/23 23:59 23:59 23:59 23:59 Weight 219 lb 9.004 oz Constitutional: Present severe distress Comment:: Intubated and Sedated Head: Present normocephalic and atraumatic Neck: Present normal inspection and trachea midline Respiratory: Present patient mec
[2022-11-24 12:02] LABS: Basophils % 0.1 % (0.1-2.0); Eosinophils # 0.1 K/mm3 (0.0-0.4); Eosinophils % 0.6 % (0.1-12.0); Hematocrit 40.8 % (37.0-47.0); Hemoglobin 12.5 g/dL (12.2-16.2); Lymphocytes # 0.7 K/mm3 (0.7-4.5); Lymphocytes % 4.7 % (10-50); Mean Corpuscular HGB Conc 30.5 g/dL (31.8-35.4); Mean Corpuscular Hemoglobin 27.6 pg (27.0-31.2); Mean Corpuscular Volume 90.4 fl (81-99); Mean Platelet Volume 10.2 fl (7.4-10.4); Monocytes # 0.6 K/mm3 (0.1-1.0); Monocytes % 4.2 % (1.7-9.3); Neutrophils # 13.3 K/mm3 (1.8-7.8); Neutrophils % 90.4 % (37.0-80.0); Platelet Count 228 K/mm3 (142-424); Red Blood Count 4.51 M/mm3 (4.20-5.40); Red Cell Distribution Width 15.3 % (11.5-17.5); White Blood Count 14.8 K/mm3 (4.8-10.8)
[2022-11-24 12:03] LABS: MANUAL DIFFERENTIAL MANUAL DIFFERENTIAL (MANUAL DIFF)
[2022-11-24 12:10] LABS: Alanine Aminotransferase 160 U/L (12-78); Albumin Level 3.6 g/dl (3.5-5.0); Albumin/Globulin Ratio 0.9 (1.1-1.8); Alkaline Phosphatase 153 U/L (38-126); Aspartate Amino Transferase 341 U/L (14-36); Bilirubin,Total 0.7 mg/dl (0.2-1.3); Blood Urea Nitrogen 41 mg/dl (7-17); Calcium 8.3 mg/dl (8.4-10.2); Carbon Dioxide 17 mmol/L (22.0-30.0); Chloride 109 mmol/L (98-107); Creatinine Clearance Estimated 19 mL/min (50-200); Estimated Glomerular Filt Rate 18 ml/min (>60); GFR (African American) 21 ML/MIN (>60); Glucose 301 mg/dl (74-100); Magnesium 1.8 mg/dl (1.6-2.3); Sodium 140 mmol/L (136-145); Total Protein,Serum 7.6 g/dl (6.3-8.2)
[2022-11-24 12:13] LABS: ABG HCO3 15.1 mmhg (22.0-26.0); ABG Oxygen Saturation 97 % (90-100); ABG PCO2 34.3 mmhg (35.0-45.0); ABG PH 7.26 mmol/L (7.35-7.45); ABG PO2 103.1 mmhg (80-100); ABG TCO2 16.1 mmhg (23-27); Oxygen 100 %; PEEP 12; Source A-LINE; Tidal Volume 420; Vent Rate 24
[2022-11-24 12:25] LABS: Lactic Acid 4.3 mmol/L (0.7-2.1)
[2022-11-24 12:27] LABS: Alanine Aminotransferase 157 U/L (12-78); Albumin Level 3.5 g/dl (3.5-5.0); Alkaline Phosphatase 159 U/L (38-126); Aspartate Amino Transferase 328 U/L (14-36); Bilirubin,Direct 0.2 mg/dl (0.0-0.4); Bilirubin,Indirect 0.5 mg/dL (0.0-0.9); Bilirubin,Total 0.7 mg/dl (0.2-1.3); Bilirubin,Unconjugated 0.5 mg/dL (0.0-1.1); Total Protein,Serum 7.7 g/dl (6.3-8.2)
--- NOTE | 2022-11-24 12:30 | PC.NURSE ---
vent settings as follows: AC FIO2- 100% TV-440 Peep-12 Rate-24
--- NOTE | 2022-11-24 12:50 | PC.NURSE ---
Jessi Guerrero RN and Florinda Middleton RN at bedside to obtain access.
--- NOTE | 2022-11-24 13:00 | PC.NURSE ---
Dr. Shah at bedside and states to keep pt's MAP above 70.
--- NOTE | 2022-11-24 13:28 | PC.NURSE ---
Midline inserted by Cora Guerrero RN w/ myself at bedside assisting. Midline cut at 10.5 cm but unable to document this way.
--- NOTE | 2022-11-24 13:30 | PC.NURSE ---
Pawan at bedside to assess pt's wound to right foot.
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
[2022-11-24 14:37] LABS: Lactate Arterial 4.1 mmol/L (0.4-2.0)
[2022-11-24 14:50] LABS: ABG Base Excess -8.9 mmol/L (-2.4-2.3); ABG HCO3 16.6 mmhg (22.0-26.0); ABG Oxygen Saturation 99 % (90-100); ABG PCO2 30.3 mmhg (35.0-45.0); ABG PH 7.36 mmol/L (7.35-7.45); ABG PO2 245.2 mmhg (80-100); ABG TCO2 17.5 mmhg (23-27)
[2022-11-24 14:52] LABS: PTT Heparin (inpatient only) 110.6 Seconds (23.6-34.0)
[2022-11-24 14:52] LABS: Oxygen 100 %; PEEP 12; Tidal Volume 440; Vent Rate 24
[2022-11-24 14:53] LABS: Source A-LINE
--- NOTE | 2022-11-24 15:04 | PC.NURSE ---
decreased Heparin drip to 18 ml/hr per Cliff in pharmacy.
--- NOTE | 2022-11-24 15:08 | PC.NURSE ---
RT to bedside to decreased FIO2- 70% after ABG return.
--- NOTE | 2022-11-24 16:10 | PC.NURSE ---
lab at bedside to obtain repeat labs
[2022-11-24 16:12] LABS: Reflex Lactic Add Lactic Reflex
[2022-11-24 16:17] LABS: Lymphocytes % 3 % (10-50); Monocytes % 1 % (2-9); Neutrophils % 96 % (42-76); Total Cells Counted 100
[2022-11-24 16:18] LABS: Platelet Estimate Normal; Spherocytes 1+
[2022-11-24 16:46] LABS: Lactic Acid Follow Up (RFLX 1) 2.9 mmol/L (0.7-2.1)
[2022-11-24 17:16] LABS: POC Glucose,Bedside 215 (70-110)
--- NOTE | 2022-11-24 17:26 | PC.NURSE ---
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 pt was intubated during the procedure. pt arrived to the floor around 0900. pt current vent settings AC, FIO2-70%, TV-440, Rate-24, Peep-12. has 4 peripheral IV's and a midline to right upper arm. pt does have oozing noted to midline dressing. pt sedated on Diprovan which is infusing at 8 mcg/kg/min. pt has Fentanyl drip infusing at 25 mcg/hr. pt also has Furosemide drip at 20 ml/hr, Heparin drip at 18 ml/hr (900 u/hr), Milirone at 1.5 ml/hr. Pt's LS cta. Abdomen soft, round, bowel sounds active. pt has f/c in place with marginal UOP. pt was seen by Osvaldo Hudson this shift for wound on right foot. See picture uploaded. pt has sheath in place to right femoral artery with a line readings in place. family is at bedside and has been updated on POC.
[2022-11-24 18:28] LABS: Reflex Lactic (2 hrs) Add Lactic Reflex
[2022-11-24 19:05] LABS: Lactic Acid Follow up (RFLX 2) 2.6 mmol/L (0.7-2.1)
[2022-11-24 19:54] LABS: Chloride 106 mmol/L (98-107); Sodium 139 mmol/L (136-145)
[2022-11-24 19:55] LABS: Potassium 4.8 mmoL/L (3.5-5.1)
[2022-11-24 19:57] LABS: Blood Urea Nitrogen 47 mg/dl (7-17); Creatinine Clearance Estimated 18 mL/min (50-200); Estimated Glomerular Filt Rate 17 ml/min (>60); GFR (African American) 21 ML/MIN (>60)
[2022-11-24 19:58] LABS: Anion Gap 15.8 mEq/L (5-15); Calcium 9.2 mg/dl (8.4-10.2); Carbon Dioxide 22 mmol/L (22.0-30.0); Glucose 222 mg/dl (74-100)
[2022-11-24 20:19] LABS: ABG Base Excess -5.9 mmol/L (-2.4-2.3); ABG HCO3 19.3 mmhg (22.0-26.0); ABG Oxygen Saturation 99 % (90-100); ABG PCO2 33.3 mmhg (35.0-45.0); ABG PH 7.38 mmol/L (7.35-7.45); ABG PO2 150.8 mmhg (80-100); ABG TCO2 20.3 mmhg (23-27); Oxygen 70 %; PEEP 12; Tidal Volume 440; Vent Rate 24
[2022-11-24 20:20] LABS: Allen's Test Non Applicable; Source Right Femoral
[2022-11-25] VITALS (39 sets, daily range): BP systolic 101–140; BP diastolic 59–85; PULSE 78–98; RESP 16–24; TEMP 36.9–38.2; O2SAT 98–100; BMI 39.4
[2022-11-25 00:30] LABS: PTT Heparin (inpatient only) 36.5 Seconds (23.6-34.0)
--- NOTE | 2022-11-25 00:37 | PC.NURSE ---
heparin drip increased to 1100units/hr per pharmacy order, PTT 36.5.
--- NOTE | 2022-11-25 01:38 | PC.WOUNDNOTE ---
Daily skin assessment picture
[2022-11-25 04:57] LABS: POC Glucose,Bedside 138 (70-110)
[2022-11-25 05:03] LABS: Basophils % 0.1 % (0.1-2.0); Eosinophils # 0.2 K/mm3 (0.0-0.4); Eosinophils % 1.5 % (0.1-12.0); Hematocrit 35.7 % (37.0-47.0); Hemoglobin 11.4 g/dL (12.2-16.2); Lymphocytes # 1.7 K/mm3 (0.7-4.5); Lymphocytes % 14.6 % (10-50); Mean Corpuscular HGB Conc 31.9 g/dL (31.8-35.4); Mean Corpuscular Hemoglobin 27.6 pg (27.0-31.2); Mean Corpuscular Volume 86.4 fl (81-99); Monocytes # 0.6 K/mm3 (0.1-1.0); Monocytes % 5.4 % (1.7-9.3); Neutrophils % 78.4 % (37.0-80.0); Platelet Count 192 K/mm3 (142-424); Red Blood Count 4.14 M/mm3 (4.20-5.40); Red Cell Distribution Width 15.6 % (11.5-17.5); White Blood Count 11.5 K/mm3 (4.8-10.8)
--- NOTE | 2022-11-25 05:06 | PC.NURSE ---
No acute changes noted this shift, patient remains intubated and sedated with rass score -2, perrla, is able to follow commands and arouses to verbal stimuli. Intubated with 8.0 ETT 22@ lip, minimal secretions noted this shift, oral care and suctioning performed q2h, OG tube in place to clws, HR reg, BBB per telemetry, lung sounds audible in all lobes with scattered rhonchi in BL bases, FIO2 weaned to 50% per RT this shift patient has tolerated well, abd soft and nontender with hypoactive bowel sounds in all quads, right sided femoral sheath in place, arterial pressure has remained stable this shift with map >70, right femoral sheath site cdi, no bleeding or hematoma noted, midline in place RUE, midline dsg changed this shift, no bleeding noted from site since dsg change, patient with L BKA, right foot with all toes amputated, dsg in place per PT, heel elevated, patient currently has infusing heparin at 1100 units/hr, lasix at 20ml/hr, Fentanyl @30mcg, milrinone @1.5ml/hr, and propofol @ 40mcg/hr. FC patent and draining clear yellow urine at bedside, UOP 125-150cc/hr, bed in lowest position with call light in reach, bed alarm activated, family member at bedside.
[2022-11-25 05:11] LABS: Alanine Aminotransferase 659 U/L (12-78); Albumin Level 3.1 g/dl (3.5-5.0); Albumin/Globulin Ratio 0.8 (1.1-1.8); Alkaline Phosphatase 150 U/L (38-126); Anion Gap 15.4 mEq/L (5-15); Bilirubin,Total 0.3 mg/dl (0.2-1.3); Blood Urea Nitrogen 50 mg/dl (7-17); Calcium 8.6 mg/dl (8.4-10.2); Carbon Dioxide 23 mmol/L (22.0-30.0); Chloride 107 mmol/L (98-107); Creatinine Clearance Estimated 37 mL/min (50-200); Estimated Glomerular Filt Rate 18 ml/min (>60); GFR (African American) 21 ML/MIN (>60); Globulin 4.1 g/dL (1.3-3.2); Glucose 137 mg/dl (74-100); Lactic Acid 1.6 mmol/L (0.7-2.1); Potassium 4.4 mmoL/L (3.5-5.1); Sodium 141 mmol/L (136-145); Total Protein,Serum 7.2 g/dl (6.3-8.2)
[2022-11-25 05:15] LABS: PTT Heparin (inpatient only) 33.6 Seconds (23.6-34.0)
[2022-11-25 05:19] LABS: Aspartate Amino Transferase 1048 U/L (14-36)
[2022-11-25 05:27] LABS: Alanine Aminotransferase 647 U/L (12-78); Albumin Level 3.2 g/dl (3.5-5.0); Alkaline Phosphatase 147 U/L (38-126); Bilirubin,Indirect 0.2 mg/dL (0.0-0.9); Bilirubin,Total 0.2 mg/dl (0.2-1.3); Bilirubin,Unconjugated 0.3 mg/dL (0.0-1.1); Chol/HDL Ratio 7.5 (1-3.5); Cholesterol 187 mg/dl (140-200); HDL Cholesterol 25 mg/dl (40-60); Total Protein,Serum 7.2 g/dl (6.3-8.2); Triglycerides 208 mg/dl (30-150); VLDL Cholesterol 42 mg/dL (0-40)
[2022-11-25 05:34] LABS: Aspartate Amino Transferase 1095 U/L (14-36)
[2022-11-25 05:38] LABS: Direct LDL Cholesterol 87.64 mg/dL (100-129)
--- NOTE | 2022-11-25 05:56 | PC.NURSE ---
PTT-33.6, gave patient 4000unit bolus and increased heparin drip to 1400units/hr per pharmacy order.
[2022-11-25 06:23] LABS: ABG Base Excess -3.5 mmol/L (-2.4-2.3); ABG HCO3 20.5 mmhg (22.0-26.0); ABG Oxygen Saturation 99 % (90-100); ABG PH 7.45 mmol/L (7.35-7.45); ABG PO2 141.5 mmhg (80-100); ABG TCO2 21.4 mmhg (23-27)
[2022-11-25 06:25] LABS: Allen's Test Patient Unable; Oxygen 50% %; PEEP 12; Tidal Volume 440; Vent Rate 24
--- NOTE | 2022-11-25 06:57 | PC.NURSE ---
Propofol titrated to 40mcg at this time
--- NOTE | 2022-11-25 07:39 | PC.NURSE ---
pt agitated and attempting to pull oett, increased fentanyl drip to 75mcg/hr and propofol to 50mcg/kg/min
--- NOTE | 2022-11-25 08:08 | PC.NURSE ---
RESP CARE NOTE: Per Dr Shah telephone order, PEEP decreased to 10 cmH2O.
--- NOTE | 2022-11-25 08:39 | EXP.PN ---
Subjective *Date: 11/25/22 *Time: 12:44 Interval history: No acute events overnight. Exam Data for Last 24 hours Vital signs and Labs for Last 24 Hours: Temp Pulse Resp BP Pulse Ox O2 Del Method FiO2 99.2 F 87 16 130/83 100 Mechanical Ventilation 50 11/25/22 07:31 11/25/22 07:41 11/25/22 07:41 11/25/22 07:41 11/25/22 07:41 11/25/22 07:41 11/25/22 07:41 Laboratory Results - last 24 hr 11/24/22 07:38: Activated Clotting Time 248 H* 11/24/22 07:50: Specimen Source birdie, O2 % 100%, ABG pH 7.23 L*, ABG pCO2 38.2, ABG pO2 53.4 L, ABG HCO3 15.7 L, ABG Total CO2 16.9 L, ABG O2 Saturation 84 L*, ABG Base Excess -11.8 L, Giovany Test n/a 11/24/22 08:28: Specimen Source A line, O2 % 100, ABG pH 7.21 L*, ABG pCO2 38.3, ABG pO2 64.0 L, ABG HCO3 15.0 L, ABG Total CO2 16.2 L, ABG O2 Saturation 89 L, ABG Base Excess -12.8 L, Giovany Test Patient unable, Vent Rate 24, Tidal Volume 420, PEEP 8 11/24/22 09:37: POC Glucose 211 H 11/24/22 09:50: Lactate 5.2 H, Procalcitonin 0.400, Acetone Level None detected 11/24/22 10:11: ABG Lactate 4.1 H 11/24/22 11:50: WBC 14.8 H, RBC 4.51, Hgb 12.5, Hct 40.8, MCV 90.4, MCH 27.6, MCHC 30.5 L, RDW 15.3, Plt Count 228, MPV 10.2, Neut % (Auto) 90.4 H, Lymph % (Auto) 4.7 L, [place] % (Auto) 4.2, Eos % (Auto) 0.6, Baso % (Auto) 0.1, Neut # (Auto) 13.3 H, Lymph # (Auto) 0.7, [place] # (Auto) 0.6, Eos # (Auto) 0.1, Baso # (Auto) 0.0, Total Counted 100, Neutrophils % (Manual) 96 H, Lymphocytes % (Manual) 3 L, Monocytes % (Manual) 1 L, Platelet Estimate Normal, Spherocytes 1+, Sodium 140, Potassium 6.0 H, Chloride 109 H, Carbon Dioxide 17 L, Anion Gap 20.0 H, BUN 41 H, Creatinine 2.90 H, Estimated Creat Clear 19, Estimated GFR 18 L*, Est GFR ( Amer) 21 L, Glucose 301 H D, Lactate 4.3 H, Calcium 8.3 L, Phosphorus 10.0 H, Magnesium 1.8, Total Bilirubin 0.7 11/24/22 11:50: Total Bilirubin 0.7, Direct Bilirubin 0.2, Conjugated Bilirubin 0.0, Indirect Bilirubin 0.5, Unconjugated Bilirubin 0.5, AST 341 H* 11/24/22 11:50: AST 328 H*, ALT 160 H 11/24/22 11:50: ALT 157 H, Alkaline Phosphatase 153 H 11/24/22 11:50: Alkaline Phosphatase 159 H, Total Protein 7.6 11/24/22 11:50: Total Protein 7.7, Albumin 3.6 11/24/22 11:50: Albumin 3.5, Globulin 4.0 H, Albumin/Globulin Ratio 0.9 L 11/24/22 12:10: Specimen Source A-line, O2 % 100, ABG pH 7.26 L, ABG pCO2 34.3 L, ABG pO2 103.1 H, ABG HCO3 15.1 L, ABG Total CO2 16.1 L, ABG O2 Saturation 97, ABG Base Excess -12.0 L, Vent Rate 24, Tidal Volume 420, PEEP 12 11/24/22 13:45: APTT 110.6 H* 11/24/22 14:38: Specimen Source A-line, O2 % 100, ABG pH 7.36, ABG pCO2 30.3 L, ABG pO2 245.2 H, ABG HCO3 16.6 L, ABG Total CO2 17.5 L, ABG O2 Saturation 99, ABG Base Excess -8.9 L, Giovany Test N/a, Vent Rate 24, Tidal Volume 440, PEEP 12 11/24/22 16:20: Lactate 2.9 H 11/24/22 16:52: POC Glucose 215 H 11/24/22 18:42: Sodium 139, Potassium 4.8, Chloride 106, Carbon Dioxide 22, Anion Gap 15.8 H, BUN 47 H, Creatinine 3.00 H, Estimated Creat Clear 18, Estimated GFR 17 L*, Est GFR ( Amer) 21 L, Glucose 222 H D, Lactate 2.6 H, Calcium 9.2 11/24/22 20:00: Specimen Source Right femoral, O2 % 70, ABG pH 7.38, ABG pCO2 33.3 L, ABG pO2 150.8 H, ABG HCO3 19.3 L, ABG Total CO2 20.3 L, ABG O2 Saturation 99, ABG Base Excess -5.9 L, Giovany Test Non applicable, Vent Rate 24, Tidal Volume 440, PEEP 12 11/24/22 23:10: APTT 36.5 H 11/25/22 04:47: POC Glucose 138 H 11/25/22 04:50: WBC 11.5 H, RBC 4.14 L, Hgb 11.4 L, Hct 35.7 L, MCV 86.4, MCH 27.6, MCHC 31.9, RDW 15.6, Plt Count 192, MPV 10.0, Neut % (Auto) 78.4, Lymph % (Auto) 14.6, [place] % (Auto) 5.4, Eos % (Auto) 1.5, Baso % (Auto) 0.1, Neut # (Auto) 9.0 H, Lymph # (Auto) 1.7, [place] # (Auto) 0.6, Eos # (Auto) 0.2, Baso # (Auto) 0.0, APTT 33.6, Sodium 141, Potassium 4.4, Chloride 107, Carbon Dioxide 23, Anion Gap 15.4 H, BUN 50 H, Creatinine 2.90 H, Estimated Creat Clear 37, Estimated GFR 18 L*, Est GFR ( Amer) 21 L, Glucose 137 H D, Lactate 1.6, Calcium 8.6, Total Bilirubin 0.3 11/25
--- NOTE | 2022-11-25 09:19 | EXP.CARD.PN ---
Subjective Subjective Date: 11/25/22 Time: 09:00 Principal diagnosis: STEMI, systolic chf, cardiogenic shock Interval history: This is a 42-year-old white female presented to the emergency department with chest pain. The patient was found to have a STEMI. She was taken to the Tele[facility]eting Representative and had a stent placed to the saphenous vein graft to the circumflex artery. However, the patient most likely had an acidemic EKG. She ended up intubated and on mechanical ventilation. She remains on mechanical ventilation this morning. Her pH has improved today and her acidemia has also improved. She remains on a milrinone drip with IV Lasix today. She did diurese well overnight. Her blood pressure is stable. She appears to be in no distress this morning. She is still currently sedated. Exam Data for Last 24 hours Vital signs and Labs for Last 24 Hours: Temp Pulse Resp BP Pulse Ox O2 Del Method FiO2 99.2 F 87 16 130/83 100 Mechanical Ventilation 50 11/25/22 07:31 11/25/22 07:41 11/25/22 07:41 11/25/22 07:41 11/25/22 07:41 11/25/22 07:41 11/25/22 07:41 Laboratory Results - last 24 hr 11/24/22 07:50: Specimen Source birdie, O2 % 100%, ABG pH 7.23 L*, ABG pCO2 38.2, ABG pO2 53.4 L, ABG HCO3 15.7 L, ABG Total CO2 16.9 L, ABG O2 Saturation 84 L*, ABG Base Excess -11.8 L, Giovany Test n/a 11/24/22 09:37: POC Glucose 211 H 11/24/22 09:50: Lactate 5.2 H, Procalcitonin 0.400, Acetone Level None detected 11/24/22 10:11: ABG Lactate 4.1 H 11/24/22 11:50: WBC 14.8 H, RBC 4.51, Hgb 12.5, Hct 40.8, MCV 90.4, MCH 27.6, MCHC 30.5 L, RDW 15.3, Plt Count 228, MPV 10.2, Neut % (Auto) 90.4 H, Lymph % (Auto) 4.7 L, [place] % (Auto) 4.2, Eos % (Auto) 0.6, Baso % (Auto) 0.1, Neut # (Auto) 13.3 H, Lymph # (Auto) 0.7, [place] # (Auto) 0.6, Eos # (Auto) 0.1, Baso # (Auto) 0.0, Total Counted 100, Neutrophils % (Manual) 96 H, Lymphocytes % (Manual) 3 L, Monocytes % (Manual) 1 L, Platelet Estimate Normal, Spherocytes 1+, Sodium 140, Potassium 6.0 H, Chloride 109 H, Carbon Dioxide 17 L, Anion Gap 20.0 H, BUN 41 H, Creatinine 2.90 H, Estimated Creat Clear 19, Estimated GFR 18 L*, Est GFR ( Amer) 21 L, Glucose 301 H D, Lactate 4.3 H, Calcium 8.3 L, Phosphorus 10.0 H, Magnesium 1.8, Total Bilirubin 0.7 11/24/22 11:50: Total Bilirubin 0.7, Direct Bilirubin 0.2, Conjugated Bilirubin 0.0, Indirect Bilirubin 0.5, Unconjugated Bilirubin 0.5, AST 341 H* 11/24/22 11:50: AST 328 H*, ALT 160 H 11/24/22 11:50: ALT 157 H, Alkaline Phosphatase 153 H 11/24/22 11:50: Alkaline Phosphatase 159 H, Total Protein 7.6 11/24/22 11:50: Total Protein 7.7, Albumin 3.6 11/24/22 11:50: Albumin 3.5, Globulin 4.0 H, Albumin/Globulin Ratio 0.9 L 11/24/22 12:10: Specimen Source A-line, O2 % 100, ABG pH 7.26 L, ABG pCO2 34.3 L, ABG pO2 103.1 H, ABG HCO3 15.1 L, ABG Total CO2 16.1 L, ABG O2 Saturation 97, ABG Base Excess -12.0 L, Vent Rate 24, Tidal Volume 420, PEEP 12 11/24/22 13:45: APTT 110.6 H* 11/24/22 14:38: Specimen Source A-line, O2 % 100, ABG pH 7.36, ABG pCO2 30.3 L, ABG pO2 245.2 H, ABG HCO3 16.6 L, ABG Total CO2 17.5 L, ABG O2 Saturation 99, ABG Base Excess -8.9 L, Giovany Test N/a, Vent Rate 24, Tidal Volume 440, PEEP 12 11/24/22 16:20: Lactate 2.9 H 11/24/22 16:52: POC Glucose 215 H 11/24/22 18:42: Sodium 139, Potassium 4.8, Chloride 106, Carbon Dioxide 22, Anion Gap 15.8 H, BUN 47 H, Creatinine 3.00 H, Estimated Creat Clear 18, Estimated GFR 17 L*, Est GFR ( Amer) 21 L, Glucose 222 H D, Lactate 2.6 H, Calcium 9.2 11/24/22 20:00: Specimen Source Right femoral, O2 % 70, ABG pH 7.38, ABG pCO2 33.3 L, ABG pO2 150.8 H, ABG HCO3 19.3 L, ABG Total CO2 20.3 L, ABG O2 Saturation 99, ABG Base Excess -5.9 L, Giovany Test Non applicable, Vent Rate 24, Tidal Volume 440, PEEP 12 11/24/22 23:10: APTT 36.5 H 11/25/22 04:47: POC Glucose 138 H 11/25/22 04:50: WBC 11.5 H, RBC 4.14 L, Hgb 11.4 L, Hct 35.7 L, MCV 86.4, MCH 27.6, MCHC 31.9, RDW 15.6, Plt Count 192, MPV 10.0, Neut % (Auto) 78.4, Lymph % (Auto) 14.6, [place] % (Aut
--- NOTE | 2022-11-25 09:41 | XR_ITS ---
FINAL REPORT CLINICAL HISTORY: Hypoxia COMPARISON: 1 day prior FINDINGS: A single portable view of the chest was obtained. Cardiomegaly is noted. There is evidence of prior median sternotomy. Pulmonary vascular congestion has partially improved. Bilateral pulmonary opacities are improved on the left and worse on the right and may represent edema or possibly pneumonia. The bony thorax is intact. IMPRESSION: Partially improved pulmonary vascular congestion. Bilateral pulmonary opacities, improved on the left and worse on the right, may represent edema or possibly pneumonia. Reviewed, Interpreted and Dictated by Inder Jalloh III, MD Transcribed by Batsheva Sanchez Authenticated and [facility]
--- NOTE | 2022-11-25 09:41 | PC.NURSE ---
ALEJANDRO Javier instructed this RN to stop milrinone drip at this time, drip stopped
--- NOTE | 2022-11-25 09:41 | EXP.PULM.PN ---
Subjective *Date: 11/25/22 *Time: 09:54 Interval history: No acute respiratory vents overnight Pulmonology Exam Inpatient Vital signs and Labs for Last 24 Hours: Temp Pulse Resp BP Pulse Ox O2 Del Method FiO2 99.2 F 87 16 130/83 100 Mechanical Ventilation 50 11/25/22 07:31 11/25/22 07:41 11/25/22 07:41 11/25/22 07:41 11/25/22 07:41 11/25/22 07:41 11/25/22 07:41 Laboratory Results - last 24 hr 11/24/22 09:37: POC Glucose 211 H 11/24/22 09:50: Lactate 5.2 H, Procalcitonin 0.400, Acetone Level None detected 11/24/22 10:11: ABG Lactate 4.1 H 11/24/22 11:50: WBC 14.8 H, RBC 4.51, Hgb 12.5, Hct 40.8, MCV 90.4, MCH 27.6, MCHC 30.5 L, RDW 15.3, Plt Count 228, MPV 10.2, Neut % (Auto) 90.4 H, Lymph % (Auto) 4.7 L, [place] % (Auto) 4.2, Eos % (Auto) 0.6, Baso % (Auto) 0.1, Neut # (Auto) 13.3 H, Lymph # (Auto) 0.7, [place] # (Auto) 0.6, Eos # (Auto) 0.1, Baso # (Auto) 0.0, Total Counted 100, Neutrophils % (Manual) 96 H, Lymphocytes % (Manual) 3 L, Monocytes % (Manual) 1 L, Platelet Estimate Normal, Spherocytes 1+, Sodium 140, Potassium 6.0 H, Chloride 109 H, Carbon Dioxide 17 L, Anion Gap 20.0 H, BUN 41 H, Creatinine 2.90 H, Estimated Creat Clear 19, Estimated GFR 18 L*, Est GFR ( Amer) 21 L, Glucose 301 H D, Lactate 4.3 H, Calcium 8.3 L, Phosphorus 10.0 H, Magnesium 1.8, Total Bilirubin 0.7 11/24/22 11:50: Total Bilirubin 0.7, Direct Bilirubin 0.2, Conjugated Bilirubin 0.0, Indirect Bilirubin 0.5, Unconjugated Bilirubin 0.5, AST 341 H* 11/24/22 11:50: AST 328 H*, ALT 160 H 11/24/22 11:50: ALT 157 H, Alkaline Phosphatase 153 H 11/24/22 11:50: Alkaline Phosphatase 159 H, Total Protein 7.6 11/24/22 11:50: Total Protein 7.7, Albumin 3.6 11/24/22 11:50: Albumin 3.5, Globulin 4.0 H, Albumin/Globulin Ratio 0.9 L 11/24/22 12:10: Specimen Source A-line, O2 % 100, ABG pH 7.26 L, ABG pCO2 34.3 L, ABG pO2 103.1 H, ABG HCO3 15.1 L, ABG Total CO2 16.1 L, ABG O2 Saturation 97, ABG Base Excess -12.0 L, Vent Rate 24, Tidal Volume 420, PEEP 12 11/24/22 13:45: APTT 110.6 H* 11/24/22 14:38: Specimen Source A-line, O2 % 100, ABG pH 7.36, ABG pCO2 30.3 L, ABG pO2 245.2 H, ABG HCO3 16.6 L, ABG Total CO2 17.5 L, ABG O2 Saturation 99, ABG Base Excess -8.9 L, Giovany Test N/a, Vent Rate 24, Tidal Volume 440, PEEP 12 11/24/22 16:20: Lactate 2.9 H 11/24/22 16:52: POC Glucose 215 H 11/24/22 18:42: Sodium 139, Potassium 4.8, Chloride 106, Carbon Dioxide 22, Anion Gap 15.8 H, BUN 47 H, Creatinine 3.00 H, Estimated Creat Clear 18, Estimated GFR 17 L*, Est GFR ( Amer) 21 L, Glucose 222 H D, Lactate 2.6 H, Calcium 9.2 11/24/22 20:00: Specimen Source Right femoral, O2 % 70, ABG pH 7.38, ABG pCO2 33.3 L, ABG pO2 150.8 H, ABG HCO3 19.3 L, ABG Total CO2 20.3 L, ABG O2 Saturation 99, ABG Base Excess -5.9 L, Giovnay Test Non applicable, Vent Rate 24, Tidal Volume 440, PEEP 12 11/24/22 23:10: APTT 36.5 H 11/25/22 04:47: POC Glucose 138 H 11/25/22 04:50: WBC 11.5 H, RBC 4.14 L, Hgb 11.4 L, Hct 35.7 L, MCV 86.4, MCH 27.6, MCHC 31.9, RDW 15.6, Plt Count 192, MPV 10.0, Neut % (Auto) 78.4, Lymph % (Auto) 14.6, [place] % (Auto) 5.4, Eos % (Auto) 1.5, Baso % (Auto) 0.1, Neut # (Auto) 9.0 H, Lymph # (Auto) 1.7, [place] # (Auto) 0.6, Eos # (Auto) 0.2, Baso # (Auto) 0.0, APTT 33.6, Sodium 141, Potassium 4.4, Chloride 107, Carbon Dioxide 23, Anion Gap 15.4 H, BUN 50 H, Creatinine 2.90 H, Estimated Creat Clear 37, Estimated GFR 18 L*, Est GFR ( Amer) 21 L, Glucose 137 H D, Lactate 1.6, Calcium 8.6, Total Bilirubin 0.3 11/25/22 04:50: Total Bilirubin 0.2, Direct Bilirubin 0.0, Conjugated Bilirubin 0.0, Indirect Bilirubin 0.2, Unconjugated Bilirubin 0.3, AST 1048 H* D 11/25/22 04:50: AST 1095 H*, ALT 659 H* 11/25/22 04:50: ALT 647 H*, Alkaline Phosphatase 150 H 11/25/22 04:50: Alkaline Phosphatase 147 H, Total Protein 7.2 11/25/22 04:50: Total Protein 7.2, Albumin 3.1 L D 11/25/22 04:50: Albumin 3.2 L, Globulin 4.1 H, Albumin/Globulin Ratio 0.8 L, Triglycerides 208 H, Cholesterol 187, LDL Cholesterol Direct
--- NOTE | 2022-11-25 10:05 | PC.NURSE ---
RESP CARE NOTE: Pt PEEP level decreased to [address] Shah at bedside. Will continue to monitor patient and wean accordingly.
--- NOTE | 2022-11-25 10:18 | PC.NURSE ---
heparin drip stopped per verbal order from MD Thakkar, PTT sent to lab
--- NOTE | 2022-11-25 10:43 | PC.NURSE ---
dye lab technician JANAK Pollock at bedside removing sheath per order from MD Tadeo
[2022-11-25 11:15] LABS: POC Glucose,Bedside 160 (70-110)
--- NOTE | 2022-11-25 13:20 | PC.NURSE ---
ROUNDED ON PT. SUPINE IN BED, INTUBATED. FAMILY AT BEDSIDE. NO NEEDS NOTED AT THIS TIME.
--- NOTE | 2022-11-25 13:37 | PC.NURSE ---
RESP CARE NOTE: Spoke with Dr Shah, as the sheath is now out, but the patient must remain flat for six hours. He stated no SBT today, but sedation should be weaned by 0730 tomorrow, so that SBT can be performed. With the possible goal of extubation tomorrow.
[2022-11-25 14:35] LABS: Basophils % 0.3 % (0.1-2.0); Eosinophils # 0.2 K/mm3 (0.0-0.4); Eosinophils % 2.1 % (0.1-12.0); Hematocrit 35.9 % (37.0-47.0); Hemoglobin 11.4 g/dL (12.2-16.2); Mean Corpuscular HGB Conc 31.9 g/dL (31.8-35.4); Mean Corpuscular Hemoglobin 27.3 pg (27.0-31.2); Mean Corpuscular Volume 85.4 fl (81-99); Monocytes # 0.4 K/mm3 (0.1-1.0); Monocytes % 3.9 % (1.7-9.3); Neutrophils # 7.7 K/mm3 (1.8-7.8); Neutrophils % 74.8 % (37.0-80.0); Platelet Count 193 K/mm3 (142-424); Red Cell Distribution Width 15.5 % (11.5-17.5); White Blood Count 10.2 K/mm3 (4.8-10.8)
[2022-11-25 14:44] LABS: Anion Gap 16.9 mEq/L (5-15); Blood Urea Nitrogen 53 mg/dl (7-17); Calcium 8.7 mg/dl (8.4-10.2); Carbon Dioxide 23 mmol/L (22.0-30.0); Chloride 104 mmol/L (98-107); Creatinine Clearance Estimated 37 mL/min (50-200); Estimated Glomerular Filt Rate 18 ml/min (>60); GFR (African American) 21 ML/MIN (>60); Glucose 151 mg/dl (74-100); Lactic Acid 1.3 mmol/L (0.7-2.1); Potassium 3.9 mmoL/L (3.5-5.1); Sodium 140 mmol/L (136-145)
[2022-11-25 16:22] LABS: POC Glucose,Bedside 137 (70-110)
[2022-11-25 20:12] LABS: POC Glucose,Bedside 131 (70-110)
[2022-11-26] VITALS (33 sets, daily range): BP systolic 105–162; BP diastolic 64–104; PULSE 83–102; RESP 14–28; TEMP 36.3–37.5; O2SAT 95–100; BMI 36.9
[2022-11-26 04:21] LABS: POC Glucose,Bedside 106 (70-110)
[2022-11-26 05:35] LABS: Basophils % 0.2 % (0.1-2.0); Eosinophils # 0.3 K/mm3 (0.0-0.4); Eosinophils % 2.9 % (0.1-12.0); Hematocrit 35.9 % (37.0-47.0); Hemoglobin 12.5 g/dL (12.2-16.2); Lymphocytes % 20.6 % (10-50); Mean Corpuscular HGB Conc 34.8 g/dL (31.8-35.4); Mean Corpuscular Hemoglobin 29.3 pg (27.0-31.2); Mean Corpuscular Volume 84.4 fl (81-99); Mean Platelet Volume 10.2 fl (7.4-10.4); Monocytes # 0.6 K/mm3 (0.1-1.0); Monocytes % 5.8 % (1.7-9.3); Neutrophils # 6.8 K/mm3 (1.8-7.8); Neutrophils % 70.6 % (37.0-80.0); Platelet Count 232 K/mm3 (142-424); Red Blood Count 4.25 M/mm3 (4.20-5.40); Red Cell Distribution Width 15.7 % (11.5-17.5); White Blood Count 9.6 K/mm3 (4.8-10.8)
[2022-11-26 05:41] LABS: Chloride 100 mmol/L (98-107); Sodium 136 mmol/L (136-145)
[2022-11-26 05:43] LABS: Blood Urea Nitrogen 59 mg/dl (7-17); Creatinine Clearance Estimated 37 mL/min (50-200); Estimated Glomerular Filt Rate 19 ml/min (>60); GFR (African American) 23 ML/MIN (>60)
[2022-11-26 05:44] LABS: Alanine Aminotransferase 669 U/L (12-78); Albumin Level 3.2 g/dl (3.5-5.0); Albumin/Globulin Ratio 0.7 (1.1-1.8); Alkaline Phosphatase 151 U/L (38-126); Aspartate Amino Transferase 491 U/L (14-36); Bilirubin,Total 0.4 mg/dl (0.2-1.3); Calcium 8.9 mg/dl (8.4-10.2); Carbon Dioxide 23 mmol/L (22.0-30.0); Globulin 4.5 g/dL (1.3-3.2); Glucose 101 mg/dl (74-100); Total Protein,Serum 7.7 g/dl (6.3-8.2)
[2022-11-26 05:45] LABS: Alanine Aminotransferase 659 U/L (12-78); Albumin Level 2.9 g/dl (3.5-5.0); Alkaline Phosphatase 139 U/L (38-126); Aspartate Amino Transferase 502 U/L (14-36); Bilirubin,Direct 0.4 mg/dl (0.0-0.4); Bilirubin,Total 0.4 mg/dl (0.2-1.3); Lactic Acid 1.2 mmol/L (0.7-2.1); Total Protein,Serum 6.8 g/dl (6.3-8.2)
--- NOTE | 2022-11-26 07:40 | PC.NURSE ---
propofol and fentanyl stopped at this time
--- NOTE | 2022-11-26 09:14 | EXP.PN ---
Subjective *Date: 11/26/22 *Time: 09:00 Interval history: No acute events overnight. Exam Data for Last 24 hours Vital signs and Labs for Last 24 Hours: Temp Pulse Resp BP Pulse Ox O2 Del Method FiO2 99.0 F 89 24 142/101 H 98 Mechanical Ventilation 50 11/26/22 08:00 11/26/22 08:00 11/26/22 08:00 11/26/22 08:00 11/26/22 08:00 11/26/22 08:00 11/26/22 08:00 Laboratory Results - last 24 hr 11/25/22 10:02: APTT 58.0 H* 11/25/22 11:07: POC Glucose 160 H 11/25/22 14:20: WBC 10.2, RBC 4.20, Hgb 11.4 L, Hct 35.9 L, MCV 85.4, MCH 27.3, MCHC 31.9, RDW 15.5, Plt Count 193, MPV 10.0, Neut % (Auto) 74.8, Lymph % (Auto) 19.0, [place] % (Auto) 3.9, Eos % (Auto) 2.1, Baso % (Auto) 0.3, Neut # (Auto) 7.7, Lymph # (Auto) 2.0, [place] # (Auto) 0.4, Eos # (Auto) 0.2, Baso # (Auto) 0.0, Sodium 140, Potassium 3.9, Chloride 104, Carbon Dioxide 23, Anion Gap 16.9 H, BUN 53 H, Creatinine 2.90 H, Estimated Creat Clear 37, Estimated GFR 18 L*, Est GFR ( Amer) 21 L, Glucose 151 H, Lactate 1.3, Calcium 8.7 11/25/22 16:15: POC Glucose 137 H 11/25/22 20:05: POC Glucose 131 H 11/26/22 04:13: POC Glucose 106 11/26/22 05:26: WBC 9.6, RBC 4.25, Hgb 12.5, Hct 35.9 L, MCV 84.4, MCH 29.3, MCHC 34.8, RDW 15.7, Plt Count 232, MPV 10.2, Neut % (Auto) 70.6, Lymph % (Auto) 20.6, [place] % (Auto) 5.8, Eos % (Auto) 2.9, Baso % (Auto) 0.2, Neut # (Auto) 6.8, Lymph # (Auto) 2.0, [place] # (Auto) 0.6, Eos # (Auto) 0.3, Baso # (Auto) 0.0, Sodium 136, Potassium 4.0, Chloride 100, Carbon Dioxide 23, Anion Gap 17.0 H, BUN 59 H, Creatinine 2.70 H, Estimated Creat Clear 37, Estimated GFR 19 L*, Est GFR ( Amer) 23 L, Glucose 101 H D, Lactate 1.2, Calcium 8.9, Total Bilirubin 0.4 11/26/22 05:26: Total Bilirubin 0.4, Direct Bilirubin 0.4, Conjugated Bilirubin 0.0, Indirect Bilirubin 0.0, Unconjugated Bilirubin 0.0, AST 491 H* D 11/26/22 05:26: AST 502 H*, ALT 669 H* 11/26/22 05:26: ALT 659 H*, Alkaline Phosphatase 151 H 11/26/22 05:26: Alkaline Phosphatase 139 H, Total Protein 7.7 11/26/22 05:26: Total Protein 6.8, Albumin 3.2 L 11/26/22 05:26: Albumin 2.9 L, Globulin 4.5 H, Albumin/Globulin Ratio 0.7 L I & O for Last 24 hours: Intake & Output 11/23/22 11/24/22 11/25/22 11/26/22 23:59 23:59 23:59 23:59 Intake Total 1035 / 1082 1665 / 1856 333.333 / 333.333 Output Total 1784 / 1984 4750 / 4900 1350 / 1350 Balance -750 / -903 -3085 / -3044 -1016.667 / -1016.667 Weight 99.592 kg 94.89 kg 88.706 kg Microbiology Reports for the Last 24 Hours: Microbiology 11/24/22 Unknown Sputum - Endotracheal Tube Aspirate Gram Stain - Final 11/24/22 Unknown Sputum - Endotracheal Tube Aspirate Sputum Culture - Preliminary Constitutional Comments: sedated and intubated *Routine HEENT Exam Head: Present normocephalic ENT: Present external ear normal *Routine Neck Exam Neck: Present supple; Absent tracheal deviation *Routine Respiratory Exam Respiratory: Present CTA bilaterally *Routine Cardiovascular Exam Cardiovascular: Present RRR, Normal S1 and Normal S2 *Routine Abdominal Exam Abdominal: Present soft; Absent distended *Routine Exam Comments: mcnamara *Routine Extremities Exam Extremities: Absent cyanosis, clubbing or edema *Routine Skin Exam Skin: Present warm; Absent rash *Routine Neurological Exam Comments: no involuntary movements Assessment and Plan *Assessment and plan (1) STEMI (ST elevation myocardial infarction): Status: Acute Qualifiers: Involved coronary artery: unspecified coronary artery Qualified Code(s): I21.3 - ST elevation (STEMI) myocardial infarction of unspecified site Category: Medical Code(s): I21.3 - ST elevation (STEMI) myocardial infarction of unspecified site (2) Acute respiratory failure with hypoxia: Status: Acute Category: Medical Code(s): J96.01 - Acute respiratory failure with hypoxia (3) Acute hyperkalemia: Status: Acute Category: Medical
--- NOTE | 2022-11-26 09:25 | EXP.PULM.PN ---
Subjective *Date: 11/26/22 *Time: 09:51 Interval history: No acute respiratory vents overnight. Stable vent settings. Pulmonology Exam Inpatient Vital signs and Labs for Last 24 Hours: Temp Pulse Resp BP Pulse Ox O2 Del Method FiO2 99.0 F 95 H 22 155/104 H 98 Mechanical Ventilation 50 11/26/22 08:00 11/26/22 09:00 11/26/22 09:00 11/26/22 09:00 11/26/22 09:00 11/26/22 09:00 11/26/22 08:00 Laboratory Results - last 24 hr 11/25/22 10:02: APTT 58.0 H* 11/25/22 11:07: POC Glucose 160 H 11/25/22 14:20: WBC 10.2, RBC 4.20, Hgb 11.4 L, Hct 35.9 L, MCV 85.4, MCH 27.3, MCHC 31.9, RDW 15.5, Plt Count 193, MPV 10.0, Neut % (Auto) 74.8, Lymph % (Auto) 19.0, [place] % (Auto) 3.9, Eos % (Auto) 2.1, Baso % (Auto) 0.3, Neut # (Auto) 7.7, Lymph # (Auto) 2.0, [place] # (Auto) 0.4, Eos # (Auto) 0.2, Baso # (Auto) 0.0, Sodium 140, Potassium 3.9, Chloride 104, Carbon Dioxide 23, Anion Gap 16.9 H, BUN 53 H, Creatinine 2.90 H, Estimated Creat Clear 37, Estimated GFR 18 L*, Est GFR ( Amer) 21 L, Glucose 151 H, Lactate 1.3, Calcium 8.7 11/25/22 16:15: POC Glucose 137 H 11/25/22 20:05: POC Glucose 131 H 11/26/22 04:13: POC Glucose 106 11/26/22 05:26: WBC 9.6, RBC 4.25, Hgb 12.5, Hct 35.9 L, MCV 84.4, MCH 29.3, MCHC 34.8, RDW 15.7, Plt Count 232, MPV 10.2, Neut % (Auto) 70.6, Lymph % (Auto) 20.6, [place] % (Auto) 5.8, Eos % (Auto) 2.9, Baso % (Auto) 0.2, Neut # (Auto) 6.8, Lymph # (Auto) 2.0, [place] # (Auto) 0.6, Eos # (Auto) 0.3, Baso # (Auto) 0.0, Sodium 136, Potassium 4.0, Chloride 100, Carbon Dioxide 23, Anion Gap 17.0 H, BUN 59 H, Creatinine 2.70 H, Estimated Creat Clear 37, Estimated GFR 19 L*, Est GFR ( Amer) 23 L, Glucose 101 H D, Lactate 1.2, Calcium 8.9, Total Bilirubin 0.4 11/26/22 05:26: Total Bilirubin 0.4, Direct Bilirubin 0.4, Conjugated Bilirubin 0.0, Indirect Bilirubin 0.0, Unconjugated Bilirubin 0.0, AST 491 H* D 11/26/22 05:26: AST 502 H*, ALT 669 H* 11/26/22 05:26: ALT 659 H*, Alkaline Phosphatase 151 H 11/26/22 05:26: Alkaline Phosphatase 139 H, Total Protein 7.7 11/26/22 05:26: Total Protein 6.8, Albumin 3.2 L 11/26/22 05:26: Albumin 2.9 L, Globulin 4.5 H, Albumin/Globulin Ratio 0.7 L I & O for Labs for Last 24 Hours: Intake & Output 11/23/22 11/24/22 11/25/22 11/26/22 23:59 23:59 23:59 23:59 Intake Total 1035 / 1082 1665 / 1856 432.333 / 432.333 Output Total 1784 / 1984 4750 / 4900 1700 / 1700 Balance -750 / -903 -3085 / -3044 -1267.667 / -1267.667 Weight 219 lb 9.004 oz 209 lb 3.146 oz 195 lb 9 oz Microbiology Reports for the Last 24 Hours: Microbiology 11/24/22 Unknown Sputum - Endotracheal Tube Aspirate Gram Stain - Final 11/24/22 Unknown Sputum - Endotracheal Tube Aspirate Sputum Culture - Preliminary Constitutional: Present moderate distress Comment:: Intubated and Sedated Head: Present normocephalic and atraumatic Neck: Present normal inspection and trachea midline Respiratory: Present patient mechanically ventilated, respiratory distress and rhonchi; Absent prolonged expiratory phase, wheezes or diminished air movement Cardiac: Present S1/S2 and Tachycardia GI: Present soft; Absent distention or tenderness Skin: Present intact; Absent cyanosis Neuro: Present awake; Absent alert or oriented x 3 Comment:: Intubated, awake but not alert, drowsy. Sedation on hold. Extremities: Present normal inspection; Absent edema, clubbing or cyanosis Comment:: Amputation Psychiatric: Present unable to assess Assessment and Plan *Assessment and plan (1) On mechanically assisted ventilation: Status: Acute Category: Medical Code(s): Z99.11 - Dependence on respirator [ventilator] status (2) Acute respiratory failure with hypoxia: Status: Acute Category: Medical Code(s): J96.01 - Acute respiratory failure with hypoxia (3) Shock: Status: Acute Category: Medical Code(s): R57.9 - Shock, unspecified Plan Ms. Gonzales is a 42-year-old female si
--- NOTE | 2022-11-26 09:27 | XR_ITS ---
FINAL REPORT CLINICAL HISTORY: Pneumonia, intubated COMPARISON: 1 day prior FINDINGS: A single portable view of the chest was obtained. Cardiomegaly is noted. Pulmonary vascularity is within normal limits. There is evidence of prior median sternotomy. A tracheotomy tube and NG tube remain in place. Presumed right PICC line is present with the tip in the upper arm. Persistent right base opacities may reflect atelectasis or pneumonia. The bony thorax is intact. IMPRESSION: Tracheotomy tube and NG tube in place. Presumed right PICC line present. Persistent right base opacities may reflect atelectasis or pneumonia. Reviewed, Interpreted and Dictated by Inder Jalloh III, MD Transcribed by Batsheva Sanchez Authenticated and [facility]
--- NOTE | 2022-11-26 09:49 | PC.NURSE ---
lasix gtt stopped at this time per ABlack
--- NOTE | 2022-11-26 09:50 | PC.NURSE ---
dressing to RLE changed at this time by Pawan
[2022-11-26 10:29] LABS: POC Glucose,Bedside 128 (70-110)
--- NOTE | 2022-11-26 11:05 | EXP.CARD.PN ---
Subjective Subjective Date: 11/26/22 Time: 09:30 Principal diagnosis: STEMI, systolic chf, cardiogenic shock Interval history: [facility] [address] [place] [id number] Progress Note Addendum Patient: Sarita Gonzales MR#: [id number] : 1980 Acct:[id number] Age/Sex: 42 / F ADM Date: 11/24/22 Loc: [facility] [id number] Date of Service:11/24/[address]: Eamon Wilson MD cc: ~ ADDENDUMPt's femoral sheath removed today and tolerated well. RLE is warm and DP pulse intact. Cr remains stable this afternoon Urinating well, has negative fluid balance off of Milrinone. Lasix drip still infusing. Lactic acid is still normal. SBTs can begin as per pulmonology now that arterial sheath has been removed and patient remains stable. Addendum Documented By: Jamia Javier 11/25/22 [id number] Addendum Signed By: <Electronically signed by Jamia Javier> 11/25/22 5330 This is a 42-year-old white female presented to the emergency department with chest pain. Patient was found to have a STEMI/acidemic EKG. She was taken to the [facility] and had a stent placed to the saphenous vein graft to the circumflex artery. Patient was ultimately intubated and placed on mechanical ventilation. She remains on mechanical ventilation this morning. She is on a spontaneous breathing trial which she is tolerating well. The patient was in cardiogenic shock and placed on a milrinone drip and a continuous Lasix drip. The milrinone was stopped yesterday however she remains on continuous Lasix drip at this time. She did diurese well overnight with a -3085 fluid balance. Her vital signs are stable this morning. She is still sedated and they are trying to wake her up some more while she is on a spontaneous breathing trial. She appears to be in no distress. Her renal function has slightly improved today and her liver function enzymes have improved today. Exam Data for Last 24 hours Vital signs and Labs for Last 24 Hours: Temp Pulse Resp BP Pulse Ox O2 Del Method FiO2 99.0 F 98 H 18 156/70 H 98 Mechanical Ventilation 50 11/26/22 08:00 11/26/22 10:00 11/26/22 10:00 11/26/22 10:00 11/26/22 10:00 11/26/22 10:00 11/26/22 08:00 Laboratory Results - last 24 hr 11/25/22 11:07: POC Glucose 160 H 11/25/22 14:20: WBC 10.2, RBC 4.20, Hgb 11.4 L, Hct 35.9 L, MCV 85.4, MCH 27.3, MCHC 31.9, RDW 15.5, Plt Count 193, MPV 10.0, Neut % (Auto) 74.8, Lymph % (Auto) 19.0, [place] % (Auto) 3.9, Eos % (Auto) 2.1, Baso % (Auto) 0.3, Neut # (Auto) 7.7, Lymph # (Auto) 2.0, [place] # (Auto) 0.4, Eos # (Auto) 0.2, Baso # (Auto) 0.0, Sodium 140, Potassium 3.9, Chloride 104, Carbon Dioxide 23, Anion Gap 16.9 H, BUN 53 H, Creatinine 2.90 H, Estimated Creat Clear 37, Estimated GFR 18 L*, Est GFR ( Amer) 21 L, Glucose 151 H, Lactate 1.3, Calcium 8.7 11/25/22 16:15: POC Glucose 137 H 11/25/22 20:05: POC Glucose 131 H 11/26/22 04:13: POC Glucose 106 11/26/22 05:26: WBC 9.6, RBC 4.25, Hgb 12.5, Hct 35.9 L, MCV 84.4, MCH 29.3, MCHC 34.8, RDW 15.7, Plt Count 232, MPV 10.2, Neut % (Auto) 70.6, Lymph % (Auto) 20.6, [place] % (Auto) 5.8, Eos % (Auto) 2.9, Baso % (Auto) 0.2, Neut # (Auto) 6.8, Lymph # (Auto) 2.0, [place] # (Auto) 0.6, Eos # (Auto) 0.3, Baso # (Auto) 0.0, Sodium 136, Potassium 4.0, Chloride 100, Carbon Dioxide 23, Anion Gap 17.0 H, BUN 59 H, Creatinine 2.70 H, Estimated Creat Clear 37, Estimated GFR 19 L*, Est GFR ( Amer) 23 L, Glucose 101 H D, Lactate 1.2, Calcium 8.9, Total Bilirubin 0.4 11/26/22 05:26: Total Bilirubin 0.4, Direct Bilirubin 0.4, Conjugated Bilirubin 0.0, Indirect Bilirubin 0.0, Unconjugated Bilirubin 0.0, AST 491 H* D 11/26/22 05:26: AST 502 H*, ALT 669
[2022-11-26 11:30] LABS: ABG Base Excess -1.1 mmol/L (-2.4-2.3); ABG HCO3 23.8 mmhg (22.0-26.0); ABG Oxygen Saturation 98 % (90-100); ABG PCO2 39.8 mmhg (35.0-45.0); ABG PH 7.39 mmol/L (7.35-7.45); ABG PO2 122.7 mmhg (80-100)
[2022-11-26 11:33] LABS: Oxygen 50% %; PEEP 5; Pressure Support 8
[2022-11-26 11:34] LABS: Source L BRACHIAL
--- NOTE | 2022-11-26 14:36 | DIET.NUTRFU ---
possible extubation today, sheath was out as of 13:37 11/25, but the patient must remain flat for six hours. Propofol and fentanyl were discontinued at 7:40 today with anticipation of extubation. Lasix was also stopped today per cardio, wt is down approx 10# since admit. labs from 11/26 were reviewed, BUN and CR are elevated at 59/2.7. Glucose elevated with hx of DM, insulion in place. Liver enzymes elevated at 502/659, albumin at 2.9. If extubated, she will be need bedside swallow prior to advancing diet, she was on regular consistency ATTIC BLOWER per family. If unable to extubate consider TF to meet nutritional needs. Start Glucerna 1.0 at 10ml/hr continuous with goal rate of 70ml/hr which would provide 1680kcal, 70gm protein and 1433 formula water. Flush would be based on any IVF and if propofol was running. RD available for consult if needed.
--- NOTE | 2022-11-26 15:23 | PC.NURSE ---
1430 extubated 1432 notified speech of the need for a speech eval tomorrow, spoke with Radha who stated she would be in tomorrow afternoon to do eval, order placed in computer for speech eval
[2022-11-26 16:37] LABS: POC Glucose,Bedside 160 (70-110)
[2022-11-26 20:16] LABS: POC Glucose,Bedside 168 (70-110)
[2022-11-26 22:57] LABS: POC Glucose,Bedside 131 (70-110)
[2022-11-27] VITALS (27 sets, daily range): BP systolic 105–157; BP diastolic 63–98; PULSE 71–94; RESP 12–20; TEMP 36.6–37.5; O2SAT 96–100; BMI 34.2
[2022-11-27 05:14] LABS: POC Glucose,Bedside 120 (70-110)
[2022-11-27 09:58] LABS: Chloride 101 mmol/L (98-107)
[2022-11-27 09:59] LABS: Potassium 3.4 mmoL/L (3.5-5.1); Sodium 147 mmol/L (136-145)
[2022-11-27 10:01] LABS: Alanine Aminotransferase 554 U/L (12-78); Albumin/Globulin Ratio 0.8 (1.1-1.8); Alkaline Phosphatase 178 U/L (38-126); Anion Gap 21.4 mEq/L (5-15); Aspartate Amino Transferase 197 U/L (14-36); Bilirubin,Total 0.8 mg/dl (0.2-1.3); Blood Urea Nitrogen 65 mg/dl (7-17); Carbon Dioxide 28 mmol/L (22.0-30.0); Creatinine Clearance Estimated 33 mL/min (50-200); Estimated Glomerular Filt Rate 18 ml/min (>60); GFR (African American) 22 ML/MIN (>60); Globulin 5.3 g/dL (1.3-3.2); Total Protein,Serum 9.3 g/dl (6.3-8.2)
[2022-11-27 10:02] LABS: Calcium 9.9 mg/dl (8.4-10.2); Glucose 146 mg/dl (74-100); Magnesium 2.1 mg/dl (1.6-2.3)
[2022-11-27 10:10] LABS: Basophils % 0.2 % (0.1-2.0); Eosinophils % 0.3 % (0.1-12.0); Hematocrit 45.5 % (37.0-47.0); Hemoglobin 14.2 g/dL (12.2-16.2); Lymphocytes # 1.1 K/mm3 (0.7-4.5); Mean Corpuscular HGB Conc 31.3 g/dL (31.8-35.4); Mean Corpuscular Hemoglobin 27.6 pg (27.0-31.2); Mean Corpuscular Volume 88.1 fl (81-99); Mean Platelet Volume 9.7 fl (7.4-10.4); Monocytes # 0.8 K/mm3 (0.1-1.0); Monocytes % 6.8 % (1.7-9.3); Neutrophils % 82.7 % (37.0-80.0); Platelet Count 246 K/mm3 (142-424); Red Blood Count 5.16 M/mm3 (4.20-5.40); Red Cell Distribution Width 15.3 % (11.5-17.5); White Blood Count 10.9 K/mm3 (4.8-10.8)
--- NOTE | 2022-11-27 10:11 | EXP.PHA.PN ---
Subjective *Date: 11/27/22 *Time: 10:11 Medical Exam Vital signs and Labs for Last 24 Hours: Vital Signs Temp Pulse Pulse Resp BP Pulse Ox O2 Del Method 11/27/22 10:00 82 18 154/92 H 100 Nasal Cannula 11/27/22 08:00 78 16 150/95 H 99 Nasal Cannula 11/27/22 09:00 Nasal Cannula 11/27/22 09:00 80 16 157/98 H 100 CPAP 11/27/22 08:00 99 CPAP 11/27/22 08:00 97.8 F 11/27/22 07:00 82 15 100 11/27/22 07:00 CPAP 11/27/22 06:27 80 11/27/22 06:27 74 11/27/22 06:27 11/27/22 06:00 79 15 156/84 H 100 CPAP 11/27/22 05:00 97.9 F 81 14 130/86 100 CPAP 11/27/22 05:00 CPAP 11/27/22 04:00 75 13 135/80 100 CPAP 11/27/22 04:00 CPAP 11/27/22 04:00 79 11/27/22 00:00 84 11/27/22 03:00 77 18 133/90 100 CPAP 11/27/22 03:00 CPAP 11/27/22 02:00 78 20 131/88 97 CPAP 11/27/22 01:00 86 14 120/83 98 CPAP 11/27/22 01:00 Nasal Cannula 11/27/22 00:00 97.8 F 90 18 105/63 L 98 Nasal Cannula 11/27/22 00:00 96 Nasal Cannula 11/27/22 00:53 77 11/27/22 00:53 86 11/26/22 23:00 83 16 117/77 96 Nasal Cannula 11/26/22 23:00 Nasal Cannula 11/26/22 22:00 85 14 105/64 L 97 Nasal Cannula 11/26/22 21:00 91 H 14 114/75 99 CPAP 11/26/22 21:00 CPAP 11/26/22 20:00 85 11/26/22 20:00 98 CPAP 11/26/22 20:00 97.4 F L 88 22 127/86 95 CPAP 11/26/22 18:50 94 H 24 133/68 97 CPAP 11/26/22 18:43 CPAP 11/26/22 18:00 93 H 21 106/71 L 98 CPAP 11/26/22 17:56 93 H 11/26/22 17:56 92 H 11/26/22 17:00 CPAP 11/26/22 17:00 94 H 22 113/73 96 CPAP 11/26/22 16:00 100 H 11/26/22 16:00 100 CPAP 11/26/22 16:00 90 22 105/73 L 100 CPAP 11/26/22 15:00 CPAP 11/26/22 15:00 92 H 24 121/77 96 CPAP 11/26/22 14:00 102 H 28 H 162/94 H 98 Mechanical Ventilation 11/26/22 14:30 98 11/26/22 10:45 17 98 11/26/22 12:00 100 H 11/26/22 12:00 99.1 F 11/26/22 13:00 Mechanical Ventilation 11/26/22 13:00 102 H 18 143/94 H 99 Mechanical Ventilation 11/26/22 12:00 102 H 99 Mechanical Ventilation 11/26/22 12:00 102 H 22 116/82 100 Mechanical Ventilation 11/26/22 11:35 98 H 11/26/22 11:35 99 H 11/26/22 11:00 97 H 20 149/98 H 99 Mechanical Ventilation 11/26/22 11:00 Mechanical Ventilation O2 Flow Rate FiO2 11/27/22 10:00 4 11/27/22 08:00 4 11/27/22 09:00 4 11/27/22 09:00 40 11/27/22 08:00 11/27/22 08:00 11/27/22 07:00 40 11/27/22 07:00 11/27/22 06:27 11/27/22 06:27 11/27/22 06:27 40 11/27/22 06:00 40 11/27/22 05:00 40 11/27/22 05:00 11/27/22 04:00 40 11/27/22 04:00 40 11/27/22 04:00 11/27/22 00:00 11/27/22 03:00 40 11/27/22 03:00 11/27/22 02:00 40 11/27/22 01:00 40 11/27/22 01:00 4 11/27/22 00:00 4 11/27/22 00:00 4 11/27/22 00:53 11/27/22 00:53 11/26/22 23:00 4 11/26/22 23:00 4 11/26/22 22:00 4 11/26/22 21:00 40 11/26/22 21:00 11/26/22 20:00 11/26/22 20:00 40 11/26/22 20:00 40 11/26/22 18:50 11/26/22 18:43 11/26/22 18:00 11/26/22 17:56 11/26/22 17:56 11/26/22 17:00 11/26/22 17:00 11/26/22 16:00 11/26/22 16:00 11/26/22 16:00 11/26/22 15:00 11/26/22 15:00 11/26/22 14:00 11/26/22 14:30 11/26/22 10:45 50 11/26/22 12:00 11/26/22 12:00 11/26/22 13:00 11/26/22 13:00 11/26/22 12:00 50 11/26/22 12:00 11/26/22 11:35 11/26/22 11:35 11/26/22 11:00 11/26/22 11:00 Intake and Output 11/26/22 11/27/22 11/27/22 23:59 07:59 15:59 Output Total 950 / 4925 925 / 925 Balance -950 / -4192.667 -925 / -925 Output: Output, Urine Amount 250 / 1600 925 / 925 Output, Urine Amount (Catheter) 700
--- NOTE | 2022-11-27 10:16 | PC.NURSE ---
Addendum entered by Lillian Pastrana, CONRADO 11/27/22 10:18: Royer BRICENO, mispelled nurse name Original Note: SRNA NOTE: pt refused turn and positioning. discussed this with nurse (Carrington BRICENO) and she said it was acceptable to not turn at the moment. Cr CAMP
--- NOTE | 2022-11-27 13:20 | HMH.SLDYSPHA ---
Speech & Language Evaluation Speech/Language Dysphagia Evaluation Start: 11/27/22 13:16 Freq: ONCE Status: Active Protocol: Document 11/27/22 13:16 ALEAH (Rec: 11/27/22 13:20 [id number] Dysphagia Assess/Goals/Plan Assessment Date of Evaluation: 11/27/22 Evaluation Type Initial Certification Assessment/Problems Post-extubation protocol per MD order. Does Patient Qualify for Service Yes Qualify/Failure Comment Based on the clinical observations made during the clinical bedside swallow evaluation, no further skilled speech therapy services are warranted at this time. Recommendations PHYSICIAN CERTIFICATION: The specified therapy services are required, authorized, and reviewed every 30 days. Diet Recommendations Normal Liquid Type Recommendations Normal/Thin SL Swallow Guidelines Assist w/all meals,Alt bite w/ sip thru meal,Standard Aspiration Prec. Dysphagia Swallow Precautions/Strategies Sitting Upright (90 deg),Small Bites and Sips,Alternate Liquids/Solids Place Food on Either side of Mouth Plan Pt/Guardian verbally ack understanding Yes of dx/prognosis/goals G -code Required No Education Instructions provided CSE results and diet recommendations discussed with pt, her mother and nursing all of which expressed understanding. Pt/Caregiver able to recall information Able to recall/restate Reinforcement needed No Speech & Language HPI History Present Illness Rehab Services Assessed Speech therapy Is this evaluation r/t stroke? No Language Primary Language Vietnamese General Information General Current Food Consistancy NPO Dentition Good Dentition Oxygen Status Nasal Cannula Ability to Follow Directions Fair Communication Ability Moderate Impairment Dysphagia:Food Presentation Evaluation Food Type Pureed,Mechanical Soft,Regular ,Liquid,Pudding,Other Dysphagia Evaluation Summary CSE completed to analyze and assess oropharyngeal swallow. COLOR GRINDER presented the following bolus consistencies to the pt with trials of thin liquids, puree, pudding, mixed consistency with mandrian
--- NOTE | 2022-11-27 13:42 | EXP.PN ---
Subjective *Date: 11/27/22 *Time: 16:04 Interval history: The patient was extubated yesterday. Per mother who is at bedside her mental status seems to be improving gradually. She was very confused overnight, pulling at lines and trying to get out of bed, but today she is calmer and more cooperative. Exam Data for Last 24 hours Vital signs and Labs for Last 24 Hours: Temp Pulse Resp BP Pulse Ox O2 Del Method O2 Flow Rate 98.5 F 83 15 150/92 H 96 Nasal Cannula 2 11/27/22 13:34 11/27/22 12:00 11/27/22 12:00 11/27/22 12:00 11/27/22 12:00 11/27/22 13:16 11/27/22 13:00 FiO2 40 11/27/22 09:00 Laboratory Results - last 24 hr 11/26/22 16:00: POC Glucose 160 H 11/26/22 20:09: POC Glucose 168 H 11/26/22 22:46: POC Glucose 131 H 11/27/22 05:07: POC Glucose 120 H 11/27/22 09:24: WBC 10.9 H, RBC 5.16, Hgb 14.2, Hct 45.5, MCV 88.1, MCH 27.6, MCHC 31.3 L, RDW 15.3, Plt Count 246, MPV 9.7, Neut % (Auto) 82.7 H, Lymph % (Auto) 10.0, [place] % (Auto) 6.8, Eos % (Auto) 0.3, Baso % (Auto) 0.2, Neut # (Auto) 9.0 H, Lymph # (Auto) 1.1, [place] # (Auto) 0.8, Eos # (Auto) 0.0, Baso # (Auto) 0.0, Sodium 147 H, Potassium 3.4 L, Chloride 101, Carbon Dioxide 28, Anion Gap 21.4 H, BUN 65 H, Creatinine 2.80 H, Estimated Creat Clear 33, Estimated GFR 18 L*, Est GFR ( Amer) 22 L, Glucose 146 H, Calcium 9.9, Magnesium 2.1 D, Total Bilirubin 0.8, AST 197 H D, ALT 554 H*, Alkaline Phosphatase 178 H, Total Protein 9.3 H D, Albumin 4.0 D, Globulin 5.3 H, Albumin/Globulin Ratio 0.8 L I & O for Last 24 hours: Intake & Output 11/24/22 11/25/22 11/26/22 11/27/22 23:59 23:59 23:59 23:59 Intake Total 1035 / 1082 1665 / 1856 732.333 / 732.333 Output Total 1784 / 1984 4750 / 4900 4575 / 4925 925 / 925 Balance -750 / -903 -3085 / -3044 -3842.667 / -4192.667 -925 / -925 Weight 99.592 kg 94.89 kg 88.706 kg 82.327 kg Microbiology Reports for the Last 24 Hours: Microbiology 11/24/22 Unknown Sputum - Endotracheal Tube Aspirate Gram Stain - Final 11/24/22 Unknown Sputum - Endotracheal Tube Aspirate Sputum Culture - Final Normal Respiratory Marlee *Routine HEENT Exam Head: Present normocephalic ENT: Present external ear normal *Routine Neck Exam Neck: Present supple; Absent tracheal deviation *Routine Respiratory Exam Respiratory: Present CTA bilaterally *Routine Cardiovascular Exam Cardiovascular: Present RRR, Normal S1 and Normal S2 *Routine Abdominal Exam Abdominal: Present soft; Absent distended *Routine Exam Comments: mcnamara *Routine Extremities Exam Comments: R foot stump with dressing that is c/d/i. L AKA *Routine Skin Exam Skin: Present warm; Absent rash Comments: stage 2 decubitus ulcer *Routine Neurological Exam Neurological: Present alert Comments: She doesn't follow simple commands Assessment and Plan *Assessment and plan (1) STEMI (ST elevation myocardial infarction): Status: Acute Qualifiers: Involved coronary artery: unspecified coronary artery Qualified Code(s): I21.3 - ST elevation (STEMI) myocardial infarction of unspecified site Category: Medical Code(s): I21.3 - ST elevation (STEMI) myocardial infarction of unspecified site (2) Acute respiratory failure with hypoxia: Status: Acute Category: Medical Code(s): J96.01 - Acute respiratory failure with hypoxia (3) Acute hyperkalemia: Status: Acute Category: Medical Code(s): E87.5 - Hyperkalemia (4) AMAN (acute kidney injury): Status: Acute Category: Medical Code(s): N17.9 - Acute kidney failure, unspecified (5) Wound of foot: Status: Acute Category: Medical Code(s): S91.309A - Unspecified open wound, unspecified foot, initial encounter Plan #acute encephalopathy #CHF exacerbation #hypokalemia #AMAN, stable #transaminitis, resolving #STEMI, resolved #acute hypoxic respiratory failure, resolved
[2022-11-27 17:53] LABS: POC Glucose,Bedside 159 (70-110)
--- NOTE | 2022-11-27 18:22 | PC.NURSE ---
Patient resting in bed with family at bedside, has required frequent redirection this shift, has been confused and restless, pulling off cords, combative with family at times, refused turns and pulled wedge pillow out immediately after each turn, pulled coccyx dressing off several times, at times has been chewing on iv tubing and frequently trying to climb out of bed, is alert to person and answers question by nodding yes or no appropriately, is able to follow commands, has been weaned to RA and tolerating well, hypertensive this afternoon MD notified and restarted some of her home meds per hypertension. Bed in lowest position with bed alarm activated.
[2022-11-27 21:14] LABS: POC Glucose,Bedside 162 (70-110)
[2022-11-28] VITALS (14 sets, daily range): BP systolic 116–144; BP diastolic 75–99; PULSE 77–90; RESP 14–20; TEMP 36.8–36.9; O2SAT 95–99; BMI 33.5
--- NOTE | 2022-11-28 05:42 | PC.NURSE ---
Pt VSS throughout shift, no complaints of pain. Pt compliant when offered medications and asked to raise arms for placement of blood pressure cuff, etc. however required frequent redirection to leave cardiac and SpO2 monitor in place. Attempted to turn patient Q2H and patient either refused turns or removed wedge and turned self. Patient did frequently turn self from side to side and attempts were made to redirect, orient, and educate patient.
--- NOTE | 2022-11-28 07:00 | XR_ITS ---
PROCEDURE INFORMATION: Exam: XR Chest Exam date and time: 11/28/2022 8:33 AM Age: 42 years old Clinical indication: Shortness of breath; Additional info: Chf TECHNIQUE: Imaging protocol: Radiologic exam of the chest. Views: 1 view. COMPARISON: CR XR CHEST PORTABLE 11/26/2022 10:07 AM FINDINGS: Lungs: Unremarkable. No consolidation. Pleural spaces: Unremarkable. No pleural effusion. No pneumothorax. Heart/Mediastinum: Stable cardiomegaly Bones/joints: Median sternotomy IMPRESSION: No acute process
--- NOTE | 2022-11-28 08:32 | EXP.PN ---
Subjective *Date: 11/28/22 *Time: 23:49 Interval history: The patient is doing much better. She is alert and conversational. She denies pain. Exam Data for Last 24 hours Vital signs and Labs for Last 24 Hours: Temp Pulse Resp BP Pulse Ox O2 Del Method O2 Flow Rate 98.3 F 77 15 137/95 H 98 Room Air 2 11/28/22 04:00 11/28/22 06:47 11/28/22 06:00 11/28/22 06:00 11/28/22 06:48 11/28/22 07:00 11/27/22 14:00 FiO2 40 11/27/22 09:00 Laboratory Results - last 24 hr 11/27/22 09:24: WBC 10.9 H, RBC 5.16, Hgb 14.2, Hct 45.5, MCV 88.1, MCH 27.6, MCHC 31.3 L, RDW 15.3, Plt Count 246, MPV 9.7, Neut % (Auto) 82.7 H, Lymph % (Auto) 10.0, [place] % (Auto) 6.8, Eos % (Auto) 0.3, Baso % (Auto) 0.2, Neut # (Auto) 9.0 H, Lymph # (Auto) 1.1, [place] # (Auto) 0.8, Eos # (Auto) 0.0, Baso # (Auto) 0.0, Sodium 147 H, Potassium 3.4 L, Chloride 101, Carbon Dioxide 28, Anion Gap 21.4 H, BUN 65 H, Creatinine 2.80 H, Estimated Creat Clear 33, Estimated GFR 18 L*, Est GFR ( Amer) 22 L, Glucose 146 H, Calcium 9.9, Magnesium 2.1 D, Total Bilirubin 0.8, AST 197 H D, ALT 554 H*, Alkaline Phosphatase 178 H, Total Protein 9.3 H D, Albumin 4.0 D, Globulin 5.3 H, Albumin/Globulin Ratio 0.8 L 11/27/22 16:13: POC Glucose 159 H 11/27/22 20:30: POC Glucose 162 H I & O for Last 24 hours: Intake & Output 11/25/22 11/26/22 11/27/22 11/28/22 23:59 23:59 23:59 23:59 Intake Total 1665 / 1856 732.333 / 869.761 9278 / 1020 Output Total 4750 / 4900 4575 / 4925 1275 / 1450 475 / 475 Balance -3085 / -3044 -3842.667 / -4192.667 -255 / -430 -475 / -475 Weight 94.89 kg 88.706 kg 82.327 kg 80.422 kg Microbiology Reports for the Last 24 Hours: Microbiology 11/24/22 Unknown Sputum - Endotracheal Tube Aspirate Gram Stain - Final 11/24/22 Unknown Sputum - Endotracheal Tube Aspirate Sputum Culture - Final Normal Respiratory Marlee Constitutional Constitutional: cooperative *Routine HEENT Exam Head: Present normocephalic ENT: Present external ear normal *Routine Neck Exam Neck: Present supple; Absent tracheal deviation *Routine Respiratory Exam Respiratory: Present CTA bilaterally *Routine Cardiovascular Exam Cardiovascular: Present RRR, Normal S1 and Normal S2 *Routine Abdominal Exam Abdominal: Present soft; Absent distended *Routine Extremities Exam Comments: R foot stump with dressing that is c/d/i. L AKA *Routine Skin Exam Skin: Present warm; Absent rash Comments: stage 2 decubitus ulcer *Routine Neurological Exam Neurological: Present alert and oriented X3 Comments: She is conversational and responds to most of my questions appropriately. Assessment and Plan *Assessment and plan (1) STEMI (ST elevation myocardial infarction): Status: Acute Qualifiers: Involved coronary artery: unspecified coronary artery Qualified Code(s): I21.3 - ST elevation (STEMI) myocardial infarction of unspecified site Category: Medical Code(s): I21.3 - ST elevation (STEMI) myocardial infarction of unspecified site (2) Acute respiratory failure with hypoxia: Status: Acute Category: Medical Code(s): J96.01 - Acute respiratory failure with hypoxia (3) Acute hyperkalemia: Status: Acute Category: Medical Code(s): E87.5 - Hyperkalemia (4) AMAN (acute kidney injury): Status: Acute Category: Medical Code(s): N17.9 - Acute kidney failure, unspecified (5) Wound of foot: Status: Acute Category: Medical Code(s): S91.309A - Unspecified open wound, unspecified foot, initial encounter Plan #acute encephalopathy #CHF exacerbation #hypokalemia #AMAN, stable #transaminitis, resolving #STEMI, resolved #acute hypoxic respiratory failure, resolved #hyperkalemia #lactic acidosis #transaminitis #t2dm #PAD The patient was extubated on 11/26. Her mental status is much better today and seems to be close to her bas
[2022-11-28 08:47] LABS: Chloride 103 mmol/L (98-107); Potassium 3.4 mmoL/L (3.5-5.1); Sodium 148 mmol/L (136-145)
[2022-11-28 08:49] LABS: Blood Urea Nitrogen 71 mg/dl (7-17); Creatinine Clearance Estimated 41 mL/min (50-200); Estimated Glomerular Filt Rate 24 ml/min (>60); GFR (African American) 29 ML/MIN (>60)
[2022-11-28 08:50] LABS: Alanine Aminotransferase 413 U/L (12-78); Albumin Level 4.2 g/dl (3.5-5.0); Albumin/Globulin Ratio 0.6 (1.1-1.8); Alkaline Phosphatase 164 U/L (38-126); Anion Gap 19.4 mEq/L (5-15); Aspartate Amino Transferase 102 U/L (14-36); Calcium 10.3 mg/dl (8.4-10.2); Carbon Dioxide 29 mmol/L (22.0-30.0); Globulin 6.5 g/dL (1.3-3.2); Glucose 89 mg/dl (74-100); Magnesium 2.4 mg/dl (1.6-2.3); Total Protein,Serum 10.7 g/dl (6.3-8.2)
[2022-11-28 09:00] LABS: Basophils % 0.3 % (0.1-2.0); Eosinophils # 0.1 K/mm3 (0.0-0.4); Eosinophils % 1.2 % (0.1-12.0); Hematocrit 48.7 % (37.0-47.0); Hemoglobin 15.1 g/dL (12.2-16.2); Lymphocytes # 1.8 K/mm3 (0.7-4.5); Lymphocytes % 17.4 % (10-50); Mean Corpuscular Hemoglobin 27.3 pg (27.0-31.2); Mean Corpuscular Volume 88.1 fl (81-99); Mean Platelet Volume 9.8 fl (7.4-10.4); Monocytes # 0.8 K/mm3 (0.1-1.0); Monocytes % 7.3 % (1.7-9.3); Neutrophils # 7.6 K/mm3 (1.8-7.8); Neutrophils % 73.7 % (37.0-80.0); Platelet Count 304 K/mm3 (142-424); Red Blood Count 5.52 M/mm3 (4.20-5.40); Red Cell Distribution Width 15.2 % (11.5-17.5); White Blood Count 10.3 K/mm3 (4.8-10.8)
[2022-11-28 11:19] LABS: NT Pro Brain Natriuretic Pep. 33600 pg/mL (0-125)
[2022-11-28 11:22] LABS: POC Glucose,Bedside 88 (70-110)
[2022-11-28 11:51] LABS: POC Glucose,Bedside 107 (70-110)
[2022-11-28 16:57] LABS: POC Glucose,Bedside 89 (70-110)
--- NOTE | 2022-11-28 19:35 | HMH.PTEV ---
Physical Therapy Evaluation Rehab PT IP Evaluation Start: 11/28/22 10:52 Freq: ONCE Status: Active Protocol: Document 11/28/22 19:17 PDESEROUX (Rec: 11/28/22 19:35 PDESEROUX [id number]) Subjective/History History History Pt. is a 42 years of age female w/ a PMH of pad, cad s/ p cabg and cardiac stents, hypertension, hyperlipidemia, DM-II, hypothyroidism, RLE digit amputation, and LLE AK amputation who presents to [facility] 2nd floor Inpatient setting for the Physical Therapy Inpatient initial evaluation this date(11/28/22) w/ c/o chest pain and not being able to breathe. Pt. reports not being able to breathe Tuesday(11/25/31) morning when she admitted herself to the hospital via EMS services. Pt. reports she hasn't been on supplemental O2 at home for 6 months. Pt. reports she has been more sedentary the past 3 months and has noticed muscle wasting in her RLE and an increase in overall weakness. Pt. reports needing assistance from her mother w/ ADLs including slide board transfer to/from bed side commode and bed d/t weakness. Pt. reports she lives in a 1- story home, owns a W/C, bed side commode, walker, and a prosthetic for the LLE. Pt. reports she hasn't used the prosthetic since she got it because it doesn't fit. Pt. also reports being treated for a wound located on the dorsal surface of the LLE foot. Subjective Subjective Pt. reports, I'm doing much better. Pt. was sitting upright in hospital bed conversing w/ mother and ex- after being given permission and agreeing to participate in
[2022-11-28 23:13] LABS: POC Glucose,Bedside 104 (70-110)
[2022-11-29] VITALS (10 sets, daily range): BP systolic 104–131; BP diastolic 76–87; PULSE 60–90; RESP 16–22; TEMP 36.4–37; O2SAT 94–100; BMI 34.5
[2022-11-29 01:48] LABS: POC Glucose,Bedside 99 (70-110)
--- NOTE | 2022-11-29 05:00 | PC.NURSE ---
Bladder scan performed, 388mL recorded.
[2022-11-29 05:20] LABS: POC Glucose,Bedside 87 (70-110)
[2022-11-29 06:43] LABS: Basophils % 0.3 % (0.1-2.0); Eosinophils # 0.3 K/mm3 (0.0-0.4); Eosinophils % 2.8 % (0.1-12.0); Hematocrit 44.1 % (37.0-47.0); Hemoglobin 13.7 g/dL (12.2-16.2); Lymphocytes # 2.7 K/mm3 (0.7-4.5); Lymphocytes % 29.8 % (10-50); Mean Corpuscular Volume 87.3 fl (81-99); Mean Platelet Volume 9.2 fl (7.4-10.4); Monocytes # 0.8 K/mm3 (0.1-1.0); Monocytes % 8.7 % (1.7-9.3); Neutrophils # 5.2 K/mm3 (1.8-7.8); Neutrophils % 58.5 % (37.0-80.0); Platelet Count 259 K/mm3 (142-424); Red Blood Count 5.06 M/mm3 (4.20-5.40); Red Cell Distribution Width 15.2 % (11.5-17.5); White Blood Count 8.9 K/mm3 (4.8-10.8)
[2022-11-29 06:45] LABS: Chloride 100 mmol/L (98-107); Sodium 142 mmol/L (136-145)
[2022-11-29 06:47] LABS: Alanine Aminotransferase 220 U/L (12-78); Aspartate Amino Transferase 50 U/L (14-36); Blood Urea Nitrogen 71 mg/dl (7-17); Creatinine Clearance Estimated 38 mL/min (50-200); Estimated Glomerular Filt Rate 21 ml/min (>60); GFR (African American) 25 ML/MIN (>60)
[2022-11-29 06:48] LABS: Albumin Level 3.6 g/dl (3.5-5.0); Albumin/Globulin Ratio 0.8 (1.1-1.8); Alkaline Phosphatase 120 U/L (38-126); Anion Gap 15.7 mEq/L (5-15); Bilirubin,Total 0.5 mg/dl (0.2-1.3); Calcium 9.4 mg/dl (8.4-10.2); Carbon Dioxide 29 mmol/L (22.0-30.0); Globulin 4.5 g/dL (1.3-3.2); Glucose 76 mg/dl (74-100); Total Protein,Serum 8.1 g/dl (6.3-8.2)
[2022-11-29 07:00] LABS: Potassium 2.7 mmoL/L (3.5-5.1)
--- NOTE | 2022-11-29 08:47 | EXP.PN ---
Subjective *Date: 11/30/22 *Time: 07:01 Interval history: No acute events overnight She is eating well She has no shortness of breath Exam Data for Last 24 hours Vital signs and Labs for Last 24 Hours: Temp Pulse Resp BP Pulse Ox O2 Del Method O2 Flow Rate 97.6 F 72 19 104/78 L 100 Room Air 2 11/29/22 08:00 11/29/22 08:00 11/29/22 08:00 11/29/22 08:00 11/29/22 08:00 11/29/22 08:00 11/27/22 14:00 FiO2 40 11/27/22 09:00 Laboratory Results - last 24 hr 11/28/22 04:28: POC Glucose 107 11/28/22 07:44: WBC 10.3, RBC 5.52 H, Hgb 15.1, Hct 48.7 H, MCV 88.1, MCH 27.3, MCHC 31.0 L, RDW 15.2, Plt Count 304, MPV 9.8, Neut % (Auto) 73.7, Lymph % (Auto) 17.4, [place] % (Auto) 7.3, Eos % (Auto) 1.2, Baso % (Auto) 0.3, Neut # (Auto) 7.6, Lymph # (Auto) 1.8, [place] # (Auto) 0.8, Eos # (Auto) 0.1, Baso # (Auto) 0.0, Sodium 148 H, Potassium 3.4 L, Chloride 103, Carbon Dioxide 29, Anion Gap 19.4 H, BUN 71 H, Creatinine 2.20 H D, Estimated Creat Clear 41, Estimated GFR 24 L, Est GFR ( Amer) 29 L D, Glucose 89 D, Calcium 10.3 H, Magnesium 2.4 H D, Total Bilirubin 1.0, AST 102 H D, ALT 413 H*, Alkaline Phosphatase 164 H, NT-Pro-B Natriuret Pep 93320 H, Total Protein 10.7 H, Albumin 4.2, Globulin 6.5 H, Albumin/Globulin Ratio 0.6 L 11/28/22 11:13: POC Glucose 88 11/28/22 16:48: POC Glucose 89 11/28/22 21:30: POC Glucose 99 11/28/22 23:06: POC Glucose 104 11/29/22 05:13: POC Glucose 87 11/29/22 05:34: WBC 8.9, RBC 5.06, Hgb 13.7, Hct 44.1, MCV 87.3, MCH 27.0, MCHC 31.0 L, RDW 15.2, Plt Count 259, MPV 9.2, Neut % (Auto) 58.5, Lymph % (Auto) 29.8, [place] % (Auto) 8.7, Eos % (Auto) 2.8, Baso % (Auto) 0.3, Neut # (Auto) 5.2, Lymph # (Auto) 2.7, [place] # (Auto) 0.8, Eos # (Auto) 0.3, Baso # (Auto) 0.0, Sodium 142, Potassium 2.7 L* D, Chloride 100, Carbon Dioxide 29, Anion Gap 15.7 H, BUN 71 H, Creatinine 2.50 H, Estimated Creat Clear 38, Estimated GFR 21 L, Est GFR ( Amer) 25 L, Glucose 76, Calcium 9.4, Total Bilirubin 0.5, AST 50 H D, ALT 220 H D, Alkaline Phosphatase 120, Total Protein 8.1, Albumin 3.6 D, Globulin 4.5 H, Albumin/Globulin Ratio 0.8 L I & O for Last 24 hours: Intake & Output 11/26/22 11/27/22 11/28/22 11/29/22 23:59 23:59 23:59 23:59 Intake Total 732.333 / 018.393 4192 / 1020 900 / 900 Output Total 4575 / 4925 1275 / 1450 475 / 475 0 / 0 Balance -3842.667 / -4192.667 -255 / -430 425 / 425 0 / 0 Weight 88.706 kg 82.327 kg 80.422 kg 83.053 kg Constitutional Constitutional: cooperative *Routine HEENT Exam Head: Present normocephalic ENT: Present external ear normal *Routine Neck Exam Neck: Present supple; Absent tracheal deviation *Routine Respiratory Exam Respiratory: Present CTA bilaterally *Routine Cardiovascular Exam Cardiovascular: Present RRR, Normal S1 and Normal S2 *Routine Abdominal Exam Abdominal: Present soft; Absent distended *Routine Extremities Exam Comments: R foot stump with dressing that is c/d/i. L AKA *Routine Skin Exam Skin: Present warm; Absent rash Comments: stage 2 decubitus ulcer *Routine Neurological Exam Neurological: Present alert and oriented X3 Comments: She is conversational and responds to most of my questions appropriately. Assessment and Plan *Assessment and plan (1) STEMI (ST elevation myocardial infarction): Status: Acute Qualifiers: Involved coronary artery: unspecified coronary artery Qualified Code(s): I21.3 - ST elevation (STEMI) myocardial infarction of unspecified site Category: Medical Code(s): I21.3 - ST elevation (STEMI) myocardial infarction of unspecified site (2) Acute respiratory failure with hypoxia: Status: Acute Category: Medical Code(s): J96.01 - Acute respiratory failure with hypoxia (3) Acute hyperkalemia: Status: Acute Category: Medical Code(s): E87.5 - Hyperkalemia (4) AMAN (acute kidney injury): Status: Acute Category: Medical Code(s): N17.9
--- NOTE | 2022-11-29 09:35 | EXP.CARD.PN ---
Subjective Subjective Date: 11/29/22 Time: 08:00 Principal diagnosis: STEMI, systolic chf, cardiogenic shock Interval history: Patient sitting up on side of bed with no complaints this morning. Patient was extubated on 11/26. Heparin and milrinone drips discontinued on 11/25. Lasix was discontinued on 11/27. Morning labs reviewed Exam Data for Last 24 hours Vital signs and Labs for Last 24 Hours: Temp Pulse Resp BP Pulse Ox O2 Del Method O2 Flow Rate 97.6 F 72 19 104/78 L 100 Room Air 2 11/29/22 08:00 11/29/22 08:00 11/29/22 08:00 11/29/22 08:00 11/29/22 08:00 11/29/22 09:00 11/27/22 14:00 FiO2 40 11/27/22 09:00 Laboratory Results - last 24 hr 11/28/22 04:28: POC Glucose 107 11/28/22 07:44: NT-Pro-B Natriuret Pep 59066 H 11/28/22 11:13: POC Glucose 88 11/28/22 16:48: POC Glucose 89 11/28/22 21:30: POC Glucose 99 11/28/22 23:06: POC Glucose 104 11/29/22 05:13: POC Glucose 87 11/29/22 05:34: WBC 8.9, RBC 5.06, Hgb 13.7, Hct 44.1, MCV 87.3, MCH 27.0, MCHC 31.0 L, RDW 15.2, Plt Count 259, MPV 9.2, Neut % (Auto) 58.5, Lymph % (Auto) 29.8, [place] % (Auto) 8.7, Eos % (Auto) 2.8, Baso % (Auto) 0.3, Neut # (Auto) 5.2, Lymph # (Auto) 2.7, [place] # (Auto) 0.8, Eos # (Auto) 0.3, Baso # (Auto) 0.0, Sodium 142, Potassium 2.7 L* D, Chloride 100, Carbon Dioxide 29, Anion Gap 15.7 H, BUN 71 H, Creatinine 2.50 H, Estimated Creat Clear 38, Estimated GFR 21 L, Est GFR ( Amer) 25 L, Glucose 76, Calcium 9.4, Total Bilirubin 0.5, AST 50 H D, ALT 220 H D, Alkaline Phosphatase 120, Total Protein 8.1, Albumin 3.6 D, Globulin 4.5 H, Albumin/Globulin Ratio 0.8 L I & O for Last 24 hours: Intake & Output 11/26/22 11/27/22 11/28/22 11/29/22 23:59 23:59 23:59 23:59 Intake Total 732.333 / 669.304 8742 / 1020 900 / 900 Output Total 4575 / 4925 1275 / 1450 475 / 475 0 / 0 Balance -3842.667 / -4192.667 -255 / -430 425 / 425 0 / 0 Weight 195 lb 9 oz 181 lb 8 oz 177 lb 4.8 oz 183 lb 1.6 oz Constitutional Constitutional: no acute distress *Routine Respiratory Exam Respiratory: Present CTA bilaterally and symmetric chest movement *Routine Cardiovascular Exam Cardiovascular: Present RRR, Normal S1 and Normal S2 *Routine Abdominal Exam Abdominal: Present soft and normoactive bowel sounds; Absent tenderness *Routine Extremities Exam Extremities: Present full ROM and normal capillary refill; Absent edema *Routine Skin Exam Skin: Present intact, dry and warm Detailed Neck Exam: Thyroids Thyroid: Absent bruit Progress Note: A&P Assessment and plan (1) STEMI (ST elevation myocardial infarction): Status: Acute (2) Acute respiratory failure with hypoxia: Status: Acute (3) Acute hyperkalemia: Status: Acute (4) AMAN (acute kidney injury): Status: Acute (5) Wound of foot: Status: Acute Assessment and Plan Assessment and Plan for All Diagnoses:: Coronary artery disease Status post STEMI Cardiogenic shock-resolved -[facility] 11/2022:JAMIA placed to the saphenous vein graft to the circumflex artery -Continue DAPT therapy with aspirin and Plavix. Will add BB and high dose statin when LFTs and BP normalize HFrEF NYHA II-III Grade 2 diastolic dysfunction Moderate MR -Echo 11/24/2022: Moderately dilated LV with biventricular failure severe reduced ejection fraction of 15% with moderate RV dysfunction. Anterior, lateral, anteriorlateral akinesis noted. Apical akinesis noted. grade 2 diastolic dysfunction mild to moderate MR. Will need LifeVest prior to discharge -Patient was initially diuresed with Lasix IV and then transitioned to oral. Primary service stopped Lasix on 11/27 due to negative balance of 1.5 L. Bumex 2mg PO daily was resumed yesterday morning. Patient reports no urine output since yesterday afternoon. No urine output has been documented. Did diurese after morning bumex today greater than 800mls. Continue bumex 2mg p.o. daily and Aldactone 50mg daily. We will add Entresto and Jardiance after creatinine stabi
--- NOTE | 2022-11-29 09:42 | SW/DCPLANNER ---
Addendum entered by [facility] 12/01/22 07:30: [facility] is not able to accept this patient. Patient information[facility] Addendum entered by [facility] 11/30/22 15:47: Nathalie w/ [facility] stated they can not service this patient due to pay county taxed to [facility]. Patient is agreeable for patient information to be faxed to [facility]. Patient information/order has been faxed to [facility] at this time. Addendum entered by [facility] 11/30/22 15:11: Per this patient now prefers to return home w/ home health services rather than SNF at [facility]. Patient prefers to use [facility]: patient information/order has been faxed. Patient will discharge home today. Addendum entered by [facility] 11/30/22 09:10: Lyudmila w/ [facility] is able to accept this patient and precert will be started this AM. Addendum entered by [facility] 11/29/22 16:02: Patient is also interested in [facility]: patient information has also been faxed to this facility. Addendum entered by [facility] 11/29/22 15:45: Gabby w/ [facility] is not able to accept this patient. Patient is interested in [facility]: patient information has been faxed. Addendum entered by [facility] 11/29/22 13:54: Patient is NOT interested in placement at [facility] and would prefer [facility] in [place]. Patient information has been faxed to Jp w/ [facility]. Addendum entered by [facility] 11/29/22 12:44: Per patient is now interested in placement at [facility]. Patient information has been faxed to Annita kapadia/ [facility]. I will continue to follow up with MD emely and [facility]. Original Note: I spoke with this patient regarding plans once medically stable for discharge. Patient stated that she resides at home w/ her mother and a roommate. PT evaluated patient and recommended SNF level of care. After a lengthy discussion w/ patient regarding placement vs home health services: patient has decided to return home w/ family assistance and home health. Patient stated that she is not interested in placement at this time. I will continue to follow up with this patient until medically stable for discharge. I will set up home health services once she is ready for discharge. Discharge date is unknown at this time.
--- NOTE | 2022-11-29 12:19 | HMH.OTEV ---
OT Inpatient Evaluation Rehab OT IP Evaluation Start: 11/28/22 10:52 Freq: ONCE Status: Active Protocol: Document 11/29/22 12:11 KAELASONIA (Rec: 11/29/22 12:19 PATTI [id number]) Rehab OT IP Assessment Subjective History Pt. is a 42 years of age female w/ a PMH of pad, cad s/ p cabg and cardiac stents, hypertension, hyperlipidemia, DM-II, hypothyroidism, RLE digit amputation, and LLE AK amputation who presents to [facility] 2nd floor Inpatient setting for the Physical Therapy Inpatient initial evaluation this date(11/28/22) w/ c/o chest pain and not being able to breathe. Pt. reports not being able to breathe Tuesday(11/25/31) morning when she admitted herself to the hospital via EMS services. Pt. reports she hasn't been on supplemental O2 at home for 6 months. Pt. reports she has been more sedentary the past 3 months and has noticed muscle wasting in her RLE and an increase in overall weakness. Pt. reports needing assistance from her mother w/ ADLs including slide board transfer to/from bed side commode and bed d/t weakness. Pt. reports she lives in a 1- story home, owns a W/C, bed side commode, walker, and a prosthetic for the LLE. Pt. reports she hasn't used the prosthetic since she got it because it doesn't fit. Pt. also reports being treated for a wound located on the dorsal surface of the LLE foot. Patient lives at home with mother and has a room mate. Patient stated she prefers to use a standard walker vs RW. Patient able to transfer independently and has a ramp to enter home. Patient h
[2022-11-29 13:17] LABS: POC Glucose,Bedside 108 (70-110)
--- NOTE | 2022-11-29 14:14 | DIET.NUTRFU ---
Changed diet to diabetic diet, patient has hx of DM, uncontrolled at home. Typically does not follow diet at home and slows the healing procress. She has skin breakdown to foot and red area to bottom. With decreased mobility she is at risk for further breakdown. BS that couple days have been <108. Ins[address]. Will offer diabetic education prior to discharge
[2022-11-29 21:39] LABS: POC Glucose,Bedside 197 (70-110)
--- NOTE | 2022-11-29 22:50 | PC.WOUNDNOTE ---
optifoam dsg placed on sacral area
[2022-11-29 23:17] LABS: POC Glucose,Bedside 173 (70-110)
[2022-11-30 00:02] VITALS: PULSE 75; PULSE 78
[2022-11-30 04:00] VITALS: BP 97/62; PULSE 64; RESP 19; TEMP 36.6; O2SAT 99; BMI 35.6
[2022-11-30 05:09] LABS: POC Glucose,Bedside 88 (70-110)
[2022-11-30 06:29] VITALS: PULSE 62
[2022-11-30 06:50] LABS: Chloride 102 mmol/L (98-107)
[2022-11-30 06:51] LABS: Potassium 3.5 mmoL/L (3.5-5.1); Sodium 138 mmol/L (136-145)
[2022-11-30 06:54] LABS: Anion Gap 13.5 mEq/L (5-15); Blood Urea Nitrogen 74 mg/dl (7-17); Calcium 8.9 mg/dl (8.4-10.2); Carbon Dioxide 26 mmol/L (22.0-30.0); Creatinine Clearance Estimated 39 mL/min (50-200); Estimated Glomerular Filt Rate 21 ml/min (>60); GFR (African American) 25 ML/MIN (>60); Glucose 86 mg/dl (74-100); Magnesium 2.1 mg/dl (1.6-2.3)
[2022-11-30 08:00] VITALS: BP 114/71; PULSE 83; RESP 17; TEMP 36.4; O2SAT 96
--- NOTE | 2022-11-30 08:17 | EXP.DC.SUM ---
General Admission date:: 11/24/22 Discharge date: 11/30/22 HPI HPI HPI: 42 year old female with a past medical history of pad, cad s/p cabg and stents, htn, hld, diabetes mellitus, hypothyroidism, morbid obesity. She presented to the ED via EMS with chest pain; the patient was thought to have had a STEMI so was emergently taken to the [facility] for [facility] and had successful stenting of the saphenous vein graft to circumflex artery with 1 drug eluting stent. Currently she is intubated and sedated. Hospital Course Hospital Course Hospital Course: 42-year-old female who presented to the ER with STEMI. Taken to the [facility] and subsequently intubated. Gradually improved back to baseline mentation. Meeting criteria for discharge home. Problems addressed as follows: Coronary artery disease Status post STEMI Cardiogenic shock-resolved -[facility] 11/24/2022:JAMIA placed to the saphenous vein graft to the circumflex artery. Patient ended up on ventilator. Was on heparin and milrinone drips until 11/25. Extubated on 11/26. Continue dual antiplatelet therapy with aspirin and Plavix. No beta-rosario at this time due to acute heart failure. Statin held due to shock liver. Patient clinically improved with return to baseline mentation and returned to room air. Completed 5 days of empiric antibiotics. PT and OT evaluated, stable for discharge home with home health. After much discussion, patient lives with 2 caregivers. Comfortable going home with home health. Plan for close follow-up with cardiolog in 1 week. Will need CMP prior to follow-up to monitor liver function for possible initiation of statin. Will defer initiation of Jardiance, statin, beta-rosario follow-up. Cardiology meds include aspirin 81 mg daily, Plavix 75 mg daily, Bumex 2 mg daily, Imdur 20 mg 3 times a day, Aldactone 50 mg daily, Ranexa 1000 mg twice daily, and hydralazine 25 mg 3 times a day. HFrEF NYHA I-II Grade 2 diastolic dysfunction Moderate MR -Echo 11/24/2022: Moderately dilated LV with biventricular failure severe reduced ejection fraction of 15% with moderate RV dysfunction. Anterior, lateral, anteriorlateral akinesis noted. Apical akinesis noted. grade 2 diastolic dysfunction mild to moderate MR. Diuresed during admission. LifeVest placed at discharge. Acute on chronic renal failure -Creatinine Stable 2.5 on day of discharge. Recommend repeat CMP in 1 week. Hypokalemia-resolved -Potassium repleted during admission. Continue home diabetes regimen with Tresibs 60 units nightly Along with her short acting insulin 30 units 3 times a day. Continue home levothyroxine 200 mcg daily. Spent 40 minutes in discharge counseling, documentation, chart review, and direct care with patient. Exam Data for Last 24 hours Vital signs and Labs for Last 24 Hours: Temp Pulse Resp BP Pulse Ox O2 Del Method O2 Flow Rate 97.8 F 62 19 97/62 L 99 Room Air 2 11/30/22 04:00 11/30/22 06:29 11/30/22 04:00 11/30/22 04:00 11/30/22 04:00 11/30/22 06:26 11/27/22 14:00 FiO2 40 11/27/22 09:00 Laboratory Results - last 24 hr 11/29/22 13:00: POC Glucose 108 11/29/22 21:24: POC Glucose 197 H 11/29/22 23:04: POC Glucose 173 H 11/30/22 05:02: POC Glucose 88 11/30/22 06:10: Sodium 138, Potassium 3.5 D, Chloride 102, Carbon Dioxide 26, Anion Gap 13.5, BUN 74 H, Creatinine 2.50 H, Estimated Creat Clear 39, Estimated GFR 21 L, Est GFR ( Amer) 25 L, Glucose 86, Calcium 8.9, Magnesium 2.1 D I & O for Last 24 hours: Intake & Output 11/27/22 11/28/22 11/29/22 11/30/22 23:59 23:59 23:59 23:59 Intake Total 1020 / 1020 900 / 900 960 / 1080 120 / 120 Output Total 1275 / 1450 475 / 475 1050 / 1050 0 / 0 Balance -255 / -430 425 / 425 -90 / 30 120 / 120 Weight 82.327 kg 80.422 kg 83.053 kg 85.593 kg Constitutional Constitutional: no acute distress, obese, chronically ill appearing and cooperative *Routine HEENT Exam Head: Present normocephalic ENT: Present external
[2022-11-30 09:37] LABS: POC Glucose,Bedside 130 (70-110)
--- NOTE | 2022-11-30 10:22 | EXP.CARD.PN ---
Subjective Subjective Date: 11/30/22 Time: 08:30 Principal diagnosis: STEMI, systolic chf, cardiogenic shock Interval history: Doing well this morning. Patient sitting up on side of bed eating breakfast. Morning labs reviewed. Exam Data for Last 24 hours Vital signs and Labs for Last 24 Hours: Temp Pulse Resp BP Pulse Ox O2 Del Method O2 Flow Rate 97.6 F 83 17 114/71 96 Room Air 2 11/30/22 08:00 11/30/22 08:00 11/30/22 08:00 11/30/22 08:00 11/30/22 08:00 11/30/22 08:00 11/27/22 14:00 FiO2 40 11/27/22 09:00 Laboratory Results - last 24 hr 11/29/22 13:00: POC Glucose 108 11/29/22 21:24: POC Glucose 197 H 11/29/22 23:04: POC Glucose 173 H 11/30/22 05:02: POC Glucose 88 11/30/22 06:10: Sodium 138, Potassium 3.5 D, Chloride 102, Carbon Dioxide 26, Anion Gap 13.5, BUN 74 H, Creatinine 2.50 H, Estimated Creat Clear 39, Estimated GFR 21 L, Est GFR ( Amer) 25 L, Glucose 86, Calcium 8.9, Magnesium 2.1 D 11/30/22 09:24: POC Glucose 130 H I & O for Last 24 hours: Intake & Output 11/27/22 11/28/22 11/29/22 11/30/22 23:59 23:59 23:59 23:59 Intake Total 1020 / 1020 900 / 900 960 / 1080 480 / 480 Output Total 1275 / 1450 475 / 475 1050 / 1050 0 / 0 Balance -255 / -430 425 / 425 -90 / 30 480 / 480 Weight 181 lb 8 oz 177 lb 4.8 oz 183 lb 1.6 oz 188 lb 11.2 oz Constitutional Constitutional: no acute distress *Routine Respiratory Exam Respiratory: Present CTA bilaterally and symmetric chest movement *Routine Cardiovascular Exam Cardiovascular: Present RRR, Normal S1 and Normal S2 *Routine Abdominal Exam Abdominal: Present soft and normoactive bowel sounds; Absent tenderness *Routine Extremities Exam Extremities: Present full ROM; Absent edema *Routine Skin Exam Skin: Present intact, dry and warm Detailed Neck Exam: Thyroids Thyroid: Absent bruit Progress Note: A&P Assessment and plan (1) STEMI (ST elevation myocardial infarction): Status: Acute (2) Acute respiratory failure with hypoxia: Status: Acute (3) Acute hyperkalemia: Status: Acute (4) AMAN (acute kidney injury): Status: Acute (5) Wound of foot: Status: Acute Assessment and Plan Assessment and Plan for All Diagnoses:: Coronary artery disease Status post STEMI Cardiogenic shock-resolved -[facility] 11/2022:JAMIA placed to the saphenous vein graft to the circumflex artery -Continue DAPT therapy with aspirin and Plavix. No BB currently due to acute heart failure. no statin due to shock liver. HFrEF NYHA I-II Grade 2 diastolic dysfunction Moderate MR -Echo 11/24/2022: Moderately dilated LV with biventricular failure severe reduced ejection fraction of 15% with moderate RV dysfunction. Anterior, lateral, anteriorlateral akinesis noted. Apical akinesis noted. grade 2 diastolic dysfunction mild to moderate MR. - LifeVest prior to discharge Acute on chronic renal failure -Creatinine 2.5 this morning and stable, continue to monitor Hypokalemia-resolved -Potassium 3.5 CV summary 11/30/2022: cv stable for dc home. Please continue below listed medications. Have patient follow-up in cardiology clinic in 1 week for recheck. Will need labs prior to follow-up including LFTs. Consider addition of jardiance, statin, and BB at follow up based on bp and labs. Lifevest prior to dc home. Cardiac meds Aspirin 81 mg p.o. daily Plavix 75 mg p.o. daily Bumex 2 mg p.o. daily Imdur 20 mg 3 times daily Aldactone 50 mg p.o. daily Ranexa 1000 mg p.o. twice daily Hydralazine 25 mg p.o. 3 times daily Consider addition of Jardiance, BB, and statin at follow up based on labs and tolerance
[2022-11-30 11:20] VITALS: PULSE 74
[2022-11-30 12:23] LABS: POC Glucose,Bedside 111 (70-110)
--- NOTE | 2022-11-30 13:12 | DIET.NUTRFU ---
This Rd spoke to patient about discharge diet, encouraged her to get more prtein in to promote healing of her foot and sacral wound. Typically she has been eating 1 meal/day and then drinking high sugary items for the remainder of calorie intake. RD explained she needed 3 routine meals/day with protein in all meals. Provided a handout with protein suggestions and serving sizes. Also educated her that BS need to be well controlled for optimal healing, encouraged her to eat her carb intake through food items instead of sugary drinks like soda and tea. She had a slushy on bedside table along with a coke during interview. Provided handout for diabetic diet and also recommended if she needed more follow-up to have Ambreen consult dietitian at next apt.
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
[2022-11-30 14:51] LABS: Microscopic, Urine URINE MICROSCOPIC (MICROSCOPIC)
[2022-11-30 15:00] LABS: Appearance,Urine CLEAR (Clear); Bilirubin,Urine Negative (Negative); Blood, Urine Negative (Negative); Color,Urine YELLOW (Yellow); Glucose,Urine (UA) Negative (Negative); Ketones,Urine Negative (Negative); Leukocyte Esterase,Urine TRACE (Negative); Nitrate,Urine Negative (Negative); Protein,Urine 2+ (Negative); Specific Gravity, Urine 1.025 (1.005-1.030); Urobilinogen,Urine 0.2 EU/dl (0.2)
[2022-11-30 15:36] LABS: Squamous Epithelial Cell,Urine Occasional #/hpf (0-5); WBC,Urine Occasional #/hpf (0-3)
[2022-11-30 15:37] LABS: Bacteria,Urine Trace /lpf; Calcium Oxalate Crystals,Urine Trace /lpf
[2022-11-30 16:00] VITALS: BP 106/70; PULSE 70; PULSE 72; RESP 18; TEMP 36.4; O2SAT 100
--- NOTE | 2022-12-01 09:47 | P.CONPHA_ITS ---
PHA [employer] Inspector Discharge Med Gunnery/Ordnance Officer: Sarita Elizabeth Gonzales has received discharge medication counseling on the following medications: ASPIRIN 81 MG DAILY PLAVIX 75 MG DAILY LISINOPRIL 10 MG DAILY CRESTOR AND BISOPROLOL STOPPED. TO BE ADDRESSED ON FOLLOW UP WITH CARDIOLOGY.
--- NOTE | 2022-12-02 13:49 | CARE MANAGER ---
Addendum entered by Vi Walter RN 12/08/22 13:44: Dori Joseph NP provided different phone number for mother. Attempted to contact that as well. No VM option. Addendum entered by Vi Walter RN 12/02/22 14:03: Sent letter in mail to reach out to patient regarding home health versus outpatient. Original Note: Attempted to contact patient to discuss home health and not having a nurse to come see as well as status post discharge. No answer or VM option on patient's numbers and left a message on patient's mother's phone. x 2 days
== END 2022-11-30 18:41 | disposition home health service (06) | DRG 248 ==
LOC: ER 07:23 → 2ND 08:33
PROVIDERS: Internal Medicine; Internal Medicine Adolescent Medicine; Internal Medicine Pulmonary Disease; Nurse Practitioner Family; Admitting Provider Internal Medicine; Emergency Provider Emergency Medicine; PCP Nurse Practitioner Family; Visit Provider Internal Medicine
PROC: 02H03DZ Insertion of Intraluminal Device into Coronary Artery, One Artery, Percutaneous Approach (ICD-10-PCS; principal; 2022-11-24 06:50)
DX: I21.4 Non-ST elevation (NSTEMI) myocardial infarction (principal); I50.21 Acute systolic (congestive) heart failure; J96.01 Acute respiratory failure with hypoxia; R57.0 Cardiogenic shock; N17.9 Acute kidney failure, unspecified; E87.20 Acidosis, unspecified; I13.0 Hypertensive heart and chronic kidney disease with heart failure and stage 1 through stage 4 chronic kidney disease, or unspecified chronic kidney disease; I73.9 Peripheral vascular disease, unspecified; E78.5 Hyperlipidemia, unspecified; Z95.5 Presence of coronary angioplasty implant and graft; E87.5 Hyperkalemia; Z79.4 Long term (current) use of insulin; E11.51 Type 2 diabetes mellitus with diabetic peripheral angiopathy without gangrene; F17.210 Nicotine dependence, cigarettes, uncomplicated; E66.01 Morbid (severe) obesity due to excess calories; Z68.35 Body mass index [BMI] 35.0-35.9, adult; I25.2 Old myocardial infarction; I25.110 Atherosclerotic heart disease of native coronary artery with unstable angina pectoris; E11.22 Type 2 diabetes mellitus with diabetic chronic kidney disease; N18.9 Chronic kidney disease, unspecified; I25.5 Ischemic cardiomyopathy; Z89.612 Acquired absence of left leg above knee; Z71.6 Tobacco abuse counseling; I34.0 Nonrheumatic mitral (valve) insufficiency
CPT/HCPCS: 31500; 94002; 36410; 36415; 36569; 71045; 80048; 80053; 80061; 80076; 81001; 82009; 82803; 82962; 83605; 83735; 83880; 84100; 84145; 84484; 85007; 85025; 85347; 85610; 85730; 87070; 87205; 92610; 92941; 93005; 93306; 93455; 94003; 94640; 94761; 97161; 97165; 97530; 99152; 99153; 99291; C1725; C1769; C1876; C1894; C9606; J0456; J0696; J1644; J2260; J2704; Q9967

== ENCOUNTER → 2022-12-09 10:54 | Outpatient (CLI) | payer MEDICARE, SELFPAY ==
[2022-12-09 11:39] LABS: Blood Urea Nitrogen 22 mg/dl (7-17); Estimated Glomerular Filt Rate 31 ml/min (>60); GFR (African American) 37 ML/MIN (>60)
[2022-12-09 11:46] LABS: Basophils % 0.3 % (0.1-2.0); Eosinophils # 0.3 K/mm3 (0.0-0.4); Eosinophils % 4.1 % (0.1-12.0); Hematocrit 37.1 % (37.0-47.0); Hemoglobin 11.8 g/dL (12.2-16.2); Lymphocytes % 25.6 % (10-50); Mean Corpuscular HGB Conc 31.7 g/dL (31.8-35.4); Mean Corpuscular Hemoglobin 28.2 pg (27.0-31.2); Mean Corpuscular Volume 88.8 fl (81-99); Mean Platelet Volume 9.2 fl (7.4-10.4); Monocytes # 0.3 K/mm3 (0.1-1.0); Monocytes % 4.5 % (1.7-9.3); Neutrophils # 5.1 K/mm3 (1.8-7.8); Neutrophils % 65.6 % (37.0-80.0); Platelet Count 307 K/mm3 (142-424); Red Blood Count 4.18 M/mm3 (4.20-5.40); Red Cell Distribution Width 15.3 % (11.5-17.5); White Blood Count 7.7 K/mm3 (4.8-10.8)
[2022-12-09 13:06] LABS: Alanine Aminotransferase 23 U/L (12-78); Albumin Level 3.5 g/dl (3.5-5.0); Alkaline Phosphatase 95 U/L (38-126); Anion Gap 17.1 mEq/L (5-15); Aspartate Amino Transferase 20 U/L (14-36); Blood Urea Nitrogen 22 mg/dl (7-17); Calcium 8.5 mg/dl (8.4-10.2); Carbon Dioxide 21 mmol/L (22.0-30.0); Chloride 106 mmol/L (98-107); Estimated Glomerular Filt Rate 31 ml/min (>60); GFR (African American) 37 ML/MIN (>60); Globulin 3.6 g/dL (1.3-3.2); Glucose 262 mg/dl (74-100); Potassium 4.1 mmoL/L (3.5-5.1); Sodium 140 mmol/L (136-145); Total Protein,Serum 7.1 g/dl (6.3-8.2)
[2022-12-09 13:09] LABS: Bilirubin,Total 0.1 mg/dl (0.2-1.3)
--- NOTE | 2022-12-09 14:00 | XR_ITS ---
FINAL REPORT CLINICAL HISTORY: Right humerus pain after having picc line removed last week. FINDINGS: Right humerus Two views were obtained. There is no acute fracture or dislocation. The joint spaces appear normal. No soft tissue abnormality is identified. There is no evidence of PICC line or residual foreign body. IMPRESSION: No acute process. Reviewed, Interpreted and Dictated by Darío Lee MD Transcribed by Wanda Issa Authenticated and [facility]
--- NOTE | 2022-12-09 14:00 | XR_ITS ---
FINAL REPORT CLINICAL HISTORY: Right shoulder pain after picc line was removed last week per patient. FINDINGS: Right shoulder Three views were obtained. There is no acute fracture or dislocation. The joint spaces appear normal. No soft tissue abnormality is identified. Note is made of overlying artifact. IMPRESSION: No acute process. Reviewed, Interpreted and Dictated by Darío Lee MD Transcribed by Wanda Issa Authenticated and [facility]
[2022-12-09 16:16] LABS: Hemoglobin A1C 7.6 % (4.0-6.0)
== END ==
PROVIDERS: PCP Nurse Practitioner Family; Visit Provider Internal Medicine
DX: E11.40 Type 2 diabetes mellitus with diabetic neuropathy, unspecified (principal)
CPT/HCPCS: 36415; 73030; 73060; 80053; 82565; 83036; 84443; 84520; 85025

== ENCOUNTER → 2022-12-09 13:11 | Outpatient (POV) | payer MEDICARE, SELFPAY ==
--- NOTE | 2022-12-09 13:50 | EXP.PAIN.SOA ---
[facility] Pain Management SOAP Note Subjective:: Patient is a pleasant 42-year-old female who presents today for medication refill and follow-up.? We are currently treating the patient for chronic pain syndrome with peripheral artery disease, right knee pain, lower left [id number] amputation, low back pain with lumbar radiculopathy symptoms.? Today the patient rates her pain a 5 out of 10.? From our last visit she does state that she ended up having a heart attack approximately 2 weeks ago and that she was diagnosed with congestive heart failure. Patient states that she was brought into the [facility] and had a stent placed and that she was put on a vent. Patient states that she did spend about a week in the hospital and that she has been home now 1 week. Patient does have a monitor on currently 01/11 with the defibrillator available. Patient states that she is supposed to have this on for the next 90 days. She does state that Carlyle changed her blood pressure medications and added some additional medications including Crestor. Patient does state that her previous chest pain has improved but is still present with some radiating symptoms to her jaw. Patient does also state that her foot continues to do well and is healing. She states that she has not had any follow-up appointments with this provider due to everything that went on the last 2 weeks. She is currently managed with oxycodone 15 mg 6 times a day, pregabalin 150 mg 3 times a day, clonazepam 1 mg daily, fentanyl 25 mcg every 72 hours.? Patient denies any side effects from these medications.? Patient is also prescribed compounding cream that she states she just ordered yesterday. Patient does also state that she had a PICC line in her right upper arm and also had potassium runs through its and that it did end up clotting off and was removed. Patient does state that she continues to have pain in this upper extremity with limited range of motion. Patient does state that the doctor thought she had a frozen shoulder possibly and recommended she continue to work with it. Her Carrillo is [id number]. Its been reviewed and appropriate. Review of Systems: General: No recent weight changes, no fever, no sleep disturbances Respiratory: No cough, no shortness of air, no recurring pulmonary infections Cardiovascular/peripheral vascular: No chest pain, no palpitations,? no edema, no shortness of breath Gastrointestinal: No new onset incontinence, normal bowel movements reported Genitourinary: No new onset incontinence Musculoskeletal: Low back pain, right shoulder, upper arm pain, chest pain Psychiatric: [Normal mood/affect] Neurological: [Denies weakness in extremities], [denies balance issues] Objective:: Physical Exam: General: Alert and oriented x3, no acute distress, pleasant and cooperative Lungs: Respirations even and unlabored, symmetrical chest expansion Eyes: PERRL Musculoskeletal: Flexion and extension of lumbar [spine] somewhat guarded secondary to pain, [antalgic gait noted] Neurological: Speech clear, no gross sensory deficit Assessment:: Degenerative disc disease of lumbar spine with lumbar radiculopathy symptoms, chronic pain syndrome with peripheral artery disease, right knee pain, lower left [id number] amputation Plan:: Patient is experiencing chronic pain at multiple locations. Patient does have new pain in her right upper arm and right shoulder. I have counseled the patient that I will order x-ray imaging and plan on in future ordering more advanced imaging. We will proceed forward based off her cardiac improvement. I will refill her fentanyl 25 mcg patches every 72 hours, pregabalin 150 mg 3 times a day, clonazepam 1 mg daily and oxycodone 15 mg 6 times a day and provide a 1 month supply of this medication. Patient will return to clinic in 1 month for reevaluation of symptoms and plan of care. Patient has been advised of risks of oversedation with the prescribed medication. Lory has been of
[2022-12-09 15:48] VITALS: BP 154/90; PULSE 88; RESP 18; O2SAT 100; BMI 35.4
== END | disposition home or self-care (01) ==
PROVIDERS: PCP Nurse Practitioner Family; Visit Provider Nurse Practitioner Family
DX: M51.16 Intervertebral disc disorders with radiculopathy, lumbar region (principal); G89.4 Chronic pain syndrome; I73.9 Peripheral vascular disease, unspecified; M25.561 Pain in right knee; Z89.612 Acquired absence of left leg above knee; M25.511 Pain in right shoulder
CPT/HCPCS: 36415; 73030; 73060; 80053; 82565; 83036; 84443; 84520; 85025; 99212; G0463